=== PATIENT | male | born 1965 | race Caucasian/White ===

== ENCOUNTER 2016-10-23 09:23 | Emergency (ER) | payer MEDICAID ==
[~2016-10-23] VITALS: Ht 175.3 cm; Wt 81.7 kg
[~2016-10-23 09:23] MED LIST: ACHD5005 PO; ACYC800T PO; ALBU17AE23 IH; AMOX500C2 PO; ATEN100T88 PO; BLOOD PRESSURE PILL; CIPR500S2 PO; CLAR-19 PO; CYCL10TA45 PO; DCS100C PO; HC2.5C30 EXT; HSCO125 PO; HYDR-2890 PO; HYDR-34 PO; HYDR-3812 PO; HYDR1TAB86 PO; HYDROCODONE 5/500; HYOS0.1217 PO; HYOS0.127 SL; IBUP-1773 PO; IBUP-1780 PO; INHALER; LEVO750T6 PO; LORA10TA7 PO; MELO-195 PO; METR500T PO; NAPR-243 PO; OLOP5DRO7 OU; OMEP-10 PO; PAIN PILL; PANT40TA PO; PANT40TA2 PO; PHEN100C11 PO; PHEN100T26 PO; PHEN200T27 PO; PNT40TEC PO; PRD20T PO; RT-ALBUINH IH; RT-ALBUINH INH; SCR1T PO; SULF-222 PO; SULF1TAB38 PO; TRAM50TA2 PO; TRAZ150T42 PO; TRM50TRX; [UNRECOGNIZED DRUG - REMARK]
--- OUTSIDE RECORDS SUMMARY | 2016-10-23 09:30 | XMS REPORT | Continuity of Care Document ---
Author Author [facility] Organization [facility] Address Unknown Phone Unavailable Care Team Providers Care Electrical Tryout Person Name Role Phone Database, Not In PCP Unavailable Source Comments Some departments are not documenting in the electronic medical record. If you do not see the information that you expected, contact Release of Information in the Health Information Management department at [phone] for further assistance in locating additional records.[facility] Active Allergies and Adverse Reactions Not on File Current Medications Not on file Active Problems Not on file Social History Tobacco Use Types Packs/Day Years Used Date Never Assessed Plan of Care Health Maintenance Due Date Last Done Comments Physical (Comprehensive) 1973 Exam Pertussis Vaccine 1977 Tetanus Vaccine 1983 Influenza Vaccine 05/25/2015 Results from Last 3 Months Not on file
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
[2016-10-23] MEDS ORDERED: DICL50TA4 PO (10:48)
[2016-10-23 10:55] VITALS: BP 142/98
== END 2016-10-23 10:54 | disposition home or self-care (01) ==
LOC: EDUNIT# 09:23 → ER 09:26
DX: R51 Headache (principal); H70.12 Chronic mastoiditis, left ear; I10 Essential (primary) hypertension; J44.9 Chronic obstructive pulmonary disease, unspecified; F17.210 Nicotine dependence, cigarettes, uncomplicated; Z79.899 Other long term (current) drug therapy
CPT/HCPCS: 70450

== ENCOUNTER 2017-04-28 13:37 | Emergency (ER) | payer MEDICAID ==
[~2017-04-28] VITALS: Ht 175.3 cm; Wt 74.8 kg
[~2017-04-28 13:37] MED LIST changes: +DICL50TA4 PO
[2017-04-28] MEDS ORDERED: KETOROLAC 60 MG/2 ML VIAL IM ONE (14:00)
[2017-04-28 14:04] LABS: BILIRUBIN,URINE NEGATIVE (NEGATIVE); KETONES,URINE NEGATIVE (NEGATIVE); LEUKOCYTE ESTERASE ,URINE 1+ (NEGATIVE); NITRITE,URINE NEGATIVE (NEGATIVE); PH,URINE 6 (5-9); PROTEIN,URINE NEGATIVE (NEGATIVE); UROBILINOGEN,URINE NORMAL (NORMAL)
[2017-04-28 14:08] LABS: BASOPHILS # (AUTO) 0.1 10^3/uL (0.0-0.1); BASOPHILS % (AUTO) 1 % (0-10); EOSINOPHILS # (AUTO) 0.1 10^3/uL (0.0-0.3); EOSINOPHILS % (AUTO) 1 % (0-10); LYMPHOCYTES # (AUTO) 1.8 X 10^3 (1.0-4.0); LYMPHOCYTES % (AUTO) 29 % (12-44); MEAN CORPUSCULAR HEMOGLOBIN 32 PG (25-34); MEAN CORPUSCULAR HGB CONC 34 G/DL (32-36); MEAN CORPUSCULAR VOLUME 95 FL (80-99); MEAN PLATELET VOLUME 9.9 FL (7.4-10.4); MONOCYTES # (AUTO) 0.7 X 10^3 (0.0-1.0); MONOCYTES % (AUTO) 11 % (0-12); NEUTROPHILS # (AUTO) 3.6 X 10^3 (1.8-7.8); NEUTROPHILS % (AUTO) 58 % (42-75); PLATELET COUNT 207 10^3/uL (130-400); RED BLOOD COUNT 5.08 10^6/uL (4.35-5.85); RED CELL DISTRIBUTION WIDTH 13.5 % (10.0-14.5); WHITE BLOOD COUNT 6.2 10^3/uL (4.3-11.0)
[2017-04-28 14:20] LABS: WBC,URINE 0-2 /HPF
[2017-04-28 14:25] LABS: ALANINE AMINOTRANSFERASE 17 U/L (0-55); ALBUMIN 4.3 GM/DL (3.2-4.5); ANION GAP 10 MMOL/L (5-14); ASPARTATE AMINO TRANSFERASE 19 U/L (5-34); BILIRUBIN,TOTAL 0.6 MG/DL (0.1-1.0); BLOOD UREA NITROGEN 11 MG/DL (7-18); BUN/CREATININE RATIO 13; CALCIUM 9.6 MG/DL (8.5-10.1); CARBON DIOXIDE 27 MMOL/L (21-32); CHLORIDE 101 MMOL/L (98-107); CREATININE SERUM 0.84 MG/DL (0.60-1.30); GFR ESTIMATED > 60; GLUCOSE 108 MG/DL (70-105); POTASSIUM 4.1 MMOL/L (3.6-5.0); SODIUM 138 MMOL/L (135-145); TOTAL PROTEIN 7.1 GM/DL (6.4-8.2)
--- NOTE | 2017-04-28 14:53 | Diagnostic Imaging Report ---
PROCEDURE: CT urinary tract, rule out kidney stone. TECHNIQUE: Multiple contiguous axial images were obtained through the abdomen and pelvis without the use of intravenous contrast. INDICATION: Right-sided abdominal pain. COMPARISON: 05/22/2011. FINDINGS: Benign liver cysts are seen in the left hepatic lobe. The lung bases are clear. The gallbladder, spleen, pancreas, adrenal glands, kidneys and vascular structures are grossly normal. The course and caliber of the large and small bowel is normal. The appendix is not identified. However, there are no obvious inflammatory changes in the right lower quadrant. The distal ureters and urinary bladder are normal. The prostate is not enlarged. Osseous structures are grossly unremarkable. IMPRESSION: No acute abnormalities within the abdomen or pelvis. Specifically no renal calculi. Dictated by: Dictated on workstation # [id number]
[2017-04-28] MEDS ORDERED: DICL50TA4 PO ×2 (15:03→15:21)
[2017-04-28] MEDS ORDERED: METH-313 PO ×2 (15:03→15:21)
--- NOTE | 2017-04-28 15:04 | ED Back Pain ---
General Chief Complaint: Abdominal/GI Problems Stated Complaint: R SIDE PAIN, [facility] Nursing Triage Note: ADM TO ED C/O R FLANK PAIN FOR 1 MONTH. WAS SEEN BY [facility] TODAY AND TOLD TO COME TO ER. Nursing Sepsis Screen: No Definite Risk Source of Information: Patient, RN Notes Reviewed Exam Limitations: No Limitations History of Present Illness Time Seen by Provider: 13:42 Initial Comments Patient presents to the ED c/ c/o right flank pain x 1 month. Patient states his PCP @ [facility] sent him to the ED to be evaluated for a kidney stone. Patient unaware of any injury. No known fever. Patient not the best historian. Timing/Duration: Other (1 month) Severity: Severe Pain/Injury Location: Back (right flank) Radiation: Other (none) Method of Injury: Unknown Modifying Factors: Improves With Other (none) Associated Symptoms: denies symptoms Allergies and Home Medications Allergies Coded Allergies: tramadol (Unverified Allergy, Unknown, 02/11/14) Home Medications Albuterol Sulfate 18 Gm Hfa.aer.ad, 2 PUFF INH QID PRN for SHORTNESS OF BREATH, (Reported) Albuterol Sulfate 8.5 Gm Hfa.aer.ad, 1-2 PUFF IH Q4H PRN for WHEEZING, #1 Ref 1 Prescribed by: DUGLAS VILLASENOR on 08/31/16 0930 Diclofenac Potassium 50 Mg Tablet, 50 MG PO Q8H PRN for flank pain, #30 Ref 0 Prescribed by: MAXINE MAGANA on 04/28/17 1503 Diclofenac Potassium 50 Mg Tablet, 50 MG PO Q6H PRN for HEADACHE, #30 Ref 0 Prescribed by: MAXINE MAGANA on 04/28/17 1521 Loratadine 10 Mg Tablet, 10 MG PO DAILY, (Reported) Methocarbamol 750 Mg Tablet, 1,500 MG PO TID PRN for flank pain, #60 Ref 0 Prescribed by: MAXINE MAGANA on 04/28/17 1521 Olopatadine HCl 5 Ml Drops, 1 DROP OU BID, (Reported) Phenytoin Sodium Extended 100 Mg Capsule, 300 MG PO DAILY, #42 Prescribed by: CELIA URIOSTEGUI on 07/06/16 1334 Prednisone 20 Mg Tab, 40 MG PO DAILY, #10 Prescribed by: DUGLAS VILLASENOR on 08/31/16 0930 Constitutional: see HPI Musculoskeletal: see HPI, back pain (right flank) All Other Systems Reviewed Negative Unless Noted: Yes Past Yictfok-Tbbuzb-Xmqfag Hx Patient Social History Alcohol Use: Past History Recreational Drug Use: Yes (TOBACCO) Smoking Status: Current Everyday Smoker Type Used: Cigarettes Recent Foreign Travel: No Contact w/Someone Who Travel: No Recent Infectious Disease Expo: No Recent Hopitalizations: No Immunizations Up To Date Date of Pneumonia Vaccine: Jul 06, 2011 Date of Influenza Vaccine: Jul 06, 2016 Seasonal Allergies Seasonal Allergies: Yes Surgeries HX Surgeries: Yes (POOR HISTORIAN) Surgeries: Abdominal Respiratory Hx Respiratory Disorders: Yes Respiratory Disorders: Asthma, COPD Cardiovascular Hx Cardiac Disorders: Yes Cardiac Disorders: Hypertension Neurological Hx Neurological Disorders: No Reproductive System Hx Reproductive Disorders: No Genitourinary Hx Genitourinary Disorders: No Gastrointestinal Hx Gastrointestinal Disorders: Yes (history of H. pylori) Gastrointestinal Disorders: Hemorrhoids Musculoskeletal Hx Musculoskeletal Disorders: No Endocrine Hx Endocrine Disorders: No HEENT HX ENT Disorders: No Cancer Hx Cancer: No Psychosocial Hx Psychiatric Problems: No Integumentary HX Skin/Integumentary Disorder: No Blood Transfusions Hx Blood Disorders: No Family Medical History Significant Family History: No Pertinent Family Hx Physical Exam Vital Signs Vital Sign - Last 12Hours 04/28/17 13:38 Temp 97.0 Pulse 88 Resp 18 B/P (MAP) 117/90 Pulse Ox 98 O2 Delivery Room Air Capillary Refill : Less Than 3 Seconds General Appearance: WD/WN, Other (no acute distress noted when he thinks no one is watching him, but jumps up and grabs his right side and leans over the ED cot,, or counter in apparent acute distress.) Cardiovascular: Regular Rate, Rhythm Respiratory: No Respiratory Distress Back: Other (markedly exaggerated response to palpation or percussion over his right flank that is non reproducible.) Neurologic/Psychiatric: Alert, Oriented x3, No Motor/Sensory Deficits, Normal Mood/Affect, Other (when asked if he was allergic to anything, he replied women. ) Skin: Normal Color, Warm/Dry Progress/Results/Core Measures Results/Orders Lab Results Laboratory Tests Test 04/28/17 13:59 04/28/17 14:01 Range/Units Urine Color YELLOW Urine Clarity CLEAR Urine pH 6 5-9 Urine Specific [place] 1.010 L 1.016-1.022 Urine Protein NEGATIVE NEGATIVE Urine Glucose (UA) NEGATIVE NEGATIVE Urine Ketones NEGATIVE NEGATIVE Urine Nitrite NEGATIVE NEGATIVE Urine Bilirubin NEGATIVE NEGATIVE Urine Urobilinogen NORMAL NORMAL MG/DL Urine Leukocyte Esterase 1+ H NEGATIVE Urine RBC (Auto) NEGATIVE NEGATIVE Urine RBC NONE /HPF Urine WBC 0-2 /HPF Urine Squamous Epithelial Cells NONE /HPF Urine Crystals NONE /LPF Urine Bacteria NEGATIVE /HPF Urine Casts NONE /LPF Urine Mucus NEGATIVE /LPF Urine Culture Indicated NO White Blood Count 6.2 4.3-11.0 10^3/uL Red Blood Count 5.08 4.35-5.85 10^6/uL Hemoglobin 16.1 13.3-17.7 G/DL Hematocrit 48 40-54 % Mean Corpuscular Volume 95 80-99 FL Mean Corpuscular Hemoglobin 32 25-34 PG Mean Corpuscular Hemoglobin Concent 34 32-36 G/DL Red Cell Distribution Width 13.5 10.0-14.5 % Platelet Count 207 130-400 10^3/uL Mean Platelet Volume 9.9 7.4-10.4 FL Neutrophils (%) (Auto) 58 42-75 % Lymphocytes (%) (Auto) 29 12-44 % Monocytes (%) (Auto) 11 0-12 % Eosinophils (%) (Auto) 1 0-10 % Basophils (%) (Auto) 1 0-10 % Neutrophils # (Auto) 3.6 1.8-7.8 X 10^3 Lymphocytes # (Auto) 1.8 1.0-4.0 X 10^3 Monocytes # (Auto) 0.7 0.0-1.0 X 10^3 Eosinophils # (Auto) 0.1 0.0-0.3 10^3/uL Basophils # (Auto) 0.1 0.0-0.1 10^3/uL Sodium Level 138 135-145 MMOL/L Potassium Level 4.1 3.6-5.0 MMOL/L Chloride Level 101 98-107 MMOL/L Carbon Dioxide Level 27 21-32 MMOL/L Anion Gap 10 5-14 MMOL/L Blood Urea Nitrogen 11 7-18 MG/DL Creatinine 0.84 0.60-1.30 MG/DL Estimat Glomerular Filtration Rate > 60 BUN/Creatinine Ratio 13 Glucose Level 108 H 70-105 MG/DL Calcium Level 9.6 8.5-10.1 MG/DL Total Bilirubin 0.6 0.1-1.0 MG/DL Aspartate Amino Transf (AST/SGOT) 19 5-34 U/L Alanine Aminotransferase (ALT/SGPT) 17 0-55 U/L Alkaline Phosphatase 63 40-136 U/L Total Protein 7.1 6.4-8.2 GM/DL Albumin 4.3 3.2-4.5 GM/DL My Orders Orders - MAXINE MAGANA DO Cbc With Automated Diff (04/28/17 13:50) Comprehensive Metabolic Panel (04/28/17 13:50) Ua Culture If Indicated (04/28/17 13:50) Ketorolac Injection (Toradol Injection) (04/28/17 14:00) Ct Abd/Pelvis Wo(Kidney Stone) (04/28/17 13:51) Im/Sub-Q Injection Non-Ab Ed (04/28/17 ) Medications Given in ED Vital Signs/I&O Vital Sign - Last 12Hours 04/28/17 04/28/17 13:38 15:11 Temp 97.0 97.0 Pulse 88 88 Resp 18 18 B/P (MAP) 117/90 Pulse Ox 98 98 O2 Delivery Room Air Blood Pressure Mean: 99 Diagnostic Imaging Diagonstic Imaging: CT Plain Films/CT/US/NM/MRI: abdomen, pelvis Reviewed: Reviewed/Discussed (nothing acute per radiologist) Departure Impression Impression: Primary Impression: Right flank pain of UDE Disposition: 01 HOME, SELF-CARE Condition: Stable Departure-Patient Inst. Decision time for Depature: 15:01 Referrals: VICKI GALLAGHER MD (PCP/Family) Primary Care Physician Patient Instructions: Flank Pain (DC) Scripts Methocarbamol (Robaxin-750) 750 Mg Tablet 1500 MG PO TID Y for flank pain, #60 TAB 0 Refills Prov: MAXINE MAGANA DO 04/28/17 Diclofenac Potassium (Diclofenac Potassium) 50 Mg Tablet 50 MG PO Q6H Y for HEADACHE, #30 TAB 0 Refills Prov: MAXINE MAGANA DO 04/28/17 Diclofenac Potassium (Diclofenac Potassium) 50 Mg Tablet 50 MG PO Q8H Y for flank pain, #30 TAB 0 Refills Prov: MAXINE MAGANA DO 04/28/17 MAXINE MAGANA DO Apr 28, 2017 15:04
[2017-04-28 15:11] VITALS: BP 117/90
== END 2017-04-28 15:11 | disposition home or self-care (01) ==
LOC: EDUNIT# 13:37 → ER 13:38
DX: R10.9 Unspecified abdominal pain (principal); J44.9 Chronic obstructive pulmonary disease, unspecified; I10 Essential (primary) hypertension; F17.210 Nicotine dependence, cigarettes, uncomplicated; Z87.19 Personal history of other diseases of the digestive system; Z98.890 Other specified postprocedural states
CPT/HCPCS: 36415; 74176; 80053; 81000; 85025; 96372; 99284

== ENCOUNTER 2017-07-17 20:17 | Emergency (ER) | payer MEDICAID ==
[~2017-07-17] VITALS: Ht 175.3 cm; Wt 74.9 kg
[~2017-07-17 20:17] MED LIST changes: +METH-313 PO
--- OUTSIDE RECORDS SUMMARY | 2017-07-17 20:22 | XMS REPORT | Clinical Summary ---
Author Author [facility] Organization [facility] Address Unknown Phone Unavailable Care Team Providers Care Airline Stewardess Name Role Phone PCP Unavailable Source Comments Some departments are not documenting in the electronic medical record. If you do not see the information that you expected, contact Release of Information in the Health Information Management department at [phone] for further assistance in locating additional records.[facility] Allergies Not on File Current Medications Not on file Active Problems Not on file Social History Tobacco Use Types Packs/Day Years Used Date Never Assessed Sex Assigned at Date Recorded Not on file Last Filed Vital Signs Not on file Plan of Treatment Health Maintenance Due Date Last Done Comments PHYSICAL (COMPREHENSIVE) 1973 EXAM PERTUSSIS VACCINE 1977 TETANUS VACCINE 1983 COLORECTAL CANCER 2016 SCREENING INFLUENZA VACCINE 04/24/2017 Results Not on filefrom Last 3 Months
--- OUTSIDE RECORDS SUMMARY | 2017-07-17 20:22 | XMS REPORT ---
Author Author NILTON GOYAL Organization [facility] Address [address] [place] [address] Care Team Providers Care Classer Name Role Phone NILTON GOYAL Unavailable PROBLEMS Type Condition ICD9-CM Code [id number] Code Onset Dates Condition Status SNOMED Code Problem Unspecified arthropathy, site unspecified 716.90 Active 519227843 Problem Depression, unspecified depression type F32.9 Active 58971564 Problem Insomnia, unspecified 780.52 Active 999937750 Problem Unspecified essential hypertension 401.9 Active 85416865 Problem Asthma, unspecified, unspecified status 493.90 Active 49620669 Problem Essential hypertension I10 Active 95114668 Problem Chronic pain syndrome G89.4 Active 320457421 Problem Alcohol abuse F10.10 Active 56643135 Problem Chronic obstructive pulmonary disease, unspecified COPD type J44.9 Active 99560787 Problem Adjustment disorder with depressed mood F43.21 Active 48354193 Problem Alcohol abuse, unspecified F10.10 Active 42333701 ALLERGIES Unknown Allergies SOCIAL HISTORY No smoking Hx information available PLAN OF CARE VITAL SIGNS MEDICATIONS Unknown Medications RESULTS No Results PROCEDURES No Known procedures IMMUNIZATIONS No Known Immunizations
--- OUTSIDE RECORDS SUMMARY | 2017-07-17 20:23 | XMS REPORT ---
Author Author VICKI GALLAGHER Organization [facility] [place] Address [address] [place] [address] Care Team Providers Care Car Seat Coverer Name Role Phone VICKI GALLAGHER Unavailable PROBLEMS Type Condition ICD9-CM Code [id number] Code Onset Dates Condition Status SNOMED Code Problem Asthma, unspecified, unspecified status 493.90 Active 52144917 Problem Depression, unspecified depression type F32.9 Active 86271244 Problem Unspecified essential hypertension 401.9 Active 15324925 Problem Insomnia, unspecified 780.52 Active 675555410 Problem Unspecified arthropathy, site unspecified 716.90 Active 369428445 Problem Essential hypertension I10 Active 10296180 Problem Chronic pain syndrome G89.4 Active 298676410 Problem Alcohol abuse F10.10 Active 40750371 Problem Chronic obstructive pulmonary disease, unspecified COPD type J44.9 Active 39621960 Problem Adjustment disorder with depressed mood F43.21 Active 37510488 Problem Alcohol abuse, unspecified F10.10 Active 82240452 ALLERGIES Substance Reaction Event Type Date Status Naproxen 500 Mg Tablet Unknown Non Drug Allergy Nov, Active SOCIAL HISTORY Never Assessed PLAN OF CARE Activity Details Follow Up 3 Months with [facility] for f/u shoulder pain Reason: VITAL SIGNS Height 69.5 in 2016-11-27 Weight 167 lbs 2016-11-27 Temperature 98.2 degrees Fahrenheit 2016-11-27 Heart Rate 90 bpm 2016-11-27 Respiratory Rate 20 2016-11-27 BMI 24.31 kg/m2 2016-11-27 Blood pressure systolic 100 mmHg 2016-11-27 Blood pressure diastolic 64 mmHg 2016-11-27 MEDICATIONS Medication Instructions Dosage Frequency Start Date End Date Duration Status Ventolin HFA 90 mcg/actuation Inhalation every 4-6 hours as needed 2 puffs as needed Oct, 30 days Active Symbicort 160-4.5 MCG/ACT Inhalation Twice a day 2 puffs 12h 11 Sep, 2016 Active Hydrocodone-Acetaminophen 5-325 MG Orally every 8 hrs 1 tablet as needed 8h 10 Sep, 2016 Active Naltrexone HCl 50 MG Orally Once a day 1 tablet 24h 30 Active Divalproex Sodium 500 MG Orally Once a day 2 tablets at bedtime 24h Active Fluticasone Propionate 50 MCG/ACT Nasally Once a day 1-2 spray in each nostril 24h Active Cyclobenzaprine HCl 10 mg Orally every night before bed 1 tablet Aug, Active RESULTS No Results PROCEDURES Procedure Date Ordered Result Body Site DRAIN/INJECT, JOINT/BURSA November 27, 2016 KENALOG 10 MG/ML (PER 10 MG) November 27, 2016 IMMUNIZATIONS No Known Immunizations MEDICAL (GENERAL) HISTORY Type Description Date Medical History Hypertension Medical History Asthma Medical History Alcohol abuse Surgical History EGD Hospitalization History Alcohol abuse 07/2016
--- OUTSIDE RECORDS SUMMARY | 2017-07-17 20:23 | XMS REPORT ---
Author Author VIKRAM MUNOZ Organization [facility] Address [address] [place] [address] Care Team Providers Care Imaging Scheduler Name Role Phone ALEXANDERNISREENAN Unavailable PROBLEMS Type Condition ICD9-CM Code [id number] Code Onset Dates Condition Status SNOMED Code Problem Asthma, unspecified, unspecified status 493.90 Active 72488302 Problem Depression, unspecified depression type F32.9 Active 44878181 Problem Unspecified essential hypertension 401.9 Active 77208996 Problem Insomnia, unspecified 780.52 Active 287272697 Problem Unspecified arthropathy, site unspecified 716.90 Active 365139399 Problem Essential hypertension I10 Active 65113721 Problem Chronic pain syndrome G89.4 Active 456589851 Problem Alcohol abuse F10.10 Active 41845984 Problem Chronic obstructive pulmonary disease, unspecified COPD type J44.9 Active 27170823 Problem Adjustment disorder with depressed mood F43.21 Active 69288639 Problem Alcohol abuse, unspecified F10.10 Active 76348315 ALLERGIES No Information SOCIAL HISTORY Never Assessed PLAN OF CARE Activity Details Follow Up 1-2 Weeks Reason:F/U PT VITAL SIGNS MEDICATIONS Unknown Medications RESULTS No Results PROCEDURES Procedure Date Ordered Result Body Site THERAPEUTIC EXERCISES Nov 13, 2016 PT EVAL MOD COMPLEX 30 MIN Nov 13, 2016 IMMUNIZATIONS No Known Immunizations MEDICAL (GENERAL) HISTORY Type Description Date Medical History Hypertension Medical History Asthma Medical History Alcohol abuse Surgical History EGD Hospitalization History Alcohol abuse 07/2016
--- OUTSIDE RECORDS SUMMARY | 2017-07-17 20:23 | XMS REPORT ---
Author Author JUAN MERCHANT [employer] Address Unknown Phone Unavailable Care Team Providers Care Electrical Engineering Draftsperson Name Role Phone JUAN MERCHANT CP Unavailable Allergies No Known Allergies Problems Problem Type Condition Code Onset Dates Condition Status Problem Alcohol abuse, unspecified F10.10 Active Problem Insomnia, unspecified 780.52 Active Problem Adjustment disorder with depressed mood F43.21 Active Problem Unspecified essential hypertension 401.9 Active Assessment Adjustment disorder with depressed mood F43.21 Active Problem Unspecified arthropathy, site unspecified 716.90 Active Problem Asthma, unspecified, unspecified status 493.90 Active Medications No Known Medications Procedures Procedure Coding System Code Date Psychotherapy, patient &/family, 30 minutes, established patient CPT-4 [id number] Aug 21, 2016 Results No Known Results Summary Purpose [employer] Submission
--- OUTSIDE RECORDS SUMMARY | 2017-07-17 20:23 | XMS REPORT ---
Author Author TIM Mcgill Organization [facility] Address [address] [place] [address] Care Team Providers Care Reflexologist Name Role Phone TIM Mcgill Unavailable PROBLEMS Type Condition ICD9-CM Code [id number] Code Onset Dates Condition Status SNOMED Code Problem Unspecified arthropathy, site unspecified 716.90 Active 392830088 Problem Depression, unspecified depression type F32.9 Active 88793830 Problem Insomnia, unspecified 780.52 Active 040631631 Problem Unspecified essential hypertension 401.9 Active 40675080 Problem Asthma, unspecified, unspecified status 493.90 Active 98047249 Problem Essential hypertension I10 Active 79647825 Problem Chronic pain syndrome G89.4 Active 575494617 Problem Alcohol abuse F10.10 Active 85318394 Problem Chronic obstructive pulmonary disease, unspecified COPD type J44.9 Active 65695508 Problem Adjustment disorder with depressed mood F43.21 Active 31851531 Problem Alcohol abuse, unspecified F10.10 Active 60462552 ALLERGIES Unknown Allergies SOCIAL HISTORY No smoking Hx information available PLAN OF CARE VITAL SIGNS MEDICATIONS Unknown Medications RESULTS No Results PROCEDURES No Known procedures IMMUNIZATIONS No Known Immunizations
--- OUTSIDE RECORDS SUMMARY | 2017-07-17 20:23 | XMS REPORT ---
Author Author VICKI GALLAGHER Organization [facility] Address [address] [place] [address] Care Team Providers Care Elevator Operator Freight Name Role Phone VICKI GALLAGHER Unavailable PROBLEMS Type Condition ICD9-CM Code KIX67-OO Code Onset Dates Condition Status SNOMED Code Problem Asthma, unspecified, unspecified status 493.90 Active 62880420 Problem Depression, unspecified depression type F32.9 Active 50568700 Problem Unspecified essential hypertension 401.9 Active 47269895 Problem Insomnia, unspecified 780.52 Active 824879251 Problem Unspecified arthropathy, site unspecified 716.90 Active 046287775 Problem Essential hypertension I10 Active 45067482 Problem Chronic pain syndrome G89.4 Active 475557510 Problem Alcohol abuse F10.10 Active 84313540 Problem Chronic obstructive pulmonary disease, unspecified COPD type J44.9 Active 66409491 Problem Adjustment disorder with depressed mood F43.21 Active 35344210 Problem Alcohol abuse, unspecified F10.10 Active 94263170 ALLERGIES No Information SOCIAL HISTORY Never Assessed PLAN OF CARE VITAL SIGNS MEDICATIONS Medication Instructions Dosage Frequency Start Date End Date Duration Status Hydrocodone-Acetaminophen 5-325 MG Orally every 8 hrs 1 tablet as needed 8h 10 Sep, 2016 Active Cyclobenzaprine HCl 10 mg Orally every night before bed 1 tablet Aug, Active RESULTS No Results PROCEDURES No Known procedures IMMUNIZATIONS No Known Immunizations MEDICAL (GENERAL) HISTORY Type Description Date Medical History Hypertension Medical History Asthma Medical History Alcohol abuse Surgical History EGD Hospitalization History Alcohol abuse 07/2016
--- OUTSIDE RECORDS SUMMARY | 2017-07-17 20:24 | XMS REPORT ---
Author Author VICKI GALLAGHER Organization [facility] Address [address] [place] [address] Care Team Providers Care Toppiece Cutter Name Role Phone VICKI GALLAGHER Unavailable PROBLEMS Type Condition ICD9-CM Code RPN05-ZZ Code Onset Dates Condition Status SNOMED Code Problem Asthma, unspecified, unspecified status 493.90 Active 37009087 Problem Depression, unspecified depression type F32.9 Active 87105041 Problem Unspecified essential hypertension 401.9 Active 75702768 Problem Insomnia, unspecified 780.52 Active 477524419 Problem Unspecified arthropathy, site unspecified 716.90 Active 146990875 Problem Essential hypertension I10 Active 93659364 Problem Chronic pain syndrome G89.4 Active 994358934 Problem Alcohol abuse F10.10 Active 96470080 Problem Chronic obstructive pulmonary disease, unspecified COPD type J44.9 Active 95515939 Problem Adjustment disorder with depressed mood F43.21 Active 96296046 Problem Alcohol abuse, unspecified F10.10 Active 35014649 ALLERGIES Unknown Allergies SOCIAL HISTORY No smoking Hx information available PLAN OF CARE VITAL SIGNS MEDICATIONS Medication Instructions Dosage Frequency Start Date End Date Duration Status Ventolin HFA 90 mcg/actuation Inhalation every 4-6 hours as needed 2 puffs as needed Oct, 30 days Active RESULTS No Results PROCEDURES No Known procedures IMMUNIZATIONS No Known Immunizations
--- OUTSIDE RECORDS SUMMARY | 2017-07-17 20:24 | XMS REPORT ---
Author Author VICKI GALLAGHER Organization [employer] Address Unknown Phone Unavailable Care Team Providers Care Speech Coach Name Role Phone VICKI GALLAGHER CP Unavailable Allergies, Adverse Reactions, Alerts Substance Reaction Event Type Naproxen 500 Mg Tablet Info Not Available Non Drug Allergy Problems Problem Type Condition Code Onset Dates Condition Status Assessment Alcohol abuse F10.10 Active Problem Asthma, unspecified, unspecified status 493.90 Active Problem Unspecified essential hypertension 401.9 Active Assessment Depression, unspecified depression type F32.9 Active Assessment Chronic obstructive pulmonary disease, unspecified COPD type J44.9 Active Problem Alcohol abuse, unspecified F10.10 Active Problem Alcohol abuse F10.10 Active Problem Adjustment disorder with depressed mood F43.21 Active Problem Insomnia, unspecified 780.52 Active Problem Unspecified arthropathy, site unspecified 716.90 Active Problem Chronic obstructive pulmonary disease, unspecified COPD type J44.9 Active Problem Depression, unspecified depression type F32.9 Active Medications Medication Code System Code Instructions Start Date End Date Status Dosage Ventolin HFA [facility] [address]-56 90 mcg/actuation Nov 07, 2012 inhale 1 puff by inhalation route every 6 hours as needed PRN Naltrexone HCl [facility] [address]-33 50 MG Orally Once a day 1 tablet Divalproex Sodium [facility] [address]-93 500 MG Orally Once a day 2 tablets at bedtime Procedures Procedure Coding System Code Date Office Visit, Est Pt., Level 4 CPT-4 58677 Aug 22, 2016 Vital Signs Date/Time: Aug 22, 2016 Cardiac Monitoring Heart Rate 88 bpm Weight 167.2 lbs Height 69.5 in BMI 24.33 Index Blood Pressure Diastolic 88 mmHg Blood Pressure Systolic 124 mmHg Results No Known Results Summary Purpose [employer] Submission
--- OUTSIDE RECORDS SUMMARY | 2017-07-17 20:24 | XMS REPORT ---
Author Author VICKI GALLAGHER Organization [facility] [place] Address [address] [place] [address] Care Team Providers Care Pepper Cutter Name Role Phone VICKI GALLAGHER Unavailable PROBLEMS Type Condition ICD9-CM Code FOX91-UL Code Onset Dates Condition Status SNOMED Code Problem Unspecified arthropathy, site unspecified 716.90 Active 739349579 Problem Depression, unspecified depression type F32.9 Active 24090875 Problem Insomnia, unspecified 780.52 Active 316661707 Problem Unspecified essential hypertension 401.9 Active 00837862 Problem Asthma, unspecified, unspecified status 493.90 Active 41297284 Problem Essential hypertension I10 Active 71547128 Problem Chronic pain syndrome G89.4 Active 890717033 Problem Alcohol abuse F10.10 Active 23408107 Problem Chronic obstructive pulmonary disease, unspecified COPD type J44.9 Active 45505542 Problem Adjustment disorder with depressed mood F43.21 Active 06231270 Problem Alcohol abuse, unspecified F10.10 Active 57908970 ALLERGIES Unknown Allergies SOCIAL HISTORY No smoking Hx information available PLAN OF CARE VITAL SIGNS MEDICATIONS Medication Instructions Dosage Frequency Start Date End Date Duration Status Cyclobenzaprine HCl 10 mg Orally every night before bed 1 tablet Aug, Sep, 30 day(s) Active RESULTS No Results PROCEDURES No Known procedures IMMUNIZATIONS No Known Immunizations
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
--- OUTSIDE RECORDS SUMMARY | 2017-07-17 20:25 | XMS REPORT ---
Author Author TIM DUMONT Organization [facility] Address [address] [place] [address] Care Team Providers Care Costuming Supervisor Name Role Phone TIM DUMONT Unavailable PROBLEMS Type Condition ICD9-CM Code VEM56-VZ Code Onset Dates Condition Status SNOMED Code Problem Unspecified essential hypertension 401.9 Active 49525712 Problem Unspecified arthropathy, site unspecified 716.90 Active 388018990 Problem Asthma, unspecified, unspecified status 493.90 Active 19232124 Problem Adjustment disorder with depressed mood F43.21 Active 81689627 Problem Alcohol abuse, unspecified F10.10 Active 50280998 Problem Depression, unspecified depression type F32.9 Active 27214994 Problem Insomnia, unspecified 780.52 Active 630123104 Problem Alcohol abuse F10.10 Active 38830092 Problem Chronic obstructive pulmonary disease, unspecified COPD type J44.9 Active 14528574 ALLERGIES No Known Allergies SOCIAL HISTORY No smoking Hx information available PLAN OF CARE VITAL SIGNS MEDICATIONS No Known Medications RESULTS No Results PROCEDURES No Known procedures IMMUNIZATIONS No Known Immunizations
--- OUTSIDE RECORDS SUMMARY | 2017-07-17 20:25 | XMS REPORT ---
Author Author NILTON GOYAL Organization [facility] Address [address] [place] [address] Care Team Providers Care Edi Programmer Analyst Name Role Phone NILTON GOYAL Unavailable PROBLEMS Type Condition ICD9-CM Code OKU51-LK Code Onset Dates Condition Status SNOMED Code Problem Asthma, unspecified, unspecified status 493.90 Active 66549470 Problem Depression, unspecified depression type F32.9 Active 84451566 Problem Unspecified essential hypertension 401.9 Active 87613716 Problem Insomnia, unspecified 780.52 Active 607321809 Problem Unspecified arthropathy, site unspecified 716.90 Active 402377417 Problem Essential hypertension I10 Active 46043523 Problem Chronic pain syndrome G89.4 Active 739730522 Problem Alcohol abuse F10.10 Active 69058418 Problem Chronic obstructive pulmonary disease, unspecified COPD type J44.9 Active 05265225 Problem Adjustment disorder with depressed mood F43.21 Active 41260128 Problem Alcohol abuse, unspecified F10.10 Active 91191499 ALLERGIES Unknown Allergies SOCIAL HISTORY No smoking Hx information available PLAN OF CARE Activity Details Follow Up prn Reason: VITAL SIGNS MEDICATIONS Unknown Medications RESULTS No Results PROCEDURES Procedure Date Ordered Related Diagnosis Body Site AUDIT/DAST, 15-30 MIN Aug 21, 2016 IMMUNIZATIONS No Known Immunizations
--- OUTSIDE RECORDS SUMMARY | 2017-07-17 20:25 | XMS REPORT ---
Author Author VICKI GALLAGHER Organization [facility] Address [address] [place] [address] Care Team Providers Care Multilith Operator Name Role Phone VICKI GALLAGHER Unavailable PROBLEMS Type Condition ICD9-CM Code WEM95-OC Code Onset Dates Condition Status SNOMED Code Problem Asthma, unspecified, unspecified status 493.90 Active 25253748 Problem Depression, unspecified depression type F32.9 Active 64263578 Problem Unspecified essential hypertension 401.9 Active 83820171 Problem Insomnia, unspecified 780.52 Active 469244514 Problem Unspecified arthropathy, site unspecified 716.90 Active 388589853 Problem Essential hypertension I10 Active 89771480 Problem Chronic pain syndrome G89.4 Active 529173489 Problem Alcohol abuse F10.10 Active 20191459 Problem Chronic obstructive pulmonary disease, unspecified COPD type J44.9 Active 83745658 Problem Adjustment disorder with depressed mood F43.21 Active 33410590 Problem Alcohol abuse, unspecified F10.10 Active 66533924 ALLERGIES No Information SOCIAL HISTORY Never Assessed PLAN OF CARE VITAL SIGNS MEDICATIONS Unknown Medications RESULTS No Results PROCEDURES No Known procedures IMMUNIZATIONS No Known Immunizations MEDICAL (GENERAL) HISTORY Type Description Date Medical History Hypertension Medical History Asthma Medical History Alcohol abuse Surgical History EGD Hospitalization History Alcohol abuse 07/2016
--- OUTSIDE RECORDS SUMMARY | 2017-07-17 20:25 | XMS REPORT ---
Author Author VICKI GALLAGHER Organization [facility] [place] Address [address] [place] [address] Care Team Providers Care General Teller Name Role Phone VICKI GALLAGHER Unavailable PROBLEMS Type Condition ICD9-CM Code UAU47-WV Code Onset Dates Condition Status SNOMED Code Problem Unspecified arthropathy, site unspecified 716.90 Active 174558098 Problem Depression, unspecified depression type F32.9 Active 31772161 Problem Insomnia, unspecified 780.52 Active 139192500 Problem Unspecified essential hypertension 401.9 Active 16314075 Problem Asthma, unspecified, unspecified status 493.90 Active 32398859 Problem Essential hypertension I10 Active 66471468 Problem Chronic pain syndrome G89.4 Active 055290340 Problem Alcohol abuse F10.10 Active 18859647 Problem Chronic obstructive pulmonary disease, unspecified COPD type J44.9 Active 94878407 Problem Adjustment disorder with depressed mood F43.21 Active 09160216 Problem Alcohol abuse, unspecified F10.10 Active 61888948 ALLERGIES Unknown Allergies SOCIAL HISTORY No smoking Hx information available PLAN OF CARE VITAL SIGNS MEDICATIONS Unknown Medications RESULTS No Results PROCEDURES No Known procedures IMMUNIZATIONS No Known Immunizations
--- OUTSIDE RECORDS SUMMARY | 2017-07-17 20:25 | XMS REPORT ---
Author Author VICKI GALLAGHER Organization [facility] Address [address] [place] [address] Care Team Providers Care Cook Chef Name Role Phone VICKI GALLAGHER Unavailable PROBLEMS Type Condition ICD9-CM Code KQL09-TV Code Onset Dates Condition Status SNOMED Code Problem Asthma, unspecified, unspecified status 493.90 Active 65322809 Problem Depression, unspecified depression type F32.9 Active 31558301 Problem Unspecified essential hypertension 401.9 Active 62721728 Problem Insomnia, unspecified 780.52 Active 655140444 Problem Unspecified arthropathy, site unspecified 716.90 Active 943562877 Problem Essential hypertension I10 Active 84215889 Problem Chronic pain syndrome G89.4 Active 932679186 Problem Alcohol abuse F10.10 Active 77294554 Problem Chronic obstructive pulmonary disease, unspecified COPD type J44.9 Active 15622929 Problem Adjustment disorder with depressed mood F43.21 Active 65291573 Problem Alcohol abuse, unspecified F10.10 Active 19897314 ALLERGIES Unknown Allergies SOCIAL HISTORY No smoking Hx information available PLAN OF CARE VITAL SIGNS MEDICATIONS Medication Instructions Dosage Frequency Start Date End Date Duration Status Symbicort 160-4.5 MCG/ACT Inhalation Twice a day 2 puffs 12h 11 Sep, 2016 Active RESULTS No Results PROCEDURES No Known procedures IMMUNIZATIONS No Known Immunizations
--- OUTSIDE RECORDS SUMMARY | 2017-07-17 20:25 | XMS REPORT ---
Author Author VICKI GALLAGHER Organization [facility] Address [address] [place] [address] Care Team Providers Care Plant Pathology Teacher Name Role Phone VICKI GALLAGHER Unavailable PROBLEMS Type Condition ICD9-CM Code MYY63-RQ Code Onset Dates Condition Status SNOMED Code Problem Unspecified arthropathy, site unspecified 716.90 Active 571044023 Problem Depression, unspecified depression type F32.9 Active 06804349 Problem Insomnia, unspecified 780.52 Active 330607846 Problem Unspecified essential hypertension 401.9 Active 56254773 Problem Asthma, unspecified, unspecified status 493.90 Active 11936968 Problem Essential hypertension I10 Active 45553174 Problem Chronic pain syndrome G89.4 Active 766542319 Problem Alcohol abuse F10.10 Active 77425768 Problem Chronic obstructive pulmonary disease, unspecified COPD type J44.9 Active 67226401 Problem Adjustment disorder with depressed mood F43.21 Active 90171943 Problem Alcohol abuse, unspecified F10.10 Active 72121596 ALLERGIES Unknown Allergies SOCIAL HISTORY No smoking Hx information available PLAN OF CARE VITAL SIGNS MEDICATIONS Medication Instructions Dosage Frequency Start Date End Date Duration Status Cyclobenzaprine HCl 10 mg Orally every night before bed 1 tablet Aug, 30 day(s) Active RESULTS No Results PROCEDURES No Known procedures IMMUNIZATIONS No Known Immunizations
--- OUTSIDE RECORDS SUMMARY | 2017-07-17 20:26 | XMS REPORT ---
Author Author VICKI GALLAGHER Organization [facility] Address [address] [place] [address] Care Team Providers Care Accounting Clerk Name Role Phone VICKI GALLAGHER Unavailable PROBLEMS Type Condition ICD9-CM Code FNP22-KL Code Onset Dates Condition Status SNOMED Code Problem Unspecified essential hypertension 401.9 Active 50450797 Problem Unspecified arthropathy, site unspecified 716.90 Active 206088401 Problem Asthma, unspecified, unspecified status 493.90 Active 75808995 Assessment Strain of thoracic paraspinal muscles excluding T1 and T2 levels, initial encounter S29.012A Aug, Active 449615733 Problem Adjustment disorder with depressed mood F43.21 Active 04568072 Problem Alcohol abuse, unspecified F10.10 Active 15129107 Problem Depression, unspecified depression type F32.9 Active 43439581 Problem Insomnia, unspecified 780.52 Active 887776975 Problem Alcohol abuse F10.10 Active 07075035 Problem Chronic obstructive pulmonary disease, unspecified COPD type J44.9 Active 34387031 ALLERGIES Substance Reaction Event Type Date Status Naproxen 500 Mg Tablet Unknown Non Drug Allergy Aug, Active SOCIAL HISTORY No smoking Hx information available PLAN OF CARE VITAL SIGNS Height 69.5 in 2016-09-05 Weight 173 lbs 2016-09-05 Heart Rate 90 bpm 2016-09-05 Respiratory Rate 22 2016-09-05 BMI 25.18 kg/m2 2016-09-05 Blood pressure systolic 130 mmHg 2016-09-05 Blood pressure diastolic 80 mmHg 2016-09-05 MEDICATIONS Medication Instructions Dosage Frequency Start Date End Date Duration Status Fluticasone Propionate 50 MCG/ACT Nasally Once a day 1-2 spray in each nostril 24h Active Tramadol HCl 50 MG Orally every 8 hrs 1 tablet as needed 8h Aug, Sep, 1 month Active Naltrexone HCl 50 MG Orally Once a day 1 tablet 24h 30 Active Divalproex Sodium 500 MG Orally Once a day 2 tablets at bedtime 24h Active Ventolin HFA 90 mcg/actuation inhale 1 puff by inhalation route every 6 hours as needed PRN 14 Oct, 2012 Active RESULTS No Results PROCEDURES Procedure Date Ordered Related Diagnosis Body Site Office Visit, Est Pt., Level 4 Sep 05, 2016 IMMUNIZATIONS No Known Immunizations
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
[2017-07-17 21:33] VITALS: BP 156/125
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
== END 2017-07-17 21:34 | disposition home or self-care (01) ==
LOC: EDUNIT# 20:17 → ER 20:18
DX: S93.401A Sprain of unspecified ligament of right ankle, initial encounter (principal); J44.9 Chronic obstructive pulmonary disease, unspecified; I10 Essential (primary) hypertension; Z87.19 Personal history of other diseases of the digestive system; V18.4XXA Pedal cycle driver injured in noncollision transport accident in traffic accident, initial encounter
CPT/HCPCS: 73610; 73630; 99283

== ENCOUNTER 2017-10-04 05:38 | Outpatient (CLI) | payer MEDICAID ==
[~2017-10-04] VITALS: Ht 175.3 cm; Wt 74.9 kg
[~2017-10-04 05:38] MED LIST changes: -HYDR-3812 PO
== END 2017-10-04 10:21 ==
LOC: PREOP 05:38
PROVIDERS: ATTEND Surgery
DX: Z01.818 Encounter for other preprocedural examination (principal); R13.10 Dysphagia, unspecified

== ENCOUNTER 2017-10-05 11:24 | Day surgery (SDC) | payer MEDICAID ==
[2017-10-05] MEDS ORDERED: NS IV 500 ML 500 ML IV PRN (11:28)
[2017-10-05 11:30] VITALS: BP 154/86
[2017-10-05] MEDS ORDERED: LIDOCAINE JELLY 2% (XYLOCAINE) 5 ML TUBE MM PRN (11:30)
[2017-10-05] MEDS ORDERED: HURRICAINE EXT TUBE (BENZOCAINE) XX PRN (11:30)
--- NOTE | 2017-10-05 11:39 | Progress Note-Pre Operative ---
Pre-Operative Progress Note H&P Reviewed The H&P was reviewed, patient examined and no changes noted. Date Seen by Provider: Oct 05, 2017 Time Seen by Provider: 11:30 Date H&P Reviewed: Oct 05, 2017 Time H&P Reviewed: 11:30 Pre-Operative Diagnosis: recurrent dyspagia, GERD LESTER HOWELL MD Oct 05, 2017 11:39 am
--- NOTE | 2017-10-05 11:39 | Conscious Sedation/ASA ---
Conscious Sedation Pre-Proced Time Reviewed: 11:30 ASA Class: 2 Airway Mallampati Classification: (osage appropriate class) I. II. III, IV Lungs Heart ASA score ASA 1: a normal healthy patient ASA 2: a patient with a mild systemic disease (mid diabetes, controlled hypertension, obesity ASA 3: a patient with a severe systemic disease that limits activity (angina , COPD, prior Myocardial infarction) ASA 4: a patient with an incapacitating disease that is a constant threat to life (CHF, renal failure) ASA 5: a moribund patient not expected to survive 24 hrs. (ruptured aneurysm) ASA 6: a declared brain patient whose organs are being harvested. For emergent operations, add the letter E after the classification Grade 2 Sedation Plan: Analgesia, Amnesia, Plan communicated to team members, Discussed options with patient/fam, Discussed risks with patient/fam Note The patient is an appropriate candidate to undergo the planned procedure, sedation, and anesthesia. The patient immediately re-assessed prior to indication. LESTER HOWELL MD Oct 05, 2017 11:39 am
--- NOTE | 2017-10-05 11:42 | Discharge Inst-Surgical ---
D/C Lap Instructions-LYNDA Follow Up PRN Activity as tolerated High Fiber Diet 25g or more per day Avoid Alcohol, Caffeine, Spicy [place] and Acid foods. Drink 64 fluid oz or more of fluids per day. Symptoms to Report: Fever over 101 degree F, Nausea/Vomiting If any problems/questions: Contact your physician or go to Emergency Room LESTER HOWELL MD Oct 05, 2017 11:42 am
[2017-10-05] MEDS ORDERED: HYDROcodone/APAP 5 MG/325 MG (LORTAB) TAB PO PRN (11:45)
[2017-10-05] MEDS ORDERED: ONDANSETRON 4 MG/2 ML (SDV) Z0FRAN IV PRN (11:45)
[2017-10-05] MEDS ORDERED: morphine INJ 10 MG/ML 1ML (SYR OR VIAL) IV PRN (11:45)
[2017-10-05] MEDS ORDERED: ACETAMINOPHEN 325 MG TABLET/CAPLET (TYLENOL) PO PRN (11:45)
[2017-10-05] MEDS: fentaNYL INJECTION 100 MCG/2 ML AMP IVP PRN ×2 (11:52→11:55)
[2017-10-05] MEDS: MIDAZOLAM 2 MG/2 ML (VERSED) VIAL IVP PRN ×3 (11:54→11:58)
--- OUTSIDE RECORDS SUMMARY | 2017-10-05 11:59 | XMS REPORT ---
Author Author VICKI GALLAGHER Organization [facility] Address [address] [place] [address] Care Team Providers Care Leader Tier Name Role Phone VICKI GALLAGHER Unavailable PROBLEMS Type Condition ICD9-CM Code [id number] Code Onset Dates Condition Status SNOMED Code Problem Asthma, unspecified, unspecified status 493.90 Active 80681087 Problem Depression, unspecified depression type F32.9 Active 58103349 Problem Unspecified essential hypertension 401.9 Active 42987129 Problem Insomnia, unspecified 780.52 Active 448007875 Problem Unspecified arthropathy, site unspecified 716.90 Active 082228719 Problem Essential hypertension I10 Active 37318747 Problem Chronic pain syndrome G89.4 Active 862504520 Problem Alcohol abuse F10.10 Active 26716826 Problem Chronic obstructive pulmonary disease, unspecified COPD type J44.9 Active 21153993 Problem Adjustment disorder with depressed mood F43.21 Active 57942737 Problem Alcohol abuse, unspecified F10.10 Active 07590768 ALLERGIES No Information SOCIAL HISTORY Never Assessed PLAN OF CARE VITAL SIGNS MEDICATIONS Unknown Medications RESULTS No Results PROCEDURES No Known procedures IMMUNIZATIONS No Known Immunizations MEDICAL (GENERAL) HISTORY Type Description Date Medical History Hypertension Medical History Asthma Medical History Alcohol abuse Surgical History EGD Hospitalization History Alcohol abuse 07/2016
--- OUTSIDE RECORDS SUMMARY | 2017-10-05 11:59 | XMS REPORT | Clinical Summary ---
Author Author [facility] Organization [facility] Address Unknown Phone Unavailable Care Team Providers Care Bricklayer Name Role Phone PCP Unavailable Source Comments Some departments are not documenting in the electronic medical record. If you do not see the information that you expected, contact Release of Information in the Health Information Management department at [phone] for further assistance in locating additional records.[facility] Allergies Not on File Current Medications [...]
--- OUTSIDE RECORDS SUMMARY | 2017-10-05 12:00 | XMS REPORT ---
Author Author VICKI GALLAGHER Organization [facility] Address [address] [place] [address] Care Team Providers Care Track Fitter Name Role Phone VICKI GALLAGHER Unavailable PROBLEMS Type Condition ICD9-CM Code MOB75-AY Code Onset Dates Condition Status SNOMED Code Problem Asthma, unspecified, unspecified status 493.90 Active 40352033 Problem Depression, unspecified depression type F32.9 Active 72700674 Problem Unspecified essential hypertension 401.9 Active 51063446 Problem Insomnia, unspecified 780.52 Active 116745057 Problem Unspecified arthropathy, site unspecified 716.90 Active 196488225 Problem Essential hypertension I10 Active 34774963 Problem Chronic pain syndrome G89.4 Active 719802220 Problem Alcohol abuse F10.10 Active 99089873 Problem Chronic obstructive pulmonary disease, unspecified COPD type J44.9 Active 38408772 Problem Adjustment disorder with depressed mood F43.21 Active 24126221 Problem Alcohol abuse, unspecified F10.10 Active 94562357 ALLERGIES No Information SOCIAL HISTORY Never Assessed PLAN OF CARE VITAL SIGNS MEDICATIONS Unknown Medications RESULTS No Results PROCEDURES No Known procedures IMMUNIZATIONS No Known Immunizations MEDICAL (GENERAL) HISTORY Type Description Date Medical History Hypertension Medical History Asthma Medical History Alcohol abuse Surgical History EGD Hospitalization History Alcohol abuse 07/2016
--- OUTSIDE RECORDS SUMMARY | 2017-10-05 12:00 | XMS REPORT ---
Author Author VICKI GALLAGHER Organization [facility] Address [address] [place] [address] Care Team Providers Care Preliminary School Psychologist Name Role Phone VICKI GALLAGHER Unavailable PROBLEMS Type Condition ICD9-CM Code [id number] Code Onset Dates Condition Status SNOMED Code Problem Asthma, unspecified, unspecified status 493.90 Active 29356758 Problem Depression, unspecified depression type F32.9 Active 23723326 Problem Unspecified essential hypertension 401.9 Active 42111784 Problem Insomnia, unspecified 780.52 Active 839159198 Problem Unspecified arthropathy, site unspecified 716.90 Active 233403631 Problem Essential hypertension I10 Active 07644052 Problem Chronic pain syndrome G89.4 Active 710075793 Problem Alcohol abuse F10.10 Active 67884607 Problem Chronic obstructive pulmonary disease, unspecified COPD type J44.9 Active 82437577 Problem Adjustment disorder with depressed mood F43.21 Active 95293505 Problem Alcohol abuse, unspecified F10.10 Active 29733835 ALLERGIES Substance Reaction Event Type Date Status Naproxen 500 Mg Tablet Unknown Non Drug Allergy January, Active SOCIAL HISTORY Never Assessed PLAN OF CARE Activity Details Follow Up 2 Months with Hill f/akanksha pain and HTN Reason: VITAL SIGNS Height 69.5 in 2017-02-21 Weight 163.0 lbs 2017-02-21 Temperature 98.0 degrees Fahrenheit 2017-02-21 Heart Rate 80 bpm 2017-02-21 Respiratory Rate 20 2017-02-21 BMI 23.72 kg/m2 2017-02-21 Blood pressure systolic 128 mmHg 2017-02-21 Blood pressure diastolic 78 mmHg 2017-02-21 MEDICATIONS Medication Instructions Dosage Frequency Start Date End Date Duration Status Cyclobenzaprine HCl 10 mg Orally every night before bed 1 tablet 30 Active Ventolin HFA 108 (90 Base) mcg/act Inhalation every 4-6 hours as needed 2 puffs as needed Oct, 30 days Active Meloxicam 7.5 MG Orally Once a day 1 tablet 24h January, May, 30 day(s) Active RESULTS No Results PROCEDURES No Known procedures IMMUNIZATIONS No Known Immunizations MEDICAL (GENERAL) HISTORY Type Description Date Medical History Hypertension Medical History Asthma Medical History Alcohol abuse Surgical History EGD Hospitalization History Alcohol abuse 07/2016
--- OUTSIDE RECORDS SUMMARY | 2017-10-05 12:02 | XMS REPORT ---
Author Author VICKI GALLAGHER Organization [facility] Address [address] [place] [address] Care Team Providers Care Racing Board Marker Name Role Phone VICKI GALLAGHER Unavailable PROBLEMS Type Condition ICD9-CM Code JCI06-AW Code Onset Dates Condition Status SNOMED Code Problem Asthma, unspecified, unspecified status 493.90 Active 78220483 Problem Depression, unspecified depression type F32.9 Active 26672585 Problem Unspecified essential hypertension 401.9 Active 61995340 Problem Insomnia, unspecified 780.52 Active 493780525 Problem Unspecified arthropathy, site unspecified 716.90 Active 006184652 Problem Essential hypertension I10 Active 45775795 Problem Chronic pain syndrome G89.4 Active 010767409 Problem Alcohol abuse F10.10 Active 81404265 Problem Chronic obstructive pulmonary disease, unspecified COPD type J44.9 Active 66625308 Problem Adjustment disorder with depressed mood F43.21 Active 19499701 Problem Alcohol abuse, unspecified F10.10 Active 48928166 ALLERGIES No Information SOCIAL HISTORY Never Assessed [...]
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
[2017-10-05 12:35] VITALS: BP 131/74
[2017-10-05 13:00] VITALS: BP 127/71
[2017-10-05 13:05] VITALS: BP 127/71
--- NOTE | 2017-10-12 18:43 | OPERATIVE REPORT ---
DATE OF SERVICE: 10/05/2017 ATTENDING PRIMARY CARE PHYSICIAN: Dr. Lee. PREOPERATIVE DIAGNOSES: Dysphagia with history of Shetty esophagitis, history of H. pylori gastritis. POSTOPERATIVE DIAGNOSES: Reflux esophagitis class B, mild distal esophageal stricture, [id number]-[id number] gastritis. PROCEDURE: EGD with biopsy and balloon dilatation. SURGEON: Lester Howell MD ANESTHESIA: Conscious sedation. ESTIMATED BLOOD LOSS: Minimal. FINDINGS: Reflux esophagitis class B with a mild distal esophageal stricture, no recurrent hiatal hernia, dnywwrcu-[id number] gastritis. DISPOSITION: The patient tolerated the procedure well. INDICATIONS: The patient is a 52-year-old male with history of H. pylori gastritis as well as Shetty's esophagus. This gentleman does have a history of noncompliance and does drink alcohol and smokes. He has had multiple biopsies on previous EGDs, which were positive for H. pylori. He also has a longstanding history of reflux and Shetty esophagus and is status post laparoscopic hill gastropexy in 03/2007. He has had recurrent dysphagia. For the past 2 months, he has noticed difficulty swallowing solid foods. He does not report any nausea, no vomiting. He was placed on acid driller helper, however, has not been taking the medication. DESCRIPTION OF PROCEDURE: The patient was brought to the endoscopy suite, laid in the left lateral decubitus position. After adequate IV pain and sedating medications and conscious sedation anesthesia, the mouthpiece was applied. The endoscope was placed in the mouth, visualizing the pharynx and hypopharyngeal region. Vocal cords, epiglottis and vallecula identified and appeared to be normal. The endoscope was then gently intubated at the esophageal opening. Esophagus was insufflated. The endoscope was then advanced to the first, second and third portions of the esophagus. At the level of the GE junction, a reflux esophagitis class B was identified. There was also mild distal esophageal stricture. A biopsy was taken of the GE junction using forceps with visualization of good hemostasis. The endoscope was then advanced into the stomach and then endoscope retroflexed visualizing an intact previous antireflux procedure as well as no recurrent hiatal hernia. Moderate to severe diffuse gastritis was noted throughout the stomach. There were no formal ulcers, polyps or any neoplasms identified. A biopsy was taken of the antrum with forceps with visualization of good hemostasis. The endoscope was then advanced to the pylorus in the first and second portions of the duodenum with no ulcers and no distal obstructions. We then proceeded with balloon dilatation of the distal esophageal stricture. A CRE fixed guidewire balloon was advanced into the stomach under direct visualization and pulled back to the area of the stricture. The balloon was then insufflated to 3 atmospheres of pressure or 18 mm in diameter with minimal resistance. We then proceeded to 4.5 atmospheres of pressure or 19 mm with mild resistance. We then proceeded to 6 atmospheres of pressure or 20 mm in diameter with jvdy-ia-zvjwumgh resistance and left this in place for approximately 60 seconds. The balloon was then desufflated and removed with no visualization of any tears or bleeding. The endoscope was then slowly withdrawn taking a second look and suctioning of residual air with no additional findings. The patient tolerated the procedure well. We will recommend the necessary lifestyle and diet accommodation including alcohol and smoking cessation as well as avoidance of caffeinated beverages. He also needs to take in small more frequent meals and avoid eating at night. He also needs to avoid spicy, greasy and acidic foods. We will await the biopsy results for H. pylori and treat appropriately if found positive. We will also again recommend a PPI acid driller helper and start him back on Protonix 40 mg daily. Job ID: [id number] DocumentID: [id number] Dictated Date: 10/12/2017 13:59:12 [employer] Date: 10/12/2017 18:43:05 Dictated By: LESTER HOWELL MD
== END 2017-10-05 13:05 | disposition home or self-care (01) ==
LOC: ENDO 11:24
PROVIDERS: ATTEND Surgery
DX: K21.0 Gastro-esophageal reflux disease with esophagitis (principal); K22.2 Esophageal obstruction; K29.70 Gastritis, unspecified, without bleeding; I10 Essential (primary) hypertension; F17.210 Nicotine dependence, cigarettes, uncomplicated; Z91.19 Patient's noncompliance with other medical treatment and regimen

== ENCOUNTER 2017-10-17 00:12 | Emergency (ER) | payer MEDICAID ==
[~2017-10-17] VITALS: Ht 175.3 cm; Wt 74.9 kg
[2017-10-17] MEDS ORDERED: IPRA3AMP (00:19)
[2017-10-17] MEDS ORDERED: ALBU18HF2 (00:19)
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
[2017-10-17] MEDS ORDERED: NS IV 1000 ML 1,000 ML IV ONE (01:03)
[2017-10-17] MEDS ORDERED: fentaNYL INJECTION 100 MCG/2 ML AMP IVP STA (01:04)
[2017-10-17] MEDS ORDERED: NS 100 ML (IVPB) BAG IV ONE (01:15)
[2017-10-17] MEDS ORDERED: IOHEXOL 350 MG/ML 100 ML (OMNIPAQUE 350) VIAL IV ONE (01:15)
[2017-10-17 01:21] LABS: BASOPHILS # (AUTO) 0.1 10^3/uL (0.0-0.1); BASOPHILS % (AUTO) 1 % (0-10); EOSINOPHILS # (AUTO) 0.1 10^3/uL (0.0-0.3); EOSINOPHILS % (AUTO) 2 % (0-10); HEMATOCRIT 47 % (40-54); HEMOGLOBIN 16.7 G/DL (13.3-17.7); LYMPHOCYTES % (AUTO) 34 % (12-44); MEAN CORPUSCULAR HEMOGLOBIN 33 PG (25-34); MEAN CORPUSCULAR HGB CONC 36 G/DL (32-36); MEAN CORPUSCULAR VOLUME 92 FL (80-99); MEAN PLATELET VOLUME 10.1 FL (7.4-10.4); MONOCYTES # (AUTO) 0.7 X 10^3 (0.0-1.0); MONOCYTES % (AUTO) 12 % (0-12); NEUTROPHILS % (AUTO) 51 % (42-75); PLATELET COUNT 204 10^3/uL (130-400); RED BLOOD COUNT 5.13 10^6/uL (4.35-5.85); RED CELL DISTRIBUTION WIDTH 13.4 % (10.0-14.5); WHITE BLOOD COUNT 5.9 10^3/uL (4.3-11.0)
[2017-10-17 01:41] LABS: ALANINE AMINOTRANSFERASE 21 U/L (0-55); ALBUMIN 4.3 GM/DL (3.2-4.5); ALKALINE PHOSPHATASE 52 U/L (40-136); BILIRUBIN,TOTAL 0.4 MG/DL (0.1-1.0); BUN/CREATININE RATIO 9; CARBON DIOXIDE 23 MMOL/L (21-32); CHLORIDE 110 MMOL/L (98-107); CREATININE SERUM 0.86 MG/DL (0.60-1.30); GFR ESTIMATED > 60; GLUCOSE 98 MG/DL (70-105); LIPASE 39 U/L (8-78); POTASSIUM 4.2 MMOL/L (3.6-5.0); SODIUM 145 MMOL/L (135-145)
[2017-10-17 02:45] VITALS: BP 141/91
--- NOTE | 2017-10-17 06:33 | Diagnostic Imaging Report ---
INDICATION: Left rib injury. FINDINGS: PA chest and oblique views of the ribs show no acute or displaced rib fractures. Lungs are clear. There are no effusions or pneumothoraces. IMPRESSION: Negative left ribs. Dictated by: Dictated on workstation # [id number]
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
--- OUTSIDE RECORDS SUMMARY | 2017-10-21 04:10 | XMS REPORT | Clinical Summary ---
Author Author [facility] Organization [facility] Address Unknown Phone Unavailable Care Team Providers Care Apparel Merchandiser Name Role Phone Database, Physician Not In PCP Unavailable Source Comments Some departments are not documenting in the electronic medical record. If you do not see the information that you expected, contact Release of Information in the Health Information Management department at [phone] for further assistance in locating additional records.[facility] Allergies Not on File Current Medications Not [...]
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
== END 2017-10-17 02:42 | disposition home or self-care (01) ==
LOC: EDUNIT# 00:12 → ER 00:13
DX: S20.212A Contusion of left front wall of thorax, initial encounter (principal); G40.909 Epilepsy, unspecified, not intractable, without status epilepticus; J44.9 Chronic obstructive pulmonary disease, unspecified; I10 Essential (primary) hypertension; F17.210 Nicotine dependence, cigarettes, uncomplicated; Z87.19 Personal history of other diseases of the digestive system; Y04.8XXA Assault by other bodily force, initial encounter
CPT/HCPCS: 36415; 71101; 71260; 74177; 80053; 83690; 84484; 85025; 93005; 96361; 96374

== ENCOUNTER 2018-04-03 05:37 | Outpatient (CLI) | payer MEDICAID ==
[~2018-04-03] VITALS: Ht 175.3 cm; Wt 74.9 kg
[~2018-04-03 05:37] MED LIST changes: +ALBU18HF2; +IPRA3AMP31; +OLOP5DRO13 OU; -OLOP5DRO7 OU
== END 2018-04-03 10:22 | disposition home or self-care (01) ==
LOC: PREOP 05:37
PROVIDERS: ATTEND Surgery
DX: Z01.818 Encounter for other preprocedural examination (principal)

== ENCOUNTER 2018-04-05 10:47 | Day surgery (SDC) | payer MEDICAID ==
[~2018-04-05] VITALS: Ht 175.3 cm; Wt 74.9 kg
[2018-04-05] MEDS ORDERED: NS IV 500 ML 500 ML IV PRN (10:55)
[2018-04-05] MEDS ORDERED: NS IV 500 ML 500 ML ONE (10:57)
[2018-04-05] MEDS ORDERED: HURRICAINE EXT TUBE (BENZOCAINE) XX PRN (11:00)
[2018-04-05] MEDS ORDERED: LIDOCAINE JELLY 2% (XYLOCAINE) 5 ML TUBE MM PRN (11:00)
[2018-04-05 11:07] VITALS: BP 124/61
[2018-04-05] MEDS ORDERED: LIDOCAINE JELLY 2% (XYLOCAINE) 5 ML TUBE ONE (11:41)
[2018-04-05] MEDS ORDERED: HURRICAINE EXT TUBE (BENZOCAINE) ONE (11:42)
[2018-04-05] MEDS ORDERED: MIDAZOLAM 2 MG/2 ML (VERSED) VIAL ONE ×4 (11:42→12:42)
[2018-04-05] MEDS ORDERED: fentaNYL INJECTION 100 MCG/2 ML AMP ONE (11:42)
--- NOTE | 2018-04-05 12:16 | Progress Note-Pre Operative ---
Pre-Operative Progress Note H&P Reviewed The H&P was reviewed, patient examined and no changes noted. Date Seen by Provider: Apr 05, 2018 Time Seen by Provider: 11:30 Date H&P Reviewed: Apr 05, 2018 Time H&P Reviewed: :30 Pre-Operative Diagnosis: recurrent dysphagia and GERD LESTER HOWELL MD Apr 05, 2018 12:16 pm
--- NOTE | 2018-04-05 12:16 | Conscious Sedation/ASA ---
Conscious Sedation Pre-Proced Time Reviewed: 11:30 ASA Class: 2 Airway Mallampati Classification: (saxman appropriate class) I. II. III, IV Lungs Heart ASA score ASA 1: a normal healthy patient ASA 2: a patient with a mild systemic disease (mid diabetes, controlled hypertension, obesity ASA 3: a patient with a severe systemic disease that limits activity (angina , COPD, prior Myocardial infarction) ASA 4: a patient with an incapacitating disease that is a constant threat to life (CHF, renal failure) ASA 5: a moribund patient not expected to survive 24 hrs. (ruptured aneurysm) ASA 6: a declared brain patient whose organs are being harvested. For emergent operations, add the letter E after the classification Grade 2 Sedation Plan: Analgesia, Amnesia, Plan communicated to team members, Discussed options with patient/fam, Discussed risks with patient/fam Note The patient is an appropriate candidate to undergo the planned procedure, sedation, and anesthesia. The patient immediately re-assessed prior to indication. LESTER HOWELL MD Apr 05, 2018 12:16 pm
[2018-04-05] MEDS ORDERED: HYDROcodone/APAP 5 MG/325 MG (LORTAB) TAB PO PRN (12:30)
[2018-04-05] MEDS ORDERED: ACETAMINOPHEN 325 MG TABLET PO PRN (12:30)
[2018-04-05] MEDS ORDERED: ONDANSETRON 4 MG/2 ML (SDV) Z0FRAN IV PRN (12:30)
[2018-04-05] MEDS ORDERED: morphine INJ 10 MG/ML 1ML (SYR OR VIAL) IV PRN (12:30)
[2018-04-05] MEDS: fentaNYL INJECTION 100 MCG/2 ML AMP IVP PRN ×2 (12:32→12:39)
[2018-04-05] MEDS: MIDAZOLAM 2 MG/2 ML (VERSED) VIAL IVP PRN ×4 (12:35→12:48)
[2018-04-05 12:40] VITALS: BP 130/81
--- NOTE | 2018-04-05 14:04 | Progress Note-Post Operative ---
Post-Operative Progess Note Surgeon (s)/Rag Shredder (s) Surgeon LESTER HOWELL MD Rag Shredder: none Pre-Operative Diagnosis recurrent dysphagia and GERD Post-Operative Diagnosis recurrent distal esphageal stricture, moderate gastritis, no recurrent HH Procedure & Operative Findings Date of Procedure 04/05/18 Procedure Performed/Findings EGD with bx and dilatation. Anesthesia Type CS Estimated Blood Loss Estimated blood loss (mL): minimal Specimens/Packing Specimens Removed GE jxn, antrum LESTER HOWELL MD Apr 05, 2018 2:04 pm
[2018-04-05 14:10] VITALS: BP 137/82
[2018-04-05 14:15] VITALS: BP 137/82
--- NOTE | 2018-04-05 20:48 | OPERATIVE REPORT ---
DATE OF SERVICE: 04/05/2018 ATTENDING PRIMARY GRAPHIC TECHNICIAN: Dr. Jazzy Alejandre. PREOPERATIVE DIAGNOSIS: Recurrent symptomatic dysphagia and gastroesophageal reflux disease. POSTOPERATIVE DIAGNOSES: Reflux esophagitis class B with a mild distal esophageal stricture, intact previous antireflux procedure, moderate severity gastritis. PROCEDURE: EGD with biopsy and dilatation. SURGEON: Dr. Howell. ANESTHESIA: Conscious sedation. ESTIMATED BLOOD LOSS: Minimal. FINDINGS: Reflux esophagitis class B with a distal esophageal stricture, intact previous wrap, no recurrent hiatal hernia, moderate severity gastritis. Pylorus and duodenum appeared normal with no distal obstructions. DISPOSITION: The patient tolerated the procedure well. INDICATIONS: The patient is a 52-year-old male with a longstanding history of gastroesophageal reflux disease as well as H. pylori gastritis. He also has a longstanding history of noncompliance. He has had multiple previous EGDs which were positive for H. pylori and has had a significant reflux esophagitis requiring a laparoscopic Hill gastropexy 03/2007. Since that surgery, he has had intermittent episodes of dysphagia on multiple basis. Again, he is noncompliant and does continue to smoke approximately 2 packs a day and does drink a significant amount of alcohol as well as caffeinated beverages. Again, he comes back with recurrent dysphagia and gastroesophageal reflux disease and states that he cannot swallow any solids. No hematemesis, no coffee-ground emesis. DESCRIPTION OF PROCEDURE: The patient was brought to the endoscopy suite, laid in the left lateral decubitus position. After adequate IV pain and sedating medications and conscious sedation anesthesia, the mouthpiece was applied. The endoscope was placed in the mouth, visualizing the pharynx and hypopharyngeal region. Vocal cords, epiglottis and vallecula identified and appeared to be normal. The endoscope was then gently intubated at the esophageal opening and esophagus insufflated. The endoscope was then advanced through the first, second and third portion of the esophagus. At the level of the GE junction, a reflux esophagitis class B identified with a distal esophageal stricture primarily composed of scar tissue identified. This was biopsied with forceps with visualization of good hemostasis. The endoscope was advanced into the stomach and the endoscope retroflexed visualizing an intact previous wrap and no recurrent hiatal hernia. There was a moderate severity gastritis towards the majority of the stomach. There were no ulcerations, polyps or any neoplasms identified. A biopsy was taken of the stomach for H. pylori with visualization of good hemostasis. The endoscope was then advanced to the pylorus into the first and second portion of the duodenum, which appeared normal with no distal obstructions. The endoscope was then slowly withdrawn while taking a second look and suctioning of residual air with no additional findings. The patient tolerated the procedure well. We will recommend continued medical management with the necessary lifestyle and diet accommodation including cessation of smoking as well as alcoholic and caffeinated beverages as well as spicy, greasy and acidic foods. He needs to proceed with small more frequent meals, avoidance of eating at night as well as head elevation while lying supine. Job ID: [id number] DocumentID: [id number] Dictated Date: 04/05/2018 13:03:37 Shirt Maker Date: 04/05/2018 20:47:53 Dictated By: LESTER HOWELL MD
--- NOTE | 2018-04-09 10:52 | Physician Query-Final Dx ---
PRABHU ACOSTA 04/09/18 1051: Clinic Account Progress/Dx Physician Query: Please do an addendum to the Op rpt and include the dialation of the esophageal stricture. thank you Date of Service Apr 05, 2018 at 10:47 LESTER HOWELL MD 04/09/18 1915: Clinic Account Progress/Dx Physician Query: Please give diagnosis DIAGNOSIS: Diagnosis recurrent symptomatic GERD, hx H. pylori gastritis, hx symptomatic distal esophageal stricture. Progress Note: Procedure: EGD with bx and balloon dilatation distal esophageal stricture. CRE fixed guidewire balloon placed into stomach and pulled back to area of stricture. Balloon insufflated to 3 HARPREET pressure with mild resistance. We then proceeded to 4.5 HARPREET of pressure with mild-moderate resistance. This was left in place for 60 seconds and the resistance decreased. We then increased to 5 HARPREET of pressure with moderate resistance which was 19mm in diameter and left this in place for 60 seconds. The balloon was then desufflated and removed. no bleeding or mucosal tears identified. Endoscope was then slowly removed while suctioning residual air. Patent tolerated the procedure well. PRABHU Mustafa MD Apr 09, 2018 10:51 LESTER HOWELL MD Apr 09, 2018 19:15
== END 2018-04-05 14:15 | disposition home or self-care (01) ==
LOC: ENDO 10:47
PROVIDERS: ATTEND Surgery
DX: K21.0 Gastro-esophageal reflux disease with esophagitis (principal); K22.2 Esophageal obstruction; K29.50 Unspecified chronic gastritis without bleeding; B96.81 Helicobacter pylori [H. pylori] as the cause of diseases classified elsewhere; F17.210 Nicotine dependence, cigarettes, uncomplicated; I10 Essential (primary) hypertension

== ENCOUNTER → 2018-07-04 | Outpatient (CLI) | payer MEDICAID | END | disposition home or self-care (01) | LOC: PREOP 14:27 | PROVIDERS: ATTEND Surgery | DX: Z01.818 Encounter for other preprocedural examination (principal) ==

== ENCOUNTER 2018-07-05 07:48 | Day surgery (SDC) | payer MEDICAID ==
[~2018-07-05] VITALS: Ht 175.3 cm; Wt 74.9 kg
[2018-07-05] MEDS ORDERED: NS IV 500 ML 500 ML ONE (10:17)
[2018-07-05] MEDS ORDERED: NS IV 500 ML 500 ML IV PRN (10:22)
[2018-07-05] MEDS ORDERED: LIDOCAINE JELLY 2% 6 ML SYRINGE MM PRN (10:30)
[2018-07-05] MEDS ORDERED: MIDAZOLAM 2 MG/2 ML (VERSED) VIAL IVP ONE (10:30)
[2018-07-05] MEDS ORDERED: HURRICAINE EXT TUBE (BENZOCAINE) XX PRN (10:30)
[2018-07-05] MEDS ORDERED: fentaNYL INJECTION 100 MCG/2 ML AMP IVP ONE (10:30)
[2018-07-05] MEDS ORDERED: MIDAZOLAM 2 MG/2 ML (VERSED) VIAL ONE ×4 (10:40→11:05)
[2018-07-05] MEDS ORDERED: HURRICAINE EXT TUBE (BENZOCAINE) ONE (10:40)
[2018-07-05] MEDS ORDERED: fentaNYL INJECTION 100 MCG/2 ML AMP ONE (10:40)
[2018-07-05] MEDS ORDERED: LIDOCAINE JELLY 2% 6 ML SYRINGE ONE (10:41)
--- NOTE | 2018-07-05 10:49 | Conscious Sedation/ASA ---
Conscious Sedation Pre-Proced Time 10:45 ASA Score 3 For ASA 3 and 4: Consider anesthesia and medical clearance. Also, for patients with a history of failed moderate sedation consider anesthesia. Airway Lungs Heart ASA score ASA 1: a normal healthy patient ASA 2: a patient with a mild systemic disease (mid diabetes, controlled hypertension, obesity ASA 3: a patient with a severe systemic disease that limits activity (angina , COPD, prior Myocardial infarction) ASA 4: a patient with an incapacitating disease that is a constant threat to life (CHF, renal failure) ASA 5: a moribund patient not expected to survive 24 hrs. (ruptured aneurysm) ASA 6: a declared brain patient whose organs are being harvested. For emergent operations, add the letter E after the classification Mallampati Classification Grade 2 Sedation Plan Analgesia, Amnesia, Plan communicated to team members, Discussed options with patient/fam, Discussed risks with patient/fam The patient is an appropriate candidate to undergo the planned procedure, sedation, and anesthesia. The patient immediately re-assessed prior to indication. LESTER HOWELL MD Jul 05, 2018 10:49 am
--- NOTE | 2018-07-05 10:50 | Progress Note-Pre Operative ---
Pre-Operative Progress Note H&P Reviewed The H&P was reviewed, patient examined and no changes noted. Date Seen by Provider: Jul 05, 2018 Time Seen by Provider: 10:45 Date H&P Reviewed: Jul 05, 2018 Time H&P Reviewed: 10:45 Pre-Operative Diagnosis: recurrent dysphagia LESTER HOWELL MD Jul 05, 2018 10:50 am
[2018-07-05] MEDS ORDERED: morphine INJ 10 MG/ML 1ML (SYR OR VIAL) IV PRN (11:00)
[2018-07-05] MEDS ORDERED: HYDROcodone/APAP 5 MG/325 MG (LORTAB) TAB PO PRN (11:00)
[2018-07-05] MEDS ORDERED: ACETAMINOPHEN 325 MG TABLET PO PRN (11:00)
[2018-07-05] MEDS ORDERED: ONDANSETRON 4 MG/2 ML (SDV) Z0FRAN IV PRN (11:00)
--- NOTE | 2018-07-05 11:36 | Progress Note-Post Operative ---
Post-Operative Progess Note Surgeon (s)/Diesel Roller Operator (s) Surgeon LESTER HOWELL MD Diesel Roller Operator: none Pre-Operative Diagnosis recurrent dysphagia Post-Operative Diagnosis distal esophageal stricture, reflux esophagitis(grade 2), no recurrent HH, moderate diffuse gastritis. Procedure & Operative Findings Date of Procedure 07/05/18 Procedure Performed/Findings EGD with bx and balloon dilatation. Anesthesia Type CS Estimated Blood Loss Estimated blood loss (mL): minimal Specimens/Packing Specimens Removed GE jxn, antrum LESTER HOWELL MD Jul 05, 2018 11:35 am
--- NOTE | 2018-07-05 11:37 | Discharge Inst-Surgical ---
D/C Lap Instructions-LYNDA Follow Up PRN Activity as tolerated High Fiber Diet 25g or more per day Avoid Alcohol, Caffeine, Spicy Vaugh[place] and Acid foods. Drink 64 fluid oz or more of fluids per day. Symptoms to Report: Fever over 101 degree F, Nausea/Vomiting If any problems/questions: Contact your physician or go to Emergency Room LESTER HOWELL MD Jul 05, 2018 11:37 am
[2018-07-05 11:45] VITALS: BP 130/95
[2018-07-05 11:55] VITALS: BP 116/73
[2018-07-05 12:40] VITALS: BP 116/73
[2018-07-05 12:45] VITALS: BP 116/73
--- NOTE | 2018-07-05 15:28 | OPERATIVE REPORT ---
DATE OF SERVICE: 07/05/2018 ATTENDING PRIMARY CARE PHYSICIAN: Mookie Lee DO. PREOPERATIVE DIAGNOSES: Recurrent symptomatic dysphagia with a history of Shetty esophagus as well as Helicobacter pylori. POSTOPERATIVE DIAGNOSES: Distal esophageal stricture; reflux esophagitis, stage II; no recurrent hiatal hernia; and moderate gastritis. PROCEDURES PERFORMED: Esophagogastroduodenoscopy with biopsy and balloon dilatation. SURGEON: Lester Connell MD. ANESTHESIA: Conscious sedation. ESTIMATED BLOOD LOSS: Minimal. FINDINGS: Distal esophageal stricture secondary to combination of a previous antireflux procedure as well as risk factors including alcohol and smoking, reflux esophagitis grade II, no recurrent hiatal hernia with intact wrap, and moderate severity gastritis. Pylorus and duodenum appeared normal with no distal obstructions. DISPOSITION: The patient tolerated the procedure well. INDICATIONS: The patient is a 52-year-old male known to us. He has a history of gastroesophageal reflux disease, H. pylori gastritis as well as Shetty esophagus. He underwent a hiatal hernia repair and Hill Gastropexy in 03/2007. Since that time, he reports that his reflux symptoms had improved; however, did develop dysphagia. Since 2007, he has had several EGDs with dilatation of the lower esophageal region. He does have significant risk factors including heavy alcohol consumption, which he states he has decreased on in the past several months. He also is a heavy smoker and does smoke 2 packs of cigarettes a day. He has been placed on acid reduction medications; however, has been noncompliant with this as well. He has recurrent dysphagia. DESCRIPTION OF PROCEDURE: The patient was brought to the endoscopy suite, laid in left lateral decubitus position. After adequate IV pain and sedative medications and conscious sedation anesthesia, the mouthpiece was applied. The endoscope was then placed into the mouth visualizing the pharynx and hypopharyngeal region. Vocal cords, epiglottis and vallecula identified and appeared to be normal. The endoscope was then gently intubated at the esophageal opening and esophagus insufflated. The endoscope was then advanced to the first, second and third portions of the esophagus at the level of the GE junction, a reflux esophagitis, grade II, identified with a distal esophageal stricture, which appeared to be secondary to acid irritation as well as his previous hiatal hernia repair. A biopsy was taken of the GE junction with forceps with visualization of good hemostasis. The endoscope was then advanced into the stomach and the endoscope retroflexed visualizing an intact previous wrap and no recurrent hiatal hernia. There was a moderate severity gastritis which was diffuse throughout the stomach. There were no formal ulcerations, polyps or any neoplasms. A biopsy was taken of the stomach antrum to rule out H. pylori again. The endoscope was then advanced to the pylorus and the first and second portions of the duodenum, which appeared normal with no distal obstructions. We then proceeded with balloon dilatation of the distal esophageal stricture. The balloon was placed in the stomach and pulled back to the area of the stricture. We first proceeded to 2 atmospheres of pressure or 18 mm in circumferential diameter with minimal resistance. We then proceeded to 4 atmospheres of pressure or 19 mm in diameter with mild resistance. We then proceeded to 6 atmospheres of pressure or 20 mm in diameter with moderate resistance and the patient did show discomfort consistent with a successful dilatation. The balloon was left in place for approximately 60 seconds and then desufflated. There were no mucosal tears identified as well as no bleeding. The endoscope was then slowly withdrawn while taking a second look and suctioning of residual air with no additional findings. The patient tolerated the procedure well. We will again recommend the necessary lifestyle and the diet accommodation which is the alvarez to preventing reoccurrence, which will include cessation of alcoholic beverages as well as caffeinated beverages, spicy, greasy and acidic foods as well as cessation of smoking. We will await the biopsy results for H. pylori as well as Shetty esophagus as well. Job ID: [id number] DocumentID: [id number] Dictated Date: 07/05/2018 11:32:53 Cleaner And Trimmer Date: 07/05/2018 15:27:54 Dictated By: LESTER CONNELL MD
== END 2018-07-05 12:45 | disposition home or self-care (01) ==
LOC: ENDO 07:48
PROVIDERS: ATTEND Surgery
DX: K22.2 Esophageal obstruction (principal); K21.0 Gastro-esophageal reflux disease with esophagitis; K29.70 Gastritis, unspecified, without bleeding; I10 Essential (primary) hypertension; F17.210 Nicotine dependence, cigarettes, uncomplicated; Z79.899 Other long term (current) drug therapy
CPT/HCPCS: 88305; 88342

== ENCOUNTER 2018-10-13 08:53 | Emergency (ER) | payer MEDICAID | END 2018-10-13 09:40 | disposition home or self-care (01) | LOC: ER 08:53 ==

== ENCOUNTER 2018-11-13 10:31 | Emergency (ER) | payer MEDICAID ==
[~2018-11-13] VITALS: Ht 175.3 cm; Wt 72.6 kg
[2018-11-13 11:00] LABS: BASOPHILS % (AUTO) 1 % (0-10); EOSINOPHILS # (AUTO) 0.1 10^3/uL (0.0-0.3); EOSINOPHILS % (AUTO) 1 % (0-10); HEMATOCRIT 46 % (40-54); HEMOGLOBIN 15.3 G/DL (13.3-17.7); LYMPHOCYTES # (AUTO) 0.5 X 10^3 (1.0-4.0); LYMPHOCYTES % (AUTO) 11 % (12-44); MEAN CORPUSCULAR HEMOGLOBIN 32 PG (25-34); MEAN CORPUSCULAR HGB CONC 33 G/DL (32-36); MEAN CORPUSCULAR VOLUME 95 FL (80-99); MEAN PLATELET VOLUME 9.5 FL (7.4-10.4); MONOCYTES # (AUTO) 0.5 X 10^3 (0.0-1.0); MONOCYTES % (AUTO) 9 % (0-12); NEUTROPHILS # (AUTO) 3.9 X 10^3 (1.8-7.8); NEUTROPHILS % (AUTO) 79 % (42-75); PLATELET COUNT 183 10^3/uL (130-400); RED CELL DISTRIBUTION WIDTH 13.7 % (10.0-14.5)
[2018-11-13] MEDS ORDERED: KETOROLAC 30 MG/ML VIAL IVP ONE (11:00)
--- NOTE | 2018-11-13 11:01 | ED Cough/URI ---
General Chief Complaint: Cough/Cold/Flu Symptoms Stated Complaint: BACK PAIN;COUGH Source: patient Exam Limitations: no limitations History of Present Illness Date Seen by Provider: Nov 13, 2018 Time Seen by Provider: 10:47 Initial Comments Patient presents to ER by private conveyance with chief complaint for the past month he's had a cough cold with no fever. More recently become productive with white sputum and he is having some left chest pain worse on coughing in the back. His ribs are tender to palpation there. No falls. He does have a history of COPD and has not been having much wheezing lately. He uses nebulized albuterol. Allergies and Home Medications Allergies Coded Allergies: tramadol (Verified Allergy, Mild, "TOO SLEEPY", 04/05/18) Home Medications No Active Prescriptions or Reported Meds Patient Home Medication List Home Medication List Reviewed: Yes Review of Systems Review of Systems Constitutional: No chills, No fever, No malaise EENTM: No hearing loss, No ear pain Respiratory: cough, phlegm; No wheezing Cardiovascular: No Hx of Intervention, No palpitations Gastrointestinal: No abdominal pain, No constipation, No diarrhea, No nausea Genitourinary: No discharge, No dysuria Past Rptlqfk-Rvziss-Dlsnuf Hx Patient Social History Alcohol Use: Regular Use Number of Drinks Today: AA Alcohol Beverage of Choice: Beer, Whiskey Recreational Drug Use: Yes (TOBACCO) Smoking Status: Current Everyday Smoker Type Used: Cigarettes 2nd Hand Smoke Exposure: Yes Recent Hopitalizations: No Physical Abuse: No Sexual Abuse: No Mistreated: No Fear: No Immunizations Up To Date Date of Pneumonia Vaccine: Jul 06, 2011 Date of Influenza Vaccine: Jul 09, 2017 Seasonal Allergies Seasonal Allergies: Yes Past Medical History Surgeries: Yes (POOR HISTORIAN) Abdominal Respiratory: Yes Asthma, COPD Cardiac: No Hypertension Neurological: Yes Headaches /Migraines Reproductive Disorders: No Sexually Transmitted Disease: No HIV/AIDS: No Gastrointestinal: Yes (history of H. pylori) Hemorrhoids Musculoskeletal: No Endocrine: No Cancer: No Psychosocial: No Integumentary: No Blood Disorders: No Adverse Reaction/Blood Tranf: No (N/A) Family Medical History No Pertinent Family Hx Physical Exam Vital Signs - First Documented 11/13/18 10:42 Temp 97.5 Pulse 106 Resp 20 B/P (MAP) 145/91 (109) Pulse Ox 96 O2 Delivery Room Air Capillary Refill : Height: 5'9.00" Weight: 160lbs. 2.0oz. 72.270454lv; 24.4 BMI Method:Stated General Appearance: WD/WN, no apparent distress Eyes: Bilateral Eye Normal Inspection, Bilateral Eye PERRL, Bilateral Eye EOMI HEENT: PERRL/EOMI, normal ENT inspection, TMs normal, pharynx normal Neck: non-tender, full range of motion, normal inspection Respiratory: No chest non-tender; lungs clear, no respiratory distress, no accessory muscle use, decreased breath sounds, other (left chest wall ribs are tender to direct palpation. No evidence of rash.) Cardiovascular: normal peripheral pulses, regular rate, rhythm, no edema Gastrointestinal: normal bowel sounds, non tender, soft Extremities: normal range of motion, normal capillary refill Neurologic/Psychiatric: alert, oriented x 3 Skin: normal color, warm/dry; No rash Progress/Results/Core Measures Suspected Sepsis SIRS Temperature: Pulse: Respiratory Rate: Laboratory Tests 11/13/18 10:45: White Blood Count 5.0 Blood Pressure / Mean: Laboratory Tests 11/13/18 10:45: Creatinine 0.93, Platelet Count 183, Total Bilirubin 0.4 Results/Orders Lab Results Laboratory Tests Test 11/13/18 10:45 Range/Units White Blood Count 5.0 4.3-11.0 10^3/uL Red Blood Count 4.82 4.35-5.85 10^6/uL Hemoglobin 15.3 13.3-17.7 G/DL Hematocrit 46 40-54 % Mean Corpuscular Volume 95 80-99 FL Mean Corpuscular Hemoglobin 32 25-34 PG Mean Corpuscular Hemoglobin Concent 33 32-36 G/DL Red Cell Distribution Width 13.7 10.0-14.5 % Platelet Count 183 130-400 10^3/uL Mean Platelet Volume 9.5 7.4-10.4 FL Neutrophils (%) (Auto) 79 H 42-75 % Lymphocytes (%) (Auto) 11 L 12-44 % Monocytes (%) (Auto) 9 0-12 % Eosinophils (%) (Auto) 1 0-10 % Basophils (%) (Auto) 1 0-10 % Neutrophils # (Auto) 3.9 1.8-7.8 X 10^3 Lymphocytes # (Auto) 0.5 L 1.0-4.0 X 10^3 Monocytes # (Auto) 0.5 0.0-1.0 X 10^3 Eosinophils # (Auto) 0.1 0.0-0.3 10^3/uL Basophils # (Auto) 0.0 0.0-0.1 10^3/uL Sodium Level 135 135-145 MMOL/L Potassium Level 4.0 3.6-5.0 MMOL/L Chloride Level 104 98-107 MMOL/L Carbon Dioxide Level 23 21-32 MMOL/L Anion Gap 8 5-14 MMOL/L Blood Urea Nitrogen 14 7-18 MG/DL Creatinine 0.93 0.60-1.30 MG/DL Estimat Glomerular Filtration Rate > 60 BUN/Creatinine Ratio 15 Glucose Level 106 H 70-105 MG/DL Calcium Level 8.7 8.5-10.1 MG/DL Corrected Calcium 8.7 8.5-10.1 MG/DL Total Bilirubin 0.4 0.1-1.0 MG/DL Aspartate Amino Transf (AST/SGOT) 27 5-34 U/L Alanine Aminotransferase (ALT/SGPT) 14 0-55 U/L Alkaline Phosphatase 52 40-136 U/L C-Reactive Protein High Sensitivity 1.08 H 0.00-0.50 MG/DL Total Protein 6.3 L 6.4-8.2 GM/DL Albumin 4.0 3.2-4.5 GM/DL My Orders Orders - SIDDHARTH OLGUIN Cbc With Automated Diff (11/13/18 10:52) Hs C Reactive Protein (11/13/18 10:52) Comprehensive Metabolic Panel (11/13/18 10:52) Ketorolac Injection (Toradol Injection) (11/13/18 11:00) Saline Lock/Iv-Start (11/13/18 10:52) Chest Pa/Lat (2 View) (11/13/18 10:52) Medications Given in ED Current Medications Medications Dose Ordered Sig/Neel Route Start Time Stop Time Status Last Admin Dose Admin Ketorolac Tromethamine 30 mg ONCE ONCE IVP 11/13/18 11:00 11/13/18 11:01 DC 11/13/18 11:15 30 MG Vital Signs/I&O 11/13/18 11/13/18 10:42 10:42 Temp 97.5 Pulse 106 Resp 20 B/P (MAP) 145/91 (109) Pulse Ox 96 O2 Delivery Room Air Capillary Refill : Progress Note : Time: 11:29 Progress Note URI versus bronchitis. Most likely viral. Nothing heard on auscultation. Plan to get some labs and x-ray since going on for a month. No fevers and aseptic vital signs so influenza is not likely. We can get him a another prescription for another nebulizer machine since his is broken in the last week. At this time is not wheezy so steroids and albuterol treatment in the ER probably not indicated. Diagnostic Imaging Diagonstic Imaging: Xray Plain Films/CT/US/NM/MRI: chest Comments NAME: MAURISIO MALAVE [facility] REC#: [id number] PHYSICIAN: SIDDHARTH OLGUIN MD CC: GABBI BURK; SIDDHARTH OLGUIN Page 1 of 1 RADIOLOGY REPORT [facility]. [place], [place] CC: GABBI BURK; SIDDHARTH OLGUIN Page 1 of 1 RADIOLOGY REPORT NAME: MAURISIO MALAVE [facility] REC#: [id number] PT STATUS: REG ER : 1965 PHYSICIAN: SIDDHARTH OLGUIN MD ADMIT DATE: 11/13/18/ER Signed Date of Exam: 11/13/18 CHEST PA/LAT (2 VIEW) INDICATION: Cough COMPARISON: 10/17/2017 FINDINGS: Frontal and lateral views the chest demonstrate clear lungs bilaterally. The heart size is normal. There is no pneumothorax. Osseous structures are normal. IMPRESSION: No acute findings. Normal chest. Dictated by: Dictated on workstation # [id number] Dict: 11/13/18 1112 Trans: 11/13/18 1113 Interpreted by: GABBI BURK Electronically signed by: GABBI BURK 11/13/18 1113 Reviewed: Reviewed by Me Departure Impression Primary Impression: Bronchitis Additional Impression: COPD (chronic obstructive pulmonary disease) with acute bronchitis Disposition: 01 HOME, SELF-CARE Condition: Stable Departure-Patient Inst. Decision time for Depature: 11:50 Referrals: VICKI GALLAGHER MD (PCP/Family) Primary Care Physician Patient Instructions: Acute Bronchitis, Adult (DC) Add. Discharge Instructions: poultry feed supervisor the cough drops and use them one capsule every 6 hours as needed. Use the MDI albuterol 2 puffs every 4 hours as needed for wheezing or shortness of breath. Use a humidifier and vapor rubs to help reduce her congestion and cough. Follow-up with primary care and discuss obtaining another nebulizer machine. All discharge instructions reviewed with patient and/or family. Voiced understanding. Scripts Benzonatate (TESSALON PERLES) 100 Mg Capsule 100 MG PO Q6H PRN for COUGH for 7 Days, #30 CAP 0 Refills Prov: SIDDHARTH OLGUIN 11/13/18 Albuterol Sulfate (PROAIR HFA) 1 Puff Puff 2 PUFF IH Q4H PRN for WHEEZING for 30 Days, #1 EACH 0 Refills 1 PUFF = 90 MCG Prov: SIDDHARTH OLGUIN 11/13/18 SIDDHARTH OLGUIN Nov 13, 2018 11:01
--- NOTE | 2018-11-13 11:15 | Diagnostic Imaging Report ---
INDICATION: Cough COMPARISON: 10/17/2017 FINDINGS: Frontal and lateral views the chest demonstrate clear lungs bilaterally. The heart size is normal. There is no pneumothorax. Osseous structures are normal. IMPRESSION: No acute findings. Normal chest. Dictated by: Dictated on workstation # [id number]
[2018-11-13 11:20] LABS: ALANINE AMINOTRANSFERASE 14 U/L (0-55); ALKALINE PHOSPHATASE 52 U/L (40-136); BILIRUBIN,TOTAL 0.4 MG/DL (0.1-1.0); BUN/CREATININE RATIO 15; CALCIUM 8.7 MG/DL (8.5-10.1); CARBON DIOXIDE 23 MMOL/L (21-32); CHLORIDE 104 MMOL/L (98-107); CREATININE SERUM 0.93 MG/DL (0.60-1.30); GFR ESTIMATED > 60; GLUCOSE 106 MG/DL (70-105); SODIUM 135 MMOL/L (135-145); TOTAL PROTEIN 6.3 GM/DL (6.4-8.2)
[2018-11-13] MEDS ORDERED: RT-ALBUINH IH (11:52)
[2018-11-13] MEDS ORDERED: BENZ100C18 PO (11:52)
[2018-11-13 12:02] VITALS: BP 142/87
== END 2018-11-13 12:02 | disposition home or self-care (01) ==
LOC: EDUNIT# 10:31 → ER 10:32
DX: J44.0 Chronic obstructive pulmonary disease with (acute) lower respiratory infection (principal); J20.9 Acute bronchitis, unspecified; I10 Essential (primary) hypertension; G43.909 Migraine, unspecified, not intractable, without status migrainosus; F17.210 Nicotine dependence, cigarettes, uncomplicated; Z88.6 Allergy status to analgesic agent; Z87.19 Personal history of other diseases of the digestive system
CPT/HCPCS: 36415; 71046; 80053; 85025; 86141

== ENCOUNTER 2018-12-01 21:01 | Emergency (ER) | payer MEDICAID ==
[~2018-12-01 21:01] MED LIST changes: +BENZ100C18 PO
[2018-12-01] MEDS ORDERED: ASPIRIN 81 MG CHEW (CHILDREN'S ASA) PO ONE (21:15)
--- NOTE | 2018-12-01 21:30 | NUR ---
PT REFUSED ALL TASKS AND PROCEDURES THE PROVIDER ORDERED AND DECIDED HE WOULD RATHER LEAVE AGAINST MEDICAL ADVICE INSTEAD OF BEING MONITORED AND EVALUATED FOR HIS CHEST PAIN.
== END 2018-12-01 21:24 | disposition left against medical advice (07) ==
LOC: EDUNIT# 21:01 → ER 21:02
DX: R07.9 Chest pain, unspecified (principal)

== ENCOUNTER 2019-09-10 10:08 | Day surgery (SDC) | payer MEDICAID ==
[2019-09-10] VITALS (13 sets, daily range): BP systolic 107–156; BP diastolic 66–82
[~2019-09-10] VITALS: Ht 175.3 cm; Wt 67.0 kg
[2019-09-10] MEDS ORDERED: NS IV 500 ML 500 ML ONE (10:12)
[2019-09-10] MEDS ORDERED: NS IV 500 ML 500 ML IV PRN (10:18)
[2019-09-10] MEDS ORDERED: fentaNYL INJECTION 100 MCG/2 ML AMP IVP ONE (10:30)
[2019-09-10] MEDS ORDERED: LIDOCAINE JELLY 2% 6 ML SYRINGE ONE (11:50)
[2019-09-10] MEDS ORDERED: fentaNYL INJECTION 100 MCG/2 ML AMP ONE (11:51)
[2019-09-10] MEDS ORDERED: MIDAZOLAM 5 MG/5 ML (VERSED) VIAL ONE ×2 (11:51)
[2019-09-10] MEDS ORDERED: HURRICAINE EXT TUBE (BENZOCAINE) ONE (11:51)
[2019-09-10] MEDS: MIDAZOLAM 5 MG/5 ML (VERSED) VIAL IV PRN ×4 (12:16→12:26)
--- NOTE | 2019-09-10 13:00 | Conscious Sedation/ASA ---
Conscious Sedation Pre-Proced Time 12:00 ASA Score 2 For ASA 3 and 4: Consider anesthesia and medical clearance. Also, for patients with a history of failed moderate sedation consider anesthesia. Airway Lungs Heart ASA score ASA 1: a normal healthy patient ASA 2: a patient with a mild systemic disease (mid diabetes, controlled hypertension, obesity ASA 3: a patient with a severe systemic disease that limits activity (angina, COPD, prior Myocardial infarction) ASA 4: a patient with an incapacitating disease that is a constant threat to life (CHF, renal failure) ASA 5: a moribund patient not expected to survive 24 hrs. (ruptured aneurysm) ASA 6: a declared brain- patient whose organs are being harvested. For emergent operations, add the letter E after the classification Mallampati Classification Grade 2 Sedation Plan Analgesia, Amnesia, Plan communicated to team members, Discussed options with patient/fam, Discussed risks with patient/fam The patient is an appropriate candidate to undergo the planned procedure, sedation, and anesthesia. The patient immediately re-assessed prior to indication. LESTER HOWELL MD Sep 10, 2019 13:00
--- NOTE | 2019-09-10 13:01 | Progress Note-Pre Operative ---
Pre-Operative Progress Note H&P Reviewed The H&P was reviewed, patient examined and no changes noted. Date Seen by Provider: Sep 10, 2019 Time Seen by Provider: 12:00 Date H&P Reviewed: Sep 10, 2019 Time H&P Reviewed: 12:00 Pre-Operative Diagnosis: dysphagia, GERD LESTER HOWELL MD Sep 10, 2019 13:01
--- NOTE | 2019-09-10 13:02 | Progress Note-Post Operative ---
Post-Operative Progess Note Surgeon (s)/Planning Manager (s) Surgeon LESTER HOWELL MD Planning Manager: none Pre-Operative Diagnosis dysphagia, GERD Post-Operative Diagnosis reflux esophagitis(stage 2), distal esophageal stricture, moderate gastritis. Procedure & Operative Findings Date of Procedure 09/10/19 Procedure Performed/Findings EGD with bx and balloon dilatation. Anesthesia Type cs Estimated Blood Loss Estimated blood loss (mL): minimal Specimens/Packing Specimens Removed ge jxn, antrum LESTER HOWELL MD Sep 10, 2019 13:02
[2019-09-10] MEDS ORDERED: PANT40TA2 PO (13:06)
--- NOTE | 2019-09-10 13:07 | Discharge Inst-Surgical ---
D/C Lap Instructions-KIDO New, Converted, or Re-Newed RX: RX on Chart Follow Up PRN Activity as tolerated High Fiber Diet 25g or more per day Avoid Alcohol, Caffeine, Spicy [place]y and Acid foods. Drink 64 fluid oz or more of fluids per day. Symptoms to Report: Fever over 101 degree F, Nausea/Vomiting If any problems/questions: Contact your physician or go to Emergency Room LESTER HOWELL MD Sep 10, 2019 13:07
[2019-09-10] MEDS ORDERED: ACETAMINOPHEN 325 MG TABLET PO PRN (13:15)
[2019-09-10] MEDS ORDERED: HURRICAINE EXT TUBE (BENZOCAINE) XX ONE (13:15)
[2019-09-10] MEDS ORDERED: morphine INJ 10 MG/ML 1ML (SYR OR VIAL) IVP PRN ×2 (13:15)
[2019-09-10] MEDS ORDERED: LIDOCAINE JELLY 2% 6 ML SYRINGE TOP ONE (13:15)
[2019-09-10] MEDS ORDERED: HYDROcodone/APAP 5 MG/325 MG (LORTAB) TAB PO PRN (13:15)
[2019-09-10] MEDS ORDERED: ONDANSETRON 4 MG/2 ML (SDV) Z0FRAN IVP PRN (13:15)
--- NOTE | 2019-09-11 00:47 | OPERATIVE REPORT ---
DATE OF SERVICE: 09/10/2019 ATTENDING PRIMARY REFRIGERATION BRAZER/SOLDERER: [facility]. PREOPERATIVE DIAGNOSES: Recurrent dysphagia and gastroesophageal reflux disease. POSTOPERATIVE DIAGNOSES: Reflux esophagitis stage II, distal esophageal stricture, no recurrent hiatal hernia. Moderate gastritis. PROCEDURE PERFORMED: EGD with biopsy and balloon dilatation. SURGEON: Lester Howell MD ANESTHESIA: Conscious sedation. ESTIMATED BLOOD LOSS: Minimal. FINDINGS: Reflux esophagitis stage II, distal esophageal stricture, no recurrent hiatal hernia. Moderate gastritis. DISPOSITION: The patient tolerated the procedure well. INDICATIONS: The patient is a 53-year-old male known to us. He has had a longstanding history of gastroesophageal reflux disease as well as history of H. pylori gastritis and Shetty's esophagus. He is status post laparoscopic Hill gastropexy. This gentleman has had recurrent episodes of reflux as well as development of dysphagia; however, this is most likely secondary to noncompliance. He is a heavy smoker and does smoke 2 packs a day and does drink at least 1 pint of hard alcohol daily. He has been placed on acid reducing medications in the past; however, he has also been noncompliant with this. He has a known history of distal esophageal stricture, most likely secondary from the noncompliance as well as a previous surgery. He is again experiencing dysphagia and having difficulty swallowing foods and sometimes liquids and he has lost some weight. DESCRIPTION OF PROCEDURE: The patient was brought to the endoscopy suite, laid in the left lateral decubitus position with head elevated. After adequate IV pain and sedative medications and conscious anesthesia, the mouthpiece was applied. The endoscope was placed in the mouth, visualizing the pharynx and hypopharyngeal region. Vocal cords, epiglottis and vallecula identified and appeared to be normal. The endoscope was then advanced into the esophageal opening and esophagus insufflated. The endoscope was then advanced to the first, second and third portions of the esophagus at the level of the GE junction, reflux esophagitis stage II identified. There were no ulcers identified in this region; however, a distal esophageal stricture was once again identified. A biopsy was taken of the GE junction with forceps with visualization of good hemostasis. The endoscope was then advanced into the stomach and endoscope retroflexed, visualizing an intact previous wrap. There was no recurrent hiatal hernia. He did have diffuse moderate gastritis throughout the stomach. No formal ulcerations, polyps, or any neoplasms. A biopsy was taken of the antrum to rule out H. pylori with visualization of good hemostasis. The endoscope was then advanced to the pylorus and the first and second portion of the duodenum, which appeared normal and no distal obstructions. The endoscope was then slowly withdrawn while taking a second look and suctioning of residual air with no additional findings. The patient tolerated the procedure well. We will again recommend the necessary lifestyle and diet accommodation including cessation of smoking and alcohol as well as caffeinated beverages, spicy, greasy and acidic foods as well as taking in small and more frequent meals and avoidance of eating at night and avoiding spicy, greasy and acidic foods. We will again once proceed with trying a PPI acid contract consultant to decrease his acid production; however, we are not sure if he will be compliant with his medication. We will attempt a trial of Protonix 40 mg daily. Job ID: [id number] DocumentID: [id number] Dictated Date: 09/10/2019 14:01:35 Oil Dispatcher Date: 09/11/2019 00:21:33 Dictated By: LESTER HOWELL MD
--- NOTE | 2019-09-11 09:00 | HISTORY AND PHYSICAL ---
DATE OF SERVICE: DATE OF SERVICE: 09/10/2019 ATTENDING PRIMARY CARE PHYSICIAN: Dr. Jazzy Alejandre. HISTORY OF PRESENT ILLNESS: The patient is a 53-year-old male known to us. He has a longstanding history of gastroesophageal reflux disease, H. pylori gastritis as well as Shetty's esophagus. He underwent a hiatal hernia repair as well as a Hill gastropexy 03/2007_. Since that time, he has had significant reflux and dysphagia and has had several EGDs and dilatations. He does have significant risk factors and is noncompliant and does continue with heavy alcohol consumption including 1 pint of a liquor daily as well as 2 packs of cigarettes daily. He has been placed on PPI acid reducers many times; however, he has been noncompliant. His last dilatation procedure was done on 07/05/2018. He presents again with recurrent dysphagia with difficulty swallowing of mostly solids; however, at times liquids as well. He has also lost weight. PAST MEDICAL HISTORY: Gastroesophageal reflux disease, H. pylori gastritis, history of Shetty's esophagus, hypertension. PAST SURGICAL HISTORY: Hill gastropexy in 2006, diagnostic laparoscopy and evacuation of hematoma in 2006, multiple EGDs with biopsies and dilatation, history of orchiectomy. Bilateral carpal tunnel and ulnar nerve release 05/2019. ALLERGIES: No known drug allergies. MEDICATIONS: None. SOCIAL HISTORY: Positive smoke 60 pack years, positive for alcohol 1 pint of whiskey daily. FAMILY HISTORY: Noncontributory. VITAL SIGNS: Blood pressure 110/78, current weight 5 feet 8 inches at 157.9 pounds. REVIEW OF SYSTEMS: A well-nourished male currently in no acute distress. He is not experiencing any shortness of breath or difficulty breathing. No chest pain, palpitations, diaphoresis. Intermittent episodes of epigastric pressure sensation as well as regurgitation and dysphagia. He does not report any diarrhea. No constipation, no red blood per rectum, no dark tarry stools. No fever, chills. No recent inadvertent weight loss. All other review of systems are negative. PHYSICAL EXAMINATION: CHEST: Scattered rales and rhonchi bilaterally. HEART: Regular, no murmurs. EXTREMITIES: No lower extremity edema, negative Homans sign. HEENT: No scleral icterus. NECK: No cervical lymphadenopathy. ABDOMEN: Soft, nondistended. There is mild discomfort in the epigastric region upon deep palpation. SKIN: Warm, dry. ASSESSMENT AND PLAN: A 53-year-old male with significant history of reflux esophagitis, distal esophageal stricture, history of Shetty's esophagus and H. pylori gastritis and recurrent dysphagia. He is again symptomatic and we will proceed with EGD biopsy as well as balloon dilatation. Job ID: [id number] DocumentID: [id number] Dictated Date: 09/09/2019 15:03:15 Farmworker Rice Date: 09/09/2019 15:23:59 Dictated By: LESTER HOWELL MD
== END 2019-09-10 13:30 | disposition home or self-care (01) ==
LOC: ENDO 10:08
PROVIDERS: ATTEND Surgery
DX: K22.2 Esophageal obstruction (principal); K29.50 Unspecified chronic gastritis without bleeding; K21.0 Gastro-esophageal reflux disease with esophagitis; B96.81 Helicobacter pylori [H. pylori] as the cause of diseases classified elsewhere; I10 Essential (primary) hypertension; F17.210 Nicotine dependence, cigarettes, uncomplicated; Z90.79 Acquired absence of other genital organ(s)
CPT/HCPCS: 88305

== ENCOUNTER 2019-10-03 19:47 | Emergency (ER) | payer MEDICAID ==
[~2019-10-03] VITALS: Ht 173 cm; Wt 70.0 kg
[2019-10-03 20:06] LABS: BILIRUBIN,URINE NEGATIVE (NEGATIVE); CLARITY,URINE CLEAR; COLOR,URINE YELLOW; GLUCOSE, URINE (UA) NEGATIVE (NEGATIVE); KETONES,URINE NEGATIVE (NEGATIVE); LEUKOCYTE ESTERASE ,URINE NEGATIVE (NEGATIVE); NITRITE,URINE NEGATIVE (NEGATIVE); PROTEIN,URINE NEGATIVE (NEGATIVE)
--- NOTE | 2019-10-03 20:11 | ED Psychosocial ---
General Chief Complaint: Substance Abuse Stated Complaint: SUICIDE THOUGHTS Source: patient (PT HAS SIGNIFICANT SPEECH IMPEDIMENT, SPEECH PATTERN DIFFICULT TO UNDERSTAND) History of Present Illness Date Seen by Provider: Oct 03, 2019 Time Seen by Provider: 19:55 Initial Comments PT WAS DROPPED OFF BY [place] [employer]--FOR "ALLEGED SUICIDAL IDEATI ONS". IS UNCLEAR HOW POLICE BECAME INVOLVED--PT CLAIMS THAT HE LIVES ALONE, NO ONE WAS WITH HIM AT HIS HOUSE, THAT HE DID NOT CALL POLICE OR ANYONE AND HAS NO IDEA WHO CALLED THE POLICE--STATES "THEY JUST SHOWED UP" AT HIS HOUSE AND BROUGHT HIM HERE "BECAUSE IT'S TOO COLD TO WALK". PT STATES THAT THE OFFICER "JUST GAVE HIM A RIDE HERE" AND THAT HE IS NOT SUICIDAL, "JUST WANT TO GO BACK TO REHAB" PT STATES HE WAS AT [facility] FOR 9 DAYS, AND JUST GOT OUT 09/29/19 FOR ALCOHOL ABUSE, BUT STARTED DRINKING SOON HE GOT HOME. RN LATER CONTACTED THE DIRECTOR SALES [employer], WHO REPORTS THAT PT JUST GOT OUT YESTERDAY--THAT THE PT LEFT [place], AND HAD STATED TO THE OFFICER THAT "IF HE DIDN'T GET BACK INTO REHAB HE WOULD KILL HIMSELF" . IS STILL UNCLEAR HOW THE POLICE BECAME INVOLVED. PT HAS EXTENSIVE HISTORY OF ALCOHOL ABUSE--STATES THAT HE DRINKS WHISKEY EVERY DAY "UNTIL HE THROWS UP OR PASSES OUT". STATES HE "DIDN'T DRINK THAT MUCH" TODAY--"ONLY A PINT AND A HALF OF "K.D."" PT ALSO HAS HISTORY OF DRUG ABUSE, INCLUDING THC AND RX/BARBITURATE ABUSE--DENIES ANY USE "FOR YEARS" PT HAS NOT ATTEMPTED TO CONTACT HIS PCP, DR. GALLAGHER, AT [facility], EVEN THOUGH THEY HAVE A SUBSTANCE ABUSE TREATMENT PROGRAM THERE. PCP: [facility], DR. GALLAGHER Allergies and Home Medications Allergies Coded Allergies: tramadol (Verified Allergy, Mild, "TOO SLEEPY", 04/05/18) Home Medications Albuterol Sulfate 1 Puff Puff, 2 PUFF IH Q4H PRN for WHEEZING 1 PUFF = 90 MCG Prescribed by: SIDDHARTH OLGUIN on 11/13/18 1152 Benzonatate 100 Mg Capsule, 100 MG PO Q6H PRN for COUGH Prescribed by: SIDDHARTH OLGUIN on 11/13/18 1152 Pantoprazole Sodium 40 Mg Tablet., 40 MG PO DAILY Prescribed by: LESTER HOWELL on 09/10/19 1306 Patient Home Medication List Home Medication List Reviewed: Yes Review of Systems Constitutional: no symptoms reported Respiratory: no symptoms reported Cardiovascular: no symptoms reported Gastrointestinal: no symptoms reported Genitourinary: no symptoms reported Musculoskeletal: no symptoms reported Skin: no symptoms reported Psychiatric/Neurological: See HPI; Denies Anxiety, Denies Depressed, Denies Emotional Problems Past Moqrgds-Qjahhp-Jjkrgg Hx Past Med/Social Hx: Reviewed and Corrections made Patient Social History Alcohol Use: Regular Use (DAILY, HEAVY USE) Number of Drinks Today: GG Alcohol Beverage of Choice: Whiskey Recreational Drug Use: Yes (RX DRUGS/BARBITURATES, THC) Drug of Choice: RX DRUGS/BARBITURATES, THC Smoking Status: Current Everyday Smoker (> 2 PPD) Type Used: Cigarettes (> 2 PPD) 2nd Hand Smoke Exposure: Yes Recent Foreign Travel: No Contact w/Someone Who Travel: No Recent Hopitalizations: No Immunizations Up To Date Date of Pneumonia Vaccine: Jul 06, 2011 Date of Influenza Vaccine: Jul 09, 2017 Seasonal Allergies Seasonal Allergies: Yes Past Medical History Surgeries: Yes (EGD'S / ESOPHAGEAL DILATIONS) Abdominal Respiratory: Yes Asthma, COPD Cardiac: Yes Hypertension Neurological: Yes Headaches /Migraines Reproductive Disorders: No Sexually Transmitted Disease: No HIV/AIDS: No Genitourinary: No Gastrointestinal: Yes (ESOPHAGEAL STRICTURES/DILATIONS; H. PYLORI) Gastroesophageal Reflux, Shetty's Esophagus, Hemorrhoids Musculoskeletal: No Endocrine: No HEENT: Yes (POOR DENTITION) Cancer: No Psychosocial: Yes (ALCOHOLISM, RX DRUG ABUSE; SUICIDAL IDEATIONS) Anxiety, Depression Integumentary: No Blood Disorders: No Adverse Reaction/Blood Tranf: No (N/A) Family Medical History No Pertinent Family Hx Physical Exam Vital Signs - First Documented 10/03/19 19:59 Temp 36.8 Pulse 108 Resp 18 B/P (MAP) 142/96 (111) Pulse Ox 97 Capillary Refill : Height, Weight, BMI Height: 5'9.00" Weight: 160lbs. 2.0oz. [id number]; 21.80 BMI Method:Estimated General Appearance: other (SLEEPING SOUNDLY, EASILY AWAKENS. + ODOR OF ETOH AND CIGARETTES. UNKEMPT. HAS SIGNFICANT SPEECH IMPEDIMENT AND IS DIFFICULT TO UNDERSTAND. GAIT STREADY AND DOES NOT APPEAR TO BE INTOXICATED) HEENT: PERRL/EOMI, other (EDENTULOUS) Neck: normal inspection Respiratory: normal breath sounds, no respiratory distress, no accessory muscle use Cardiovascular: regular rate, rhythm Gastrointestinal: non tender, soft Extremities: normal inspection, normal capillary refill Neurologic/Psychiatric: head holder II-XII nml as tested, no motor/sensory deficits, alert, normal mood/affect, oriented x 3 Appearance/Memory: no memory impairment, disheveled Behavior/Eye Contact: cooperative, good eye contact Thoughts/Hallucinations: normal thought pattern, no apparent hallucination Skin: normal color, warm/dry, tattoos/piercings (EXTENSIVE TATTOOS), other (APPEARS TO HAVE EXTENSIVE, CHRONIC APPEARING DERMATITIS TO HANDS AND FEET. ) Progress/Results/Core Measures Results/Orders Lab Results Laboratory Tests Test 10/03/19 20:00 10/03/19 20:20 Range/Units Urine Color YELLOW Urine Clarity CLEAR Urine pH 6.0 5-9 Urine Specific [place] <=1.005 1.016-1.022 Urine Protein NEGATIVE NEGATIVE Urine Glucose (UA) NEGATIVE NEGATIVE Urine Ketones NEGATIVE NEGATIVE Urine Nitrite NEGATIVE NEGATIVE Urine Bilirubin NEGATIVE NEGATIVE Urine Urobilinogen 0.2 < = 1.0 MG/DL Urine Leukocyte Esterase NEGATIVE NEGATIVE Urine RBC (Auto) NEGATIVE NEGATIVE Urine RBC NONE /HPF Urine WBC RARE /HPF Urine Crystals PRESENT H /LPF Urine Amorphous Sediment FEW TYRESE URATES H /LPF Urine Bacteria NEGATIVE /HPF Urine Casts NONE /LPF Urine Mucus NEGATIVE /LPF Urine Culture Indicated NO Urine Opiates Screen NEGATIVE NEGATIVE Urine Oxycodone Screen NEGATIVE NEGATIVE Urine Methadone Screen NEGATIVE NEGATIVE Urine Propoxyphene Screen NEGATIVE NEGATIVE Urine Barbiturates Screen NEGATIVE NEGATIVE Ur Tricyclic Antidepressants Screen NEGATIVE NEGATIVE Urine Phencyclidine Screen NEGATIVE NEGATIVE Urine Amphetamines Screen NEGATIVE NEGATIVE Urine Methamphetamines Screen NEGATIVE NEGATIVE Urine Benzodiazepines Screen NEGATIVE NEGATIVE Urine Cocaine Screen NEGATIVE NEGATIVE Urine Cannabinoids Screen NEGATIVE NEGATIVE White Blood Count 8.8 4.3-11.0 10^3/uL Red Blood Count 4.87 4.35-5.85 10^6/uL Hemoglobin 15.6 13.3-17.7 G/DL Hematocrit 47 40-54 % Mean Corpuscular Volume 96 80-99 FL Mean Corpuscular Hemoglobin 32 25-34 PG Mean Corpuscular Hemoglobin Concent 33 32-36 G/DL Red Cell Distribution Width 13.3 10.0-14.5 % Platelet Count 220 130-400 10^3/uL Mean Platelet Volume 9.7 7.4-10.4 FL Neutrophils (%) (Auto) 58 42-75 % Lymphocytes (%) (Auto) 30 12-44 % Monocytes (%) (Auto) 8 0-12 % Eosinophils (%) (Auto) 3 0-10 % Basophils (%) (Auto) 1 0-10 % Neutrophils # (Auto) 5.1 1.8-7.8 X 10^3 Lymphocytes # (Auto) 2.7 1.0-4.0 X 10^3 Monocytes # (Auto) 0.7 0.0-1.0 X 10^3 Eosinophils # (Auto) 0.3 0.0-0.3 10^3/uL Basophils # (Auto) 0.1 0.0-0.1 10^3/uL Sodium Level 142 135-145 MMOL/L Potassium Level 4.2 3.6-5.0 MMOL/L Chloride Level 107 98-107 MMOL/L Carbon Dioxide Level 21 21-32 MMOL/L Anion Gap 14 5-14 MMOL/L Blood Urea Nitrogen 16 7-18 MG/DL Creatinine 1.08 0.60-1.30 MG/DL Estimat Glomerular Filtration Rate > 60 BUN/Creatinine Ratio 15 Glucose Level 94 70-105 MG/DL Calcium Level 9.4 8.5-10.1 MG/DL Corrected Calcium 9.2 8.5-10.1 MG/DL Total Bilirubin 0.2 0.1-1.0 MG/DL Aspartate Amino Transf (AST/SGOT) 17 5-34 U/L Alanine Aminotransferase (ALT/SGPT) 15 0-55 U/L Alkaline Phosphatase 51 40-136 U/L Total Protein 6.9 6.4-8.2 GM/DL Albumin 4.3 3.2-4.5 GM/DL TSH [place] Testing 1.87 0.35-4.94 UIU/ML Salicylates Level < 5.0 L 5.0-20.0 MG/DL Acetaminophen Level < 10 L 10-30 UG/ML Serum Alcohol 196 H <10 MG/DL My Orders Orders - ORALIA KHAN DO Urinalysis (10/03/19 19:55) Thyroid Analyzer (10/03/19 19:55) Drug Screen Stat (Urine) (10/03/19 19:55) Cbc With Automated Diff (10/03/19 19:55) Comprehensive Metabolic Panel (10/03/19 19:55) Alcohol (10/03/19 19:55) Acetaminophen (10/03/19 19:55) Salicylate (10/03/19 19:55) Ekg Tracing (10/03/19 19:55) Vital Signs/I&O 10/03/19 10/03/19 19:59 21:44 Temp 36.8 36.8 Pulse 108 108 Resp 18 18 B/P (MAP) 142/96 (111) 142/96 (111) Pulse Ox 97 97 Progress Progress Note : Progress Note PT HAS REPEATEDLY DENIED THAT HE IS SUICIDAL, THROUGHOUT THE ENTIRE ER STAY. ONLY STATES SEVERAL TIMES THAT HE JUST WANTS TO GO BACK TO REHAB AT [facility]. PT WAS ADVISED THAT HE CANNOT GO THERE--OR ANYWHERE ELSE-- IF HE IS INTOXICATED, AND THAT THEY WILL NOT DO AN INTAKE ON A SUNDAY NIGHT. PT REPORTS THAT HE IS AWARE OF THIS PT SLEPT/RESTED QUIETLY FOR ENTIRE ER STAY PT VOICED NO COMPLAINTS, AND REMAINED VERY COOPERATIVE THROUGHOUT ER STAY PT IS AGREEABLE AND WILLING TO GO HOME ( PT STATES THAT HE DOES HAVE A HOUSE OF HIS OWN ). HE UNDERSTANDS THAT HE CANNOT GET INTO [facility] TONIGHT. HE ADAMANTLY DENIES BEING SUICIDAL AT ANY TIME DURING ER STAY. GAIT IS STEADY AND PT DOES NOT APPEAR INTOXICATED PT STATES THAT THE POLICE WILL TAKE HIM HOME. ADVISED THAT THEY ARE NOT A [employer]AX[employer] SERVICE. HE STATES "I AIN'T WALKIN'--IT'S TOO COLD"-OFFERED TO CALL [employer] FOR PT BUT ADVISED THAT HE WOULD BE RESPONSIBLE FOR PAYMENT. HE STATES HE "AIN'T DOIN' THAT". HE DOES BECOME SOMEWHAT HOSTILE, AT DISMISSAL STATING REPEATEDLY "HOW ARE YOU GOING TO GET ME HOME??" OFFERED TO CALL A FRIEND, FAMILY OR NEIGHBOR FOR PT, HE STATES THERE IS NO ONE TO CALL. RN HAS CALLED POLICE, AND THEY WILL NOT TAKE PT HOME. Initial ECG Impression Date: Oct 03, 2019 Initial ECG Impression Time: 20:07 Initial ECG Rate: 93 Initial ECG Rhythm: Normal Sinus Initial ECG Impression: Nonspecific Changes (INFERIOR Q WAVES) Departure Impression Primary Impression: Alcohol abuse Disposition: 01 HOME, SELF-CARE Condition: Stable Departure-Patient Inst. Referrals: VICKI GALLAGHER MD (PCP/Family) Primary Care Physician Patient Instructions: ALCOHOL AND SUBSTANCE ABUSE, Alcohol Abuse and Alcoholism (DC) Add. Discharge Instructions: NO DRINKING!!! FOLLOW UP WITH [facility] SUBSTANCE ABUSE TREATMENT OR WITH [facility] SOON POSSIBLE All discharge instructions reviewed with patient and/or family. Voiced understanding. ORALIA KHAN DO Oct 03, 2019 20:10
[2019-10-03 20:23] LABS: BACTERIA,URINE NEGATIVE /HPF; WBC,URINE RARE /HPF
[2019-10-03 20:24] LABS: AMORPHOUS SEDIMENT,UR FEW AMOR URATES /LPF
[2019-10-03 20:28] LABS: BASOPHILS # (AUTO) 0.1 10^3/uL (0.0-0.1); BASOPHILS % (AUTO) 1 % (0-10); EOSINOPHILS # (AUTO) 0.3 10^3/uL (0.0-0.3); EOSINOPHILS % (AUTO) 3 % (0-10); HEMATOCRIT 47 % (40-54); HEMOGLOBIN 15.6 G/DL (13.3-17.7); LYMPHOCYTES # (AUTO) 2.7 X 10^3 (1.0-4.0); LYMPHOCYTES % (AUTO) 30 % (12-44); MEAN CORPUSCULAR HEMOGLOBIN 32 PG (25-34); MEAN CORPUSCULAR HGB CONC 33 G/DL (32-36); MEAN CORPUSCULAR VOLUME 96 FL (80-99); MEAN PLATELET VOLUME 9.7 FL (7.4-10.4); MONOCYTES # (AUTO) 0.7 X 10^3 (0.0-1.0); MONOCYTES % (AUTO) 8 % (0-12); NEUTROPHILS # (AUTO) 5.1 X 10^3 (1.8-7.8); NEUTROPHILS % (AUTO) 58 % (42-75); PLATELET COUNT 220 10^3/uL (130-400); RED CELL DISTRIBUTION WIDTH 13.3 % (10.0-14.5); WHITE BLOOD COUNT 8.8 10^3/uL (4.3-11.0)
[2019-10-03 20:35] LABS: AMPHETAMINE SCREEN, URINE NEGATIVE (NEGATIVE); BARBITURATE SCREEN URINE NEGATIVE (NEGATIVE); BENZODIAZEPINES SCREEN URINE NEGATIVE (NEGATIVE); CANNABINOID SCREEN, URINE NEGATIVE (NEGATIVE); COCAINE SCREEN URINE NEGATIVE (NEGATIVE); METHADONE STAT NEGATIVE (NEGATIVE); METHAMPHETAMINE SCREEN URINE S NEGATIVE (NEGATIVE); OPIATE SCREEN URINE NEGATIVE (NEGATIVE); OXYCODONE STAT NEGATIVE (NEGATIVE); PROPOXYPHENE STAT NEGATIVE (NEGATIVE); TRICYCLIC ANTIDEPRESSANTS SCRE NEGATIVE (NEGATIVE)
[2019-10-03 20:53] LABS: ALANINE AMINOTRANSFERASE 15 U/L (0-55); ALBUMIN 4.3 GM/DL (3.2-4.5); ALKALINE PHOSPHATASE 51 U/L (40-136); BILIRUBIN,TOTAL 0.2 MG/DL (0.1-1.0); BUN/CREATININE RATIO 15; CALCIUM 9.4 MG/DL (8.5-10.1); CARBON DIOXIDE 21 MMOL/L (21-32); CHLORIDE 107 MMOL/L (98-107); CREATININE SERUM 1.08 MG/DL (0.60-1.30); GFR ESTIMATED > 60; GLUCOSE 94 MG/DL (70-105); POTASSIUM 4.2 MMOL/L (3.6-5.0); SALICYLATE < 5.0 MG/DL (5.0-20.0); SODIUM 142 MMOL/L (135-145); TOTAL PROTEIN 6.9 GM/DL (6.4-8.2)
[2019-10-03 21:04] LABS: ACETAMINOPHEN < 10 UG/ML (10-30)
[2019-10-03 21:13] LABS: TSH (THYROID ANALYZER) 1.87 UIU/ML (0.35-4.94)
[2019-10-03 21:44] VITALS: BP 142/96
== END 2019-10-03 21:41 | disposition home or self-care (01) ==
LOC: EDUNIT# 19:47 → ER 19:49
DX: F10.10 Alcohol abuse, uncomplicated (principal); J44.9 Chronic obstructive pulmonary disease, unspecified; I10 Essential (primary) hypertension; G43.909 Migraine, unspecified, not intractable, without status migrainosus; K21.9 Gastro-esophageal reflux disease without esophagitis; F41.9 Anxiety disorder, unspecified; F32.9 Major depressive disorder, single episode, unspecified; F17.210 Nicotine dependence, cigarettes, uncomplicated; Z88.5 Allergy status to narcotic agent; Y90.6 Blood alcohol level of 120-199 mg/100 ml
CPT/HCPCS: 36415; 80053; 80306; 80320; 80329; 81000; 84443; 85025; 93005

== ENCOUNTER 2019-11-24 09:19 | Emergency (ER) | payer MEDICAID ==
[~2019-11-24] VITALS: Ht 175.2 cm; Wt 74.8 kg
[2019-11-24 09:52] LABS: BILIRUBIN,URINE NEGATIVE (NEGATIVE); CLARITY,URINE CLEAR; COLOR,URINE YELLOW; GLUCOSE, URINE (UA) NEGATIVE (NEGATIVE); KETONES,URINE NEGATIVE (NEGATIVE); LEUKOCYTE ESTERASE ,URINE NEGATIVE (NEGATIVE); NITRITE,URINE NEGATIVE (NEGATIVE); PROTEIN,URINE NEGATIVE (NEGATIVE)
[2019-11-24 10:00] LABS: BACTERIA,URINE NEGATIVE /HPF; SQUAMOUS EPITHELIAL CELL,UR RARE /HPF
[2019-11-24 11:11] LABS: BASOPHILS % (AUTO) 1 % (0-10); EOSINOPHILS # (AUTO) 0.1 10^3/uL (0.0-0.3); EOSINOPHILS % (AUTO) 1 % (0-10); HEMATOCRIT 47 % (40-54); HEMOGLOBIN 15.6 G/DL (13.3-17.7); LYMPHOCYTES # (AUTO) 1.7 X 10^3 (1.0-4.0); LYMPHOCYTES % (AUTO) 28 % (12-44); MEAN CORPUSCULAR HEMOGLOBIN 32 PG (25-34); MEAN CORPUSCULAR HGB CONC 34 G/DL (32-36); MEAN CORPUSCULAR VOLUME 96 FL (80-99); MEAN PLATELET VOLUME 9.6 FL (7.4-10.4); MONOCYTES # (AUTO) 0.5 X 10^3 (0.0-1.0); MONOCYTES % (AUTO) 8 % (0-12); NEUTROPHILS % (AUTO) 62 % (42-75); PLATELET COUNT 228 10^3/uL (130-400); RED CELL DISTRIBUTION WIDTH 13.7 % (10.0-14.5); WHITE BLOOD COUNT 6.3 10^3/uL (4.3-11.0)
[2019-11-24 11:36] LABS: ALANINE AMINOTRANSFERASE 14 U/L (0-55); ALBUMIN 4.2 GM/DL (3.2-4.5); ALKALINE PHOSPHATASE 54 U/L (40-136); BILIRUBIN,TOTAL 0.5 MG/DL (0.1-1.0); BUN/CREATININE RATIO 10; CALCIUM 8.9 MG/DL (8.5-10.1); CARBON DIOXIDE 25 MMOL/L (21-32); CHLORIDE 105 MMOL/L (98-107); CREATININE SERUM 0.84 MG/DL (0.60-1.30); GFR ESTIMATED > 60; GLUCOSE 92 MG/DL (70-105); LIPASE 19 U/L (8-78); POTASSIUM 4.2 MMOL/L (3.6-5.0); SODIUM 138 MMOL/L (135-145); TOTAL PROTEIN 6.7 GM/DL (6.4-8.2)
[2019-11-24] MEDS ORDERED: NS 100 ML (IVPB) BAG IV ONE (12:00)
[2019-11-24] MEDS ORDERED: HOLD METFORMIN - RECEIVED CONTRAST 20 ML VIAL IV SCH (12:00)
[2019-11-24] MEDS ORDERED: IOHEXOL 350 MG/ML 100 ML (OMNIPAQUE 350) VIAL IV ONE (12:00)
--- NOTE | 2019-11-24 12:50 | Diagnostic Imaging Report ---
EXAMINATION: CT Abdomen and Pelvis with intravenous contrast. TECHNIQUE: Multiple contiguous axial images were obtained through the abdomen and pelvis after the uneventful administration of intravenous contrast. All CT scans use one or more of the following dose optimizing techniques: automated exposure control, MA and/or KvP adjustment based on a patient size and exam type, or iterative reconstruction. HISTORY: Left lower quadrant pain COMPARISON: 07/17/2018 FINDINGS: Limited views of the lower thorax are unremarkable. Simple cyst is seen in segment two of the liver. No suspicious liver lesions. There is no biliary ductal dilation. Gallbladder is normal. Pancreas is normal. Spleen is normal. There is a stable 2.4 cm left adrenal nodule. The kidneys are normal. There is no hydronephrosis. Urinary bladder is normal. Visualized bowel is normal in caliber without obstruction or inflammation. No free fluid or air. No abdominal or pelvic lymphadenopathy. Aorta is normal in caliber without aneurysm. There are no suspicious osseus lesions. IMPRESSION: 1. No acute abnormality in the abdomen or pelvis. Dictated by: Dictated on workstation # [id number]
[2019-11-24] MEDS ORDERED: KETOROLAC 30 MG/ML VIAL IVP ONE (13:00)
--- NOTE | 2019-11-24 13:06 | NUR ---
Pt becoming agitated and wanting to leave at this time. Pt encouraged to stay for ultrasound.
--- NOTE | 2019-11-24 14:29 | Diagnostic Imaging Report ---
PROCEDURE: US Scrotum. TECHNIQUE: Multiple real-time grayscale images were obtained over the scrotum in various projections bilaterally. INDICATION: Left testicular pain Right testicle surgically absent. Left testicle measures 4.5 x 1.9 x 2.6 cm. There is no mass seen in the left testicle. There is normal blood flow. There is a 5 mm calcification in the tail of the epididymis. Abdomen demonstrates appears mildly enlarged but not naris and hyperemic. There is no hydrocele or varicocele. IMPRESSION: Prominent epididymis on the left with some internal calcification that could be from old epididymitis. Dictated by: Dictated on workstation # [id number]
[2019-11-24] MEDS ORDERED: LEVO500T2 PO (14:41)
--- NOTE | 2019-11-24 14:42 | ED Abdominal Pain ---
General Chief Complaint: Male Reproductive Stated Complaint: SWOLLEN TESTICLES Nursing Triage Note: pt amb to rm 5 with complaint of left testicle pain that radiates into stomach. states urination increases pain Sepsis Screen: No Definite Risk Source of Information: Patient Exam Limitations: No Limitations History of Present Illness Date Seen by Provider: Nov 24, 2019 Time Seen by Provider: 09:30 Initial Comments This 54-year-old gentleman presents to the emergency room with pain in the left inguinal region and left testicle. 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 He is a challenging historian and appears to have some intellectual disabilities. He does not read. He has been seen by Dr. Singh in the past and his primary care providers Dr. Gallagher. Symptoms have been present for 2 weeks. He denies any changes to his urine. He does describe some penile pain with urination. He is afebrile and vital signs are within normal limits. He reports his pain is constant. He has a friend present with him who helps care for him. He denies sexual activity. Allergies and Home Medications Allergies Coded Allergies: tramadol (Verified Allergy, Mild, "TOO SLEEPY", 04/05/18) Home Medications Albuterol Sulfate 1 Puff Puff, 2 PUFF IH Q4H PRN for WHEEZING 1 PUFF = 90 MCG Prescribed by: SIDDHARTH OLGUIN on 11/13/18 1152 Benzonatate 100 Mg Capsule, 100 MG PO Q6H PRN for COUGH Prescribed by: SIDDHARTH OLGUIN on 11/13/18 1152 Levofloxacin 500 Mg Tablet, 500 MG PO DAILY Prescribed by: HONG NELSON on 11/24/19 1441 Pantoprazole Sodium 40 Mg Tablet.dr, 40 MG PO DAILY Prescribed by: LESTER HOWELL on 09/10/19 1306 Patient Home Medication List Home Medication List Reviewed: Yes Review of Systems Review of Systems Constitutional: no symptoms reported EENTM: No Symptoms Reported Respiratory: No Symptoms Reported Cardiovascular: No Symptoms Reported Gastrointestinal: See HPI Genitourinary: See HPI Musculoskeletal: no symptoms reported Skin: no symptoms reported Psychiatric/Neurological: See HPI Endocrine: No Symptoms Reported Hematologic/Lymphatic: No Symptoms Reported Past Dkylryl-Zrmgqq-Klloxv Hx Past Med/Social Hx: Reviewed Nursing Past Med/Soc Hx Patient Social History Alcohol Use: Occasionally Uses Number of Drinks Today: GG Alcohol Beverage of Choice: Whiskey Recreational Drug Use: Yes (TOBACCO) Drug of Choice: RX DRUGS/BARBITURATES, THC Smoking Status: Current Everyday Smoker Type Used: Cigarettes 2nd Hand Smoke Exposure: Yes Recent Foreign Travel: No Contact w/Someone Who Travel: No Recent Infectious Disease Expo: No Recent Hopitalizations: No Immunizations Up To Date Tetanus Booster (TDap): Unknown PED Vaccines UTD: Yes Date of Pneumonia Vaccine: Jul 06, 2011 Date of Influenza Vaccine: Jul 09, 2017 Seasonal Allergies Seasonal Allergies: Yes Past Medical History Surgeries: Yes (EGD'S / ESOPHAGEAL DILATIONS) Abdominal Respiratory: Yes Asthma, COPD Cardiac: Yes Hypertension Neurological: Yes Headaches /Migraines Reproductive Disorders: No Sexually Transmitted Disease: No HIV/AIDS: No Genitourinary: No Gastrointestinal: Yes (ESOPHAGEAL STRICTURES/DILATIONS; H. PYLORI) Gastroesophageal Reflux, Shetty's Esophagus, Hemorrhoids Musculoskeletal: No Endocrine: No HEENT: Yes (POOR DENTITION) Cancer: No Psychosocial: Yes (ALCOHOLISM, RX DRUG ABUSE; SUICIDAL IDEATIONS, does not read) Anxiety, Depression Integumentary: No Blood Disorders: No Adverse Reaction/Blood Tranf: No (N/A) Family Medical History No Pertinent Family Hx Physical Exam Vital Signs Vital Signs - First Documented 11/24/19 09:25 Temp 36.6 Pulse 72 Resp 20 B/P (MAP) 133/83 (100) Pulse Ox 99 O2 Delivery Room Air Capillary Refill : Less Than 3 Seconds Height/Weight/BMI Height: 5'9.00" Weight: 160lbs. 2.0oz. [id number]; 24.00 BMI Method:Estimated General Appearance: WD/WN, no apparent distress HEENT: PERRL/EOMI, normal ENT inspection Neck: normal inspection Respiratory: lungs clear, normal breath sounds, no respiratory distress, no accessory muscle use Cardiovascular: regular rate, rhythm, no edema, no murmur Gastrointestinal: normal bowel sounds, soft, tenderness (tenderness just superior to the left inguinal region and extending down into the inguinal area and left scrotum/testicle. Pain/tenderness is most intense and focused just superior to the left inguinal) Extremities: normal inspection, no pedal edema Male: no hernia, inguinal tenderness, testicular tenderness, other (right t esticle is surgically absent. There is no evidence of inguinal hernia on exam. There is mild tenderness to the testicle without swelling, heat, or erythema. Testicular position is normal.) Neurologic/Psychiatric: interior design project manager II-XII nml as tested, no motor/sensory deficits, alert, normal mood/affect, oriented x 3 Skin: normal color, warm/dry Progress/Results/Core Measures Results/Orders Lab Results Laboratory Tests Test 11/24/19 09:40 11/24/19 11:00 Range/Units Urine Color YELLOW Urine Clarity CLEAR Urine pH 6.0 5-9 Urine Specific [place] <=1.005 1.016-1.022 Urine Protein NEGATIVE NEGATIVE Urine Glucose (UA) NEGATIVE NEGATIVE Urine Ketones NEGATIVE NEGATIVE Urine Nitrite NEGATIVE NEGATIVE Urine Bilirubin NEGATIVE NEGATIVE Urine Urobilinogen 0.2 < = 1.0 MG/DL Urine Leukocyte Esterase NEGATIVE NEGATIVE Urine RBC (Auto) NEGATIVE NEGATIVE Urine RBC NONE /HPF Urine WBC NONE /HPF Urine Squamous Epithelial Cells RARE /HPF Urine Crystals NONE /LPF Urine Bacteria NEGATIVE /HPF Urine Casts NONE /LPF Urine Mucus NEGATIVE /LPF Urine Culture Indicated NO White Blood Count 6.3 4.3-11.0 10^3/uL Red Blood Count 4.88 4.35-5.85 10^6/uL Hemoglobin 15.6 13.3-17.7 G/DL Hematocrit 47 40-54 % Mean Corpuscular Volume 96 80-99 FL Mean Corpuscular Hemoglobin 32 25-34 PG Mean Corpuscular Hemoglobin Concent 34 32-36 G/DL Red Cell Distribution Width 13.7 10.0-14.5 % Platelet Count 228 130-400 10^3/uL Mean Platelet Volume 9.6 7.4-10.4 FL Neutrophils (%) (Auto) 62 42-75 % Lymphocytes (%) (Auto) 28 12-44 % Monocytes (%) (Auto) 8 0-12 % Eosinophils (%) (Auto) 1 0-10 % Basophils (%) (Auto) 1 0-10 % Neutrophils # (Auto) 4.0 1.8-7.8 X 10^3 Lymphocytes # (Auto) 1.7 1.0-4.0 X 10^3 Monocytes # (Auto) 0.5 0.0-1.0 X 10^3 Eosinophils # (Auto) 0.1 0.0-0.3 10^3/uL Basophils # (Auto) 0.0 0.0-0.1 10^3/uL Sodium Level 138 135-145 MMOL/L Potassium Level 4.2 3.6-5.0 MMOL/L Chloride Level 105 98-107 MMOL/L Carbon Dioxide Level 25 21-32 MMOL/L Anion Gap 8 5-14 MMOL/L Blood Urea Nitrogen 8 7-18 MG/DL Creatinine 0.84 0.60-1.30 MG/DL Estimat Glomerular Filtration Rate > 60 BUN/Creatinine Ratio 10 Glucose Level 92 70-105 MG/DL Calcium Level 8.9 8.5-10.1 MG/DL Corrected Calcium 8.7 8.5-10.1 MG/DL Total Bilirubin 0.5 0.1-1.0 MG/DL Aspartate Amino Transf (AST/SGOT) 21 5-34 U/L Alanine Aminotransferase (ALT/SGPT) 14 0-55 U/L Alkaline Phosphatase 54 40-136 U/L C-Reactive Protein High Sensitivity 0.08 0.00-0.50 MG/DL Total Protein 6.7 6.4-8.2 GM/DL Albumin 4.2 3.2-4.5 GM/DL Lipase 19 8-78 U/L My Orders Orders - HONG DAVALOS MD Ua Culture If Indicated (11/24/19 09:29) Ed Iv/Invasive Line Start (11/24/19 10:33) Cbc With Automated Diff (11/24/19 10:33) Comprehensive Metabolic Panel (11/24/19 10:33) Hs C Reactive Protein (11/24/19 10:33) Lipase (11/24/19 10:33) Ct Abdomen/Pelvis W (11/24/19 11:49) Iohexol Injection (Omnipaque 350 Mg/Ml 1 (11/24/19 12:00) Received Contrast (Hold Metformin- Contr (11/24/19 12:00) Ns (Ivpb) (Sodium Chloride 0.9% Ivpb Bag (11/24/19 12:00) Ketorolac Injection (Toradol Injection) (11/24/19 13:00) Us Scrotum (Testicle) [id number] (11/24/19 12:57) Ceftriaxone For Iv Use (Rocephin For I (11/24/19 14:45) Medications Given in ED Vital Signs/I&O 11/24/19 11/24/19 09:25 15:05 Temp 36.6 36.4 Pulse 72 75 Resp 20 18 B/P (MAP) 133/83 (100) 119/77 (100) Pulse Ox 99 98 O2 Delivery Room Air Room Air Blood Pressure Mean: 100 Progress Progress Note : Progress Note Initial workup with blood and urinalysis was unremarkable. Patient is a difficult historian and could have multiple pathologies. CT scan was obtained to rule out ureteral stone, diverticulitis, hernia, etc. this was unremarkable. I discussed the exam and CT findings with the radiologist. He recommended follow-up with ultrasound to rule out any ischemic changes to the testicle or other occult pathology. Ultrasound was performed including the scrotum and the inguinal canal. It was unremarkable except for possible epididymitis. Patient was treated with Toradol which was very helpful. Epididymitis was the working diagnosis. Patient was treated with Rocephin and prescribed antibiotics. Departure Impression Primary Impression: Left lower quadrant pain Additional Impression: Epididymitis Disposition: 01 HOME, SELF-CARE Condition: Improved Departure-Patient Inst. Decision time for Depature: 14:39 Referrals: VICKI GALLAGHER MD (PCP/Family) Primary Care Physician Patient Instructions: Epididymitis (DC), Acute Abdomen (Belly Pain) Add. Discharge Instructions: Complete the antibiotics as prescribed. Follow-up with your primary care provider within the next week. For pain take ibuprofen 600 mg every 6 hours and/or Tylenol (acetaminophen) up to 1000 mg every 6 hours. Return to care if you have worsening symptoms despite these treatments. All discharge instructions reviewed with patient and/or family. Voiced understanding. Scripts Levofloxacin (Levaquin) 500 Mg Tablet 500 MG PO DAILY, #10 TAB Prov: HONG DAVALOS MD 11/24/19 Copy Copies To 1: VICKI GALLAGHER MD Copies To 2: LETICIA SINGH MD, JOSHUA T MD Nov 24, 2019 14:42
[2019-11-24] MEDS ORDERED: cefTRIAXone FOR IV USE 1,000 MG in WATER (STERILE) FOR INJECTION 10 ML IV ONE (14:45)
[2019-11-24 15:05] VITALS: BP 119/77
== END 2019-11-24 15:07 | disposition home or self-care (01) ==
LOC: EDUNIT# 09:19 → ER 09:20
DX: N45.1 Epididymitis (principal); J44.9 Chronic obstructive pulmonary disease, unspecified; K21.9 Gastro-esophageal reflux disease without esophagitis; F17.210 Nicotine dependence, cigarettes, uncomplicated; Z88.5 Allergy status to narcotic agent
CPT/HCPCS: 36415; 74177; 76870; 80053; 81000; 83690; 85025; 86141

== ENCOUNTER 2020-01-04 09:57 | Emergency (ER) | payer MEDICAID ==
[~2020-01-04] VITALS: Ht 175.2 cm; Wt 73.0 kg
[~2020-01-04 09:57] MED LIST changes: +LEVO500T2 PO
[2020-01-04 10:19] LABS: BILIRUBIN,URINE NEGATIVE (NEGATIVE); CLARITY,URINE CLEAR; COLOR,URINE YELLOW; GLUCOSE, URINE (UA) NEGATIVE (NEGATIVE); KETONES,URINE NEGATIVE (NEGATIVE); LEUKOCYTE ESTERASE ,URINE NEGATIVE (NEGATIVE); NITRITE,URINE NEGATIVE (NEGATIVE); PROTEIN,URINE NEGATIVE (NEGATIVE)
[2020-01-04 10:29] LABS: BACTERIA,URINE NEGATIVE /HPF
[2020-01-04] MEDS ORDERED: KETOROLAC 30 MG/ML VIAL IVP ONE (10:30)
--- NOTE | 2020-01-04 10:31 | ED GU-Male ---
General Chief Complaint: Back Problems Stated Complaint: GENITAL AND BACK PAIN Nursing Triage Note: LEFT FLANK PAIN WRAPS AROUND TO LEFT TESTICLE, DENIES HAVING TAKEN ANYTHING FOR PAIN WHEN ASKED. VERBALIZES STARTED YESTERDAY, HAS A HISTORY OF PROBLEMS. Source: patient Exam Limitations: no limitations History of Present Illness Date Seen by Provider: Jan 04, 2020 Time Seen by Provider: 10:15 Initial Comments Patient presents to ER by private conveyance with chief complaint he is having some left testicular pain starting in his left back. He says this same pain he had when he was seen here earlier last month. At that time he had a CT to rule out kidney stones, labs and ultrasound of this testicle showing some mild epididymitis. He says he took the antibiotics but the pain continued and never went away. 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 He denies fever or chills. He denies dysuria or dyspareunia. He denies discharge or hematuria. He is known to Dr. Gallagher and has followed with Dr. Bautista in the past. Allergies and Home Medications Allergies Coded Allergies: tramadol (Verified Allergy, Mild, "TOO SLEEPY", 04/05/18) Home Medications Albuterol Sulfate 1 Puff Puff, 2 PUFF IH Q4H PRN for WHEEZING 1 PUFF = 90 MCG Prescribed by: SIDDHARTH OLGUIN on 11/13/18 1152 Benzonatate 100 Mg Capsule, 100 MG PO Q6H PRN for COUGH Prescribed by: SIDDHARTH OLGUIN on 11/13/18 1152 Levofloxacin 500 Mg Tablet, 500 MG PO DAILY Prescribed by: HONG NELSON on 11/24/19 1441 Pantoprazole Sodium 40 Mg Tablet.dr, 40 MG PO DAILY Prescribed by: LESTER HOWELL on 09/10/19 1306 Patient Home Medication List Home Medication List Reviewed: Yes Review of Systems Review of Systems Constitutional: No chills, No diaphoresis EENTM: No ear discharge, No ear pain Respiratory: No cough, No phlegm, No short of breath Cardiovascular: No chest pain, No edema Gastrointestinal: No abdominal pain, No nausea, No vomiting Genitourinary: see HPI; denies discharge, denies dysuria; flank pain, pain (left testicle) Musculoskeletal: No back pain, No joint pain Skin: No pruritus, No rash Psychiatric/Neurological: Denies Headache, Denies Numbness All Other Systemes Reviewed Negative Unless Noted: Yes Past Yxrmonx-Wzqeaj-Utdkdk Hx Patient Social History Alcohol Use: Regular Use Number of Drinks Today: GG Alcohol Beverage of Choice: Whiskey Recreational Drug Use: No Drug of Choice: RX DRUGS/BARBITURATES, THC Type Used: Cigarettes 2nd Hand Smoke Exposure: Yes Recent Foreign Travel: No Contact w/Someone Who Travel: No Recent Infectious Disease Expo: No Recent Hopitalizations: No Physical Abuse: No Sexual Abuse: No Mistreated: No Fear: No Immunizations Up To Date Tetanus Booster (TDap): Unknown PED Vaccines UTD: Yes Date of Pneumonia Vaccine: Jul 06, 2011 Date of Influenza Vaccine: Jul 09, 2017 Seasonal Allergies Seasonal Allergies: Yes Past Medical History Surgeries: Yes (EGD'S / ESOPHAGEAL DILATIONS) Abdominal Respiratory: Yes Asthma, COPD Cardiac: Yes Hypertension Neurological: Yes Headaches /Migraines Reproductive Disorders: No Sexually Transmitted Disease: No HIV/AIDS: No Genitourinary: No Gastrointestinal: Yes (ESOPHAGEAL STRICTURES/DILATIONS; H. PYLORI) Gastroesophageal Reflux, Shetty's Esophagus, Hemorrhoids Musculoskeletal: No Endocrine: No HEENT: Yes (POOR DENTITION) Cancer: No Psychosocial: Yes (ALCOHOLISM, RX DRUG ABUSE; SUICIDAL IDEATIONS, does not read) Anxiety, Depression Integumentary: No Blood Disorders: No Adverse Reaction/Blood Tranf: No (N/A) Family Medical History No Pertinent Family Hx Physical Exam Vital Signs Vital Signs - First Documented 01/04/20 10:00 Temp 36.5 Pulse 63 Resp 20 B/P (MAP) 146/88 (107) Pulse Ox 99 Capillary Refill : Less Than 3 Seconds Height, Weight, BMI Height: 5'9.00" Weight: 160lbs. 2.0oz. 72.099059fu; 23.00 BMI Method:Estimated General Appearance: WD/WN, mild distress HEENT: PERRL/EOMI, pharynx normal Neck: full range of motion, normal inspection Cardiovascular: normal peripheral pulses, regular rate, rhythm Respiratory: no respiratory distress, no accessory muscle use Gastrointestinal: normal bowel sounds, non tender Extremities: normal range of motion, non-tender, normal capillary refill Neurologic/Psychiatric: alert, oriented x 3 Skin: normal color, warm/dry Procedures/Interventions Progress Made a mixture of 1/2 cc of 2% lidocaine with epinephrine, 1-1/2 cc of 0.5% bupivacaine and 1 cc or 40 mg of Depo-Medrol and using a 1-1/2 inch 25-gauge needle we clean the site with alcohol thoroughly using the Z track method we injected in the area of the L5-S1 facet joint. Risks, benefits and alternatives were explained and the patient consented to the procedure. He had minimal bleeding. A Band-Aid was placed afterwards. Progress/Results/Core Measures Suspected Sepsis Recent Fever Within 48 Hours: No Infection Criteria Present: None New/Unexplained Altered Menta: No Sepsis Screen: No Definite Risk SIRS Temperature: Pulse: 63 Respiratory Rate: 20 Laboratory Tests 01/04/20 10:30: White Blood Count 6.0 Blood Pressure 146 /88 Mean: 107 Laboratory Tests 01/04/20 10:30: Creatinine 0.85, Platelet Count 236, Total Bilirubin 0.4 Results/Orders Lab Results Laboratory Tests Test 01/04/20 10:02 01/04/20 10:30 Range/Units Urine Color YELLOW Urine Clarity CLEAR Urine pH 7.0 5-9 Urine Specific Douglas <=1.005 1.016-1.022 Urine Protein NEGATIVE NEGATIVE Urine Glucose (UA) NEGATIVE NEGATIVE Urine Ketones NEGATIVE NEGATIVE Urine Nitrite NEGATIVE NEGATIVE Urine Bilirubin NEGATIVE NEGATIVE Urine Urobilinogen 0.2 < = 1.0 MG/DL Urine Leukocyte Esterase NEGATIVE NEGATIVE Urine RBC (Auto) NEGATIVE NEGATIVE Urine RBC NONE /HPF Urine WBC NONE /HPF Urine Crystals NONE /LPF Urine Bacteria NEGATIVE /HPF Urine Casts NONE /LPF Urine Mucus NEGATIVE /LPF Urine Culture Indicated NO White Blood Count 6.0 4.3-11.0 10^3/uL Red Blood Count 4.96 4.35-5.85 10^6/uL Hemoglobin 16.0 13.3-17.7 G/DL Hematocrit 47 40-54 % Mean Corpuscular Volume 95 80-99 FL Mean Corpuscular Hemoglobin 32 25-34 PG Mean Corpuscular Hemoglobin Concent 34 32-36 G/DL Red Cell Distribution Width 13.6 10.0-14.5 % Platelet Count 236 130-400 10^3/uL Mean Platelet Volume 9.5 7.4-10.4 FL Neutrophils (%) (Auto) 58 42-75 % Lymphocytes (%) (Auto) 31 12-44 % Monocytes (%) (Auto) 9 0-12 % Eosinophils (%) (Auto) 1 0-10 % Basophils (%) (Auto) 1 0-10 % Neutrophils # (Auto) 3.5 1.8-7.8 X 10^3 Lymphocytes # (Auto) 1.9 1.0-4.0 X 10^3 Monocytes # (Auto) 0.5 0.0-1.0 X 10^3 Eosinophils # (Auto) 0.1 0.0-0.3 10^3/uL Basophils # (Auto) 0.1 0.0-0.1 10^3/uL Sodium Level 140 135-145 MMOL/L Potassium Level 4.5 3.6-5.0 MMOL/L Chloride Level 104 98-107 MMOL/L Carbon Dioxide Level 26 21-32 MMOL/L Anion Gap 10 5-14 MMOL/L Blood Urea Nitrogen 8 7-18 MG/DL Creatinine 0.85 0.60-1.30 MG/DL Estimat Glomerular Filtration Rate > 60 BUN/Creatinine Ratio 9 Glucose Level 94 70-105 MG/DL Calcium Level 9.2 8.5-10.1 MG/DL Corrected Calcium 8.8 8.5-10.1 MG/DL Total Bilirubin 0.4 0.1-1.0 MG/DL Aspartate Amino Transf (AST/SGOT) 21 5-34 U/L Alanine Aminotransferase (ALT/SGPT) 17 0-55 U/L Alkaline Phosphatase 60 40-136 U/L C-Reactive Protein High Sensitivity 0.09 0.00-0.50 MG/DL Total Protein 7.2 6.4-8.2 GM/DL Albumin 4.5 3.2-4.5 GM/DL My Orders Orders - SIDDHARTH OLGUIN Ua Culture If Indicated (01/04/20 10:03) Cbc With Automated Diff (01/04/20 10:24) Comprehensive Metabolic Panel (01/04/20 10:24) Hs C Reactive Protein (01/04/20 10:24) Ed Iv/Invasive Line Start (01/04/20 10:24) Ketorolac Injection (Toradol Injection) (01/04/20 10:30) Azithromycin Tablet (Zithromax Tablet) (01/04/20 10:45) Ceftriaxone For Iv Use (Rocephin For I (01/04/20 10:45) Neis Dani Dna Urine Test (01/04/20 10:55) Chlamydia Trachomatis Urine (01/04/20 10:55) Methylprednisolone Acetate Inj (Depo-Med (01/04/20 11:00) Bupivacaine 0.5% Injection (Sensorcaine (01/04/20 11:00) Methylprednisolone Acetate Inj (Depo-Med (01/04/20 10:51) Bupivacaine 0.5% Injection (Sensorcaine (01/04/20 10:51) Medications Given in ED Current Medications Medications Dose Ordered Sig/Neel Route Start Time Stop Time Status Last Admin Dose Admin Azithromycin 1,000 mg ONCE ONCE PO 01/04/20 10:45 01/04/20 10:46 DC 01/04/20 10:42 1,000 MG Bupivacaine HCl 30 ml ONCE ONCE INJ 01/04/20 11:00 01/04/20 11:01 DC 01/04/20 11:01 30 ML Ceftriaxone Sodium 1000 mg/ Sterile Water 10 ml @ 200 mls/hr ONCE ONCE IV 01/04/20 10:45 01/04/20 10:47 DC 01/04/20 10:42 200 MLS/HR Ketorolac Tromethamine 30 mg ONCE ONCE IVP 01/04/20 10:30 01/04/20 10:31 DC 01/04/20 10:35 30 MG Methylprednisolone Acetate 40 mg ONCE ONCE IM 01/04/20 11:00 01/04/20 11:01 DC 01/04/20 11:00 40 MG Vital Signs/I&O 01/04/20 10:00 Temp 36.5 Pulse 63 Resp 20 B/P (MAP) 146/88 (107) Pulse Ox 99 Capillary Refill : Less Than 3 Seconds Blood Pressure Mean: 107 Progress Note #1: Time: 10:30 Progress Note Plan to check some labs to include a CRP. Suspect he may still have epididymitis. We'll get a GC and chlamydia and give him a gram of Rocephin as well as azithromycin. Plan to set him up for outpatient follow-up with primary care and since ultrasound is not available today we can get this set up for tomorrow outpatient. It's unlikely testicular torsion would be going on for over a month. If he had poor blood flow it would've been seen on the prior ultrasound. Progress Note #2: Time: 11:04 Progress Note The patient appears to be having pain mostly centered around his left lower lumbar spine with radiation into the groin. We'll cover him with azithromycin and Rocephin for potential GC chlamydia however he says is not sexually active. Labs and urine are unremarkable. This pain seems worse on movement or direct palpation over the L5-S1 facet joint and I suspect that this is probably sciatica and lumbago. Plan to give him point tenderness injection of the mixture of bupivacaine, lidocaine and Depo-Medrol. We'll have him follow-up with primary care by calling for an appointment tomorrow. Departure Impression Primary Impression: Lumbago with sciatica, left side Qualified Codes: M54.42 - Lumbago with sciatica, left side Disposition: HOME, SELF-CARE Condition: Stable Departure-Patient Inst. Decision time for Depature: 11:06 Referrals: VICKI GALLAGHER MD (PCP/Family) Primary Care Physician Patient Instructions: Sciatica Exercises, Low Back Pain (DC) Add. Discharge Instructions: Please refer to the handout for some exercises you can try to loosen up your back pain. Please call Dr. Gallagher's office tomorrow morning and request an appointment to follow-up in the next 1-2 weeks. Expect about 6-8 hours of numbness from the shot. There are some steroids and a shot that should help bring down the inflammation and pain over the next 5-7 days. Start taking the naproxen 550 mg 1 tablet twice a day for the next 2 weeks. If you start to get chest pain or acid reflux/indigestion then stop taking the naproxen and see your doctor. Tylenol 1000 mg every 8 hours as needed for pain. Topical creams such as icy hot or Biofreeze. Use a heating pad applied over your back. You may also take long soaks in a warm bathtub. All discharge instructions reviewed with patient and/or family. Voiced understanding. Scripts Naproxen Sodium (Naproxen Sodium) 550 Mg Tablet 550 MG PO BID for 14 Days, #28 TAB 0 Refills Prov: SIDDHARTH OLGUIN 01/04/20 Work/School Note: Work Release Form Date Seen in the Emergency Department: Jan 04, 2020 Return to Work: Jan 06, 2020 Restrictions: Need Release from Doctor Other Restrictions Listed Below: No lifting more than 20 pounds until 01/18/20. SIDDHARTH OLGUIN J Jan 04, 2020 10:31
[2020-01-04 10:42] LABS: BASOPHILS # (AUTO) 0.1 10^3/uL (0.0-0.1); BASOPHILS % (AUTO) 1 % (0-10); EOSINOPHILS # (AUTO) 0.1 10^3/uL (0.0-0.3); EOSINOPHILS % (AUTO) 1 % (0-10); HEMATOCRIT 47 % (40-54); LYMPHOCYTES # (AUTO) 1.9 X 10^3 (1.0-4.0); LYMPHOCYTES % (AUTO) 31 % (12-44); MEAN CORPUSCULAR HEMOGLOBIN 32 PG (25-34); MEAN CORPUSCULAR HGB CONC 34 G/DL (32-36); MEAN CORPUSCULAR VOLUME 95 FL (80-99); MEAN PLATELET VOLUME 9.5 FL (7.4-10.4); MONOCYTES # (AUTO) 0.5 X 10^3 (0.0-1.0); MONOCYTES % (AUTO) 9 % (0-12); NEUTROPHILS # (AUTO) 3.5 X 10^3 (1.8-7.8); NEUTROPHILS % (AUTO) 58 % (42-75); PLATELET COUNT 236 10^3/uL (130-400); RED CELL DISTRIBUTION WIDTH 13.6 % (10.0-14.5)
[2020-01-04] MEDS ORDERED: cefTRIAXone FOR IV USE 1,000 MG in WATER (STERILE) FOR INJECTION 10 ML IV ONE (10:45)
[2020-01-04] MEDS ORDERED: AZITHROMYCIN 250 MG TAB (ZITHROMAX) PO ONE (10:45)
[2020-01-04 10:48] LABS: ALBUMIN 4.5 GM/DL (3.2-4.5)
[2020-01-04 10:49] LABS: CHLORIDE 104 MMOL/L (98-107); POTASSIUM 4.5 MMOL/L (3.6-5.0); SODIUM 140 MMOL/L (135-145)
[2020-01-04 10:50] LABS: CALCIUM 9.2 MG/DL (8.5-10.1)
[2020-01-04 10:51] LABS: GLUCOSE 94 MG/DL (70-105); TOTAL PROTEIN 7.2 GM/DL (6.4-8.2)
[2020-01-04] MEDS ORDERED: BUPIVACAINE 0.5% 30 ML (SENSORCAINE) VIAL ONE (10:51)
[2020-01-04] MEDS ORDERED: methylPREDNISolone 40 MG/ML (DEPO MEDROL) VIAL ONE (10:51)
[2020-01-04 10:52] LABS: CARBON DIOXIDE 26 MMOL/L (21-32)
[2020-01-04 10:53] LABS: BILIRUBIN,TOTAL 0.4 MG/DL (0.1-1.0)
[2020-01-04 10:54] LABS: ALKALINE PHOSPHATASE 60 U/L (40-136)
[2020-01-04 10:55] LABS: CREATININE SERUM 0.85 MG/DL (0.60-1.30); GFR ESTIMATED > 60
[2020-01-04 10:56] LABS: BUN/CREATININE RATIO 9
[2020-01-04 10:58] LABS: ALANINE AMINOTRANSFERASE 17 U/L (0-55)
[2020-01-04] MEDS ORDERED: BUPIVACAINE 0.5% 30 ML (SENSORCAINE) VIAL INJ ONE (11:00)
[2020-01-04] MEDS ORDERED: methylPREDNISolone 40 MG/ML (DEPO MEDROL) VIAL IM ONE (11:00)
[2020-01-04] MEDS ORDERED: NAPR-1067 PO (11:09)
[2020-01-04 11:23] VITALS: BP 139/92
[2020-01-04] MEDS ORDERED: RX-NAPROXEN (NAPROSYN) 250 MG TAB PPK#4 PO STA (11:23)
== END 2020-01-04 11:24 | disposition home or self-care (01) ==
LOC: EDUNIT# 09:57 → ER 09:58
DX: M54.42 Lumbago with sciatica, left side (principal); J44.9 Chronic obstructive pulmonary disease, unspecified; K21.9 Gastro-esophageal reflux disease without esophagitis; Z88.5 Allergy status to narcotic agent; Z77.22 Contact with and (suspected) exposure to environmental tobacco smoke (acute) (chronic)
CPT/HCPCS: 36415; 80053; 81000; 85025; 86141; 87491; 87591

== ENCOUNTER 2020-04-06 21:40 | Emergency (ER) | payer MEDICAID ==
[~2020-04-06] VITALS: Ht 175 cm; Wt 74.0 kg
[~2020-04-06 21:40] MED LIST changes: +NAPR-1067 PO
[2020-04-06 21:43] VITALS: BP 131/80
[2020-04-06] MEDS ORDERED: LACTATED RINGERS 1,000 ML IV STA (21:50)
[2020-04-06 21:57] LABS: BASOPHILS # (AUTO) 0.1 10^3/uL (0.0-0.1); BASOPHILS % (AUTO) 1 % (0-10); EOSINOPHILS # (AUTO) 0.3 10^3/uL (0.0-0.3); EOSINOPHILS % (AUTO) 4 % (0-10); HEMATOCRIT 48 % (40-54); LYMPHOCYTES # (AUTO) 2.8 X 10^3 (1.0-4.0); LYMPHOCYTES % (AUTO) 38 % (12-44); MEAN CORPUSCULAR HEMOGLOBIN 32 PG (25-34); MEAN CORPUSCULAR HGB CONC 34 G/DL (32-36); MEAN CORPUSCULAR VOLUME 96 FL (80-99); MEAN PLATELET VOLUME 9.3 FL (7.4-10.4); MONOCYTES # (AUTO) 0.6 X 10^3 (0.0-1.0); MONOCYTES % (AUTO) 8 % (0-12); NEUTROPHILS # (AUTO) 3.5 X 10^3 (1.8-7.8); NEUTROPHILS % (AUTO) 49 % (42-75); PLATELET COUNT 244 10^3/uL (130-400); RED CELL DISTRIBUTION WIDTH 13.5 % (10.0-14.5); WHITE BLOOD COUNT 7.2 10^3/uL (4.3-11.0)
--- NOTE | 2020-04-06 21:58 | ED General ---
General Chief Complaint: Chest Pain Stated Complaint: CHEST PAIN Source of Information: EMS, Old Records (ALL PMH IS FROM OLD RECORDS) Exam Limitations: Intoxication, Other (PT IS DEAF AND DID NOT WEAR HIS HEARING AIDS. ALSO HAS A SPEECH IMPEDIMENT. PT IS ALSO INTOXICATED. ) History of Present Illness Date Seen by Provider: Apr 06, 2020 Time Seen by Provider: 21:40 Initial Comments PT ARRIVES VIA EMS, BUT WALKS IN TO ER ON HIS OWN WITHOUT DIFFICULTY FROM THE AMBULANCE EMS REPORT THAT HE WOULD NOT GIVE MUCH INFORMATION TO THEM, BUT WAS TALKING TO THEM AND REPEATEDLY TRYING TO GET OFF THE EMS COT, AND TRYING TO GET OUT THE BACK OF THE AMBULANCE, HITTING HIMSELF IN THE HEAD, ETC. EMS REPORT THAT PT CALLED 911, AND POLICE WERE ON THE SCENE BEFORE EMS, AND REPORTED THAT PT WAS 'PASSED OUT" ON HIS SWING/CHAIR OUTSIDE THE RESIDENCE. PT WAS AWAKE AND ALERT WHEN EMS ARRIVED AT THE SCENE PT IS DEAF AND DOES NOT HAVE HEARING AIDS IN PLACE. PT WITH A MULTITUDE OF VISITS HERE PT HAS LONGSTANDING HISTORY OF ALCOHOLISM AND DRUG ABUSE HAS ADMITTED TO DRINKING LARGE AMOUNTS OF "KD" WHISKEY EVERY DAY "UNTIL I PASS OUT" HX OF THC AND RX DRUGS/BARBITURATE ABUSE PT HAD REPORTED TO EMS THAT HE HAS HAD A HEADACHE FOR 4 DAYS, AND CHEST PAIN X 2 DAYS WITH LIFTING SOMETHING EMS REPORT THAT PT HAS ETOH ON BOARD PT LIVES ALONE PCP: [facility], DR. GALLAGHER Allergies and Home Medications Allergies Coded Allergies: tramadol (Verified Allergy, Mild, "TOO SLEEPY", 04/05/18) Home Medications Albuterol Sulfate 1 Puff Puff, 2 PUFF IH Q4H PRN for WHEEZING 1 PUFF = 90 MCG Prescribed by: SIDDHARTH OLGUIN on 11/13/18 1152 Benzonatate 100 Mg Capsule, 100 MG PO Q6H PRN for COUGH Prescribed by: SIDDHARTH OLGUIN on 11/13/18 1152 Levofloxacin 500 Mg Tablet, 500 MG PO DAILY Prescribed by: HONG NELSON on 11/24/19 1441 Naproxen Sodium 550 Mg Tablet, 550 MG PO BID Prescribed by: SIDDHARTH OLGUIN on 01/04/20 1109 Pantoprazole Sodium 40 Mg Tablet.dr 40 MG PO DAILY Prescribed by: LESTER HOWELL on 09/10/19 1306 Patient Home Medication List Home Medication List Reviewed: Yes Review of Systems Review of Systems Constitutional: other (UNABLE TO OBTAIN ANY RELEVANT INFORMATION FROM PT--NOT WANTING TO TALK OR ANSWER QUESTIONS) Past Jdvwlqm-Qedxjh-Fcltwr Hx Past Med/Social Hx: Reviewed and Corrections made Patient Social History Alcohol Use: Regular Use (HEAVY, DAILY USE) Alcohol Beverage of Choice: Whiskey Recreational Drug Use: Yes (THC, RX DRUGS/BARBITURATES) Drug of Choice: RX DRUGS/BARBITURATES, THC Smoking Status: Current Everyday Smoker (> 2 PPD) Type Used: Cigarettes 2nd Hand Smoke Exposure: Yes Recent Hopitalizations: No Immunizations Up To Date Tetanus Booster (TDap): Unknown PED Vaccines UTD: Yes Date of Pneumonia Vaccine: Jul 06, 2011 Date of Influenza Vaccine: Jul 09, 2017 Seasonal Allergies Seasonal Allergies: Yes Past Medical History Surgeries: Yes (EGD'S / ESOPHAGEAL DILATIONS) Abdominal Respiratory: Yes Asthma, COPD Cardiac: Yes Hypertension Neurological: Yes Headaches /Migraines Reproductive Disorders: No Sexually Transmitted Disease: No HIV/AIDS: No Genitourinary: No Gastrointestinal: Yes (ESOPHAGEAL STRICTURES/DILATIONS; H. PYLORI) Gastroesophageal Reflux, Shetty's Esophagus, Hemorrhoids Musculoskeletal: No Endocrine: No HEENT: Yes (POOR DENTITION) Hearing Impairment: Bilateral Hearing Aide Cancer: No Psychosocial: Yes (ALCOHOLISM, RX DRUG ABUSE; SUICIDAL IDEATIONS, does not read) Anxiety, Suicide Attempts, Depression Integumentary: No Blood Disorders: No Adverse Reaction/Blood Tranf: No (N/A) Family Medical History No Pertinent Family Hx Physical Exam Vital Signs Vital Signs - First Documented 04/06/20 21:43 Temp 37.1 Pulse 110 Resp 24 B/P (MAP) 131/80 (97) Pulse Ox 96 O2 Delivery Room Air Capillary Refill : Height, Weight, BMI Height: 5'9.00" Weight: 160lbs. 2.0oz. 72.630072ls; 23.00 BMI Method:Estimated General Appearance: No Apparent Distress, WD/WN, Other (REEKS OF CIGARTEES AND ALCOHOL, PT WITH SIGNFICANT SPEECH IMPEDIMENT AND HEARING DEFICIT. SOMEWHAT AGITATED--THRASHING ALL OVER, CONSTANT MOVEMENTS, ETC. ON ARRIVAL THEN QUICKLY GOES TO SLEEP, VERY SOUNDLY. DIRTY, VERY UNKEMPT. ) HEENT: PERRL/EOMI, Other (EDENTULOUS) Neck: Normal Inspection Respiratory: Chest Non Tender, Normal Breath Sounds, No Accessory Muscle Use, No Respiratory Distress Cardiovascular: Regular Rate, Rhythm, No Edema, No Murmur Gastrointestinal: Non Tender, Soft Extremity: Normal Capillary Refill, No Pedal Edema Neurologic/Psychiatric: Alert, No Motor/Sensory Deficits (GROSSLY INTACT), Other (BEHAVIOR ABOVE. ) Skin: Normal Color, Warm/Dry, Tattoos/Piercings (EXTENSIVE TATTOOS, APPEARS TO HAVE CHRONIC DERMATITIS OF HANDS AND FEET) Progress/Results/Core Measures Suspected Sepsis SIRS Temperature: Pulse: Respiratory Rate: Laboratory Tests 04/06/20 21:51: White Blood Count 7.2 Blood Pressure / Mean: Laboratory Tests 04/06/20 21:51: Creatinine 1.01, INR Comment 0.9, Platelet Count 244, Total Bilirubin 0.2 Results/Orders Lab Results My Orders Medications Given in ED Vital Signs/I&O Capillary Refill : Progress Note : Progress Note PT SLEPT VERY SOUNDLY FOR REMAINDER OF ER STAY--DIFFICULT TO AWAKE AT TIMES 2308--ON RETURN FROM CT, PT PROMPTLY PUT ON HIS SHOES AND WALKED OUT OF ER WITHOUT ANY DIFFICULTY WHATSOEVER. STATES HE IS GOING HOME. HAS NO COMPLAINTS AND HAD NO COMPLAINTS FOR ENTIRE ER STAY LEFT AMA ECG Initial ECG Impression Date: Apr 06, 2020 Initial ECG Impression Time: 21:45 Initial ECG Rate: 104 Initial ECG Rhythm: S.Tach Diagnostic Imaging Comments CT HEAD--NO ACUTE PROCESS, PER [facility] VIA FAX AT [address]104 CT ANGIOGRAM CHEST / ABDOMEN AND PELVIS--NO P.E. NORMAL CTA OF CHEST. NO AORTIC DISSECTION OR ANEURYSM. NO ACUTE PROCESS, MARGINAL INCREASE IN SIZE OF HEPATIC LESION-LIKELY BENIGN HEPATIC CYST--PER [facility] VIA FAX AT 2355 CXR--NO ACUTE PROCESS, PENDING RADIOLOGIST REVIEW Reviewed: Reviewed by Me Departure Impression Primary Impression: Left against medical advice Disposition: 07 AGAINST MEDICAL ADVICE Condition: Against Medical Advice Departure-Patient Inst. Referrals: VICKI GALLAGHER MD (PCP/Family) Primary Care Physician ORALIA KHAN DO Apr 06, 2020 21:58
[2020-04-06] MEDS ORDERED: PANTOPRAZOLE 40 MG (PROTONIX) VIAL IV ONE (22:00)
[2020-04-06] MEDS ORDERED: ONDANSETRON 4 MG/2 ML (SDV) Z0FRAN IVP ONE (22:00)
[2020-04-06 22:08] LABS: ALBUMIN 4.3 GM/DL (3.2-4.5); CHLORIDE 109 MMOL/L (98-107); INR 0.9 (0.8-1.4); POTASSIUM 4.4 MMOL/L (3.6-5.0); PROTHROMBIN TIME PATIENT 12.1 SEC (12.2-14.7); SODIUM 142 MMOL/L (135-145)
[2020-04-06 22:09] LABS: BILIRUBIN,URINE NEGATIVE (NEGATIVE); CLARITY,URINE CLEAR; COLOR,URINE YELLOW; GLUCOSE, URINE (UA) NEGATIVE (NEGATIVE); KETONES,URINE NEGATIVE (NEGATIVE); LEUKOCYTE ESTERASE ,URINE NEGATIVE (NEGATIVE); NITRITE,URINE NEGATIVE (NEGATIVE); PH,URINE 5.5 (5-9); PROTEIN,URINE NEGATIVE (NEGATIVE)
[2020-04-06 22:09] LABS: AMYLASE 78 U/L (25-125)
[2020-04-06 22:10] LABS: GLUCOSE 105 MG/DL (70-105)
[2020-04-06 22:11] LABS: CARBON DIOXIDE 21 MMOL/L (21-32); TOTAL PROTEIN 6.9 GM/DL (6.4-8.2)
[2020-04-06 22:12] LABS: BILIRUBIN,TOTAL 0.2 MG/DL (0.1-1.0)
[2020-04-06 22:14] LABS: ALKALINE PHOSPHATASE 61 U/L (40-136); CREATININE SERUM 1.01 MG/DL (0.60-1.30); GFR ESTIMATED > 60
[2020-04-06 22:15] LABS: BUN/CREATININE RATIO 10
[2020-04-06 22:16] LABS: BACTERIA,URINE NEGATIVE /HPF; SQUAMOUS EPITHELIAL CELL,UR RARE /HPF
[2020-04-06 22:17] LABS: ALANINE AMINOTRANSFERASE 13 U/L (0-55); MAGNESIUM 2.5 MG/DL (1.6-2.4)
[2020-04-06 22:18] LABS: CREATINE KINASE 122 U/L (30-200); LIPASE 52 U/L (8-78)
[2020-04-06 22:23] LABS: AMPHETAMINE SCREEN, URINE NEGATIVE (NEGATIVE); BARBITURATE SCREEN URINE NEGATIVE (NEGATIVE); BENZODIAZEPINES SCREEN URINE NEGATIVE (NEGATIVE); CANNABINOID SCREEN, URINE NEGATIVE (NEGATIVE); COCAINE SCREEN URINE NEGATIVE (NEGATIVE); METHADONE STAT NEGATIVE (NEGATIVE); METHAMPHETAMINE SCREEN URINE S NEGATIVE (NEGATIVE); OPIATE SCREEN URINE NEGATIVE (NEGATIVE); OXYCODONE STAT NEGATIVE (NEGATIVE); PROPOXYPHENE STAT NEGATIVE (NEGATIVE); TRICYCLIC ANTIDEPRESSANTS SCRE NEGATIVE (NEGATIVE)
[2020-04-06 22:25] LABS: CREATINE KINASE MB 0.9 NG/ML (<6.6)
--- NOTE | 2020-04-07 06:11 | Diagnostic Imaging Report ---
PROCEDURE: CT head without contrast. TECHNIQUE: Multiple contiguous axial images were obtained through the brain without the use of intravenous contrast. Auto Exposure Controls were utilized during the CT exam to meet ALARA standards for radiation dose reduction. INDICATION: Headache x2 days. FINDINGS: The ventricles and cortical gyral pattern appear normal. No intracranial hemorrhage or mass effect. No extra-axial fluid collection. Basal cisterns are clear. Pituitary is not enlarged. Mastoid air cells are clear. Mild sclerosis along the tip of the left mastoid noted. No calvarial lesions. IMPRESSION: Sclerosis tip of the mastoid which may be congenital or secondary to old chronic inflammatory changes. No acute findings demonstrated. These findings are concordant with the preliminary report. Dictated by: Dictated on workstation # [id number]
--- NOTE | 2020-04-07 06:13 | Diagnostic Imaging Report ---
PROCEDURE: CT angiography of the chest with contrast and CT abdomen and pelvis with contrast. TECHNIQUE: Multiple contiguous axial images were obtained through the chest, abdomen and pelvis after administration of intravenous contrast. 3D MIP reconstructed CT angiography acquisitions of the aorta were then performed. Auto Exposure Controls were utilized during the CT exam to meet ALARA standards for radiation dose reduction. INDICATION: Chest pain x2 days. FINDINGS: Good opacification of the aorta and pulmonary arteries. No evidence of aortic aneurysm or dissection. Pulmonary arteries are well opacified. There are no filling defects to indicate pulmonary emboli. No infiltrates or masses are demonstrated. The lungs are well-aerated and clear. No mediastinal or hilar adenopathy of pathologic size. No pleural effusions or pericardial effusion. No blastic or lytic bony changes. IMPRESSION: No findings to suggest PE. No acute abnormalities. Negative CTA of the chest. This is concordant with the preliminary report. Dictated by: Dictated on workstation # [id number]
== END 2020-04-06 23:07 | disposition left against medical advice (07) ==
LOC: EDUNIT# 21:40 → ER 21:41
DX: R07.9 Chest pain, unspecified (principal); H91.90 Unspecified hearing loss, unspecified ear; R47.9 Unspecified speech disturbances; K21.9 Gastro-esophageal reflux disease without esophagitis; J44.9 Chronic obstructive pulmonary disease, unspecified; G43.909 Migraine, unspecified, not intractable, without status migrainosus; Z88.5 Allergy status to narcotic agent; Z77.22 Contact with and (suspected) exposure to environmental tobacco smoke (acute) (chronic)
CPT/HCPCS: 70450; 71275; 74174; 80053; 80306; 81000; 82150; 82550; 82553; 83690; 83735; 83874; 83880; 84484; 85025; 85610; 85730; 93005; 93041; 99284; G0480; 36415; 80320

== ENCOUNTER → 2020-06-25 | Outpatient (CLI) | payer MEDICAID ==
--- NOTE | 2020-06-25 16:26 | Diagnostic Imaging Report ---
PROCEDURE: MRI lumbar spine without contrast. TECHNIQUE: Multiplanar, multisequence MRI of the lumbar spine was performed without contrast. INDICATION: Low back pain with left hip radiculopathy. COMPARISON: None. FINDINGS: 5 lumbar type vertebral bodies are visualized with the last well-formed disc space designated L5-S1. No acute fracture or dislocation is seen in the lumbar spine. Vertebral body heights are well maintained. Endplate degenerative changes are present at the L5-S1 level. There is grade 1 retrolisthesis of L5 on S1. The conus terminates at the L1 level. No masses are seen associated with the conus or nerve roots of the cauda equina. No epidural collections are identified. Multilevel degenerative changes are seen in the lumbar spine with disc bulges, facet hypertrophy, and buckling of the ligamentum flavum. T12-L1: No significant spinal canal or foraminal stenosis. L1-L2: No significant spinal canal or foraminal stenosis. L2-L3: Broad-based disc bulge, facet hypertrophy, and buckling of ligamentum flavum results in mild spinal canal narrowing and moderate left and no right foraminal narrowing. L3-L4: Broad-based disc bulge, facet hypertrophy, and buckling of ligamentum flavum results in hlnq-hy-opuirmzd spinal canal narrowing and pqevzuxa-sk-trxqgb bilateral foraminal stenosis. L4-L5: Broad-based disc bulge, facet hypertrophy, and buckling of the ligamentum flavum results in moderate spinal canal stenosis and kkjercnl-gv-ywbigk bilateral foraminal stenosis. L5-S1: Broad-based disc bulge, facet hypertrophy, and buckling of the ligamentum flavum results in moderate spinal canal stenosis and severe bilateral foraminal stenosis. Paravertebral soft tissues are unremarkable. IMPRESSION: 1. No acute fracture or dislocation in the lumbar spine. 2. Multilevel degenerative changes in the lumbar spine, greatest at L4-L5 and L5-S1. Dictated by: Dictated on workstation # [place] [id number]
== END ==
LOC: RAD 15:30
PROVIDERS: ATTEND Nurse Practitioner
DX: M47.27 Other spondylosis with radiculopathy, lumbosacral region (principal)
CPT/HCPCS: 72148

== ENCOUNTER 2020-07-13 20:22 | Emergency (ER) | payer MEDICAID ==
[~2020-07-13] VITALS: Ht 175 cm; Wt 77.0 kg
[2020-07-13 20:25] VITALS: BP 135/96
[2020-07-13] MEDS ORDERED: KETOROLAC 60 MG/2 ML VIAL IM ONE (20:30)
[2020-07-13] MEDS ORDERED: ORPHENADRINE 60 MG/2 ML (NORFLEX) AMP (ED ONLY) IM ONE (20:30)
--- NOTE | 2020-07-13 20:32 | ED Back Pain ---
General Chief Complaint: Back Problems Stated Complaint: BACK PAIN Nursing Triage Note: TO ED ROOM 6 [facility] WITH C/O BACK PAIN. STATES FELL DOWN ON FLOOR. HX OF CHRONIC BACK PAIN. Nursing Sepsis Screen: No Definite Risk Source of Information: Patient Exam Limitations: No Limitations History of Present Illness Date Seen by Provider: Jul 13, 2020 Time Seen by Provider: 20:30 Initial Comments To ER by EMS from home with reports of exacerbation of his chronic left low back pain with a burning sensation that goes down the left leg. He occasionally has this but it seems to have recurred and gotten worse after he fell. Location: Lumbar Spine, Paraspinous Muscles Timing/Duration: 1-2 Days Severity: Moderate Method of Injury: Unknown Associated Symptoms: denies symptoms Allergies and Home Medications Allergies Coded Allergies: tramadol (Verified Allergy, Mild, "TOO SLEEPY", 04/05/18) Home Medications Albuterol Sulfate 1 Puff Puff, 2 PUFF IH Q4H PRN for WHEEZING 1 PUFF = 90 MCG Prescribed by: SIDDHARTH OLGUIN on 11/13/18 1152 Benzonatate 100 Mg Capsule, 100 MG PO Q6H PRN for COUGH Prescribed by: SIDDHARTH OLGUIN on 11/13/18 1152 Levofloxacin 500 Mg Tablet, 500 MG PO DAILY Prescribed by: HONG NELSON on 11/24/19 1441 Naproxen Sodium 550 Mg Tablet, 550 MG PO BID Prescribed by: SIDDHARTH OLGUIN on 01/04/20 1109 Pantoprazole Sodium 40 Mg Tablet.dr, 40 MG PO DAILY Prescribed by: LESTER HOWELL on 09/10/19 1306 Patient Home Medication List Home Medication List Reviewed: Yes Review of Systems Constitutional: see HPI EENTM: see HPI Respiratory: no symptoms reported Cardiovascular: no symptoms reported Genitourinary: no symptoms reported Musculoskeletal: no symptoms reported Skin: no symptoms reported Psychiatric/Neurological: No Symptoms Reported (she is probably patient with your patient's) Past Vwbpomq-Ikhgqq-Cgidza Hx Patient Social History Alcohol Beverage of Choice: Whiskey Drug of Choice: RX DRUGS/BARBITURATES, THC Type Used: Cigarettes 2nd Hand Smoke Exposure: Yes Recent Foreign Travel: No Contact w/Someone Who Travel: No Recent Infectious Disease Expo: No Recent Hopitalizations: No Immunizations Up To Date Tetanus Booster (TDap): Unknown PED Vaccines UTD: Yes Date of Pneumonia Vaccine: Jul 06, 2011 Date of Influenza Vaccine: Jul 09, 2017 Seasonal Allergies Seasonal Allergies: Yes Past Medical History Surgeries: Yes (EGD'S / ESOPHAGEAL DILATIONS) Abdominal Respiratory: Yes Asthma, COPD Cardiac: Yes Hypertension Neurological: Yes Headaches /Migraines Reproductive Disorders: No Sexually Transmitted Disease: No HIV/AIDS: No Genitourinary: No Gastrointestinal: Yes (ESOPHAGEAL STRICTURES/DILATIONS; H. PYLORI) Gastroesophageal Reflux, Shetty's Esophagus, Hemorrhoids Musculoskeletal: No Endocrine: No HEENT: Yes (POOR DENTITION) Hearing Impairment: Bilateral Hearing Aide Cancer: No Psychosocial: Yes (ALCOHOLISM, RX DRUG ABUSE; SUICIDAL IDEATIONS, does not read) Anxiety, Suicide Attempts, Depression Integumentary: No Blood Disorders: No Adverse Reaction/Blood Tranf: No (N/A) Family Medical History No Pertinent Family Hx Physical Exam Vital Signs Vital Signs - First Documented 07/13/20 20:25 Temp 36.0 Pulse 99 Resp 20 B/P (MAP) 135/96 (109) O2 Delivery Room Air Capillary Refill : Less Than 3 Seconds Height, Weight, BMI Height: 5'9.00" Weight: 160lbs. 2.0oz. [id number]; 25.00 BMI Method:Estimated General Appearance: No Apparent Distress, WD/WN, Other (writhing, very talkative. ) Neck: Full Range of Motion, Normal Inspection Cardiovascular: Regular Rate, Rhythm, Normal Peripheral Pulses Respiratory: No Accessory Muscle Use, No Respiratory Distress Gastrointestinal: Non Tender, Soft Extremity: Normal Capillary Refill, Normal Inspection Neurologic/Psychiatric: Alert, Oriented x3 Skin: Normal Color, Warm/Dry Progress/Results/Core Measures Results/Orders My Orders Orders - MIRELA MACEDO APRN Ct Lumbar Spine Wo (07/13/20 20:29) Ketorolac Injection (Toradol Injection) (07/13/20 20:30) Orphenadrine Inj (Ed Only) (Norflex Inje (07/13/20 20:30) Vital Signs/I&O 07/13/20 20:25 Temp 36.0 Pulse 99 Resp 20 B/P (MAP) 135/96 (109) O2 Delivery Room Air Blood Pressure Mean: 109 Diagnostic Imaging Diagonstic Imaging: Xray Comments NAME: MAURISIO MALAVE REC#: [id number] PT STATUS: REG ER : 1965 PHYSICIAN: MIRELA MACEDO APRN ADMIT DATE: 07/13/20/ER Draft Date of Exam:07/13/20 CT LUMBAR SPINE WO PROCEDURE: CT lumbar spine without contrast. TECHNIQUE: Multiple contiguous axial images were obtained through the lumbar spine without the use of intravenous contrast. Sagittal and coronal reformations were then performed. Auto Exposure Controls were utilized during the CT exam to meet ALARA standards for radiation dose reduction. INDICATION: Low back injury from a fall FINDINGS: The vertebral body height and alignment appear normal. There is spondylosis deformans with osteophytes forming anteriorly at multiple levels. There is vacuum disc phenomena at L5-S1 with disc space narrowing. Posterior elements are intact. IMPRESSION: Degenerative disc changes. Spondylosis deformans. No acute abnormality is seen. Dictated on workstation # [id number] Dict: 07/13/202042 Trans: 07/13/202045 [id number] Interpreted by: DUGLAS PRIEST MD Electronically signed by: Departure Impression Primary Impression: Exacerbation of chronic back pain Disposition: HOME, SELF-CARE Condition: Stable Departure-Patient Inst. Decision time for Depature: 20:52 Referrals: VICKI GALLAGHER MD (PCP/Family) Primary Care Physician Patient Instructions: Back Precautions Add. Discharge Instructions: 1. Return to ER for any concerns 2. Medication as directed. Follow-up with your doctor next week. All discharge instructions reviewed with patient and/or family. Voiced understanding. Scripts Methocarbamol (Robaxin-750) 750 Mg Tablet 750 MG PO Q4H PRN for PAIN-MILD (1-4), #30 TAB Prov: MIRELA MACEDO APRN 07/13/20 Prednisone (Prednisone) 20 Mg Tab 40 MG PO DAILY, #6 TAB 0 Refills Prov: MIRELA MACEDO APRN 07/13/20 MIRELA MACEDO APRN Jul 13, 2020 20:31
--- NOTE | 2020-07-13 20:46 | Diagnostic Imaging Report ---
PROCEDURE: CT lumbar spine without contrast. TECHNIQUE: Multiple contiguous axial images were obtained through the lumbar spine without the use of intravenous contrast. Sagittal and coronal reformations were then performed. Auto Exposure Controls were utilized during the CT exam to meet ALARA standards for radiation dose reduction. INDICATION: Low back injury from a fall FINDINGS: The vertebral body height and alignment appear normal. There is spondylosis deformans with osteophytes forming anteriorly at multiple levels. There is vacuum disc phenomena at L5-S1 with disc space narrowing. Posterior elements are intact. IMPRESSION: Degenerative disc changes. Spondylosis deformans. No acute abnormality is seen. Dictated by: Dictated on workstation # [id number]
[2020-07-13] MEDS ORDERED: METH-313 PO (20:53)
[2020-07-13] MEDS ORDERED: PRD20T PO (20:53)
== END 2020-07-13 20:59 | disposition home or self-care (01) ==
LOC: EDUNIT# 20:22 → ER 20:24
DX: G89.29 Other chronic pain (principal); M54.5 Low back pain; K21.9 Gastro-esophageal reflux disease without esophagitis; J44.9 Chronic obstructive pulmonary disease, unspecified; Z77.22 Contact with and (suspected) exposure to environmental tobacco smoke (acute) (chronic); Z88.5 Allergy status to narcotic agent
CPT/HCPCS: 72131

== ENCOUNTER 2020-08-11 13:02 | Emergency (ER) | payer MEDICAID ==
[~2020-08-11] VITALS: Ht 175 cm; Wt 81.6 kg
[2020-08-11] MEDS ORDERED: LACTATED RINGERS 1,000 ML IV ONE (13:06)
[2020-08-11] MEDS ORDERED: NS IV 1000 ML 1,000 ML IV SCH (13:06)
[2020-08-11] MEDS ORDERED: MECLIZINE 25 MG (ANTIVERT) TAB PO ONE (13:15)
[2020-08-11 13:21] LABS: BASOPHILS % (AUTO) 0 % (0-10); EOSINOPHILS # (AUTO) 0.1 10^3/uL (0.0-0.3); EOSINOPHILS % (AUTO) 1 % (0-10); HEMATOCRIT 45 % (40-54); HEMOGLOBIN 14.7 g/dL (13.3-17.7); LYMPHOCYTES # (AUTO) 2.5 10^3/uL (1.0-4.0); LYMPHOCYTES % (AUTO) 30 % (12-44); MEAN CORPUSCULAR HEMOGLOBIN 32 pg (25-34); MEAN CORPUSCULAR HGB CONC 33 g/dL (32-36); MEAN CORPUSCULAR VOLUME 95 fL (80-99); MEAN PLATELET VOLUME 10.1 fL (9.0-12.2); MONOCYTES # (AUTO) 0.6 10^3/uL (0.0-1.0); MONOCYTES % (AUTO) 8 % (0-12); NEUTROPHILS % (AUTO) 61 % (42-75); PLATELET COUNT 260 10^3/uL (130-400); WHITE BLOOD COUNT 8.2 10^3/uL (4.3-11.0)
[2020-08-11 13:29] LABS: ALBUMIN 3.9 GM/DL (3.2-4.5)
[2020-08-11 13:30] LABS: CHLORIDE 103 MMOL/L (98-107); POTASSIUM 4.3 MMOL/L (3.6-5.0); SODIUM 138 MMOL/L (135-145)
[2020-08-11] MEDS ORDERED: ASPIRIN 81 MG CHEW (CHILDREN'S ASA) PO ONE (13:30)
[2020-08-11 13:31] LABS: CALCIUM 8.4 MG/DL (8.5-10.1)
[2020-08-11 13:32] LABS: GLUCOSE 105 MG/DL (70-105); TOTAL PROTEIN 6.5 GM/DL (6.4-8.2)
[2020-08-11 13:33] LABS: CARBON DIOXIDE 25 MMOL/L (21-32)
[2020-08-11 13:34] LABS: BILIRUBIN,TOTAL 0.3 MG/DL (0.1-1.0)
[2020-08-11 13:35] LABS: ALKALINE PHOSPHATASE 59 U/L (40-136)
--- NOTE | 2020-08-11 13:35 | Diagnostic Imaging Report ---
Indication: Chest pain, dizziness and Covid positive AP view of the chest is obtained with comparison made to study of 11/13/2018. FINDINGS: Heart size and pulmonary vascularity are within normal limits, and the lungs are clear, bilaterally. IMPRESSION: Unremarkable chest. Dictated by: Dictated on workstation # [id number]
[2020-08-11 13:36] LABS: CREATININE SERUM 1.33 MG/DL (0.60-1.30); GFR ESTIMATED 56
[2020-08-11 13:37] LABS: BUN/CREATININE RATIO 12
[2020-08-11 13:39] LABS: ALANINE AMINOTRANSFERASE 12 U/L (0-55)
[2020-08-11 13:44] LABS: ERYTHROCYTE SEDIMENTATION RATE 4 MM/HR (0-30)
--- NOTE | 2020-08-11 13:53 | ED Respiratory ---
General Chief Complaint: General Problems/Pain Stated Complaint: COVID+,CP,DIZZINESS Nursing Triage Note: PT ARRIVES TO THE ER BY [facility] WITH C/O DIZZINESS FROM COVID 19. HE TESTED POSITIVE OF TODAY FROM [facility]. PT ALSO STATES HE HAS L SIDE CHEST PAIN FOR 2 WEEKS BUT IT DOES NOT RADIATE History of Present Illness Date Seen by Provider: Aug 11, 2020 Time Seen by Provider: 13:08 Initial Comments 54-year-old male presents by EMS for dizziness, left-sided chest pain that been present for 2 weeks, dizziness, and COVID. Patient reports he has no appetite because he can't taste. He's had limited fluid intake and no solid food intake today. He was tested at [facility] and found to be positive for COVID, he was notified yesterday. He denies any nausea, vomiting, or diarrhea. Chronic tobacco use and cough, he reports white phlegm. Timing/Duration: yesterday, getting worse Severity: mild Prior Episodes/Possible Cause: no prior episodes Modifying Factors: Improves With Lying Down, Improves With Rest Associated Symptoms: chest pain/soreness, cough, dizziness; No fever/chills; headache; No lightheadedness; muscle aches; No nasal congestion, No nasal drainage; shortness of breath; No sinus infection, No sore throat, No wheezing Allergies and Home Medications Allergies Coded Allergies: tramadol (Verified Allergy, Mild, "TOO SLEEPY", 04/05/18) Home Medications Albuterol Sulfate 1 Puff Puff, 2 PUFF IH Q4H PRN for WHEEZING 1 PUFF = 90 MCG Prescribed by: SIDDHARTH OLGUIN on 11/13/18 1152 Benzonatate 100 Mg Capsule, 100 MG PO Q6H PRN for COUGH Prescribed by: SIDDHARTH OLGUIN on 11/13/18 1152 Levofloxacin 500 Mg Tablet, 500 MG PO DAILY Prescribed by: HONG NELSON on 11/24/19 1441 Methocarbamol 750 Mg Tablet, 750 MG PO Q4H PRN for PAIN-MILD (1-4) Prescribed by: MIRELA MACEDO on 07/13/202052 Naproxen Sodium 550 Mg Tablet, 550 MG PO BID Prescribed by: SIDDHARTH OLGUIN on 01/04/20 1109 Pantoprazole Sodium 40 Mg Tablet.dr, 40 MG PO DAILY Prescribed by: LESTER HOWELL on 09/10/19 1306 Prednisone 20 Mg Tab, 40 MG PO DAILY Prescribed by: MIRELA MACEDO on 07/13/202052 Patient Home Medication List Home Medication List Reviewed: Yes Review of Systems Review of Systems Constitutional: No chills, No diaphoresis; dizziness; No fever; malaise, weakness EENTM: see HPI, no symptoms reported Respiratory: see HPI, cough, dyspnea on exertion, phlegm (White) Cardiovascular: no symptoms reported, see HPI, chest pain Gastrointestinal: no symptoms reported, see HPI Genitourinary: no symptoms reported, see HPI Musculoskeletal: see HPI, muscle pain (generalized) All Other Systems Reviewed Negative Unless Noted: Yes Past Dgzfpyb-Ajtgft-Jiktyt Hx Past Med/Social Hx: Reviewed Nursing Past Med/Soc Hx Patient Social History Alcohol Use: Regular Use Number of Drinks Today: GG Alcohol Beverage of Choice: Whiskey Recreational Drug Use: No (TOBACCO) Drug of Choice: RX DRUGS/BARBITURATES, THC Type Used: Cigarettes (2 packs a day) 2nd Hand Smoke Exposure: Yes Recent Foreign Travel: No Contact w/Someone Who Travel: No Recent Infectious Disease Expo: Yes Recent Hopitalizations: No Immunizations Up To Date Tetanus Booster (TDap): Unknown PED Vaccines UTD: Yes Date of Pneumonia Vaccine: Jul 06, 2011 Date of Influenza Vaccine: Jul 03, 2020 Seasonal Allergies Seasonal Allergies: Yes Past Medical History Surgeries: Yes (EGD'S / ESOPHAGEAL DILATIONS) Abdominal Respiratory: Yes Asthma, COPD Cardiac: Yes Hypertension Neurological: Yes Headaches /Migraines Reproductive Disorders: No Sexually Transmitted Disease: No HIV/AIDS: No Genitourinary: No Gastrointestinal: Yes (ESOPHAGEAL STRICTURES/DILATIONS; H. PYLORI) Gastroesophageal Reflux, Shetty's Esophagus, Hemorrhoids Musculoskeletal: No Endocrine: No HEENT: Yes (POOR DENTITION) Hearing Impairment: Bilateral Hearing Aide Cancer: No Psychosocial: Yes (ALCOHOLISM, RX DRUG ABUSE; SUICIDAL IDEATIONS, does not read) Anxiety, Suicide Attempts, Depression Integumentary: No Blood Disorders: No Adverse Reaction/Blood Tranf: No (N/A) Family Medical History No Pertinent Family Hx Physical Exam Vital Signs - First Documented 08/11/20 13:08 Temp 36.4 Pulse 107 Resp 20 B/P (MAP) 132/87 (102) Pulse Ox 97 O2 Delivery Room Air Capillary Refill : Greater Than 3 Seconds Height: 5'9.00" Weight: 160lbs. 2.0oz. 72.212632ct; 26.00 BMI Method:Estimated General Appearance: WD/WN, no apparent distress Eyes: Bilateral Eye Normal Inspection, Bilateral Eye PERRL, Bilateral Eye EOMI HEENT: PERRL/EOMI, normal ENT inspection, TMs normal, pharynx normal Neck: non-tender, full range of motion, supple, normal inspection Respiratory: chest non-tender, lungs clear, normal breath sounds, no respiratory distress, no accessory muscle use Cardiovascular: normal peripheral pulses, regular rate, rhythm, no edema, no murmur Gastrointestinal: normal bowel sounds, non tender, soft Extremities: normal range of motion, non-tender, normal inspection, normal capillary refill Neurologic/Psychiatric: no motor/sensory deficits, alert, normal mood/affect, oriented x 3 Skin: normal color, warm/dry Progress/Results/Core Measures Suspected Sepsis Recent Fever Within 48 Hours: No Infection Criteria Present: None New/Unexplained Altered Menta: No Sepsis Screen: No Definite Risk SIRS Temperature: Pulse: 107 Respiratory Rate: 20 Laboratory Tests 08/11/20 13:12: White Blood Count 8.2 Blood Pressure 132 /87 Mean: 102 Laboratory Tests 08/11/20 13:12: Creatinine 1.33H, INR Comment 0.9, Platelet Count 260, Total Bilirubin 0.3 Results/Orders Lab Results Laboratory Tests Test 08/11/20 13:12 Range/Units White Blood Count 8.2 4.3-11.0 10^3/uL Red Blood Count 4.67 4.30-5.52 10^6/uL Hemoglobin 14.7 13.3-17.7 g/dL Hematocrit 45 40-54 % Mean Corpuscular Volume 95 80-99 fL Mean Corpuscular Hemoglobin 32 25-34 pg Mean Corpuscular Hemoglobin Concent 33 32-36 g/dL Red Cell Distribution Width 12.6 10.0-14.5 % Platelet Count 260 130-400 10^3/uL Mean Platelet Volume 10.1 9.0-12.2 fL Immature Granulocyte % (Auto) 0 % Neutrophils (%) (Auto) 61 42-75 % Lymphocytes (%) (Auto) 30 12-44 % Monocytes (%) (Auto) 8 0-12 % Eosinophils (%) (Auto) 1 0-10 % Basophils (%) (Auto) 0 0-10 % Neutrophils # (Auto) 5.0 1.8-7.8 10^3/uL Lymphocytes # (Auto) 2.5 1.0-4.0 10^3/uL Monocytes # (Auto) 0.6 0.0-1.0 10^3/uL Eosinophils # (Auto) 0.1 0.0-0.3 10^3/uL Basophils # (Auto) 0.0 0.0-0.1 10^3/uL Immature Granulocyte # (Auto) 0.0 0.0-0.1 10^3/uL Erythrocyte Sedimentation Rate 4 0-30 MM/HR Prothrombin Time 12.9 12.2-14.7 SEC INR Comment 0.9 0.8-1.4 Activated Partial Thromboplast Time 31 24-35 SEC D-Dimer 0.30 0.00-0.49 UG/ML Sodium Level 138 135-145 MMOL/L Potassium Level 4.3 3.6-5.0 MMOL/L Chloride Level 103 98-107 MMOL/L Carbon Dioxide Level 25 21-32 MMOL/L Anion Gap 10 5-14 MMOL/L Blood Urea Nitrogen 16 7-18 MG/DL Creatinine 1.33 H 0.60-1.30 MG/DL Estimat Glomerular Filtration Rate 56 BUN/Creatinine Ratio 12 Glucose Level 105 70-105 MG/DL Calcium Level 8.4 L 8.5-10.1 MG/DL Corrected Calcium 8.5 8.5-10.1 MG/DL Total Bilirubin 0.3 0.1-1.0 MG/DL Aspartate Amino Transf (AST/SGOT) 17 5-34 U/L Alanine Aminotransferase (ALT/SGPT) 12 0-55 U/L Alkaline Phosphatase 59 40-136 U/L Lactate Dehydrogenase 221 H 125-220 U/L Troponin I < 0.028 <0.028 NG/ML C-Reactive Protein High Sensitivity 0.13 0.00-0.50 MG/DL Total Protein 6.5 6.4-8.2 GM/DL Albumin 3.9 3.2-4.5 GM/DL Procalcitonin 0.01 <0.10 NG/ML Micro Results Microbiology 08/11/20 Influenza Types A,B Antigen (ANIRUDH) - Final, Complete My Orders Orders - PARTH AMADO Ed Iv/Invasive Line Start (08/11/20 13:06) Ns Iv 1000 Ml (Sodium Chloride 0.9%) (08/11/20 13:06) Cbc With Automated Diff (08/11/20 13:06) Comprehensive Metabolic Panel (08/11/20 13:06) Fibrin Degradation Products (08/11/20 13:06) Procalcitonin (Pct) (08/11/20 13:06) Hs C Reactive Protein (08/11/20 13:06) Erythrocyte Sedimentation Rate (08/11/20 13:06) LDH (08/11/20 13:06) Ekg Tracing (08/11/20 13:06) Influenza A And B Antigens (08/11/20 13:06) Chest 1 View, Ap/Pa Only (08/11/20 13:06) Covid-19 External Lab Results (08/11/20 13:06) Isolation Central Supply Req (08/11/20 13:06) Meclizine Tablet (Antivert Tablet) (08/11/20 13:15) Lactated Ringers (Lr 1000 Ml Iv Solution (08/11/20 13:06) Aspirin Chewable Tablet (Baby Aspirin Ch (08/11/20 13:30) Troponin I (08/11/20 13:12) Protime With Inr (08/11/20 13:33) Partial Thromboplastin Time (08/11/20 13:33) Medications Given in ED Current Medications Medications Dose Ordered Sig/Neel Route Start Time Stop Time Status Last Admin Dose Admin Aspirin 324 mg ONCE ONCE PO 08/11/20 13:30 08/11/20 13:31 DC 08/11/20 13:28 324 MG Lactated Ringer's 1,000 ml @ ud STK-MED ONCE IV 08/11/20 13:06 08/11/20 13:08 DC 08/11/20 13:18 1,000 MLS/HR Meclizine HCl 25 mg ONCE ONCE PO 08/11/20 13:15 08/11/20 13:16 DC 08/11/20 13:18 25 MG Vital Signs/I&O 08/11/20 08/11/20 13:08 14:30 Temp 36.4 36.4 Pulse 107 86 Resp 20 18 B/P (MAP) 132/87 (102) 120/82 (102) Pulse Ox 97 97 O2 Delivery Room Air Capillary Refill : Greater Than 3 Seconds Blood Pressure Mean: 102 Progress Note : Time: 13:08 Progress Note Patient seen and evaluated, will give normal saline 1 L per IV, meclizine 25 mg for dizziness, will get chest x-ray, labs, and EKG. Aspirin 324 mg orally. SaO2 97-99% on room air, no SOA or resp distress. 1345 pulse 80-90. Patient denies any change in his symptoms. Taking ice chips. Chest x-ray and EKG show no acute abnormalities. 1405 labs all essentially normal, patient reports improvement in symptoms. Discharge instructions and return precautions reviewed with the patient. ECG Initial ECG Impression Date: Aug 11, 2020 Initial ECG Impression Time: 13:22 Initial ECG Rate: 82 Initial ECG Rhythm: Normal Sinus Initial ECG Intervals: Normal Initial ECG Intervals MO 152, QRSD 101, QT 377, QTC 441. [place] P 75, QRS -68, T 66. Diagnostic Imaging Diagonstic Imaging: CT Plain Films/CT/US/NM/MRI: chest Comments NAME: MAURISIO MALAVE [facility] REC#: [id number] PT STATUS: REG ER : 1965 PHYSICIAN: PARTH AMADO ADMIT DATE: 08/11/20/ER Signed Date of Exam:08/11/20 CHEST 1 VIEW, AP/PA ONLY Indication: Chest pain, dizziness and Covid positive AP view of the chest is obtained with comparison made to study of 11/13/2018. FINDINGS: Heart size and pulmonary vascularity are within normal limits, and the lungs are clear, bilaterally. IMPRESSION: Unremarkable chest. Dictated by: Dictated on workstation # [id number] Dict: 08/11/20 1323 Trans: 08/11/20 1334 [id number] Interpreted by: FABIOLA TOBIAS MD Electronically signed by: FABIOLA TOBIAS MD 08/11/20 1334 Departure Impression Primary Impression: COVID-19 Additional Impressions: Tobacco abuse Dehydration Disposition: 01 HOME, SELF-CARE Condition: Stable Departure-Patient Inst. Decision time for Depature: 14:05 Referrals: VICKI GALLAGHER MD (PCP/Family) Primary Care Physician Patient Instructions: Coronavirus Disease 2019 (COVID-19) (DC) Add. Discharge Instructions: Increase water intake, 16 ounces every 2 hours while awake. You may use meclizine hmhj-maw-uqkmuhp 25 mg every 6-8 hours for dizziness. Alternate between Tylenol 650 mg and ibuprofen 600 mg every 4 hours for pain or fever. Limit the amount of cigarettes your smoking. Stay at home and isolation as directed by the [facility]. Call [facility] if your symptoms are not improving or worsen. Take short walks 5-10 min, deep breaths and cough every 2 hours while awake. Sleep and nap on your stomach. Return to the emergency dept for new, urgent health care problems. All discharge instructions reviewed with patient and/or family. Voiced understanding. Copy Copies To 1: VICKI GALLAGHER MD, AMY ARNP Aug 11, 2020 13:52
[2020-08-11 13:55] LABS: INR 0.9 (0.8-1.4); PROTHROMBIN TIME PATIENT 12.9 SEC (12.2-14.7)
[2020-08-11 14:30] VITALS: BP 120/82
== END 2020-08-11 14:24 | disposition home or self-care (01) ==
LOC: EDUNIT# 13:02 → ER 13:03
DX: U07.1 COVID-19 (principal); F19.10 Other psychoactive substance abuse, uncomplicated; E86.0 Dehydration; J44.9 Chronic obstructive pulmonary disease, unspecified; K21.9 Gastro-esophageal reflux disease without esophagitis; F17.210 Nicotine dependence, cigarettes, uncomplicated; Z88.5 Allergy status to narcotic agent; Z79.52 Long term (current) use of systemic steroids
CPT/HCPCS: 36415; 71045; 80053; 83615; 84145; 84484; 85025; 85379; 85610; 85652; 85730; 86141; 87804; 93005

== ENCOUNTER 2020-10-27 09:39 | Emergency (ER) | payer MEDICAID ==
[~2020-10-27] VITALS: Ht 175.2 cm; Wt 72.7 kg
--- NOTE | 2020-10-27 09:58 | NUR ---
PATIENT INFORMED THAT DR WITH CRITICAL PATIENT AND WOULD BE WITH HIM BEA.
--- NOTE | 2020-10-27 10:30 | ED General ---
General Chief Complaint: General Problems/Pain Stated Complaint: NOT FEELING WELL Nursing Triage Note: TO ED PER [facility] WITH C/O OF GENERALIZED FEELING HOT. CON'T TO HAVE CHRONIC ABD PAIN.WAS POSITIVE FOR COVID 3 MONTHS AGO. Nursing Sepsis Screen: No Definite Risk Source of Information: Patient Exam Limitations: No Limitations History of Present Illness Date Seen by Provider: Oct 27, 2020 Time Seen by Provider: 10:15 Initial Comments Gerardo is a 55-year-old male who presents to the emergency department today with a chief complaint of abdominal pain. Patient states that he has had this pain off and on for about a year. He states it is worse today. He denies any problems with bowels, he states he is not having any black or bloody stools but has had a little bit of diarrhea. No fevers or chills. States the pain is "a 10" and worse today than it has been. Patient states that he saw his primary care physician yesterday, Dr. Gallagher but was not given any medication for the pain. Patient states that over the course of the last week anytime he eats he vomits. Denies any problems with urination. Has not tried to take any medications for the pain at home such as Tylenol or ibuprofen. Had Covid pneumonia and influenza approximately 3 months ago. All other review of systems reviewed and negative except as stated. Timing/Duration: 1 Week Severity: Moderate Associated Systoms: Loss of Appetite, Nausea/Vomiting Allergies and Home Medications Allergies Coded Allergies: tramadol (Verified Allergy, Mild, "TOO SLEEPY", 04/05/18) Home Medications Albuterol Sulfate 1 Puff Puff, 2 PUFF IH Q4H PRN for WHEEZING 1 PUFF = 90 MCG Prescribed by: SIDDHARTH OLGUIN on 11/13/18 1152 Benzonatate 100 Mg Capsule, 100 MG PO Q6H PRN for COUGH Prescribed by: SIDDHARTH OLGUIN on 11/13/18 1152 Levofloxacin 500 Mg Tablet, 500 MG PO DAILY Prescribed by: HONG NELSON on 11/24/19 1441 Methocarbamol 750 Mg Tablet, 750 MG PO Q4H PRN for PAIN-MILD (1-4) Prescribed by: MIRELA MACEDO on 07/13/202052 Naproxen Sodium 550 Mg Tablet, 550 MG PO BID Prescribed by: SIDDHARTH OLGUIN on 01/04/20 1109 Pantoprazole Sodium 40 Mg Tablet.dr, 40 MG PO DAILY Prescribed by: LESTER HOWELL on 09/10/19 1306 Prednisone 20 Mg Tab, 40 MG PO DAILY Prescribed by: MIRELA MACEDO on 07/13/202052 Patient Home Medication List Home Medication List Reviewed: Yes Review of Systems Review of Systems Constitutional: see HPI EENTM: no symptoms reported Respiratory: no symptoms reported Cardiovascular: no symptoms reported Gastrointestinal: abdominal pain (Left flank ), vomiting (After eating) Genitourinary: no symptoms reported Musculoskeletal: no symptoms reported Skin: no symptoms reported Psychiatric/Neurological: No Symptoms Reported All Other Systems Reviewed Negative Unless Noted: Yes Past Uaofhvu-Ncdfjf-Pdeeof Hx Patient Social History Alcohol Use: Occasionally Uses Number of Drinks Today: GG Alcohol Beverage of Choice: Whiskey Drug of Choice: RX DRUGS/BARBITURATES, THC Smoking Status: Former Smoker Type Used: Cigarettes 2nd Hand Smoke Exposure: Yes Recent Infectious Disease Expo: No Recent Hopitalizations: No Immunizations Up To Date Tetanus Booster (TDap): Unknown PED Vaccines UTD: Yes Date of Pneumonia Vaccine: Jul 06, 2011 Date of Influenza Vaccine: Jul 03, 2020 Seasonal Allergies Seasonal Allergies: Yes Past Medical History Surgeries: Yes (EGD'S / ESOPHAGEAL DILATIONS) Abdominal Respiratory: Yes Asthma, COPD Cardiac: Yes Hypertension Neurological: Yes Headaches /Migraines Reproductive Disorders: No Sexually Transmitted Disease: No HIV/AIDS: No Genitourinary: No Gastrointestinal: Yes (ESOPHAGEAL STRICTURES/DILATIONS; H. PYLORI) Gastroesophageal Reflux, Shetty's Esophagus, Hemorrhoids Musculoskeletal: No Endocrine: No HEENT: Yes (POOR DENTITION) Hearing Impairment: Bilateral Hearing Aide Cancer: No Psychosocial: Yes (ALCOHOLISM, RX DRUG ABUSE; SUICIDAL IDEATIONS, does not read) Anxiety, Suicide Attempts, Depression Integumentary: No Blood Disorders: No Adverse Reaction/Blood Tranf: No (N/A) Family Medical History No Pertinent Family Hx Physical Exam Vital Signs Vital Signs - First Documented 10/27/20 09:51 Temp 36.5 Pulse 87 Resp 18 B/P (MAP) 120/88 (99) Pulse Ox 100 Capillary Refill : Less Than 3 Seconds Height, Weight, BMI Height: 5'9.00" Weight: 160lbs. 2.0oz. [id number]; 23.00 BMI Method:Estimated General Appearance: No Apparent Distress, WD/WN Eyes: Bilateral Eye Normal Inspection, Bilateral Eye PERRL, Bilateral Eye EOMI HEENT: Normal ENT Inspection, Other (edentulous) Neck: Normal Inspection Respiratory: Lungs Clear, Normal Breath Sounds Cardiovascular: Regular Rate, Rhythm Gastrointestinal: Normal Bowel Sounds, Guarding (voluntary), Tenderness (diffuse abdominal wall tenderness to both deep and light palpation of the skin) Back: Normal Inspection, CVA Tenderness (R) Extremity: Normal Inspection, Normal Range of Motion, Non Tender, No Calf Tenderness Neurologic/Psychiatric: Alert, Oriented x3, No Motor/Sensory Deficits, Normal Mood/Affect, Other (anxious, tearful) Skin: Normal Color, Warm/Dry Progress/Results/Core Measures Suspected Sepsis Recent Fever Within 48 Hours: No Infection Criteria Present: None New/Unexplained Altered Menta: No Sepsis Screen: No Definite Risk SIRS Temperature: Pulse: 87 Respiratory Rate: 18 Laboratory Tests 10/27/20 10:45: White Blood Count 4.3 Blood Pressure 120 /88 Mean: 99 Laboratory Tests 10/27/20 10:45: Creatinine 0.89, Platelet Count 248 Results/Orders Lab Results Laboratory Tests Test 10/27/20 10:45 Range/Units White Blood Count 4.3 4.3-11.0 10^3/uL Red Blood Count 5.16 4.30-5.52 10^6/uL Hemoglobin 16.8 13.3-17.7 g/dL Hematocrit 51 40-54 % Mean Corpuscular Volume 98 80-99 fL Mean Corpuscular Hemoglobin 33 25-34 pg Mean Corpuscular Hemoglobin Concent 33 32-36 g/dL Red Cell Distribution Width 13.8 10.0-14.5 % Platelet Count 248 130-400 10^3/uL Mean Platelet Volume 9.5 9.0-12.2 fL Immature Granulocyte % (Auto) 0 % Neutrophils (%) (Auto) 41 L 42-75 % Lymphocytes (%) (Auto) 44 12-44 % Monocytes (%) (Auto) 10 0-12 % Eosinophils (%) (Auto) 4 0-10 % Basophils (%) (Auto) 1 0-10 % Neutrophils # (Auto) 1.8 1.8-7.8 10^3/uL Lymphocytes # (Auto) 1.9 1.0-4.0 10^3/uL Monocytes # (Auto) 0.4 0.0-1.0 10^3/uL Eosinophils # (Auto) 0.2 0.0-0.3 10^3/uL Basophils # (Auto) 0.1 0.0-0.1 10^3/uL Immature Granulocyte # (Auto) 0.0 0.0-0.1 10^3/uL Sodium Level 143 135-145 MMOL/L Potassium Level 5.2 H 3.6-5.0 MMOL/L Chloride Level 106 98-107 MMOL/L Carbon Dioxide Level 29 21-32 MMOL/L Anion Gap 8 5-14 MMOL/L Blood Urea Nitrogen 8 7-18 MG/DL Creatinine 0.89 0.60-1.30 MG/DL Estimat Glomerular Filtration Rate > 60 BUN/Creatinine Ratio 9 Glucose Level 90 70-105 MG/DL Calcium Level 9.2 8.5-10.1 MG/DL My Orders Orders - VIRGINIE BARAJAS MD Cbc With Automated Diff (10/27/20 10:31) Basic Metabolic Panel (10/27/20 10:31) Ketorolac Injection (Toradol Injection) (10/27/20 11:30) Medications Given in ED Current Medications Medications Dose Ordered Sig/Neel Route Start Time Stop Time Status Last Admin Dose Admin Ketorolac Tromethamine 30 mg ONCE ONCE IM 10/27/20 11:30 10/27/20 11:31 DC 10/27/20 11:45 30 MG Vital Signs/I&O 10/27/20 09:51 Temp 36.5 Pulse 87 Resp 18 B/P (MAP) 120/88 (99) Pulse Ox 100 Capillary Refill : Less Than 3 Seconds Blood Pressure Mean: 99 Progress Note : Time: 11:42 Progress Note 55-year-old male presents to the emergency department today with a chief com plaint of lower abdominal pain on the left. Evaluation today includes a physical exam, CBC, BM 7. Patient has exquisite tenderness to simple light palpation of even the skin of the abdomen. He seems quite anxious. He does have a history of some mild mental impairment, longstanding. Patient's vital signs are stable. His exam is soft, he is distractible on exam in the abdomen i s not tender. Patient points to his left flank when he stands up to ambulate. He has no trouble with ambulation. Normal bowel sounds. Afebrile. Patient states that this pain has been going on for a year. He states it is just gotten worse today. Clinically he looks well. He is resting comfortably on his left side when I enter the room. Again he is distractible on exam. I find no clinical or objective findings to warrant further testing from the emergency department. No need for imaging at this time. Patient is treated in the emergency department with 30 mg of Toradol IM. Will assess after this medication to see if he is achieved relief of his discomfort. 1205 Reassessed patient, he is sleeping soundly. Easily arousable. States that his pain is controlled. Advised the patient to take some ibuprofen or Tylenol at home for his pain. He verbalizes understanding. He is comfortable with the plan of care. All questions are sought and answered and he is stable for discharge. Departure Impression Primary Impression: Chronic abdominal pain Disposition: HOME, SELF-CARE Condition: Stable Departure-Patient Inst. Decision time for Depature: 12:08 Referrals: VICKI GALLAGHER MD (PCP/Family) Primary Care Physician Patient Instructions: CHRONIC PAIN Add. Discharge Instructions: Continue your routine prescribed medications at home as prescribed by Dr. Gallagher. Take [id number] Tylenol and/or ibuprofen as needed for your pain. If you develop fever, worsening pain, any other emergent concerning symptoms please return to the emergency department for reevaluation. Please follow-up with your primary care doctor early next week. VIRGINIE BARAJAS MD Oct 27, 2020 10:30
[2020-10-27 10:56] LABS: BASOPHILS # (AUTO) 0.1 10^3/uL (0.0-0.1); BASOPHILS % (AUTO) 1 % (0-10); EOSINOPHILS # (AUTO) 0.2 10^3/uL (0.0-0.3); EOSINOPHILS % (AUTO) 4 % (0-10); HEMATOCRIT 51 % (40-54); HEMOGLOBIN 16.8 g/dL (13.3-17.7); LYMPHOCYTES # (AUTO) 1.9 10^3/uL (1.0-4.0); LYMPHOCYTES % (AUTO) 44 % (12-44); MEAN CORPUSCULAR HEMOGLOBIN 33 pg (25-34); MEAN CORPUSCULAR HGB CONC 33 g/dL (32-36); MEAN CORPUSCULAR VOLUME 98 fL (80-99); MEAN PLATELET VOLUME 9.5 fL (9.0-12.2); MONOCYTES # (AUTO) 0.4 10^3/uL (0.0-1.0); MONOCYTES % (AUTO) 10 % (0-12); NEUTROPHILS # (AUTO) 1.8 10^3/uL (1.8-7.8); NEUTROPHILS % (AUTO) 41 % (42-75); PLATELET COUNT 248 10^3/uL (130-400); WHITE BLOOD COUNT 4.3 10^3/uL (4.3-11.0)
[2020-10-27 11:06] LABS: CHLORIDE 106 MMOL/L (98-107); POTASSIUM 5.2 MMOL/L (3.6-5.0); SODIUM 143 MMOL/L (135-145)
[2020-10-27 11:07] LABS: CALCIUM 9.2 MG/DL (8.5-10.1); GLUCOSE 90 MG/DL (70-105)
[2020-10-27 11:09] LABS: CARBON DIOXIDE 29 MMOL/L (21-32)
[2020-10-27 11:11] LABS: CREATININE SERUM 0.89 MG/DL (0.60-1.30); GFR ESTIMATED > 60
[2020-10-27 11:12] LABS: BUN/CREATININE RATIO 9
[2020-10-27] MEDS ORDERED: KETOROLAC 30 MG/ML VIAL IM ONE (11:30)
[2020-10-27 12:15] VITALS: BP 141/92
== END 2020-10-27 12:18 | disposition home or self-care (01) ==
LOC: EDUNIT# 09:39 → ER 09:42
DX: G89.29 Other chronic pain (principal); R10.84 Generalized abdominal pain; R19.7 Diarrhea, unspecified; R11.10 Vomiting, unspecified; I10 Essential (primary) hypertension; J44.9 Chronic obstructive pulmonary disease, unspecified; Z86.16 Personal history of COVID-19; Z91.5 Personal history of self-harm; Z88.5 Allergy status to narcotic agent; Z77.22 Contact with and (suspected) exposure to environmental tobacco smoke (acute) (chronic); Z79.82 Long term (current) use of aspirin
CPT/HCPCS: 36415; 80048; 85025

== ENCOUNTER 2020-11-23 11:08 | Outpatient (RCR) | payer MEDICAID ==
[~2020-11-23] VITALS: Ht 175.3 cm; Wt 72.7 kg
== END 2020-11-23 13:26 | disposition home or self-care (01) ==
LOC: PREOP 11:08
PROVIDERS: ATTEND Surgery
DX: Z01.818 Encounter for other preprocedural examination (principal)

== ENCOUNTER 2020-11-26 09:34 | Day surgery (SDC) | payer MEDICAID ==
[~2020-11-26] VITALS: Ht 175.3 cm; Wt 72.7 kg
[2020-11-26] MEDS ORDERED: LACTATED RINGERS 1,000 ML IV ONE (10:16)
[2020-11-26] MEDS ORDERED: LACTATED RINGERS 1,000 ML IV STA (10:35)
[2020-11-26] MEDS ORDERED: LIDOCAINE JELLY 2% 6 ML SYRINGE MM PRN (10:45)
[2020-11-26] MEDS ORDERED: HURRICAINE EXT TUBE (BENZOCAINE) XX PRN (10:45)
--- NOTE | 2020-11-26 11:20 | Progress Note-Pre Operative ---
Pre-Operative Progress Note H&P Reviewed The H&P was reviewed, patient examined and no changes noted. Date Seen by Provider: Nov 26, 2020 Time Seen by Provider: 11:00 Date H&P Reviewed: Nov 26, 2020 Time H&P Reviewed: 11:00 Pre-Operative Diagnosis: recurrent dysphagia, GERD, PUD LESTER HOWELL MD Nov 26, 2020 11:20
--- NOTE | 2020-11-26 11:21 | Discharge Inst-Surgical ---
D/C Lap Instructions-LYNDA Follow Up Appt in 2 weeks Activity as tolerated High Fiber Diet 25g or more per day Avoid Alcohol, Caffeine, Spicy [place] and Acid foods. Drink 64 fluid oz or more of fluids per day. Symptoms to Report: Fever over 101 degree F, Nausea/Vomiting If any problems/questions: Contact your physician or go to Emergency Room LESTER HOWELL MD Nov 26, 2020 11:21
[2020-11-26] MEDS ORDERED: MIDAZOLAM 2 MG/2 ML (VERSED) VIAL ONE (11:28)
[2020-11-26] MEDS ORDERED: proPOfol 200 MG/20 ML (DIPRIVAN) VIAL IV ONE ×2 (11:28→11:37)
[2020-11-26] MEDS ORDERED: LIDOCAINE 1% INJ 20 ML 20 ML VIAL ONE (11:29)
[2020-11-26] MEDS ORDERED: ACETAMINOPHEN 325 MG TABLET PO PRN (11:30)
[2020-11-26] MEDS ORDERED: ONDANSETRON 4 MG/2 ML (SDV) Z0FRAN IVP PRN (11:30)
[2020-11-26] MEDS ORDERED: LIDOCAINE JELLY 2% 6 ML SYRINGE ONE (11:30)
[2020-11-26] MEDS ORDERED: morphine INJ 10 MG/ML 1ML (SYR OR VIAL) IVP PRN ×2 (11:30)
[2020-11-26] MEDS ORDERED: HYDROcodone/APAP 5 MG/325 MG (LORTAB) TAB PO PRN (11:30)
[2020-11-26 11:42] VITALS: BP 129/79
[2020-11-26 11:55] VITALS: BP 127/69
[2020-11-26 12:00] VITALS: BP 119/67
[2020-11-26 12:05] VITALS: BP 118/68
[2020-11-26 12:10] VITALS: BP 118/68
--- NOTE | 2020-11-26 12:10 | Progress Note-Post Operative ---
Post-Operative Progess Note Surgeon (s)/Regrinder (s) Surgeon LESTER HOWELL MD Regrinder: none Pre-Operative Diagnosis recurrent dysphagia, GERD, PUD, sx lt eyelid lesion Post-Operative Diagnosis reflux esophagitis(stage 2) with mild distal eosphageal stricture, small recurrent HH(1.5cm), moderate-severe gastritis. Procedure & Operative Findings Date of Procedure 11/26/20 Procedure Performed/Findings EGD with bx and balloon dilatation. excision skin lesion left eyelid(2mm). Anesthesia Type mac with local Estimated Blood Loss Estimated blood loss (mL): minimal Specimens/Packing Specimens Removed ge jxn, antrum, left eyelid lesion LESTER HOWELL MD Nov 26, 2020 12:09
[2020-11-26 12:36] VITALS: BP 120/68
--- NOTE | 2020-11-26 16:17 | OPERATIVE REPORT ---
DATE OF SERVICE: 11/26/2020 ATTENDING PRIMARY CARE PHYSICIAN: Dr. Jazzy Alejandre. PREOPERATIVE DIAGNOSES: History of H. pylori, Shetty's esophagus and recurrent dysphagia as well as peptic ulcer disease. POSTOPERATIVE DIAGNOSES: Reflux esophagitis stage II, mild distal esophageal stricture, small recurrent hiatal hernia, moderate to severe gastritis. No distal obstructions. Left eyelid skin lesion 2 mm in size. PROCEDURE: EGD with biopsy and balloon dilatation. Excision of left eyelid skin lesion 2 mm in size. SURGEON: Lester Howell MD ANESTHESIA: Monitored anesthesia care with local. ESTIMATED BLOOD LOSS: Minimal. FINDINGS: Reflux esophagitis stage II, mild distal esophageal stricture, small recurrent hiatal hernia, moderate to severe gastritis. No distal obstructions. Left eyelid skin lesion 2 mm in size. DISPOSITION: The patient tolerated the procedure well. INDICATIONS: The patient is a 55-year-old male known to us. He has a longstanding history of gastroesophageal reflux disease, severe peptic ulcer disease as well as H. pylori and Shetty's esophagus. He is extremely noncompliant and does drink alcohol and smoke. He has also been prescribed and instructed to take PPI acid reducers; however, he has been intermittent at best. His last upper endoscopy was 08/2019, found to have a mild distal esophageal stricture and underwent a balloon dilatation. He has had worsening dysphagia as well as nausea and vomiting. He also had a skin lesion, which has developed in the left eyelid, which has grown slightly larger in size and become symptomatic. This is a raised, hyperkeratotic lesion 2 mm in size. DESCRIPTION OF PROCEDURE: The patient was brought to the endoscopy suite, laid in left lateral decubitus position with head elevated. After adequate IV pain and sedative medications and monitored anesthesia care, the face was prepped and draped in standard surgical fashion. A 1% lidocaine was then used to anesthetize the overlying skin to the lesion and the lesion was then fully excised using a 15 blade. The skin edges were then reapproximated using interrupted 3-0 nylon sutures. The mouthpiece was then applied and the endoscope was placed in the mouth, visualizing the pharynx and hypopharyngeal region. Vocal cords, epiglottis and vallecula identified and appeared to be normal. Endoscope was then gently intubated at esophageal opening and esophagus insufflated. The endoscope was then advanced through the first, second and third portion of esophagus at the level of GE junction, a reflux esophagitis stage II identified with a mild distal esophageal stricture. A biopsy was taken with forceps with visualization of good hemostasis. The endoscope was then advanced in the stomach and endoscope retroflexed, visualizing a small recurrent hiatal hernia approximately 1.5 cm in size. There was a moderate to severe gastritis, which was diffuse. No formal ulcerations, polyps, or any neoplasms. A biopsy was taken of the antrum with forceps with visualization of good hemostasis. The endoscope was then advanced to the pylorus and the first and second portion of the duodenum, which appeared normal with no ulcerations or distal obstructions. We then proceeded with balloon dilatation of the distal esophageal stricture and balloon was placed in the stomach and pulled back to the area of the stricture. We first proceeded to 2, 4, then 6 atmospheres of pressure with moderate resistance and left this in place for 60 seconds. The balloon was then desufflated and removed with visualization of good hemostasis as well as no mucosal tears. The endoscope was then slowly withdrawn while taking a second look and suctioning of residual air with no additional findings. The patient tolerated the procedure well. We will recommend again the necessary lifestyle and diet accommodation including cessation of alcohol as well as smoking as well as small and more frequent meals, avoidance of eating at night as well as head elevation while lying supine. He also needs to be compliant with his Protonix 40 mg daily. Job ID: [id number] DocumentID: [id number] Dictated Date: 11/26/2020 12:00:49 Creative Recruiter Date: 11/26/2020 16:16:49 Dictated By: LESTER HOWELL MD
--- NOTE | 2020-12-06 12:25 | Anesthesia-General Post-Op ---
MAC Significant Intra-Op Events Notes addendum 3 at 1230 Patient Condition Mental Status/LOC: Same as Preop Cardiovascular: Satisfactory Nausea/Vomiting: Absent Respiratory: Satisfactory Pain: Controlled Complications: Absent Post Op Complications Complications None Follow Up Care/Instructions Patient Instructions None needed. Anesthesiology Discharge Order Discharge Order Patient is doing well, no complaints, stable vital signs, no apparent adverse anesthesia problems. No complications reported per nursing. UYEN BAUTISTA CRNA Dec 06, 2020 12:25
== END 2020-11-26 12:40 | disposition home or self-care (01) ==
LOC: ENDO 09:34
PROVIDERS: ATTEND Surgery
DX: K29.50 Unspecified chronic gastritis without bleeding (principal); K21.00 Gastro-esophageal reflux disease with esophagitis, without bleeding; B96.81 Helicobacter pylori [H. pylori] as the cause of diseases classified elsewhere; K44.9 Diaphragmatic hernia without obstruction or gangrene; K22.2 Esophageal obstruction; L82.1 Other seborrheic keratosis; I10 Essential (primary) hypertension; J44.9 Chronic obstructive pulmonary disease, unspecified; F41.9 Anxiety disorder, unspecified; F32.9 Major depressive disorder, single episode, unspecified; K27.9 Peptic ulcer, site unspecified, unspecified as acute or chronic, without hemorrhage or perforation; F17.210 Nicotine dependence, cigarettes, uncomplicated; Z79.51 Long term (current) use of inhaled steroids; Z79.899 Other long term (current) drug therapy; Z88.5 Allergy status to narcotic agent; Z87.19 Personal history of other diseases of the digestive system

== ENCOUNTER → 2021-08-24 | Outpatient (CLI) | payer MEDICAID ==
[~2021-08-24] MED LIST changes: +ACYC-112 PO; -ACYC800T PO; +CATHETER FLUSH 10 ML SYR IV PRN; +HOLD METFORMIN - RECEIVED CONTRAST 20 ML VIAL IV SCH; +IOHEXOL 350 MG/ML 100 ML (OMNIPAQUE 350) VIAL IV ONE; +NS 100 ML (IVPB) BAG IV ONE
--- NOTE | 2021-08-24 14:49 | Diagnostic Imaging Report ---
PROCEDURE: CT angiography of the chest with contrast. TECHNIQUE: Multiple contiguous axial images were obtained through the chest after uneventful bolus administration of intravenous contrast. 3D reconstructed CTA MIP acquisitions were also performed. Auto Exposure Controls were utilized during the CT exam to meet ALARA standards for radiation dose reduction. INDICATION: Hemoptysis. FINDINGS: There is good opacification of the pulmonary arteries without intraluminal filling defect. The thoracic aorta is of normal caliber. The lungs are clear. There is no significant pleural or pericardial fluid. No pathologically enlarged adenopathy is identified. Similar to the study of 10/17/2017, there is an approximately 3 cm low-density nodule in the left adrenal gland which likely represents an adenoma. There is also a simple type cyst in the dome of the left hepatic lobe. IMPRESSION: No CTA evidence of pulmonary embolism or other acute abnormality in the thorax. Dictated by: Dictated on workstation # [id number]
== END ==
LOC: RAD 14:45
PROVIDERS: ATTEND Nurse Practitioner Family
DX: R04.2 Hemoptysis (principal)
CPT/HCPCS: 71275

== ENCOUNTER 2021-10-12 05:28 | Outpatient (RCR) | payer MEDICAID ==
[~2021-10-12] VITALS: Ht 175 cm; Wt 73.0 kg
[~2021-10-12 05:28] MED LIST changes: -CATHETER FLUSH 10 ML SYR IV PRN; -HOLD METFORMIN - RECEIVED CONTRAST 20 ML VIAL IV SCH; -IOHEXOL 350 MG/ML 100 ML (OMNIPAQUE 350) VIAL IV ONE; -NS 100 ML (IVPB) BAG IV ONE
== END 2021-10-12 11:03 | disposition home or self-care (01) ==
LOC: PREOP 05:28
PROVIDERS: ATTEND Surgery
DX: Z01.812 Encounter for preprocedural laboratory examination (principal); R13.10 Dysphagia, unspecified; Z20.822 Contact with and (suspected) exposure to COVID-19
CPT/HCPCS: 87635

== ENCOUNTER 2021-10-14 10:14 | Day surgery (SDC) | payer MEDICAID ==
[~2021-10-14] VITALS: Ht 175.3 cm; Wt 73.7 kg
[2021-10-14] MEDS ORDERED: LACTATED RINGERS 1,000 ML IV STA (10:20)
[2021-10-14] MEDS ORDERED: LACTATED RINGERS 1,000 ML IV ONE (10:22)
[2021-10-14 10:30] VITALS: BP 132/82
[2021-10-14] MEDS ORDERED: LIDOCAINE JELLY 2% 6 ML SYRINGE MM PRN (10:30)
--- NOTE | 2021-10-14 10:57 | Progress Note-Pre Operative ---
Pre-Operative Progress Note H&P Reviewed The H&P was reviewed, patient examined and no changes noted. Date Seen by Provider: Oct 14, 2021 Time Seen by Provider: 10:45 Date H&P Reviewed: Oct 14, 2021 Time H&P Reviewed: 10:45 Pre-Operative Diagnosis: dysphagia LESTER HOWELL MD Oct 14, 2021 10:57
--- NOTE | 2021-10-14 10:58 | Discharge Inst-Surgical ---
D/C Lap Instructions-LYNDA Follow Up Activity as tolerated High Fiber Diet 25g or more per day Avoid Alcohol, Caffeine, Spicy [place] and Acid foods. Drink 64 fluid oz or more of fluids per day. Symptoms to Report: Fever over 101 degree F, Nausea/Vomiting If any problems/questions: Contact your physician or go to Emergency Room LESTER HOWELL MD Oct 14, 2021 10:58
[2021-10-14] MEDS ORDERED: ONDANSETRON 4 MG (ZOFRAN) ORAL DISSOLVE TAB PO PRN (11:00)
[2021-10-14] MEDS ORDERED: ONDANSETRON 4 MG/2 ML (SDV) Z0FRAN IVP PRN (11:00)
[2021-10-14] MEDS ORDERED: MIDAZOLAM 2 MG/2 ML (VERSED) VIAL ONE (11:01)
[2021-10-14] MEDS ORDERED: proPOfol 200 MG/20 ML (DIPRIVAN) VIAL IV ONE ×2 (11:01→11:02)
[2021-10-14] MEDS ORDERED: KETAMINE 50 MG/5 ML SYRINGE ONE (11:12)
[2021-10-14 11:30] VITALS: BP 109/74
[2021-10-14 11:35] VITALS: BP 115/77
[2021-10-14 11:55] VITALS: BP 111/85
[2021-10-14 12:10] VITALS: BP 111/85
--- NOTE | 2021-10-14 14:02 | Anesthesia-General Post-Op ---
MAC Patient Condition Mental Status/LOC: Same as Preop Cardiovascular: Satisfactory Nausea/Vomiting: Absent Respiratory: Satisfactory Pain: Controlled Complications: Absent Post Op Complications Complications None Follow Up Care/Instructions Patient Instructions None needed. Anesthesiology Discharge Order Discharge Order Patient was doing well after the procedure, no complaints, stable vital signs, no apparent adverse anesthesia problems. YISEL FOLEY DO Oct 14, 2021 14:02
--- NOTE | 2021-10-14 15:01 | OPERATIVE REPORT ---
DATE OF SERVICE: 10/14/2021 ATTENDING PRIMARY CARE PHYSICIAN: Dr. Jazzy Alejandre. PREOPERATIVE DIAGNOSES: Dysphagia, gastroesophageal reflux disease, history of Helicobacter pylori. POSTOPERATIVE DIAGNOSES: Reflux esophagitis stage II with mild distal esophageal stricture, small recurrent hiatal hernia 2 cm in size, moderate severity gastritis. No distal obstructions. PROCEDURE: EGD with biopsy and balloon dilatation. SURGEON: Lester Howell MD. ANESTHESIA: Monitored anesthesia care. ESTIMATED BLOOD LOSS: Minimal. FINDINGS: Reflux esophagitis stage II with mild distal esophageal stricture, small recurrent hiatal hernia 2 cm in size, moderate severity gastritis. No distal obstructions. DISPOSITION: The patient tolerated the procedure well. INDICATIONS: The patient is a 56-year-old male known to us. He has a longstanding history of gastroesophageal reflux disease as well as peptic ulcer disease and history of H. pylori as well as Shetty's esophagus. He is status post laparoscopic [place] gastropexy and has had recurrent issues with dysphagia; however, is severely noncompliant. He is a heavy smoker and does smoke 2 packs a day for many years and also does drink three pints of whiskey daily. We have talked in-depth about his lifestyle and medical noncompliance; however, continues to proceed with a maladaptive behavior. He has had recurrent dysphagia with both solids and liquids. He also has had biopsy-proven H. pylori; however, never underwent a complete treatment for eradication of Helicobacter pylori. DESCRIPTION OF PROCEDURE: The patient was brought to the endoscopy suite, laid in the left lateral decubitus position. After adequate IV pain and sedative medications and monitored anesthesia care, the mouthpiece was applied. The endoscope was placed in the mouth, visualizing the pharynx and hypopharyngeal region. Vocal cords, epiglottis and vallecula identified and appeared to be normal. The endoscope was then gently intubated into the esophageal opening and esophagus insufflated. The endoscope was then advanced to the first, second and third portion of esophagus at the level of the GE junction, reflux esophagitis Ross grade II to III identified as well as a mild distal esophageal stricture. A biopsy was taken with forceps with visualization of good hemostasis. The endoscope was then advanced into the stomach and endoscope retroflexed, visualizing small recurrent hiatal hernia approximately 2 cm in size. There was a moderate severity gastritis. No formal ulcerations, polyps, or any neoplasms. A biopsy was taken of the antrum again for H. pylori. Good hemostasis was observed. The endoscope was then advanced to the pylorus and first and second portion of the duodenum, which appeared normal with no distal obstructions. The balloon was then placed in the stomach and pulled back to the area of stricture. We then proceeded in a gradual stepwise fashion from 2, 4, then 6 atmospheres of pressure or 20 mm in luminal diameter with moderate resistance and left this in place for 120 seconds. The balloon was then desufflated and removed with visualization of good hemostasis as well as no mucosal tears. The endoscope was then slowly withdrawn while taking a second look and suctioning of residual air with no additional findings. The patient tolerated the procedure well. Again, it was reiterated to the patient that his lifestyle is the root cause of his recurrent symptoms and he will always have recurrent symptoms or even worsening symptoms and prognosis if he continues on this trend of medical noncompliance and lifestyle. We will have him continue with Protonix 40 mg daily for now as well. Job ID: [id number] DocumentID: [id number] Dictated Date: 10/14/2021 11:32:32 Resource Director Date: 10/14/2021 15:01:08 Dictated By: LESTER HOWELL MD MTDD
== END 2021-10-14 12:10 | disposition home or self-care (01) ==
LOC: ENDO 10:14
PROVIDERS: ATTEND Surgery
DX: K21.00 Gastro-esophageal reflux disease with esophagitis, without bleeding (principal); K29.50 Unspecified chronic gastritis without bleeding; K22.2 Esophageal obstruction; A04.8 Other specified bacterial intestinal infections; K44.9 Diaphragmatic hernia without obstruction or gangrene; I10 Essential (primary) hypertension; J45.909 Unspecified asthma, uncomplicated; F17.210 Nicotine dependence, cigarettes, uncomplicated; Z91.19 Patient's noncompliance with other medical treatment and regimen
CPT/HCPCS: 88305

== ENCOUNTER 2022-01-27 14:58 | Emergency (ER) | payer MEDICAID, MEDICARE ==
[~2022-01-27] VITALS: Ht 175 cm; Wt 68.0 kg
[~2022-01-27 14:58] MED LIST changes: -OLOP5DRO13 OU; +OLOP5DRO26 OU
--- NOTE | 2022-01-27 15:46 | ED Psychosocial ---
General Chief Complaint: Substance Abuse Stated Complaint: DETOX - ALCOHOL Nursing Triage Note: PT TO ED 8 PER AMBULATION W/ REQUEST FOR ETOH DETOX. PT REPORTS HE "DRINKS TOO MUCH" BUT WILL NOT ELABORATE TO THIS RN. PT SMELLS OF ETOH AT THIS TIME ET DOES ADMIT TO THIS RN THAT HE "DRANK TOO MUCH TODAY". NO OTHER C/O VOICED Source: patient Exam Limitations: no limitations (MIRELA MACEDO APRN) History of Present Illness Date Seen by Provider: January 27, 2022 Time Seen by Provider: 15:44 Initial Comments To ER by [facility] with c/o needing in hospital detox in preparation for going back to [facility] on sunday. HE was at [facility] for ETOH detox but left yesterday after 48 hours due to anxiety. [facility] would like him admitted and could tentatively take him back on Sunday. Timing/Duration: constant Severity: moderate Associated Symptoms: impaired concentration (MIRELA AMCEDO APRN) Allergies and Home Medications Allergies Coded Allergies: tramadol (Verified Allergy, Mild, "TOO SLEEPY", 04/05/18) Patient Home Medication List Home Medication List Reviewed: Yes (MIRELA MACEDO APRN) Albuterol Sulfate (Proair Hfa) 1 Puff Puff, 2 PUFF IH Q4H PRN for WHEEZING Prescribed by: SIDDHARTH OLGUIN on 11/13/18 1152 Pantoprazole Sodium (Protonix) 40 Mg Tablet.dr, 40 MG PO DAILY Prescribed by: LESTER HOWELL on 09/10/19 1306 Review of Systems Constitutional: see HPI EENTM: see HPI Respiratory: no symptoms reported Cardiovascular: no symptoms reported Genitourinary: no symptoms reported Musculoskeletal: no symptoms reported Skin: no symptoms reported Psychiatric/Neurological: No Symptoms Reported (MIRELA MACEDO APRN) Past Hiyjtxm-Yitdls-Bowxtj Hx Immunizations Up To Date Tetanus Booster (TDap): Unknown PED Vaccines UTD: Yes First/Initial COVID19 Vaccinat: NO (MIRELA MACEDO APRN) Seasonal Allergies Seasonal Allergies: Yes (MIRELA MAECDO APRN) Past Medical History Surgeries: Yes (EGD'S / ESOPHAGEAL DILATIONS) Abdominal Respiratory: Yes Asthma, COPD Cardiac: Yes Hypertension Neurological: Yes Headaches /Migraines Reproductive Disorders: No Sexually Transmitted Disease: No HIV/AIDS: No Genitourinary: No Gastrointestinal: Yes (ESOPHAGEAL STRICTURES/DILATIONS; H. PYLORI) Gastroesophageal Reflux, Shetty's Esophagus, Hemorrhoids Musculoskeletal: No Endocrine: No HEENT: Yes (NO DENTITION) Hearing Impairment: Bilateral Hearing Aide Cancer: No Psychosocial: Yes (ALCOHOLISM, RX DRUG ABUSE; SUICIDAL IDEATIONS, does not read) Anxiety, Suicide Attempts, Depression Integumentary: No Blood Disorders: No Adverse Reaction/Blood Tranf: No (N/A) (MIRELA MACEDO APRN) Family Medical History No Pertinent Family Hx (MIRELA MACEDO APRN) Physical Exam Vital Signs - First Documented 01/27/22 15:12 Temp 36.3 Pulse 90 Resp 20 B/P (MAP) 123/81 (95) Pulse Ox 97 O2 Delivery Room Air (ERIN,ORALIA K DO) Capillary Refill : Less Than 3 Seconds (MIRELA MACEDO APRN) Height, Weight, BMI Height: 5'9.00" Weight: 160lbs. 2.0oz. [id number]; 22.00 BMI Method:Estimated General Appearance: WD/WN, no apparent distress, other (disheveled but pleasant) HEENT: PERRL/EOMI, normal ENT inspection Respiratory: no respiratory distress, no accessory muscle use Cardiovascular: regular rate, rhythm, no murmur Gastrointestinal: normal bowel sounds, non tender, soft Neurologic/Psychiatric: alert, normal mood/affect, oriented x 3 Appearance/Memory: appropriate appearance, appropriate insight, neat Behavior/Eye Contact: cooperative, good eye contact Thoughts/Hallucinations: normal thought pattern, no apparent hallucination Skin: normal color, warm/dry (MIRELA MACEDO APRN) Progress/Results/Core Measures Results/Orders Lab Results Laboratory Tests Test 01/27/22 15:43 Range/Units White Blood Count 6.7 4.3-11.0 10^3/uL Red Blood Count 4.89 4.30-5.52 10^6/uL Hemoglobin 15.9 13.3-17.7 g/dL Hematocrit 49 40-54 % Mean Corpuscular Volume 100 H 80-99 fL Mean Corpuscular Hemoglobin 33 25-34 pg Mean Corpuscular Hemoglobin Concent 33 32-36 g/dL Red Cell Distribution Width 13.2 10.0-14.5 % Platelet Count 243 130-400 10^3/uL Mean Platelet Volume 9.7 9.0-12.2 fL Immature Granulocyte % (Auto) 0 % Neutrophils (%) (Auto) 52 42-75 % Lymphocytes (%) (Auto) 34 12-44 % Monocytes (%) (Auto) 10 0-12 % Eosinophils (%) (Auto) 3 0-10 % Basophils (%) (Auto) 1 0-10 % Neutrophils # (Auto) 3.5 1.8-7.8 10^3/uL Lymphocytes # (Auto) 2.3 1.0-4.0 10^3/uL Monocytes # (Auto) 0.7 0.0-1.0 10^3/uL Eosinophils # (Auto) 0.2 0.0-0.3 10^3/uL Basophils # (Auto) 0.1 0.0-0.1 10^3/uL Immature Granulocyte # (Auto) 0.0 0.0-0.1 10^3/uL Percent Immature Platelet Fraction 4.4 0.0-7.6 % Prothrombin Time 11.4 L 12.2-14.7 SEC INR Comment 0.8 0.8-1.4 Sodium Level 142 135-145 MMOL/L Potassium Level 4.4 3.6-5.0 MMOL/L Chloride Level 103 98-107 MMOL/L Carbon Dioxide Level 26 21-32 MMOL/L Anion Gap 13 5-14 MMOL/L Blood Urea Nitrogen 10 7-18 MG/DL Creatinine 0.75 0.60-1.30 MG/DL Estimat Glomerular Filtration Rate 107 BUN/Creatinine Ratio 13 Glucose Level 87 70-105 MG/DL Calcium Level 9.3 8.5-10.1 MG/DL Corrected Calcium 9.1 8.5-10.1 MG/DL Total Bilirubin 0.3 0.1-1.0 MG/DL Aspartate Amino Transf (AST/SGOT) 44 H 5-34 U/L Alanine Aminotransferase (ALT/SGPT) 43 0-55 U/L Alkaline Phosphatase 60 40-136 U/L Total Protein 7.3 6.4-8.2 GM/DL Albumin 4.3 3.2-4.5 GM/DL Serum Alcohol 188 H <10 MG/DL (ORALIA KHAN DO) Blood Pressure Mean: 95 Departure Communication (Admissions) 1654-Discussed with Dr Steele substation operator automatic for [facility] hospitalist services. No clear indication for admission. Will dc to home with outpatient librium taper which I have handwritten (MIRELA MACEDO APRN) Impression Primary Impression: Alcohol abuse Disposition: 01 HOME, SELF-CARE Condition: Stable Departure-Patient Inst. Decision time for Depature: 16:51 (MIRELA MACEDO APRN) Referrals: VICKI GALLAGHER MD (PCP/Family) Primary Care Physician Patient Instructions: ALCOHOL AND SUBSTANCE ABUSE, Alcohol Use Disorder ED Add. Discharge Instructions: 1. use the librium medication at home as a taper to prevent seizures or severe withdrawal symptoms. All discharge instructions reviewed with patient and/or family. Voiced understanding. ATTENDING PHYSICIAN NOTE: I WAS PHYSICALLY PRESENT ER PHYSICIAN, BUT I WAS NOT INVOLVED IN ANY DECISION MAKING OR ANY CARE OF THIS PATIENT. (ORALIA KHAN DO) MIRELA MACEDO APRN January 27, 2022 15:46 ORALIA KHAN DO January 28, 2022 06:13
[2022-01-27 16:03] LABS: BASOPHILS # (AUTO) 0.1 10^3/uL (0.0-0.1); BASOPHILS % (AUTO) 1 % (0-10); MEAN CORPUSCULAR VOLUME 100 fL (80-99)
[2022-01-27 16:05] LABS: EOSINOPHILS # (AUTO) 0.2 10^3/uL (0.0-0.3); EOSINOPHILS % (AUTO) 3 % (0-10); HEMATOCRIT 49 % (40-54); HEMOGLOBIN 15.9 g/dL (13.3-17.7); LYMPHOCYTES # (AUTO) 2.3 10^3/uL (1.0-4.0); LYMPHOCYTES % (AUTO) 34 % (12-44); MEAN CORPUSCULAR HEMOGLOBIN 33 pg (25-34); MEAN CORPUSCULAR HGB CONC 33 g/dL (32-36); MEAN PLATELET VOLUME 9.7 fL (9.0-12.2); MONOCYTES # (AUTO) 0.7 10^3/uL (0.0-1.0); MONOCYTES % (AUTO) 10 % (0-12); NEUTROPHILS # (AUTO) 3.5 10^3/uL (1.8-7.8); NEUTROPHILS % (AUTO) 52 % (42-75); PLATELET COUNT 243 10^3/uL (130-400); WHITE BLOOD COUNT 6.7 10^3/uL (4.3-11.0)
[2022-01-27 16:24] LABS: ALBUMIN 4.3 GM/DL (3.2-4.5); POTASSIUM 4.4 MMOL/L (3.6-5.0)
[2022-01-27 16:25] LABS: INR 0.8 (0.8-1.4); PROTHROMBIN TIME PATIENT 11.4 SEC (12.2-14.7)
[2022-01-27 16:26] LABS: CALCIUM 9.3 MG/DL (8.5-10.1)
[2022-01-27 16:27] LABS: TOTAL PROTEIN 7.3 GM/DL (6.4-8.2)
[2022-01-27 16:28] LABS: BILIRUBIN,TOTAL 0.3 MG/DL (0.1-1.0)
[2022-01-27 16:30] LABS: CREATININE SERUM 0.75 MG/DL (0.60-1.30)
[2022-01-27 17:28] VITALS: BP 123/81
== END 2022-01-27 17:31 | disposition home or self-care (01) ==
LOC: EDUNIT# 14:58 → ER 14:59
DX: F10.10 Alcohol abuse, uncomplicated (principal); Y90.6 Blood alcohol level of 120-199 mg/100 ml
CPT/HCPCS: 80053; 85025; 85610; 99283; G0480; 36415; 80320

== ENCOUNTER 2022-02-04 11:31 | Emergency (ER) | payer MEDICARE, MEDICAID ==
[~2022-02-04] VITALS: Ht 175.3 cm; Wt 63.5 kg
[2022-02-04 11:40] VITALS: BP 112/74
[2022-02-04] MEDS ORDERED: THIAMINE 100 MG (VITAMIN B-1) TAB PO ONE (11:45)
[2022-02-04] MEDS ORDERED: NS IV 1000 ML 1,000 ML IV SCH (11:45)
--- NOTE | 2022-02-04 11:49 | ED General ---
General Chief Complaint: Detox Stated Complaint: SELF HARM Source of Information: Patient Exam Limitations: No Limitations History of Present Illness Date Seen by Provider: February 04, 2022 Time Seen by Provider: 11:48 Initial Comments Patient is a 56-year-old male with history of alcohol abuse who presents ED by EMS for alcohol detox and for self-harm. He states he has had self-harm in the past. No current suicidal homicidal thoughts. Patient is requesting alcohol detox. Patient states he drinks daily contacted [place]. He cannot recall how much she drinks. Patient appears intoxicated. Reports intermittent tremoring. Denies of any nausea vomiting diarrhea. Some generalized abdominal discomfort. Denies headache, dizziness, visual changes. Patient slurring his words. Difficulty obtaining history from patient. Denies fever, chest pain, shortness of breath, cough, headache, recent falls, drug use Allergies and Home Medications Allergies Coded Allergies: tramadol (Verified Allergy, Mild, "TOO SLEEPY", 04/05/18) Patient Home Medication List Home Medication List Reviewed: Yes Albuterol Sulfate (Proair Hfa) 1 Puff Puff, 2 PUFF IH Q4H PRN for WHEEZING Prescribed by: SIDDHARTH OLGUIN on 11/13/18 1152 Pantoprazole Sodium (Protonix) 40 Mg Tablet.dr, 40 MG PO DAILY Prescribed by: LESTER HOWELL on 09/10/19 1306 Review of Systems Review of Systems Constitutional: No chills, No diaphoresis, No malaise EENTM: No hearing loss, No blurred vision, No double vision, No dental problems, No mouth pain, No mouth swelling Respiratory: No cough, No dyspnea on exertion, No orthopnea, No phlegm, No short of breath Cardiovascular: No chest pain Gastrointestinal: No abdominal pain, No diarrhea; nausea; No vomiting Genitourinary: No decreased output, No discharge Skin: No change in color, No change in hair/nails All Other Systems Reviewed Negative Unless Noted: Yes Past Eertixn-Acnbqu-Znxtap Hx Patient Social History Tobacco Use?: Yes Tobacco type used: Cigarettes Smoking Status: Current Everyday Smoker Use of E-Cig and/or Vaping dev: No Substance use?: No Alcohol Use?: Yes Alcohol type: Hard Liquor Alcohol Frequency: Daily Pt feels they are or have been: No Immunizations Up To Date Tetanus Booster (TDap): Unknown PED Vaccines UTD: Yes First/Initial COVID19 Vaccinat: NO Second COVID19 Vaccination Thor: NO Third COVID19 Vaccination Date: NO Seasonal Allergies Seasonal Allergies: Yes Past Medical History Surgeries: Yes (EGD'S / ESOPHAGEAL DILATIONS) Abdominal Respiratory: Yes Asthma, COPD Cardiac: Yes Hypertension Neurological: Yes Headaches /Migraines Reproductive Disorders: No Sexually Transmitted Disease: No HIV/AIDS: No Genitourinary: No Gastrointestinal: Yes (ESOPHAGEAL STRICTURES/DILATIONS; H. PYLORI) Gastroesophageal Reflux, Shetty's Esophagus, Hemorrhoids Musculoskeletal: No Endocrine: No HEENT: Yes (NO DENTITION) Hearing Impairment: Bilateral Hearing Aide Cancer: No Psychosocial: Yes (ALCOHOLISM, RX DRUG ABUSE; SUICIDAL IDEATIONS, does not read) Anxiety, Suicide Attempts, Depression Integumentary: No Blood Disorders: No Adverse Reaction/Blood Tranf: No (N/A) Family Medical History No Pertinent Family Hx Physical Exam Vital Signs Vital Signs - First Documented 02/04/22 11:40 Temp 36.3 Pulse 84 Resp 16 B/P (MAP) 112/74 (87) Pulse Ox 98 O2 Delivery Room Air Capillary Refill : Height, Weight, BMI Height: 5'9.00" Weight: 160lbs. 2.0oz. 72.992371tu; 22.00 BMI Method:Estimated General Appearance: WD/WN, Other (Intoxicated) Eyes: Bilateral Eye Normal Inspection, Bilateral Eye PERRL, Bilateral Eye EOMI HEENT: PERRL/EOMI, TMs Normal, Normal ENT Inspection, Pharynx Normal Neck: Full Range of Motion, Normal Inspection, Non Tender, Supple Respiratory: Chest Non Tender, Lungs Clear, Normal Breath Sounds, No Accessory Muscle Use, No Respiratory Distress Cardiovascular: Regular Rate, Rhythm, No Edema, No Gallop, No JVD Gastrointestinal: Normal Bowel Sounds, No Organomegaly, No Pulsatile Mass, Non Tender Neurologic/Psychiatric: Disoriented Skin: Normal Color, Warm/Dry Progress/Results/Core Measures Suspected Sepsis SIRS Temperature: Pulse: Respiratory Rate: Laboratory Tests 02/04/22 11:45: White Blood Count 5.2 Blood Pressure / Mean: Laboratory Tests 02/04/22 11:45: Creatinine 0.78, Platelet Count 256, Total Bilirubin 0.4 Results/Orders Lab Results Laboratory Tests Test 02/04/22 11:45 02/04/22 13:06 02/04/22 13:28 Range/Units White Blood Count 5.2 4.3-11.0 10^3/uL Red Blood Count 4.36 4.30-5.52 10^6/uL Hemoglobin 14.3 13.3-17.7 g/dL Hematocrit 43 40-54 % Mean Corpuscular Volume 98 80-99 fL Mean Corpuscular Hemoglobin 33 25-34 pg Mean Corpuscular Hemoglobin Concent 34 32-36 g/dL Red Cell Distribution Width 13.0 10.0-14.5 % Platelet Count 256 130-400 10^3/uL Mean Platelet Volume 9.3 9.0-12.2 fL Immature Granulocyte % (Auto) 0 % Neutrophils (%) (Auto) 40 L 42-75 % Lymphocytes (%) (Auto) 45 H 12-44 % Monocytes (%) (Auto) 11 0-12 % Eosinophils (%) (Auto) 4 0-10 % Basophils (%) (Auto) 1 0-10 % Neutrophils # (Auto) 2.1 1.8-7.8 10^3/uL Lymphocytes # (Auto) 2.3 1.0-4.0 10^3/uL Monocytes # (Auto) 0.6 0.0-1.0 10^3/uL Eosinophils # (Auto) 0.2 0.0-0.3 10^3/uL Basophils # (Auto) 0.1 0.0-0.1 10^3/uL Immature Granulocyte # (Auto) 0.0 0.0-0.1 10^3/uL Sodium Level 142 135-145 MMOL/L Potassium Level 3.8 3.6-5.0 MMOL/L Chloride Level 109 H 98-107 MMOL/L Carbon Dioxide Level 22 21-32 MMOL/L Anion Gap 11 5-14 MMOL/L Blood Urea Nitrogen 9 7-18 MG/DL Creatinine 0.78 0.60-1.30 MG/DL Estimat Glomerular Filtration Rate 105 BUN/Creatinine Ratio 12 Glucose Level 101 70-105 MG/DL Calcium Level 8.7 8.5-10.1 MG/DL Corrected Calcium 8.8 8.5-10.1 MG/DL Magnesium Level 2.0 1.6-2.4 MG/DL Total Bilirubin 0.4 0.1-1.0 MG/DL Aspartate Amino Transf (AST/SGOT) 21 5-34 U/L Alanine Aminotransferase (ALT/SGPT) 23 0-55 U/L Alkaline Phosphatase 59 40-136 U/L Total Protein 6.5 6.4-8.2 GM/DL Albumin 3.9 3.2-4.5 GM/DL Salicylates Level < 5.0 L 5.0-20.0 MG/DL Acetaminophen Level < 10 L 10-30 UG/ML Serum Alcohol 255 H <10 MG/DL Urine Color YELLOW Urine Clarity CLEAR Urine pH 5.5 5-9 Urine Specific [place] 1.010 L 1.016-1.022 Urine Protein NEGATIVE NEGATIVE Urine Glucose (UA) NEGATIVE NEGATIVE Urine Ketones NEGATIVE NEGATIVE Urine Nitrite NEGATIVE NEGATIVE Urine Bilirubin NEGATIVE NEGATIVE Urine Urobilinogen 0.2 < = 1.0 MG/DL Urine Leukocyte Esterase NEGATIVE NEGATIVE Urine RBC (Auto) NEGATIVE NEGATIVE Urine RBC NONE /HPF Urine WBC NONE /HPF Urine Crystals NONE /LPF Urine Bacteria NEGATIVE /HPF Urine Casts NONE /LPF Urine Mucus NEGATIVE /LPF Urine Culture Indicated NO Urine Opiates Screen NEGATIVE NEGATIVE Urine Oxycodone Screen NEGATIVE NEGATIVE Urine Methadone Screen NEGATIVE NEGATIVE Urine Propoxyphene Screen NEGATIVE NEGATIVE Urine Barbiturates Screen NEGATIVE NEGATIVE Ur Tricyclic Antidepressants Screen NEGATIVE NEGATIVE Urine Phencyclidine Screen NEGATIVE NEGATIVE Urine Amphetamines Screen NEGATIVE NEGATIVE Urine Methamphetamines Screen NEGATIVE NEGATIVE Urine Benzodiazepines Screen NEGATIVE NEGATIVE Urine Cocaine Screen NEGATIVE NEGATIVE Urine Cannabinoids Screen NEGATIVE NEGATIVE Influenza Type A (RT-PCR) Not Detected Not Detecte Influenza Type B (RT-PCR) Not Detected Not Detecte SARS-CoV-2 RNA (RT-PCR) Not Detected Not Detecte My Orders Orders - ABDULLAHI PEREZ Ua Culture If Indicated (02/04/22 11:45) Cbc With Automated Diff (02/04/22 11:45) Comprehensive Metabolic Panel (02/04/22 11:45) Alcohol (02/04/22 11:45) Drug Screen Stat (Urine) (02/04/22 11:45) Acetaminophen (02/04/22 11:45) Salicylate (02/04/22 11:45) Ekg Tracing (02/04/22 11:45) Ed Iv/Invasive Line Start (02/04/22 11:45) Monitor-Rhythm Ecg Trace Only (02/04/22 11:45) Ed Iv/Invasive Line Start (02/04/22 11:45) Ns Iv 1000 Ml (Sodium Chloride 0.9%) (02/04/22 11:45) Thiamine Tablet (Vitamin B-1 Tablet) (02/04/22 11:45) Magnesium (02/04/22 11:46) Covid 19 Inhouse Test (02/04/22 12:46) Influenza A And B By Pcr (02/04/22 12:46) Vital Signs/I&O 02/04/22 11:40 Temp 36.3 Pulse 84 Resp 16 B/P (MAP) 112/74 (87) Pulse Ox 98 O2 Delivery Room Air Capillary Refill : Departure Communication (PCP) Patient alcohol level 255. Reports history of suicidal thoughts. Patient appears intoxicated on arrival. Patient is requesting detox and further evaluation of his current thoughts. Recommend evaluation by [facility]. Patient was given a liter of fluid and oral thiamine. Lab work was otherwise unremarkable. Patient is medically cleared. History of withdrawal. He states he has a history of seizure but denies take any medication. Difficulty obtaining history secondary to his alcohol state. During the interview patient became upset with behavioral health and walked out AMA. PD was contacted. Impression Primary Impression: ETOH abuse Disposition: AGAINST MEDICAL ADVICE Condition: Stable Departure-Patient Inst. Referrals: VICKI GALLAGHER MD (PCP/Family) Primary Care Physician ABDULLAHI PEREZ February 04, 2022 11:49
[2022-02-04 11:52] LABS: BASOPHILS # (AUTO) 0.1 10^3/uL (0.0-0.1); BASOPHILS % (AUTO) 1 % (0-10); EOSINOPHILS # (AUTO) 0.2 10^3/uL (0.0-0.3); EOSINOPHILS % (AUTO) 4 % (0-10); HEMATOCRIT 43 % (40-54); HEMOGLOBIN 14.3 g/dL (13.3-17.7); LYMPHOCYTES # (AUTO) 2.3 10^3/uL (1.0-4.0); LYMPHOCYTES % (AUTO) 45 % (12-44); MEAN CORPUSCULAR HEMOGLOBIN 33 pg (25-34); MEAN CORPUSCULAR HGB CONC 34 g/dL (32-36); MEAN CORPUSCULAR VOLUME 98 fL (80-99); MEAN PLATELET VOLUME 9.3 fL (9.0-12.2); MONOCYTES # (AUTO) 0.6 10^3/uL (0.0-1.0); MONOCYTES % (AUTO) 11 % (0-12); NEUTROPHILS # (AUTO) 2.1 10^3/uL (1.8-7.8); NEUTROPHILS % (AUTO) 40 % (42-75); PLATELET COUNT 256 10^3/uL (130-400); WHITE BLOOD COUNT 5.2 10^3/uL (4.3-11.0)
[2022-02-04 12:03] LABS: ALBUMIN 3.9 GM/DL (3.2-4.5); CHLORIDE 109 MMOL/L (98-107); POTASSIUM 3.8 MMOL/L (3.6-5.0); SODIUM 142 MMOL/L (135-145)
[2022-02-04 12:05] LABS: CALCIUM 8.7 MG/DL (8.5-10.1)
[2022-02-04 12:06] LABS: GLUCOSE 101 MG/DL (70-105); TOTAL PROTEIN 6.5 GM/DL (6.4-8.2)
[2022-02-04 12:07] LABS: BILIRUBIN,TOTAL 0.4 MG/DL (0.1-1.0); CARBON DIOXIDE 22 MMOL/L (21-32)
[2022-02-04 12:09] LABS: ALKALINE PHOSPHATASE 59 U/L (40-136); CREATININE SERUM 0.78 MG/DL (0.60-1.30); GFR ESTIMATED 105
[2022-02-04 12:11] LABS: BUN/CREATININE RATIO 12
[2022-02-04 12:12] LABS: SALICYLATE < 5.0 MG/DL (5.0-20.0)
[2022-02-04 12:13] LABS: ALANINE AMINOTRANSFERASE 23 U/L (0-55)
[2022-02-04 12:15] LABS: ACETAMINOPHEN < 10 UG/ML (10-30)
[2022-02-04 13:19] LABS: BACTERIA,URINE NEGATIVE /HPF; BILIRUBIN,URINE NEGATIVE (NEGATIVE); CLARITY,URINE CLEAR; COLOR,URINE YELLOW; GLUCOSE, URINE (UA) NEGATIVE (NEGATIVE); KETONES,URINE NEGATIVE (NEGATIVE); LEUKOCYTE ESTERASE ,URINE NEGATIVE (NEGATIVE); NITRITE,URINE NEGATIVE (NEGATIVE); PH,URINE 5.5 (5-9); PROTEIN,URINE NEGATIVE (NEGATIVE)
[2022-02-04 13:24] LABS: AMPHETAMINE SCREEN, URINE NEGATIVE (NEGATIVE); BARBITURATE SCREEN URINE NEGATIVE (NEGATIVE); BENZODIAZEPINES SCREEN URINE NEGATIVE (NEGATIVE); CANNABINOID SCREEN, URINE NEGATIVE (NEGATIVE); COCAINE SCREEN URINE NEGATIVE (NEGATIVE); METHADONE STAT NEGATIVE (NEGATIVE); OPIATE SCREEN URINE NEGATIVE (NEGATIVE); OXYCODONE STAT NEGATIVE (NEGATIVE); PROPOXYPHENE STAT NEGATIVE (NEGATIVE); TRICYCLIC ANTIDEPRESSANTS SCRE NEGATIVE (NEGATIVE)
== END 2022-02-04 14:15 | disposition left against medical advice (07) ==
LOC: EDUNIT# 11:31 → ER 11:32
DX: F10.239 Alcohol dependence with withdrawal, unspecified (principal); F17.210 Nicotine dependence, cigarettes, uncomplicated; Z91.51 Personal history of suicidal behavior; Y90.8 Blood alcohol level of 240 mg/100 ml or more
CPT/HCPCS: 80053; 80306; 81000; 83735; 85025; 87636; 93041; 99284; G0480 ×3; 36415; 80320; 80329; 93005

== ENCOUNTER 2022-02-06 11:50 | Inpatient (IN) | payer MEDICAID, MEDICARE ==
[~2022-02-06] VITALS: Ht 176 cm; Wt 75.1 kg
[2022-02-06] MEDS ORDERED: ANTACID SUSP 30 ML UDC (MYLANTA) PO PRN (12:15)
[2022-02-06] MEDS ORDERED: D5 1/2 NS 1000 ML IV SOLUTION 1,000 ML IV PRN (12:15)
[2022-02-06] MEDS ORDERED: MILK OF MAGNESIA 400 MG/5 ML 30 ML UDC PO PRN (12:15)
[2022-02-06] MEDS ORDERED: MELATONIN 3 MG TABLET PO PRN (12:15)
[2022-02-06] MEDS ORDERED: PATIENT MAY USE OWN MEDS, ALL PO SCH (12:15)
[2022-02-06] MEDS ORDERED: diphenhydrAMINE 50 MG/ML INJ (BENADRYL) IVP PRN (12:15)
[2022-02-06] MEDS ORDERED: ONDANSETRON 4 MG (ZOFRAN) ORAL DISSOLVE TAB PO PRN (12:15)
[2022-02-06] MEDS ORDERED: polyethylene glycoL POWDER 17 GM (MIRALAX) PACK PO PRN (12:15)
[2022-02-06] MEDS ORDERED: morphine INJ 4 MG/ML 1 ML (VIAL/SYRINGE) IV PRN (12:15)
[2022-02-06] MEDS ORDERED: diphenhydrAMINE 25 MG TAB (BENADRYL) PO PRN (12:15)
[2022-02-06] MEDS ORDERED: ONDANSETRON 4 MG/2 ML (SDV) Z0FRAN IV PRN (12:15)
[2022-02-06] MEDS ORDERED: 1/2 NS IV SOLUTION 1,000 ML IV PRN (12:15)
[2022-02-06] MEDS ORDERED: BISACODYL 10 MG SUPP (DULCOLAX) PR PRN (12:15)
[2022-02-06] MEDS ORDERED: CALCIUM CARBONATE 500 MG (TUMS) TAB.CHEW PO PRN (12:15)
[2022-02-06] MEDS ORDERED: LACTULOSE SYRUP 10GM/15ML (ENULOSE) 30ML UDC PO PRN (12:15)
[2022-02-06] MEDS: LORazepam INJ 2 MG/ML (ATIVAN) VIAL IV PRN (14:01)
[2022-02-06] MEDS: ENOXAPARIN 40 MG/0.4 ML (LOVENOX) SYR SC SCH (14:04)
[2022-02-06] MEDS ORDERED: RT-ALBUTEROL/IPRATROPIUM 3 ML (DUONEB) VIAL INH PRN (15:30)
[2022-02-06 15:32] LABS: ALBUMIN 3.9 GM/DL (3.2-4.5)
[2022-02-06 15:33] LABS: POTASSIUM 3.6 MMOL/L (3.6-5.0)
[2022-02-06 15:34] VITALS: BP 133/101
[2022-02-06 15:34] LABS: CALCIUM 8.7 MG/DL (8.5-10.1)
[2022-02-06 15:35] LABS: BASOPHILS # (AUTO) 0.1 10^3/uL (0.0-0.1); BASOPHILS % (AUTO) 1 % (0-10); EOSINOPHILS # (AUTO) 0.1 10^3/uL (0.0-0.3); EOSINOPHILS % (AUTO) 2 % (0-10); HEMATOCRIT 42 % (40-54); HEMOGLOBIN 14.2 g/dL (13.3-17.7); LYMPHOCYTES # (AUTO) 1.7 10^3/uL (1.0-4.0); LYMPHOCYTES % (AUTO) 29 % (12-44); MEAN CORPUSCULAR HEMOGLOBIN 33 pg (25-34); MEAN CORPUSCULAR HGB CONC 34 g/dL (32-36); MEAN CORPUSCULAR VOLUME 96 fL (80-99); MEAN PLATELET VOLUME 9.5 fL (9.0-12.2); MONOCYTES # (AUTO) 0.3 10^3/uL (0.0-1.0); MONOCYTES % (AUTO) 5 % (0-12); NEUTROPHILS # (AUTO) 3.8 10^3/uL (1.8-7.8); NEUTROPHILS % (AUTO) 63 % (42-75); PLATELET COUNT 258 10^3/uL (130-400); TOTAL PROTEIN 6.3 GM/DL (6.4-8.2); WHITE BLOOD COUNT 6.1 10^3/uL (4.3-11.0)
[2022-02-06] MEDS: LORazepam INJ 2 MG/ML (ATIVAN) VIAL IM/IV PRN ×2 (15:36→20:13)
[2022-02-06 15:37] LABS: BILIRUBIN,TOTAL 0.4 MG/DL (0.1-1.0); INR 0.9 (0.8-1.4); PROTHROMBIN TIME PATIENT 12.9 SEC (12.2-14.7)
[2022-02-06 15:39] LABS: CREATININE SERUM 0.77 MG/DL (0.60-1.30)
[2022-02-06 16:00] VITALS: BP 115/75
[2022-02-06] MEDS: RT-ALBUTEROL/IPRATROPIUM 3 ML (DUONEB) VIAL INH SCH ×2 (18:31→21:34)
[2022-02-06 19:09] VITALS: BP 125/70
[2022-02-06 20:11] VITALS: BP 131/61
[2022-02-06] MEDS: MAGNESIUM OXIDE (MAG-OX)400 MG TAB PO SCH (20:44)
[2022-02-06] MEDS: SENNOSIDES 8.6 MG (SENOKOT) TAB PO SCH (20:44)
[2022-02-06] MEDS: DOCUSATE SODIUM 100 MG (COLACE) CAP PO SCH (20:44)
--- NOTE | 2022-02-06 20:56 | History & Physical-Hospitalist ---
History of Present Illness HPI/Chief Complaint CC: Alcohol detox HPI: This is a pt who was a direct admit from [facility]. Pt has a past medical history of alcoholism. Rehab bed was obtained, but he needed alcohol in the hospital for 3 days prior to admission. He will be placed on protocol. Source: patient Exam Limitations: no limitations Date Seen 02/06/22 Time Seen by a Provider: 18:15 Attending Physician Fidelina Steele DO PCP Jazzy Alejandre MD Referring Physician Date of Admission February 06, 2022 at 12:58 Home Medications & Allergies Home Medications Reviewed patient Home Medication Reconciliation performed by pharmacy medication reconciliations truck technician and/or nursing. Patients Allergies have been reviewed. Allergies Allergies Coded Allergies tramadol (Verified Allergy, Mild, "TOO SLEEPY", 04/05/18) Past Etqoklx-Vsksag-Ufjfzm Hx Patient Social History Marrital Status: single Employed/Student: unemployed Tobacco Use?: Yes Tobacco type used: Cigarettes Smoking Status: Current Everyday Smoker Use of E-Cig and/or Vaping dev: No Substance use?: No Alcohol Use?: Yes Alcohol type: Hard Liquor Alcohol Frequency: Daily Pt feels they are or have been: No Immunizations Up To Date Date of Influenza Vaccine: Jul 03, 2020 First/Initial COVID19 Vaccinat: NO Second COVID19 Vaccination Thor: NO Tetanus Booster (TDap): Unknown PED Vaccines UTD: Yes Date of Pneumonia Vaccine: Jul 06, 2011 Seasonal Allergies Seasonal Allergies: Yes Current Status Advance Directives: No Communicates: Verbally Primary Language: Mauritian Is interpretation needed?: No Implanted or Applied Medical D: None Past Medical History Surgeries: Abdominal Asthma, COPD Hypertension Headaches /Migraines Sexually Transmitted Disease: No HIV/AIDS: No Gastroesophageal Reflux, Shetty's Esophagus, Hemorrhoids Hearing Impairment: Bilateral Hearing Aide Anxiety, Suicide Attempts, Depression Blood Disorders: No Adverse Reaction/Blood Tranf: No (N/A) Family Medical History No Pertinent Family Hx Review of Systems Constitutional: see HPI, malaise, weakness Physical Exam Physical Exam Vital Signs Vital Signs - First Documented 02/06/22 02/06/22 02/06/22 02/06/22 14:46 15:09 15:34 16:00 Temp 35.8 Pulse 83 Resp 18 B/P (MAP) 115/75 (88) Pulse Ox 95 O2 Delivery Room Air Capillary Refill : Height, Weight, BMI Height: 5'9.00" Weight: 160lbs. 2.0oz. 72.492929by; 20.49 BMI Method:Estimated General Appearance: No Apparent Distress, Anxious, Chronically ill, Thin Respiratory: Lungs Clear, Normal Breath Sounds Cardiovascular: Regular Rate, Rhythm Neurologic/Psychiatric: Alert, Oriented x3 Results Results/Procedures Labs Laboratory Tests 02/06/22 15:10 02/07/22 04:53 Patient resulted labs reviewed. Assessment/Plan Admission Diagnosis Assessment: Alcohol detox Severe alcoholism Alcohol withdrawal seizures Smoker COPD Plan: Alcohol withdrawal protocol Supportive care Admission Status: Inpatient Order (span 2 midnights) Reason for Inpatient Admission: Alcohol detox with withdrawal seizures Diagnosis/Problems Diagnosis/Problems (1) ETOH abuse Status: Acute FIDELINA STEELE DO February 06, 2022 20:56
[2022-02-07] VITALS (7 sets, daily range): BP systolic 119–156; BP diastolic 66–82
[2022-02-07] MEDS: RT-ALBUTEROL/IPRATROPIUM 3 ML (DUONEB) VIAL INH SCH ×6 (02:31→21:54)
[2022-02-07] MEDS: LORazepam INJ 2 MG/ML (ATIVAN) VIAL IM/IV PRN ×5 (02:44→17:43)
[2022-02-07 05:45] LABS: BASOPHILS # (AUTO) 0.1 10^3/uL (0.0-0.1); BASOPHILS % (AUTO) 1 % (0-10); EOSINOPHILS # (AUTO) 0.2 10^3/uL (0.0-0.3); EOSINOPHILS % (AUTO) 3 % (0-10); HEMATOCRIT 42 % (40-54); HEMOGLOBIN 14.1 g/dL (13.3-17.7); LYMPHOCYTES # (AUTO) 1.8 10^3/uL (1.0-4.0); LYMPHOCYTES % (AUTO) 31 % (12-44); MEAN CORPUSCULAR HEMOGLOBIN 33 pg (25-34); MEAN CORPUSCULAR HGB CONC 34 g/dL (32-36); MEAN CORPUSCULAR VOLUME 98 fL (80-99); MEAN PLATELET VOLUME 9.9 fL (9.0-12.2); MONOCYTES # (AUTO) 0.4 10^3/uL (0.0-1.0); MONOCYTES % (AUTO) 7 % (0-12); NEUTROPHILS # (AUTO) 3.4 10^3/uL (1.8-7.8); NEUTROPHILS % (AUTO) 58 % (42-75); PLATELET COUNT 243 10^3/uL (130-400); WHITE BLOOD COUNT 5.9 10^3/uL (4.3-11.0)
--- NOTE | 2022-02-07 05:54 | Progress Note - Hospitalist ---
Subjective HPI/CC On Admission Date Seen by Provider: February 07, 2022 Time Seen by Provider: 09:00 CC: Alcohol detox HPI: This is a pt who was a direct admit from [facility]. Pt has a past medical history of alcoholism. Rehab bed was obtained, but he needed alcohol in the hospital for 3 days prior to admission. He will be placed on protocol. Subjective/Events-last exam Pt is doing a lot better No more seizures Needs his chewing tobacco He gets very anxious at times Bed will be available once he completes detox Review of Systems General: Fatigue, Malaise Objective Exam Vital Signs Vital Signs Date Time Temp Pulse Resp B/P (MAP) Pulse Ox O2 Delivery O2 Flow Rate FiO2 02/08/22 04:00 36.8 77 20 137/80 (99) 98 Room Air Capillary Refill : General Appearance: No Apparent Distress, WD/WN, Anxious, Chronically ill Respiratory: Lungs Clear, Normal Breath Sounds Cardiovascular: Regular Rate, Rhythm Neurologic/Psychiatric: Alert, Oriented x3 Results/Procedures Lab Laboratory Tests 02/08/22 05:25 Patient resulted labs reviewed. Assessment/Plan Assessment and Plan Assess & Plan/Chief Complaint Assessment: Alcohol detox Severe alcoholism Alcohol withdrawal seizures Smoker COPD Plan: Alcohol withdrawal protocol Supportive care 02/07/2022: Started phenobarbital Monitor alcohol withdrawal seizures Diagnosis/Problems Diagnosis/Problems (1) ETOH abuse Status: Acute EUGENIO KWAN DO February 07, 2022 05:54
[2022-02-07 06:07] LABS: ALBUMIN 3.6 GM/DL (3.2-4.5); BILIRUBIN,TOTAL 0.7 MG/DL (0.1-1.0); CALCIUM 8.5 MG/DL (8.5-10.1); CREATININE SERUM 0.85 MG/DL (0.60-1.30); POTASSIUM 4.1 MMOL/L (3.6-5.0); TOTAL PROTEIN 5.9 GM/DL (6.4-8.2)
[2022-02-07] MEDS: MULTIVIT W/MINERALS TAB (THERAGRAN M) PO SCH (06:27)
[2022-02-07] MEDS: THIAMINE 100 MG (VITAMIN B-1) TAB PO SCH (06:27)
[2022-02-07] MEDS: MAGNESIUM OXIDE (MAG-OX)400 MG TAB PO SCH ×2 (08:11→21:18)
[2022-02-07] MEDS: SENNOSIDES 8.6 MG (SENOKOT) TAB PO SCH ×2 (08:11→19:55)
[2022-02-07] MEDS: DOCUSATE SODIUM 100 MG (COLACE) CAP PO SCH ×2 (08:11→19:55)
[2022-02-07] MEDS: FOLIC ACID 1 MG TAB PO SCH (08:12)
[2022-02-07] MEDS: THIAMINE INJECTION 100 MG, FOLIC ACID INJECTION 1 MG, MAGNESIUM SULFATE 2 GM, VITAMIN M... IV SCH ×5 (09:21)
[2022-02-07] MEDS: LORazepam 1 MG (ATIVAN) TAB PO PRN ×2 (09:51→17:24)
[2022-02-07] MEDS: ENOXAPARIN 40 MG/0.4 ML (LOVENOX) SYR SC SCH (13:54)
[2022-02-07] MEDS: PHENobarbital 16.2 MG (1/4 GRAIN) TABLET PO SCH ×2 (17:24→19:54)
[2022-02-08 00:30] VITALS: BP 120/75
[2022-02-08] MEDS: LORazepam INJ 2 MG/ML (ATIVAN) VIAL IM/IV PRN ×2 (01:32→04:31)
[2022-02-08] MEDS: RT-ALBUTEROL/IPRATROPIUM 3 ML (DUONEB) VIAL INH SCH ×7 (03:23→21:12)
[2022-02-08 04:00] VITALS: BP 137/80
[2022-02-08 05:39] LABS: HEMATOCRIT 41 % (40-54); HEMOGLOBIN 13.8 g/dL (13.3-17.7); MEAN CORPUSCULAR HEMOGLOBIN 33 pg (25-34); MEAN CORPUSCULAR HGB CONC 33 g/dL (32-36); MEAN CORPUSCULAR VOLUME 98 fL (80-99); MEAN PLATELET VOLUME 9.5 fL (9.0-12.2); PLATELET COUNT 220 10^3/uL (130-400); WHITE BLOOD COUNT 6.3 10^3/uL (4.3-11.0)
[2022-02-08 05:40] LABS: BASOPHILS # (AUTO) 0.1 10^3/uL (0.0-0.1); BASOPHILS % (AUTO) 1 % (0-10); EOSINOPHILS # (AUTO) 0.2 10^3/uL (0.0-0.3); EOSINOPHILS % (AUTO) 3 % (0-10); LYMPHOCYTES # (AUTO) 1.3 X 10^3 (1.0-4.0); LYMPHOCYTES % (AUTO) 21 % (12-44); MONOCYTES # (AUTO) 0.5 X 10^3 (0.0-1.0); MONOCYTES % (AUTO) 8 % (0-12); NEUTROPHILS # (AUTO) 4.3 X 10^3 (1.8-7.8); NEUTROPHILS % (AUTO) 68 % (42-75)
[2022-02-08 06:01] LABS: TOTAL PROTEIN 5.9 GM/DL (6.4-8.2)
[2022-02-08 06:03] LABS: BILIRUBIN,TOTAL 0.7 MG/DL (0.1-1.0)
[2022-02-08] MEDS: LORazepam INJ 2 MG/ML (ATIVAN) VIAL IV PRN ×2 (06:04→07:13)
[2022-02-08] MEDS: MULTIVIT W/MINERALS TAB (THERAGRAN M) PO SCH (06:04)
[2022-02-08] MEDS: THIAMINE 100 MG (VITAMIN B-1) TAB PO SCH (06:04)
[2022-02-08 06:05] LABS: CREATININE SERUM 0.69 MG/DL (0.60-1.30)
[2022-02-08 06:13] LABS: ALBUMIN 3.7 GM/DL (3.2-4.5); CALCIUM 8.8 MG/DL (8.5-10.1)
--- NOTE | 2022-02-08 06:33 | Progress Note - Hospitalist ---
Subjective HPI/CC On Admission Date Seen by Provider: February 08, 2022 Time Seen by Provider: 10:30 CC: Alcohol detox HPI: This is a pt who was a direct admit from [facility]. Pt has a past medical history of alcoholism. Rehab bed was obtained, but he needed alcohol in the hospital for 3 days prior to admission. He will be placed on protocol. Subjective/Events-last exam Pt is doing okay Had some seizures last night Started on Phenobarbital so will increase the dose No pain is reported Review of Systems General: Fatigue, Malaise Neurological: Weakness Objective Exam Vital Signs Vital Signs Date Time Temp Pulse Resp B/P (MAP) Pulse Ox O2 Delivery O2 Flow Rate FiO2 02/09/22 04:51 36.4 74 18 140/93 (109) 100 Room Air Capillary Refill : General Appearance: No Apparent Distress, WD/WN, Chronically ill Respiratory: Lungs Clear, Normal Breath Sounds Cardiovascular: Regular Rate, Rhythm Neurologic/Psychiatric: Alert, Oriented x3 Results/Procedures Lab Laboratory Tests 02/09/22 05:17 Patient resulted labs reviewed. Assessment/Plan Assessment and Plan Assess & Plan/Chief Complaint Assessment: Alcohol detox Severe alcoholism Alcohol withdrawal seizures Smoker COPD Plan: Alcohol withdrawal protocol Supportive care 02/07/2022: Started phenobarbital Monitor alcohol withdrawal seizures 02/08/2022: Increase phenobarbital Supportive care Diagnosis/Problems Diagnosis/Problems (1) ETOH abuse Status: Acute EUGENIO KWAN DO February 08, 2022 06:33
[2022-02-08] MEDS: ACETAMINOPHEN 325 MG TABLET PO PRN (07:03)
[2022-02-08 07:43] VITALS: BP 141/82
[2022-02-08] MEDS: DOCUSATE SODIUM 100 MG (COLACE) CAP PO SCH ×3 (08:55→21:12)
[2022-02-08] MEDS: THIAMINE INJECTION 100 MG, FOLIC ACID INJECTION 1 MG, MAGNESIUM SULFATE 2 GM, VITAMIN M... IV SCH ×5 (08:55)
[2022-02-08] MEDS: MAGNESIUM OXIDE (MAG-OX)400 MG TAB PO SCH ×2 (08:56→20:53)
[2022-02-08] MEDS: FOLIC ACID 1 MG TAB PO SCH (08:56)
[2022-02-08] MEDS: PHENobarbital 16.2 MG (1/4 GRAIN) TABLET PO SCH (08:56)
[2022-02-08] MEDS: SENNOSIDES 8.6 MG (SENOKOT) TAB PO SCH ×3 (08:56→21:12)
[2022-02-08] MEDS: LORazepam 1 MG (ATIVAN) TAB PO PRN ×3 (09:55→14:26)
[2022-02-08 11:43] VITALS: BP 122/77
[2022-02-08] MEDS: ENOXAPARIN 40 MG/0.4 ML (LOVENOX) SYR SC SCH (12:25)
[2022-02-08] MEDS: PHENobarbital 64.8 MG (1 GRAIN) TAb PO SCH ×2 (14:27→21:23)
[2022-02-08 15:11] VITALS: BP 107/58
[2022-02-08] MEDS ORDERED: CETI10TA17 PO (16:08)
[2022-02-08] MEDS ORDERED: ESOM40CA52 PO (16:08)
[2022-02-08] MEDS ORDERED: SUCR1ORA15 PO (16:08)
[2022-02-08 20:13] VITALS: BP 133/80
[2022-02-09] VITALS (13 sets, daily range): BP systolic 120–152; BP diastolic 70–93
[2022-02-09] MEDS: RT-ALBUTEROL/IPRATROPIUM 3 ML (DUONEB) VIAL INH SCH ×2 (02:55→06:48)
[2022-02-09 05:30] LABS: BASOPHILS # (AUTO) 0.1 10^3/uL (0.0-0.1); BASOPHILS % (AUTO) 1 % (0-10); EOSINOPHILS # (AUTO) 0.2 10^3/uL (0.0-0.3); EOSINOPHILS % (AUTO) 4 % (0-10); HEMATOCRIT 42 % (40-54); HEMOGLOBIN 13.7 g/dL (13.3-17.7); LYMPHOCYTES # (AUTO) 1.5 10^3/uL (1.0-4.0); LYMPHOCYTES % (AUTO) 31 % (12-44); MEAN CORPUSCULAR HEMOGLOBIN 32 pg (25-34); MEAN CORPUSCULAR HGB CONC 33 g/dL (32-36); MEAN CORPUSCULAR VOLUME 99 fL (80-99); MEAN PLATELET VOLUME 9.8 fL (9.0-12.2); MONOCYTES # (AUTO) 0.5 10^3/uL (0.0-1.0); MONOCYTES % (AUTO) 10 % (0-12); NEUTROPHILS # (AUTO) 2.5 10^3/uL (1.8-7.8); NEUTROPHILS % (AUTO) 53 % (42-75); PLATELET COUNT 217 10^3/uL (130-400); WHITE BLOOD COUNT 4.7 10^3/uL (4.3-11.0)
[2022-02-09] MEDS: LORazepam INJ 2 MG/ML (ATIVAN) VIAL IM/IV PRN (06:09)
[2022-02-09 06:11] LABS: ALBUMIN 3.6 GM/DL (3.2-4.5)
[2022-02-09 06:12] LABS: POTASSIUM 4.7 MMOL/L (3.6-5.0)
[2022-02-09 06:13] LABS: CALCIUM 9.2 MG/DL (8.5-10.1)
[2022-02-09 06:14] LABS: TOTAL PROTEIN 5.9 GM/DL (6.4-8.2)
[2022-02-09 06:16] LABS: BILIRUBIN,TOTAL 0.5 MG/DL (0.1-1.0)
[2022-02-09 06:17] LABS: CREATININE SERUM 0.74 MG/DL (0.60-1.30)
[2022-02-09] MEDS: PHENobarbital 64.8 MG (1 GRAIN) TAb PO SCH ×3 (06:37→21:00)
[2022-02-09] MEDS: MULTIVIT W/MINERALS TAB (THERAGRAN M) PO SCH (06:37)
[2022-02-09] MEDS: THIAMINE 100 MG (VITAMIN B-1) TAB PO SCH (06:37)
[2022-02-09] MEDS: FOLIC ACID 1 MG TAB PO SCH (08:40)
[2022-02-09] MEDS: MAGNESIUM OXIDE (MAG-OX)400 MG TAB PO SCH (08:40)
[2022-02-09] MEDS: THIAMINE INJECTION 100 MG, FOLIC ACID INJECTION 1 MG, MAGNESIUM SULFATE 2 GM, VITAMIN M... IV SCH ×5 (08:41)
[2022-02-09] MEDS: DOCUSATE SODIUM 100 MG (COLACE) CAP PO SCH ×2 (08:42→21:00)
[2022-02-09] MEDS: SENNOSIDES 8.6 MG (SENOKOT) TAB PO SCH ×2 (08:42→21:00)
[2022-02-09] MEDS ORDERED: MULT-1137 PO (10:19)
[2022-02-09] MEDS ORDERED: PHEN64.8 PO (10:19)
--- NOTE | 2022-02-09 10:22 | Discharge Summary ---
Discharge Summary Hospital Course Problems/Dx: (1) ETOH abuse Status: Acute Hospital Course Date of Admission: February 06, 2022 at 12:58 Admission Diagnosis : Family Physician/Provider: Jazzy Alejandre MD Date of Discharge: 02/09/22 Discharge Diagnosis: [ ] Hospital Course: [ ] Labs and Pending Lab Test: Laboratory Tests 02/08/22 11:11: Glucometer 114H 02/08/22 16:35: Glucometer 169H 02/09/22 00:26: Glucometer 131H 02/09/22 05:12: Glucometer 109 02/09/22 05:17: White Blood Count 4.7, Red Blood Count 4.23L, Hemoglobin 13.7, Hematocrit 42, Mean Corpuscular Volume 99, Mean Corpuscular Hemoglobin 32, Mean Corpuscular Hemoglobin Concent 33, Red Cell Distribution Width 13.2, Platelet Count 217, Mean Platelet Volume 9.8, Immature Granulocyte % (Auto) 0, Neutrophils (%) (Auto) 53, Lymphocytes (%) (Auto) 31, Monocytes (%) (Auto) 10, Eosinophils (%) (Auto) 4, Basophils (%) (Auto) 1, Neutrophils # (Auto) 2.5, Lymphocytes # (Auto) 1.5, Monocytes # (Auto) 0.5, Eosinophils # (Auto) 0.2, Basophils # (Auto) 0.1, Immature Granulocyte # (Auto) 0.0, Sodium Level 136, Potassium Level 4.7, Chloride Level 104, Carbon Dioxide Level 21, Anion Gap 11, Blood Urea Nitrogen 9, Creatinine 0.74, Estimat Glomerular Filtration Rate 107, BUN/Creatinine Ratio 12, Glucose Level 98, Calcium Level 9.2, Corrected Calcium 9.5, Total Bilirubin 0.5, Aspartate Amino Transf (AST/SGOT) 18, Alanine Aminotransferase (ALT/SGPT) 14, Alkaline Phosphatase 60, Total Protein 5.9L, Albumin 3.6 Home Meds Active Tab-A-Jenelle Multivit with Iron (Multivitamin/Iron/Folic Acid) 18 Mg Iron-400 Mcg Tablet 1 Ea PO DAILY@0700 Phenobarbital 64.8 Mg Tablet 64.8 Mg PO Q8HR Reported Esomeprazole Magnesium 40 Mg Capsule.dr 40 Mg PO DAILY Sucralfate 1 Gram/10 Ml Oral.susp 10 Ml PO ACHS Cetirizine HCl 10 Mg Tablet 10 Mg PO DAILY Discharge Physical Examination Vital Signs Vital Signs Date Time Temp Pulse Resp B/P (MAP) Pulse Ox O2 Delivery O2 Flow Rate FiO2 02/09/22 09:54 36.9 72 100 02/09/22 09:00 Room Air 02/09/22 07:05 18 148/86 (106) Allergies: Coded Allergies: tramadol (Verified Allergy, Mild, "TOO SLEEPY", 04/05/18) Discharge Summary Date of Admission February 06, 2022 at 12:58 Date of Discharge Discharge Date: February 09, 2022 Admission Diagnosis Assessment: Alcohol detox Severe alcoholism Alcohol withdrawal seizures Smoker COPD Plan: Alcohol withdrawal protocol Supportive care Discharge Diagnosis Assessment: Alcohol detox Severe alcoholism Alcohol withdrawal seizures Smoker COPD Plan: Alcohol withdrawal protocol Supportive care 02/07/2022: Started phenobarbital Monitor alcohol withdrawal seizures 02/08/2022: Increase phenobarbital Supportive care (1) ETOH abuse Status: Acute EUGENIO KWAN DO February 09, 2022 10:22
[2022-02-09] MEDS ORDERED: LORA-404 PO (11:02)
--- NOTE | 2022-02-09 11:04 | Discharge Summary ---
Discharge Summary Hospital Course Problems/Dx: (1) ETOH abuse Status: Acute Hospital Course Date of Admission: February 06, 2022 at 12:58 Admission Diagnosis : Family Physician/Provider: Jazzy Alejandre MD Date of Discharge: 02/09/22 Discharge Diagnosis: [ ] Hospital Course: [ ] Labs and Pending Lab Test: Laboratory Tests 02/08/22 11:11: Glucometer 114H 02/08/22 16:35: Glucometer 169H 02/09/22 00:26: Glucometer 131H 02/09/22 05:12: Glucometer 109 02/09/22 05:17: White Blood Count 4.7, Red Blood Count 4.23L, Hemoglobin 13.7, Hematocrit 42, Mean Corpuscular Volume 99, Mean Corpuscular Hemoglobin 32, Mean Corpuscular Hemoglobin Concent 33, Red Cell Distribution Width 13.2, Platelet Count 217, Mean Platelet Volume 9.8, Immature Granulocyte % (Auto) 0, Neutrophils (%) (Auto) 53, Lymphocytes (%) (Auto) 31, Monocytes (%) (Auto) 10, Eosinophils (%) (Auto) 4, Basophils (%) (Auto) 1, Neutrophils # (Auto) 2.5, Lymphocytes # (Auto) 1.5, Monocytes # (Auto) 0.5, Eosinophils # (Auto) 0.2, Basophils # (Auto) 0.1, Immature Granulocyte # (Auto) 0.0, Sodium Level 136, Potassium Level 4.7, Chloride Level 104, Carbon Dioxide Level 21, Anion Gap 11, Blood Urea Nitrogen 9, Creatinine 0.74, Estimat Glomerular Filtration Rate 107, BUN/Creatinine Ratio 12, Glucose Level 98, Calcium Level 9.2, Corrected Calcium 9.5, Total Bilirubin 0.5, Aspartate Amino Transf (AST/SGOT) 18, Alanine Aminotransferase (ALT/SGPT) 14, Alkaline Phosphatase 60, Total Protein 5.9L, Albumin 3.6 02/09/22 11:01: Glucometer 99 Home Meds Active Ativan (Lorazepam) 0.5 Mg Tablet 0.5 Mg PO TID PRN Tab-A-Jenelle Multivit with Iron (Multivitamin/Iron/Folic Acid) 18 Mg Iron-400 Mcg Tablet 1 Ea PO DAILY@0700 Phenobarbital 64.8 Mg Tablet 64.8 Mg PO Q8HR Reported Esomeprazole Magnesium 40 Mg Capsule.dr 40 Mg PO DAILY Sucralfate 1 Gram/10 Ml Oral.susp 10 Ml PO ACHS Cetirizine HCl 10 Mg Tablet 10 Mg PO DAILY Discharge Physical Examination Vital Signs Vital Signs Date Time Temp Pulse Resp B/P (MAP) Pulse Ox O2 Delivery O2 Flow Rate FiO2 02/09/22 09:54 36.9 72 100 02/09/22 09:00 Room Air 02/09/22 07:05 18 148/86 (106) Allergies: Coded Allergies: tramadol (Verified Allergy, Mild, "TOO SLEEPY", 04/05/18) Discharge Summary Date of Admission February 06, 2022 at 12:58 Date of Discharge Discharge Date: February 09, 2022 Admission Diagnosis Assessment: Alcohol detox Severe alcoholism Alcohol withdrawal seizures Smoker COPD Plan: Alcohol withdrawal protocol Supportive care Discharge Diagnosis Assessment: Alcohol detox Severe alcoholism Alcohol withdrawal seizures Smoker COPD Plan: Alcohol withdrawal protocol Supportive care 02/07/2022: Started phenobarbital Monitor alcohol withdrawal seizures 02/08/2022: Increase phenobarbital Supportive care (1) ETOH abuse Status: Acute EUGENIO KWAN DO February 09, 2022 11:04
--- NOTE | 2022-02-09 12:57 | Progress Note - Hospitalist ---
Subjective HPI/CC On Admission Date Seen by Provider: February 09, 2022 Time Seen by Provider: 10:00 CC: Alcohol detox HPI: This is a pt who was a direct admit from [facility]. Pt has a past medical history of alcoholism. Rehab bed was obtained, but he needed alcohol in the hospital for 3 days prior to admission. He will be placed on protocol. Subjective/Events-last exam Pt is doing fairly well Pt did have a seizure at about 6 o'clock this morning so that will preclude him from going to [facility] Phenobarbital maintained and I will do scheduled Ativan Review of Systems General: Fatigue, Malaise Objective Exam Vital Signs Vital Signs Date Time Temp Pulse Resp B/P (MAP) Pulse Ox O2 Delivery O2 Flow Rate FiO2 02/10/22 03:57 36.0 86 18 147/92 (110) 98 Room Air Capillary Refill : General Appearance: No Apparent Distress, WD/WN Respiratory: Lungs Clear Cardiovascular: Regular Rate, Rhythm Results/Procedures Lab Laboratory Tests 02/10/22 05:21 Patient resulted labs reviewed. Assessment/Plan Assessment and Plan Assess & Plan/Chief Complaint Assessment: Alcohol detox Severe alcoholism Alcohol withdrawal seizures Smoker COPD Plan: Alcohol withdrawal protocol Supportive care 02/07/2022: Started phenobarbital Monitor alcohol withdrawal seizures 02/08/2022: Increase phenobarbital Supportive care 02/09/2022: Ativan scheduled Maintain phenobarbital Diagnosis/Problems Diagnosis/Problems (1) ETOH abuse Status: Acute EUGENIO KWAN DO February 09, 2022 12:57
[2022-02-09] MEDS ORDERED: LORazepam 0.5 MG (ATIVAN) TABLET PO SCH (13:00)
[2022-02-09] MEDS: ENOXAPARIN 40 MG/0.4 ML (LOVENOX) SYR SC SCH (13:16)
[2022-02-09] MEDS: ACETAMINOPHEN 325 MG TABLET PO PRN (13:49)
--- NOTE | 2022-02-09 14:47 | Diagnostic Imaging Report ---
PROCEDURE: CT head without contrast. TECHNIQUE: Multiple contiguous axial images were obtained through the brain without the use of intravenous contrast. Auto Exposure Controls were utilized during the CT exam to meet ALARA standards for radiation dose reduction. INDICATION: Detox. Unwitnessed seizure. COMPARISON: CT head without contrast 04/06/2020. FINDINGS: Mild to moderate generalized parenchymal volume loss. No CT evidence of an acute territorial infarction. No intracranial hemorrhage, mass effect, hydrocephalus or extra-axial fluid collections. Scant fluid and osteitis in the left mastoid is similar to the prior exam. The paranasal sinuses are clear. No acute osseous findings. IMPRESSION: No acute intracranial CT findings. Dictated by: Dictated on workstation # [id number]
[2022-02-09] MEDS: LORazepam 0.5 MG (ATIVAN) TABLET PO SCH ×2 (17:44→21:00)
[2022-02-10 00:08] VITALS: BP 145/87
[2022-02-10] MEDS ORDERED: LORazepam 0.5 MG (ATIVAN) TABLET PO SCH (02:00)
[2022-02-10 03:57] VITALS: BP 147/92
[2022-02-10 05:41] LABS: BASOPHILS # (AUTO) 0.1 10^3/uL (0.0-0.1); BASOPHILS % (AUTO) 1 % (0-10); EOSINOPHILS # (AUTO) 0.3 10^3/uL (0.0-0.3); EOSINOPHILS % (AUTO) 4 % (0-10); HEMATOCRIT 49 % (40-54); HEMOGLOBIN 16.2 g/dL (13.3-17.7); LYMPHOCYTES % (AUTO) 34 % (12-44); MEAN CORPUSCULAR HEMOGLOBIN 33 pg (25-34); MEAN CORPUSCULAR HGB CONC 33 g/dL (32-36); MEAN CORPUSCULAR VOLUME 99 fL (80-99); MONOCYTES # (AUTO) 0.6 10^3/uL (0.0-1.0); MONOCYTES % (AUTO) 10 % (0-12); NEUTROPHILS % (AUTO) 50 % (42-75); PLATELET COUNT 244 10^3/uL (130-400)
[2022-02-10] MEDS: PHENobarbital 64.8 MG (1 GRAIN) TAb PO SCH (05:49)
[2022-02-10] MEDS: MULTIVIT W/MINERALS TAB (THERAGRAN M) PO SCH (05:49)
[2022-02-10 05:50] LABS: ALBUMIN 4.3 GM/DL (3.2-4.5); POTASSIUM 4.9 MMOL/L (3.6-5.0)
[2022-02-10 05:51] LABS: CALCIUM 9.9 MG/DL (8.5-10.1)
[2022-02-10 05:52] LABS: TOTAL PROTEIN 7.4 GM/DL (6.4-8.2)
[2022-02-10 05:54] LABS: BILIRUBIN,TOTAL 0.4 MG/DL (0.1-1.0)
[2022-02-10 05:56] LABS: CREATININE SERUM 0.88 MG/DL (0.60-1.30)
--- NOTE | 2022-02-10 05:56 | Progress Note - Hospitalist ---
Subjective HPI/CC On Admission Date Seen by Provider: February 10, 2022 Time Seen by Provider: 10:30 CC: Alcohol detox HPI: This is a pt who was a direct admit from [facility]. Pt has a past medical history of alcoholism. Rehab bed was obtained, but he needed alcohol in the hospital for 3 days prior to admission. He will be placed on protocol. Objective Exam Vital Signs Vital Signs Date Time Temp Pulse Resp B/P (MAP) Pulse Ox O2 Delivery O2 Flow Rate FiO2 02/10/22 08:00 Room Air 02/10/22 07:17 36.0 93 20 115/79 (91) 98 Capillary Refill : Results/Procedures Lab Laboratory Tests 02/10/22 05:21 Patient resulted labs reviewed. Assessment/Plan Assessment and Plan Assess & Plan/Chief Complaint Assessment: Alcohol detox Severe alcoholism Alcohol withdrawal seizures Smoker COPD Plan: Alcohol withdrawal protocol Supportive care 02/07/2022: Started phenobarbital Monitor alcohol withdrawal seizures 02/08/2022: Increase phenobarbital Supportive care 02/09/2022: Ativan scheduled Maintain phenobarbital Diagnosis/Problems Diagnosis/Problems (1) ETOH abuse Status: Acute EUGENIO KWAN DO February 10, 2022 05:56
[2022-02-10 07:17] VITALS: BP 115/79
[2022-02-10] MEDS: SENNOSIDES 8.6 MG (SENOKOT) TAB PO SCH (09:32)
[2022-02-10] MEDS: DOCUSATE SODIUM 100 MG (COLACE) CAP PO SCH (09:32)
--- NOTE | 2022-02-10 09:35 | Discharge Summary ---
Discharge Summary Hospital Course Was the Problem List Reviewed?: Yes Problems/Dx: (1) ETOH abuse Status: Acute Hospital Course Date of Admission: February 06, 2022 at 12:58 Admission Diagnosis : Family Physician/Provider: Jazzy Alejandre MD Date of Discharge: 02/10/22 Discharge Diagnosis: etoh withdrawal, seizures Hospital Course: Pt had an uneventful hospital course after he was admitted for detox protocol. He did have alcohol withdrawal seizures. He does have a history of them. He was started on Phenobarbital and Alprazolam scheduled. He had no further seizures. [facility] accepted him for admission. Labs and Pending Lab Test: Laboratory Tests 02/09/22 11:01: Glucometer 99 02/09/22 14:46: Glucometer 114H 02/09/22 17:01: Glucometer 98 02/09/22 23:14: Glucometer 124H 02/10/22 05:19: Glucometer 98 02/10/22 05:21: White Blood Count 6.0, Red Blood Count 4.93, Hemoglobin 16.2, Hematocrit 49, Mean Corpuscular Volume 99, Mean Corpuscular Hemoglobin 33, Mean Corpuscular Hemoglobin Concent 33, Red Cell Distribution Width 13.1, Platelet Count 244, Mean Platelet Volume 10.0, Immature Granulocyte % (Auto) 0, Neutrophils (%) (Auto) 50, Lymphocytes (%) (Auto) 34, Monocytes (%) (Auto) 10, Eosinophils (%) (Auto) 4, Basophils (%) (Auto) 1, Neutrophils # (Auto) 3.0, Lymphocytes # (Auto) 2.0, Monocytes # (Auto) 0.6, Eosinophils # (Auto) 0.3, Basophils # (Auto) 0.1, Immature Granulocyte # (Auto) 0.0, Sodium Level 136, Potassium Level 4.9, Chloride Level 101, Carbon Dioxide Level 22, Anion Gap 13, Blood Urea Nitrogen 13, Creatinine 0.88, Estimat Glomerular Filtration Rate 102, BUN/Creatinine Ratio 15, Glucose Level 90, Calcium Level 9.9, Corrected Calcium 9.7, Total Bilirubin 0.4, Aspartate Amino Transf (AST/SGOT) 30, Alanine Aminotransferase (ALT/SGPT) 25, Alkaline Phosphatase 66, Total Protein 7.4, Albumin 4.3 Home Meds Active Ativan (Lorazepam) 0.5 Mg Tablet 0.5 Mg PO TID PRN Tab-A-Jenelle Multivit with Iron (Multivitamin/Iron/Folic Acid) 18 Mg Iron-400 Mcg Tablet 1 Ea PO DAILY@0700 Phenobarbital 64.8 Mg Tablet 64.8 Mg PO Q8HR Reported Esomeprazole Magnesium 40 Mg Capsule.dr 40 Mg PO DAILY Sucralfate 1 Gram/10 Ml Oral.susp 10 Ml PO ACHS Cetirizine HCl 10 Mg Tablet 10 Mg PO DAILY Assessment/Pt Instructions [facility]C Discharge Planning: <30 minutes discharge planning Discharge Instructions Discharge Diet: No Restrictions Activity as Tolerated: Yes Discharge Physical Examination Vital Signs Vital Signs Date Time Temp Pulse Resp B/P (MAP) Pulse Ox O2 Delivery O2 Flow Rate FiO2 02/10/22 08:00 Room Air 02/10/22 07:17 36.0 93 20 115/79 (91) 98 General Appearance: No Apparent Distress, WD/WN Allergies: Coded Allergies: tramadol (Verified Allergy, Mild, "TOO SLEEPY", 04/05/18) Discharge Summary Date of Admission February 06, 2022 at 12:58 Date of Discharge Discharge Date: February 09, 2022 Admission Diagnosis Assessment: Alcohol detox Severe alcoholism Alcohol withdrawal seizures Smoker COPD Plan: Alcohol withdrawal protocol Supportive care Discharge Diagnosis Assessment: Alcohol detox Severe alcoholism Alcohol withdrawal seizures Smoker COPD Plan: Alcohol withdrawal protocol Supportive care 02/07/2022: Started phenobarbital Monitor alcohol withdrawal seizures 02/08/2022: Increase phenobarbital Supportive care 02/09/2022: Ativan scheduled Maintain phenobarbital (1) ETOH abuse Status: Acute EUGENIO KWAN DO February 10, 2022 09:35
[2022-02-10] MEDS: LORazepam 0.5 MG (ATIVAN) TABLET PO SCH (09:39)
[2022-02-10] MEDS: FOLIC ACID 1 MG TAB PO SCH (09:39)
== END 2022-02-10 10:06 | disposition home or self-care (01) | DRG 897 ==
LOC: 4TH 12:58
PROVIDERS: ADMIT Internal Medicine; ATTEND Internal Medicine
DX: F10.239 Alcohol dependence with withdrawal, unspecified (principal); F10.229 Alcohol dependence with intoxication, unspecified; Y90.6 Blood alcohol level of 120-199 mg/100 ml; F17.210 Nicotine dependence, cigarettes, uncomplicated; J44.9 Chronic obstructive pulmonary disease, unspecified; G43.909 Migraine, unspecified, not intractable, without status migrainosus; I10 Essential (primary) hypertension; K21.9 Gastro-esophageal reflux disease without esophagitis; F41.9 Anxiety disorder, unspecified; F32.A Depression, unspecified; R56.9 Unspecified convulsions
CPT/HCPCS: 36415; 70450; 80053; 80320; 82947; 85025; 85610; 85730; 94640; 94760

== ENCOUNTER 2022-02-28 17:54 | Emergency (ER) | payer MEDICAID ==
[~2022-02-28] VITALS: Ht 160 cm; Wt 72.0 kg
[~2022-02-28 17:54] MED LIST changes: +CETI10TA17 PO; +ESOM40CA52 PO; +LORA-404 PO; +MULT-1137 PO; +PHEN64.8 PO; +SUCR1ORA15 PO
--- NOTE | 2022-02-28 18:11 | ED Psychosocial ---
General Chief Complaint: Substance Abuse Stated Complaint: PSYCH Nursing Triage Note: ARRIVED VIA EMS FROM HOME. STATES HE WANTS INTO REHAB DUE TO HIS DRINKING. HAS HAD 4.5 PINTS OF KD TODAY. COMPLAINS OF ABD/CHEST PAIN X2 DAYS. Source: patient, EMS Exam Limitations: intoxication History of Present Illness Date Seen by Provider: Feb 28, 2022 Time Seen by Provider: 18:00 Initial Comments Patient is a 56-year-old male who presents to the emergency department today with a chief complaint of desiring detox/rehab. Has been a drinker since his teenage years. Has had 1/2 pints of liquor today. States that he has had some upper abdominal lower chest pain for the last couple of days. Positive productive cough. Very difficult to get HPI and review of systems from the patient secondary to his degree of intoxication. He states that he follows at [facility] and [facility]. He is not short of breath. No bloody stools. He denies suicidal ideation, homicidal ideation. He states he occasionally hears the voice of his brother. He states that he has had a seizure with alcohol withdrawal in the past. Denies visual hallucinations. He is quite tearful with HPI Rest of ROS limited secondary to intoxication as stated. Severity: severe Allergies and Home Medications Allergies Coded Allergies: tramadol (Verified Allergy, Mild, "TOO SLEEPY", 04/05/18) Patient Home Medication List Home Medication List Reviewed: Yes Cetirizine HCl (Cetirizine HCl) 10 Mg Tablet, 10 MG PO DAILY, (Reported) Entered as Reported by: CARLA KNIGHT on 02/08/22 1608 Esomeprazole Magnesium (Esomeprazole Magnesium) 40 Mg Capsule.dr, 40 MG PO DAILY, (Reported) Entered as Reported by: CARLA KNIGHT on 02/08/22 1608 Lorazepam (Ativan) 0.5 Mg Tablet, 0.5 MG PO TID PRN for ANXIETY Prescribed by: EUGENIO KWAN on 02/09/22 1103 Multivitamin/Iron/Folic Acid (Tab-A-Jenelle Multivit with Iron) 18 Mg Iron-400 Mcg Tablet, 1 EA PO DAILY@0700 Prescribed by: EUGENIO KWNA on 02/09/22 1019 Phenobarbital (Phenobarbital) 64.8 Mg Tablet, 64.8 MG PO Q8HR Prescribed by: EUGENIO KWAN on 02/09/22 1020 Sucralfate (Sucralfate) 1 Gram/10 Ml Oral.susp, 10 ML PO ACHS, (Reported) Entered as Reported by: CARLA KNIGHT on 02/08/22 1608 Review of Systems Constitutional: see HPI Respiratory: cough Cardiovascular: chest pain Gastrointestinal: abdominal pain Genitourinary: no symptoms reported Psychiatric/Neurological: Anxiety, Depressed, Emotional Problems All Other Systems Reviewed Negative Unless Noted: Yes Past Dxwhvqp-Hwumsy-Ymoptw Hx Patient Social History Smoking Status: Current Everyday Smoker Substance use?: No Alcohol Use?: No Immunizations Up To Date Tetanus Booster (TDap): Unknown PED Vaccines UTD: Yes First/Initial COVID19 Vaccinat: NO Second COVID19 Vaccination Thor: UNKNOWN DATE Third COVID19 Vaccination Date: NO COVID19 Vaccine Delinquent Tax Collection Assistant: UNKNOWN Seasonal Allergies Seasonal Allergies: Yes Past Medical History Surgeries: Yes (EGD'S / ESOPHAGEAL DILATIONS) Abdominal Respiratory: Yes Asthma, COPD Cardiac: Yes Hypertension Neurological: Yes Headaches /Migraines Reproductive Disorders: No Sexually Transmitted Disease: No HIV/AIDS: No Genitourinary: No Gastrointestinal: Yes (ESOPHAGEAL STRICTURES/DILATIONS; H. PYLORI) Gastroesophageal Reflux, Shetty's Esophagus, Hemorrhoids Musculoskeletal: No Endocrine: No HEENT: Yes (NO DENTITION) Hearing Impairment: Bilateral Hearing Aide Cancer: No Psychosocial: Yes (ALCOHOLISM, RX DRUG ABUSE; SUICIDAL IDEATIONS, does not read) Anxiety, Suicide Attempts, Depression Integumentary: No Blood Disorders: No Adverse Reaction/Blood Tranf: No (N/A) Family Medical History No Pertinent Family Hx Physical Exam Vital Signs - First Documented 02/28/22 17:54 Temp 36.3 Pulse 91 Resp 16 B/P (MAP) 115/72 (86) Pulse Ox 97 O2 Delivery Room Air Capillary Refill : Less Than 3 Seconds Height, Weight, BMI Height: 5'9.00" Weight: 160lbs. 2.0oz. 72.679671oo; 28.00 BMI Method:Estimated General Appearance: thin, other (Emotionally labile) HEENT: PERRL/EOMI, other (Dry oral mucosa) Neck: full range of motion, normal inspection Respiratory: lungs clear, normal breath sounds, no respiratory distress, no accessory muscle use Cardiovascular: regular rate, rhythm Gastrointestinal: soft, tenderness Extremities: normal range of motion, non-tender, normal inspection, no pedal edema, normal capillary refill Neurologic/Psychiatric: alert Appearance/Memory: disheveled Behavior/Eye Contact: cooperative, good eye contact, other (Slurred speech secondary to his intoxication as well as the fact that he is edentulous) Skin: normal color, warm/dry, tattoos/piercings Progress/Results/Core Measures Results/Orders Lab Results Laboratory Tests Test 02/28/22 18:18 02/28/22 18:22 02/28/22 20:15 Range/Units White Blood Count 6.1 4.3-11.0 10^3/uL Red Blood Count 4.30 4.30-5.52 10^6/uL Hemoglobin 14.1 13.3-17.7 g/dL Hematocrit 42 40-54 % Mean Corpuscular Volume 97 80-99 fL Mean Corpuscular Hemoglobin 33 25-34 pg Mean Corpuscular Hemoglobin Concent 34 32-36 g/dL Red Cell Distribution Width 13.4 10.0-14.5 % Platelet Count 168 130-400 10^3/uL Mean Platelet Volume 9.9 9.0-12.2 fL Immature Granulocyte % (Auto) 0 % Neutrophils (%) (Auto) 44 42-75 % Lymphocytes (%) (Auto) 42 12-44 % Monocytes (%) (Auto) 9 0-12 % Eosinophils (%) (Auto) 4 0-10 % Basophils (%) (Auto) 1 0-10 % Neutrophils # (Auto) 2.7 1.8-7.8 10^3/uL Lymphocytes # (Auto) 2.6 1.0-4.0 10^3/uL Monocytes # (Auto) 0.6 0.0-1.0 10^3/uL Eosinophils # (Auto) 0.2 0.0-0.3 10^3/uL Basophils # (Auto) 0.1 0.0-0.1 10^3/uL Immature Granulocyte # (Auto) 0.0 0.0-0.1 10^3/uL Sodium Level 142 135-145 MMOL/L Potassium Level 3.9 3.6-5.0 MMOL/L Chloride Level 106 98-107 MMOL/L Carbon Dioxide Level 24 21-32 MMOL/L Anion Gap 12 5-14 MMOL/L Blood Urea Nitrogen 11 7-18 MG/DL Creatinine 0.80 0.60-1.30 MG/DL Estimat Glomerular Filtration Rate 105 BUN/Creatinine Ratio 14 Glucose Level 88 70-105 MG/DL Calcium Level 8.6 8.5-10.1 MG/DL Corrected Calcium 8.5 8.5-10.1 MG/DL Total Bilirubin 0.4 0.1-1.0 MG/DL Aspartate Amino Transf (AST/SGOT) 86 H 5-34 U/L Alanine Aminotransferase (ALT/SGPT) 71 H 0-55 U/L Alkaline Phosphatase 63 40-136 U/L Total Protein 6.6 6.4-8.2 GM/DL Albumin 4.1 3.2-4.5 GM/DL Salicylates Level < 5.0 L 5.0-20.0 MG/DL Acetaminophen Level < 10 L 10-30 UG/ML Serum Alcohol 267 H <10 MG/DL Influenza Type A (RT-PCR) Not Detected Not Detecte Influenza Type B (RT-PCR) Not Detected Not Detecte SARS-CoV-2 RNA (RT-PCR) Detected H Not Detecte Urine Color YELLOW Urine Clarity CLEAR Urine pH 6.0 5-9 Urine Specific [place] >=1.030 1.016-1.022 Urine Protein TRACE H NEGATIVE Urine Glucose (UA) NEGATIVE NEGATIVE Urine Ketones NEGATIVE NEGATIVE Urine Nitrite NEGATIVE NEGATIVE Urine Bilirubin 1+ H NEGATIVE Urine Urobilinogen 0.2 < = 1.0 MG/DL Urine Leukocyte Esterase NEGATIVE NEGATIVE Urine RBC (Auto) NEGATIVE NEGATIVE Urine RBC RARE /HPF Urine WBC 0-2 /HPF Urine Squamous Epithelial Cells NONE /HPF Urine Renal Epithelial Cells NONE /HPF Urine Crystals NONE /LPF Urine Bacteria NEGATIVE /HPF Urine Casts NONE /LPF Urine Mucus MODERATE H /LPF Urine Culture Indicated NO Urine Opiates Screen NEGATIVE NEGATIVE Urine Oxycodone Screen NEGATIVE NEGATIVE Urine Methadone Screen NEGATIVE NEGATIVE Urine Propoxyphene Screen NEGATIVE NEGATIVE Urine Barbiturates Screen POSITIVE H NEGATIVE Ur Tricyclic Antidepressants Screen NEGATIVE NEGATIVE Urine Phencyclidine Screen NEGATIVE NEGATIVE Urine Amphetamines Screen NEGATIVE NEGATIVE Urine Methamphetamines Screen NEGATIVE NEGATIVE Urine Benzodiazepines Screen NEGATIVE NEGATIVE Urine Cocaine Screen NEGATIVE NEGATIVE Urine Cannabinoids Screen NEGATIVE NEGATIVE My Orders Orders - VIRGINIE BARAJAS MD Ua Culture If Indicated (02/28/22 18:12) Cbc With Automated Diff (02/28/22 18:12) Comprehensive Metabolic Panel (02/28/22 18:12) Alcohol (02/28/22 18:12) Drug Screen Stat (Urine) (02/28/22 18:12) Acetaminophen (02/28/22 18:12) Salicylate (02/28/22 18:12) Ekg Tracing (02/28/22 18:12) Ed Iv/Invasive Line Start (02/28/22 18:12) Monitor-Rhythm Ecg Trace Only (02/28/22 18:12) Bh Status Checks/Observation Q15M (02/28/22 18:12) Ed Iv/Invasive Line Start (02/28/22 18:12) Ns Iv 1000 Ml (Sodium Chloride 0.9%) (02/28/22 18:15) Ondansetron Injection (Zofran Injectio (02/28/22 18:15) Chest 1 View, Ap/Pa Only (02/28/22 18:12) Covid 19 Inhouse Test (02/28/22 18:12) Influenza A And B By Pcr (02/28/22 18:12) Isolation Central Supply Req (02/28/22 18:12) Thiamine Tablet (Vitamin B-1 Tablet) (02/28/22 18:15) Folic Acid Tablet (Folic Acid Tablet) (02/28/22 18:15) Medications Given in ED Current Medications Medications Dose Ordered Sig/Neel Route Start Time Stop Time Status Last Admin Dose Admin Folic Acid 1 mg ONCE ONCE PO 02/28/22 18:15 02/28/22 18:16 DC 02/28/22 18:57 1 MG Ondansetron HCl 4 mg ONCE ONCE IVP 02/28/22 18:15 02/28/22 18:16 DC 02/28/22 18:59 4 MG Thiamine HCl 100 mg ONCE ONCE PO 02/28/22 18:15 02/28/22 18:16 DC 02/28/22 19:05 100 MG Vital Signs/I&O 02/28/22 17:54 Temp 36.3 Pulse 91 Resp 16 B/P (MAP) 115/72 (86) Pulse Ox 97 O2 Delivery Room Air Blood Pressure Mean: 86 Progress Progress Note #1: Time: 17:20 Progress Note Patient is COVID positive - his CXR is clear and SAO2 is normal. VS normal as well. He would not be a candidate for inpatient detox - he has had seizures in the past with withdrawal - and less than 1 month ago he was admitted 4 d (per review of the record) for detox and seizure management and then sent to [facility]. The admission was from 02/06 - 02/09. There is no utility in keeping him in the ED for placement as no inpatient units will take him and he does not meet criteria for inpatient management of his Covid. Once he has had the opportunity to sober up a bit with IVF and time, I will talk to him about the best course of management which will likely be, to go home and try and manage as an outpatient and re-present to the ER for clearance and [facility]. Progress Note #2: Time: 20:49 Progress Note rechecked, sleeping soundly. easily rousable. ADvised him we would not be able to keep him in the hospital for placement at [place] with the covid. he will have to have a negative test. He is understandably upset at this. Will give him some zofran for home. He is not having any chest pain or abdominal pain. He is clinically much more sober. Will give him the number for [facility]. Also advised him to follow up in a week with [facility]. NO clinical or objective findings to warrant further eval/admission. Patient did admit when he was admitted to [place] earlier last month her "walked out". Could not give an explanation. Initial ECG Impression Date: Feb 28, 2022 Initial ECG Impression Time: 18:02 Initial ECG Rate: 84 Initial ECG Rhythm: Normal Sinus Initial ECG Intervals DC interval 142 QRS 114 QTc 414 Comment No ectopy noted, no ST segment elevation or depression Diagnostic Imaging Diagonstic Imaging: Xray Plain Films/CT/US/NM/MRI: chest Comments [facility]. [place], [place] NAME: ANANDAMAURISIO Dickinson [facility] REC#: [id number] PT STATUS: REG ER : 1965 PHYSICIAN: VIRGINIE BARAJAS MD ADMIT DATE: 02/28/22/ER Signed Date of Exam:02/28/22 CHEST 1 VIEW, AP/PA ONLY Indication: Chest pain and abdominal pain. Time of Exam: 7:05 PM Correlation is made with prior chest 08/11/2020. Findings: The heart size is normal. The pulmonary vascularity is unremarkable. The lungs are clear. No infiltrate, effusion or pneumothorax is detected. Impression: No acute cardiopulmonary process is detected. Dictated by: Dictated on workstation # [id number] Dict: 02/28/221906 Trans: 02/28/221913 [facility] [id number] Interpreted by: VINCE LOPEZ MD Electronically signed by: VINCE LOPEZ MD 02/28/221913 Departure Impression Primary Impression: Alcohol intoxication Qualified Codes: F10.920 - Alcohol use, unspecified with intoxication, uncomplicated Additional Impression: COVID-19 Disposition: 01 HOME, SELF-CARE Condition: Stable Departure-Patient Inst. Decision time for Depature: 20:51 Referrals: VICKI GALLAGHER MD (PCP/Family) Primary Care Physician Patient Instructions: ALCOHOL AND SUBSTANCE ABUSE, COVID-19 ED Add. Discharge Instructions: Drink lots of fluids to stay hydrated. Zofran - 4mg every 8 hours as needed for nausea. You will need a negative Covid Swab to go to [facility]. You should follow up with [facility] so that you can try and get back into [place]. Wear a Mask when out at all times for the next 5 days. Return to the Emergency Department for any new, concerning or emergent complaints. [facility] ?[address] [place] [address] Copy Copies To 1: VICKI GALLAGHER MD, KATHRYN M MD Feb 28, 2022 18:11
[2022-02-28] MEDS ORDERED: FOLIC ACID 1 MG TAB PO ONE (18:15)
[2022-02-28] MEDS ORDERED: ONDANSETRON 4 MG/2 ML (SDV) Z0FRAN IVP ONE (18:15)
[2022-02-28] MEDS ORDERED: THIAMINE 100 MG (VITAMIN B-1) TAB PO ONE (18:15)
[2022-02-28 18:23] LABS: BASOPHILS # (AUTO) 0.1 10^3/uL (0.0-0.1); BASOPHILS % (AUTO) 1 % (0-10); EOSINOPHILS # (AUTO) 0.2 10^3/uL (0.0-0.3); EOSINOPHILS % (AUTO) 4 % (0-10); HEMATOCRIT 42 % (40-54); HEMOGLOBIN 14.1 g/dL (13.3-17.7); LYMPHOCYTES # (AUTO) 2.6 10^3/uL (1.0-4.0); LYMPHOCYTES % (AUTO) 42 % (12-44); MEAN CORPUSCULAR HEMOGLOBIN 33 pg (25-34); MEAN CORPUSCULAR HGB CONC 34 g/dL (32-36); MEAN CORPUSCULAR VOLUME 97 fL (80-99); MEAN PLATELET VOLUME 9.9 fL (9.0-12.2); MONOCYTES # (AUTO) 0.6 10^3/uL (0.0-1.0); MONOCYTES % (AUTO) 9 % (0-12); NEUTROPHILS # (AUTO) 2.7 10^3/uL (1.8-7.8); NEUTROPHILS % (AUTO) 44 % (42-75); PLATELET COUNT 168 10^3/uL (130-400); WHITE BLOOD COUNT 6.1 10^3/uL (4.3-11.0)
[2022-02-28 18:44] LABS: ALANINE AMINOTRANSFERASE 71 U/L (0-55); ALBUMIN 4.1 GM/DL (3.2-4.5); ALKALINE PHOSPHATASE 63 U/L (40-136); BILIRUBIN,TOTAL 0.4 MG/DL (0.1-1.0); BUN/CREATININE RATIO 14; CALCIUM 8.6 MG/DL (8.5-10.1); CARBON DIOXIDE 24 MMOL/L (21-32); CHLORIDE 106 MMOL/L (98-107); GFR ESTIMATED 105; GLUCOSE 88 MG/DL (70-105); POTASSIUM 3.9 MMOL/L (3.6-5.0); SALICYLATE < 5.0 MG/DL (5.0-20.0); SODIUM 142 MMOL/L (135-145); TOTAL PROTEIN 6.6 GM/DL (6.4-8.2)
[2022-02-28 18:52] LABS: ACETAMINOPHEN < 10 UG/ML (10-30)
[2022-02-28] MEDS: NS IV 1000 ML 1,000 ML IV SCH ×2 (19:05→20:11)
--- NOTE | 2022-02-28 19:09 | Diagnostic Imaging Report ---
Indication: Chest pain and abdominal pain. Time of Exam: 7:05 PM Correlation is made with prior chest 08/11/2020. Findings: The heart size is normal. The pulmonary vascularity is unremarkable. The lungs are clear. No infiltrate, effusion or pneumothorax is detected. Impression: No acute cardiopulmonary process is detected. Dictated by: Dictated on workstation # [id number]
[2022-02-28 20:27] LABS: BILIRUBIN,URINE 1+ (NEGATIVE); CLARITY,URINE CLEAR; COLOR,URINE YELLOW; GLUCOSE, URINE (UA) NEGATIVE (NEGATIVE); KETONES,URINE NEGATIVE (NEGATIVE); LEUKOCYTE ESTERASE ,URINE NEGATIVE (NEGATIVE); NITRITE,URINE NEGATIVE (NEGATIVE); PROTEIN,URINE TRACE (NEGATIVE)
[2022-02-28 20:36] LABS: BACTERIA,URINE NEGATIVE /HPF; RBC,URINE RARE /HPF; WBC,URINE 0-2 /HPF
[2022-02-28 20:41] LABS: AMPHETAMINE SCREEN, URINE NEGATIVE (NEGATIVE); BARBITURATE SCREEN URINE POSITIVE (NEGATIVE); BENZODIAZEPINES SCREEN URINE NEGATIVE (NEGATIVE); CANNABINOID SCREEN, URINE NEGATIVE (NEGATIVE); COCAINE SCREEN URINE NEGATIVE (NEGATIVE); METHADONE STAT NEGATIVE (NEGATIVE); OPIATE SCREEN URINE NEGATIVE (NEGATIVE); OXYCODONE STAT NEGATIVE (NEGATIVE); PROPOXYPHENE STAT NEGATIVE (NEGATIVE); TRICYCLIC ANTIDEPRESSANTS SCRE NEGATIVE (NEGATIVE)
[2022-02-28] MEDS ORDERED: RX-ONDANSETRON 4 MG ODT (ZOFRAN) PPK #4 PO STA (20:55)
[2022-02-28 21:06] VITALS: BP 112/70
== END 2022-02-28 21:10 | disposition home or self-care (01) ==
LOC: EDUNIT# 17:54 → ER 17:56
DX: U07.1 COVID-19 (principal); F10.229 Alcohol dependence with intoxication, unspecified; F17.200 Nicotine dependence, unspecified, uncomplicated; Y90.8 Blood alcohol level of 240 mg/100 ml or more
CPT/HCPCS: 71045; 80053; 80306; 81000; 85025; 87636; 93005; 93041; 99284; G0480 ×3; 36415; 80320; 80329

== ENCOUNTER 2022-03-16 05:35 | Outpatient (CLI) | payer MEDICAID ==
[~2022-03-16] VITALS: Ht 170 cm; Wt 75.1 kg
== END 2022-03-16 08:23 | disposition home or self-care (01) ==
LOC: PREOP 05:35
PROVIDERS: ATTEND Surgery
DX: Z01.818 Encounter for other preprocedural examination (principal)

== ENCOUNTER 2022-03-17 09:31 | Day surgery (SDC) | payer MEDICAID ==
--- NOTE | 2022-03-16 08:07 | HISTORY AND PHYSICAL ---
DATE OF SERVICE: ATTENDING PRIMARY CARE PHYSICIAN: Dr. Jazzy Alejandre, [facility]. PROCEDURE DATE: 03/17/2022. HISTORY OF PRESENT ILLNESS: The patient is a 56-year-old male, who is known to us. He has a longstanding history of gastroesophageal reflux disease as well as peptic ulcer disease and does have a history of H. pylori as well as Shetty's esophagus. He is status post laparoscopic Hill gastropexy and has had recurrent issues with dysphagia; however, he is severely noncompliant. He is a heavy smoker and does smoke two packs a day and has for many years and does drink several pints of whiskey daily. It has been discussed with the patient multiple times in depth about his lifestyle and medical noncompliance. However, he continues to proceed with maladaptive behavior. On 10/14/2021, he underwent an EGD with biopsy and balloon dilatation. Findings were reflux esophagitis stage II with mild distal esophageal stricture, small recurrent hiatal hernia that was 2 cm in size, and moderate severity gastritis. Biopsies were positive for H. pylori, but negative for Shetty's esophagus and he was treated with medical management. On today's visit, he does continue to report epigastric pain that is burning as well as sharp in nature. He does report that he even has difficulty swallowing and does feel like food does get stuck in his esophagus. He does continue to smoke two packs of cigarettes daily as well as drink several pints of whiskey daily. He is currently on Protonix as well as Carafate without any relief. PAST MEDICAL HISTORY: Gastroesophageal reflux disease, H. pylori gastritis, Shetty's esophagus, hypertension, and alcoholism. PAST SURGICAL HISTORY: Laparoscopic Hill gastropexy in 2006, diagnostic laparoscopy and evacuation of hematoma in 2006, multiple EGDs with biopsies and balloon dilatations, history of orchiectomy, bilateral carpal tunnel and ulnar nerve release 05/2019. ALLERGIES: No known drug allergies. MEDICATIONS: Protonix 40 mg daily, Carafate 1 gram q.i.d. p.r.n., and albuterol sulfate HFA. SOCIAL HISTORY: Positive for tobacco smoke for 60 plus pack years, daily for alcohol for several pints daily. FAMILY HISTORY: Noncontributory. REVIEW OF SYSTEMS: Well-nourished male in no acute distress. He is not experiencing any shortness of breath or difficulty breathing. No chest pain, palpitations or diaphoresis. No nausea or vomiting. He does report epigastric burning pain. No diarrhea or constipation. No red blood per rectum. No dark tarry stools. No fever or chills. No recent inadvertent weight loss. All other review of systems negative. PHYSICAL EXAMINATION: VITAL SIGNS: Stable. Current weight is 160 pounds at 5 feet 9 inches. CHEST: Scattered rales and rhonchi bilaterally. HEART: Regular, no murmurs. EXTREMITIES: No lower extremity edema. Negative Homans sign. HEENT: No scleral icterus. NECK: No cervical lymphadenopathy. ABDOMEN: Soft and nondistended. There is some discomfort with deep palpation in the epigastric region. No palpable masses. No organomegaly. SKIN: Warm, dry and pink. NEUROLOGIC: Awake, alert and oriented x3. ASSESSMENT AND PLAN: A 56-year-old male with a history of gastroesophageal reflux disease, peptic ulcer disease, H. pylori gastritis, and Shetty's esophagus, who also smokes two packs per day as well as drink several pints of whiskey daily. He is currently on PPI therapy as well as a Carafate four times a day; however, continues to have symptoms. This has also progressed to dysphagia. It has been discussed with him several times by his lifestyle choices and the need for tobacco cessation as well as getting help for alcohol addiction. At this time, due to his dysphagia, we will proceed with scheduling him for an EGD with biopsies as appropriate as well as possible balloon dilatation. Job ID: [id number] DocumentID: [id number] Dictated Date: 03/15/2022 13:56:33 Wood Carver Hand Date: 03/15/2022 16:13:54 Dictated By: NITLON ANDREWS APRN
[~2022-03-17] VITALS: Ht 170 cm; Wt 75.1 kg
[2022-03-17] MEDS ORDERED: LACTATED RINGERS 1,000 ML IV ONE (10:03)
[2022-03-17 10:15] VITALS: BP 127/86
[2022-03-17] MEDS ORDERED: LACTATED RINGERS 1,000 ML IV STA (11:01)
[2022-03-17] MEDS ORDERED: LIDOCAINE JELLY 2% 6 ML SYRINGE MM PRN (11:15)
[2022-03-17] MEDS ORDERED: HURRICAINE EXT TUBE (BENZOCAINE) XX PRN (11:15)
--- NOTE | 2022-03-17 11:25 | Progress Note-Pre Operative ---
Pre-Operative Progress Note H&P Reviewed The H&P was reviewed, patient examined and no changes noted. Date Seen by Provider: Mar 17, 2022 Time Seen by Provider: 11:00 Date H&P Reviewed: Mar 17, 2022 Time H&P Reviewed: 11:00 Pre-Operative Diagnosis: dysphagia/GERD LESTER HOWELL MD Mar 17, 2022 11:25
--- NOTE | 2022-03-17 11:26 | Discharge Inst-Surgical ---
D/C Lap Instructions-LYNDA Follow Up Activity as tolerated High Fiber Diet 25g or more per day Avoid Alcohol, Caffeine, Spicy [place] and Acid foods. Drink 64 fluid oz or more of fluids per day. Symptoms to Report: Fever over 101 degree F, Nausea/Vomiting If any problems/questions: Contact your physician or go to Emergency Room LESTER HOWELL MD Mar 17, 2022 11:26
[2022-03-17] MEDS ORDERED: ONDANSETRON 4 MG (ZOFRAN) ORAL DISSOLVE TAB PO PRN (11:30)
[2022-03-17] MEDS ORDERED: ONDANSETRON 4 MG/2 ML (SDV) Z0FRAN IVP PRN (11:30)
[2022-03-17] MEDS ORDERED: MIDAZOLAM 2 MG/2 ML (VERSED) VIAL ONE (12:23)
[2022-03-17] MEDS ORDERED: PROPOFOL INJECTION 50 ML IV ONE (12:23)
--- NOTE | 2022-03-17 12:58 | Anesthesia-General Post-Op ---
MAC Patient Condition Mental Status/LOC: Same as Preop Cardiovascular: Satisfactory Nausea/Vomiting: Absent Respiratory: Satisfactory Pain: Controlled Complications: Absent Post Op Complications Complications None Follow Up Care/Instructions Patient Instructions None needed. Anesthesiology Discharge Order Discharge Order Patient is doing well, no complaints, stable vital signs, no apparent adverse anesthesia problems. No complications reported per nursing. SUSIE EARLY CRNA Mar 17, 2022 12:58
[2022-03-17 13:00] VITALS: BP 94/60
[2022-03-17 13:05] VITALS: BP 107/75
--- NOTE | 2022-03-17 13:10 | Progress Note-Post Operative ---
Post-Operative Progess Note Surgeon (s)/Director Biology (s) Surgeon LESTER HOWELL MD Director Biology: none Pre-Operative Diagnosis dysphagia/GERD Post-Operative Diagnosis reflux esophagitis(grade C) with dist esoph stricture, intact wrap, severe gastritis with small pyloric ulcer. Procedure & Operative Findings Date of Procedure 03/17/22 Procedure Performed/Findings EGD with bx and balloon dilatation. Anesthesia Type mac Estimated Blood Loss Estimated blood loss (mL): minimal Specimens/Packing Specimens Removed ge jxn, antrum LESTER HOWELL MD Mar 17, 2022 13:10
[2022-03-17 13:25] VITALS: BP 120/86
[2022-03-17 13:30] VITALS: BP 120/86
--- NOTE | 2022-03-17 21:28 | OPERATIVE REPORT ---
DATE OF SERVICE: 03/17/2022 ATTENDING ACCESS MANAGER: Dr. Jazzy Alejandre. PREOPERATIVE DIAGNOSES: Recurrent dysphagia, gastroesophageal reflux disease and peptic ulcer disease. POSTOPERATIVE DIAGNOSES: Reflux esophagitis, [place] grade C with a distal esophageal stricture, intact previous hiatal hernia repair and Hill gastropexy, severe gastritis, small pyloric ulcer. PROCEDURE: EGD with biopsy and balloon dilatation. SURGEON: Lester Howell MD. ANESTHESIA: Monitored anesthesia care. ESTIMATED BLOOD LOSS: Minimal. FINDINGS: Reflux esophagitis, [place] grade C with a distal esophageal stricture, intact previous hiatal hernia repair and Hill gastropexy, severe gastritis, small pyloric ulcer. DISPOSITION: The patient tolerated the procedure well. INDICATIONS: The patient is a 56-year-old male well known to us. He has a longstanding history of gastroesophageal reflux disease as well as peptic ulcer disease and has had a history of H. pylori and Shetty's esophagus. He is status post laparoscopic Hill gastropexy and has had recurrent issues with dysphagia; however, is severely noncompliant. He is a heavy smoker and does smoke 2 packs a day and does drink copious amounts of alcohol on a daily basis as well as caffeinated beverages. We have spoken with him multiple times about dietary and lifestyle modifications and medical compliance; however, he continues to proceed with maladaptive behavior. His last EGD and dilatation was on 10/14/2021. DESCRIPTION OF PROCEDURE: The patient was brought to the endoscopy suite, laid in the left lateral decubitus position. After adequate IV pain and sedative medications and monitored anesthesia care, the mouthpiece was applied. The endoscope was placed in the mouth, visualizing the pharynx and hypopharyngeal region. Vocal cords, epiglottis and vallecula identified and appeared to be normal. Endoscope was then gently intubated into the esophageal opening and esophagus insufflated. The endoscope was then advanced to the first, second and third portion of esophagus at the level of GE junction, a reflux esophagitis, [place] grade C identified with a distal esophageal stricture. A biopsy was taken with forceps with visualization of good hemostasis. The endoscope was then advanced into the stomach and endoscope retroflexed, visualizing intact previous hiatal hernia repair as well as a Hill gastropexy. There was a severe gastritis throughout the stomach as well as the pylorus. There was also a very small pyloric ulcer with an overlying fibrin clot. A biopsy was taken of this region with forceps with visualization of good hemostasis. The endoscope was then advanced to the pylorus and first and second portion of the duodenum, which appeared normal. Next, the balloon was then placed in the stomach and pulled back to the area of the stricture. We then proceeded in a graded stepwise fashion from 2, 4, then 6 atmospheres of pressure or 20 mm in luminal diameter with moderate resistance and left this in place for 60 seconds. The balloon was then desufflated and removed with visualization of good hemostasis as well as no mucosal tears. The endoscope was then removed while taking a second look and sectioning of residual air. The patient tolerated the procedure well. Again, we will reiterate the necessary lifestyle and dietary accommodation including cessation of smoking, alcohol, caffeinated beverages as well as smaller more frequent meals, avoidance of eating at night as well as head elevation while lying supine. He also needs to take in small and more frequent meals, avoid eating at night and head elevation while lying supine. He will likely have recurrent dysphagia and once this occurs, he is instructed to call the office. Job ID: [id number] DocumentID: [id number] Dictated Date: 03/17/2022 13:02:55 Band Saw Runner Date: 03/17/2022 21:28:04 Dictated By: LESTER HOWELL MD MTDD
[2022-03-18] MEDS ORDERED: SUCR1ORA15 PO (20:02)
== END 2022-03-17 13:32 | disposition home or self-care (01) ==
LOC: ENDO 09:31
PROVIDERS: ATTEND Surgery
DX: K29.50 Unspecified chronic gastritis without bleeding (principal); B96.81 Helicobacter pylori [H. pylori] as the cause of diseases classified elsewhere; K21.00 Gastro-esophageal reflux disease with esophagitis, without bleeding; K22.2 Esophageal obstruction; K25.9 Gastric ulcer, unspecified as acute or chronic, without hemorrhage or perforation; K22.70 Barrett's esophagus without dysplasia
CPT/HCPCS: 88305

== ENCOUNTER 2022-03-18 19:30 | Emergency (ER) | payer MEDICARE, MEDICAID ==
[~2022-03-18] VITALS: Ht 175.2 cm; Wt 68.4 kg
[2022-03-18 19:30] VITALS: BP 114/67
[2022-03-18] MEDS ORDERED: ANTACID SUSP 30 ML UDC (MYLANTA) PO ONE (20:00)
[2022-03-18] MEDS ORDERED: LIDOCAINE 2% VISCOUS 15 ML UDC PO ONE (20:00)
[2022-03-18] MEDS ORDERED: SUCR1ORA15 PO (20:02)
--- NOTE | 2022-03-18 20:03 | ED GI ---
General Chief Complaint: Abdominal/GI Problems Stated Complaint: ABD PAIN Source of Information: Patient Exam Limitations: No Limitations History of Present Illness Date Seen by Provider: Mar 18, 2022 Time Seen by Provider: 19:58 Initial Comments This is a 56-year-old male that presents to the emergency room for chronic abdominal pain. He states this has been ongoing for several years and he recently had an EGD. He states that his home medications were not helping. He states there is nothing new or different with his pain and that he cannot quit smoking and drinking. He denies any vomiting, diarrhea, hematemesis, fever or other symptoms. Severity/Quality: Mild Location: Epigastric Radiation: No Radiation Allergies and Home Medications Allergies Coded Allergies: tramadol (Verified Allergy, Mild, "TOO SLEEPY", 04/05/18) Patient Home Medication List Home Medication List Reviewed: Yes Cetirizine HCl (Cetirizine HCl) 10 Mg Tablet, 10 MG PO DAILY, (Reported) Entered as Reported by: CARLA KNIGHT on 02/08/22 1608 Esomeprazole Magnesium (Esomeprazole Magnesium) 40 Mg Capsule.dr, 40 MG PO DAILY, (Reported) Entered as Reported by: CARLA KNIGHT on 02/08/22 1608 Lorazepam (Ativan) 0.5 Mg Tablet, 0.5 MG PO TID PRN for ANXIETY Prescribed by: EUGENIO KWAN on 02/09/22 1103 Multivitamin/Iron/Folic Acid (Tab-A-Jenelle Multivit with Iron) 18 Mg Iron-400 Mcg Tablet, 1 EA PO DAILY@0700 Prescribed by: EUGENIO KWAN on 02/09/22 1019 Phenobarbital (Phenobarbital) 64.8 Mg Tablet, 64.8 MG PO Q8HR Prescribed by: EUGENIO KWAN on 02/09/22 1020 Sucralfate (Sucralfate) 1 Gram/10 Ml Oral.susp, 10 ML PO ACHS, (Reported) Entered as Reported by: CARLA KNIGHT on 02/08/22 1608 Review of Systems Review of Systems Constitutional: no symptoms reported EENTM: No Symptoms Reported Respiratory: No Symptoms Reported Cardiovascular: No Symptoms Reported Gastrointestinal: Abdominal Pain Genitourinary: No Symptoms Reported Musculoskeletal: no symptoms reported Skin: no symptoms reported Psychiatric/Neurological: No Symptoms Reported Endocrine: No Symptoms Reported Past Vsxfjfm-Gwkkwi-Vnxnyf Hx Patient Social History Tobacco Use?: Yes Smoking Status: Current Everyday Smoker Alcohol Use?: Yes Alcohol Frequency: Daily Immunizations Up To Date Tetanus Booster (TDap): Unknown PED Vaccines UTD: Yes First/Initial COVID19 Vaccinat: UNKNOWN DATE Second COVID19 Vaccination Thor: UNKNOWN DATE Third COVID19 Vaccination Date: UNKNOWN DATE Seasonal Allergies Seasonal Allergies: Yes Past Medical History Surgeries: Yes (EGD'S / ESOPHAGEAL DILATIONS) Abdominal Respiratory: Yes Asthma, COPD Cardiac: Yes Hypertension Neurological: Yes Headaches /Migraines Reproductive Disorders: No Sexually Transmitted Disease: No HIV/AIDS: No Genitourinary: No Gastrointestinal: Yes (ESOPHAGEAL STRICTURES/DILATIONS; H. PYLORI) Gastroesophageal Reflux, Shetty's Esophagus, Hemorrhoids Musculoskeletal: No Endocrine: No HEENT: Yes (NO DENTITION) Hearing Impairment: Bilateral Hearing Aide Cancer: No Psychosocial: Yes (ALCOHOLISM, RX DRUG ABUSE; SUICIDAL IDEATIONS, does not read) Anxiety, Suicide Attempts, Depression Integumentary: No Blood Disorders: No Adverse Reaction/Blood Tranf: No (N/A) Family Medical History No Pertinent Family Hx Physical Exam Vital Signs Capillary Refill : Height/Weight/BMI Height: 5'9.00" Weight: 160lbs. 2.0oz. [id number]; 25.98 BMI Method:Estimated General Appearance: WD/WN, no apparent distress HEENT: PERRL/EOMI, TMs normal, pharynx normal Neck: non-tender, full range of motion Respiratory: chest non-tender, lungs clear Gastrointestinal: normal bowel sounds, soft, tenderness (mild epigastric ttp ) Extremities: normal range of motion, non-tender Back: normal inspection Neurologic/Psychiatric: commodity buyer II-XII nml as tested, oriented x 3 Skin: normal color, warm/dry Progress/Results/Core Measures Results/Orders My Orders Orders - PHYLLIS WATKINS Lidocaine 2% Viscous 15 Ml (Xylocaine Vi (03/18/22 20:00) Mylanta Po (03/18/22 20:00) Departure Communication (PCP) Patient is afebrile, nontoxic and in no acute distress. His abdomen is mildly tender but there is no peritoneal findings. This appears to be his chronic abdominal pain. Patient will be discharged home at this time and I will send in a prescription for Carafate. Impression Primary Impression: Abdominal pain Disposition: HOME, SELF-CARE Condition: Stable Departure-Patient Inst. Decision time for Depature: 20:00 Referrals: [facility] (PCP/Family) Primary Care Physician Patient Instructions: Stomach Ache and Stomach Upset Add. Discharge Instructions: Follow-up with your primary care doctor as we discussed. Return to the emergency room with any severe changes or worsening of symptoms. All discharge instructions reviewed with patient and/or family. Voiced understanding. Scripts Sucralfate (Sucralfate) 1 Gram/10 Ml Oral.susp 10 ML PO ACHS for 10 Days, #500 ML Prov: PHYLLIS WATKINS 03/18/22 PHYLLIS WATKINS Mar 18, 2022 20:03
== END 2022-03-18 20:09 | disposition home or self-care (01) ==
LOC: EDUNIT# 19:30 → ER 19:31
DX: R10.13 Epigastric pain (principal); G89.29 Other chronic pain; F17.200 Nicotine dependence, unspecified, uncomplicated; Z87.19 Personal history of other diseases of the digestive system
CPT/HCPCS: 99283

== ENCOUNTER 2022-03-27 22:19 | Emergency (ER) | payer MEDICARE, MEDICAID ==
--- NOTE | 2022-03-27 22:27 | ED General ---
General Stated Complaint: INTOXICATION Source of Information: Patient, EMS, Old Records Exam Limitations: Intoxication History of Present Illness Date Seen by Provider: Mar 27, 2022 Time Seen by Provider: 22:19 Initial Comments PT ARRIVES VIA EMS FROM HOME PT WALKS INTO ER ON HIS OWN FROM THE AMBULANCE PT CALLED EMS BECAUSE HE IS DRUNK STATES "I'M ALL STRESSED OUT AND MY BLOOD PRESSURE'S UP"--DID NOT CHECK HIS BLOOD PRESSURE BP 122/71 FOR EMS, ALL VITALS ARE STABLE/ESSENTIALLY NANCY STATES HE HAS BEEN EVICTED FROM HIS RESIDENCE, AND STATES HE HAS TO BE OUT BY TOMORROW PT HAS NO PHYSICAL COMPLAINTS PT IS NOT SUICIDAL OR HOMICIDAL PT WITH LONGSTANDING ALCOHOL ABUSE, WITH MULTIPLE VISITS FOR ALCOHOL RELATED COMPLAINTS/ISSUES PT STATES HE HAS HAD "2 PINTS" OF "KD" TONIGHT PCP: JEANETTE Allergies and Home Medications Allergies Coded Allergies: tramadol (Verified Allergy, Mild, "TOO SLEEPY", 04/05/18) Patient Home Medication List Home Medication List Reviewed: Yes Cetirizine HCl (Cetirizine HCl) 10 Mg Tablet, 10 MG PO DAILY, (Reported) Entered as Reported by: CARLA KNIGHT on 02/08/22 1608 Esomeprazole Magnesium (Esomeprazole Magnesium) 40 Mg Capsule.dr, 40 MG PO DAILY, (Reported) Entered as Reported by: CARLA KNIGHT on 02/08/22 1608 Lorazepam (Ativan) 0.5 Mg Tablet, 0.5 MG PO TID PRN for ANXIETY Prescribed by: EUGENIO KWAN on 02/09/22 1103 Multivitamin/Iron/Folic Acid (Tab-A-Jenelle Multivit with Iron) 18 Mg Iron-400 Mcg Tablet, 1 EA PO DAILY@0700 Prescribed by: EUGENIO KWAN on 02/09/22 1019 Phenobarbital (Phenobarbital) 64.8 Mg Tablet, 64.8 MG PO Q8HR Prescribed by: EUGENIO KWAN on 02/09/22 1020 Sucralfate (Sucralfate) 1 Gram/10 Ml Oral.susp, 10 ML PO ACHS Prescribed by: Ronni Mayer on 03/18/222001 Review of Systems Review of Systems Constitutional: no symptoms reported Respiratory: no symptoms reported Cardiovascular: no symptoms reported Gastrointestinal: no symptoms reported Genitourinary: no symptoms reported Musculoskeletal: no symptoms reported Skin: no symptoms reported Psychiatric/Neurological: See HPI Hematologic/Lymphatic: No Symptoms Reported Immunological/Allergic: no symptoms reported Past Pdbzgzb-Teztbw-Axtczk Hx Patient Social History Tobacco Use?: Yes Substance use?: Yes Alcohol Use?: Yes Alcohol type: Hard Liquor Alcohol Frequency: Daily Immunizations Up To Date Tetanus Booster (TDap): Unknown PED Vaccines UTD: Yes First/Initial COVID19 Vaccinat: UNKNOWN DATE Second COVID19 Vaccination Thor: UNKNOWN DATE Third COVID19 Vaccination Date: UNKNOWN DATE Seasonal Allergies Seasonal Allergies: Yes Past Medical History Surgeries: Yes (EGD'S / ESOPHAGEAL DILATIONS) Abdominal Respiratory: Yes Asthma, COPD Cardiac: Yes Hypertension Neurological: Yes Headaches /Migraines Reproductive Disorders: No Sexually Transmitted Disease: No HIV/AIDS: No Genitourinary: No Gastrointestinal: Yes (ESOPHAGEAL STRICTURES/DILATIONS; H. PYLORI) Gastroesophageal Reflux, Shetty's Esophagus, Hemorrhoids Musculoskeletal: No Endocrine: No HEENT: Yes (NO DENTITION) Hearing Impairment: Bilateral Hearing Aide Cancer: No Psychosocial: Yes (ALCOHOLISM, RX DRUG ABUSE; SUICIDAL IDEATIONS, does not read) Anxiety, Suicide Attempts, Depression Integumentary: No Blood Disorders: No Adverse Reaction/Blood Tranf: No (N/A) Family Medical History No Pertinent Family Hx Physical Exam Vital Signs Capillary Refill : Height, Weight, BMI Height: 5'9.00" Weight: 160lbs. 2.0oz. 72.596076jb; 22.00 BMI Method:Estimated General Appearance: No Apparent Distress, WD/WN, Other (REEKS OF ALCOHOL AND CIGARETTES. PT HAS SPEECH IMPEDIMENT --NORMAL FOR PT. ( PT IS HARD OF HEARING) ; PT IS ABLE TO WALK ON HIS OWN. ) HEENT: Other (EDENTULOUS) Respiratory: Normal Breath Sounds Cardiovascular: Regular Rate, Rhythm Gastrointestinal: Non Tender, Soft Neurologic/Psychiatric: Alert, Oriented x3, No Motor/Sensory Deficits, oracle adf developer II- XII Norm as Tested Skin: Normal Color, Warm/Dry, Tattoos/Piercings (EXTENSIVE TATTOOS. ) Progress/Results/Core Measures Suspected Sepsis SIRS Temperature: Pulse: Respiratory Rate: Blood Pressure / Mean: Results/Orders Vital Signs/I&O Capillary Refill : Progress Note : Progress Note PT HAS NO COMPLAINTS, AND IS AT NORMAL BASELINE WITH LONGSTANDING ALCOHOL ABUSE. PT IS ABLE TO TALK ( NORMAL BASELINE SPEECH IMPEDIMENT) AND WALK ON HIS OWN. Departure Impression Primary Impression: Chronic alcohol abuse Disposition: 01 HOME, SELF-CARE Condition: Stable Departure-Patient Inst. Decision time for Depature: 22:27 Referrals: [facility] (PCP/Family) Primary Care Physician Patient Instructions: Alcohol Use Disorder (DC) Add. Discharge Instructions: NO ALCOHOL FOLLOW UP WITH [facility] FOR FURTHER CARE ORALIA KHAN DO Mar 27, 2022 22:27
[2022-03-27 22:39] VITALS: BP 134/60
== END 2022-03-27 22:39 | disposition home or self-care (01) ==
LOC: EDUNIT# 22:19 → ER 22:22
DX: F10.229 Alcohol dependence with intoxication, unspecified (principal); F17.200 Nicotine dependence, unspecified, uncomplicated; Z28.310 Unvaccinated for COVID-19
CPT/HCPCS: 99283

== ENCOUNTER 2022-05-04 17:50 | Emergency (ER) | payer MEDICAID, MEDICARE | END 2022-05-04 18:55 | disposition left against medical advice (07) | LOC: EDUNIT# 17:50 → ER 17:51 | DX: I10 Essential (primary) hypertension (principal) ==

== ENCOUNTER 2022-06-28 08:34 | Day surgery (SDC) | payer MEDICAID ==
[~2022-06-28] VITALS: Ht 175.3 cm; Wt 72.6 kg
--- NOTE | 2022-06-28 08:11 | HISTORY AND PHYSICAL ---
DATE OF SERVICE: PROCEDURE DATE: 06/28/2022. ATTENDING PRIMARY CARE PHYSICIAN: Dr. Jazzy Alejandre at [facility]. HISTORY OF PRESENT ILLNESS: The patient is a 56-year-old male, who is known to us. He has a longstanding history of gastroesophageal reflux disease as well as peptic ulcer disease and has a history of H. pylori as well as Shetty's esophagus. He is status post laparoscopic Hill gastropexy and has had recurrent issues with dysphagia; however, severely noncompliant. He is a heavy smoker and smokes 2 packs a day and has for many years as well as drink several pints of whiskey daily. It has been discussed with the patient multiple times about his lifestyle and medical noncompliance; however, he continues to proceed with maladaptive behavior. On 03/17/2022, he underwent an EGD with biopsy and balloon dilatation. At that time, he was found to have reflux esophagitis grade C with a distal esophageal stricture, intact previous hiatal hernia repair and Hill gastropexy, severe gastritis with a small pyloric ulcer. Biopsies were positive for H. pylori, negative for Shetty's esophagus. On today's visit, he continues to report epigastric burning pain as well as sharp epigastric pain. He reports that he is having difficulty swallowing and feels like food does get stuck in his esophagus. Again, he does continue to smoke 2 packs of cigarettes daily as well as drinking several times a whiskey daily. He is on Protonix as well as Carafate without any relief. PAST MEDICAL HISTORY: Gastroesophageal reflux disease, H. pylori gastritis, Shetty's esophagus, hypertension, alcoholism. PAST SURGICAL HISTORY: Laparoscopic Hill gastropexy 2006, diagnostic laparoscopy and evacuation of hematoma in 2006, multiple EGDs with biopsies and balloon dilatations, history of orchiectomy, bilateral carpal tunnel and ulnar nerve release on 05/2019. ALLERGIES: No known drug allergies. MEDICATIONS: Protonix 40 mg daily, Carafate 1 gram q.i.d. p.r.n., albuterol sulfate HFA. SOCIAL HISTORY: Positive for tobacco smoke for 60+ pack years daily, for alcohol several pints of whiskey daily. FAMILY HISTORY: Noncontributory. REVIEW OF SYSTEMS: Well-nourished male in no acute distress. He is not experiencing any shortness of breath or difficulty breathing. No chest pain, palpitations or diaphoresis. No nausea or vomiting. He does report episodes of epigastric burning pain. No diarrhea or constipation. No red blood per rectum. No dark tarry stools. No fever or chills. No recent inadvertent weight loss. All other review of systems negative. PHYSICAL EXAMINATION: VITAL SIGNS: Stable. Current weight is 160 pounds at 5 feet 9 inches. CHEST: Scattered rales and rhonchi bilaterally. HEART: Regular, no murmurs. EXTREMITIES: No lower extremity edema. Negative Homans sign. HEENT: No scleral icterus. NECK: No cervical lymphadenopathy. ABDOMEN: Soft and nondistended. There is some discomfort with deep palpation in the epigastric region. No palpable masses. No organomegaly. SKIN: Warm, dry and pink. NEUROLOGIC: He is awake, alert and oriented x3. ASSESSMENT AND PLAN: A 56-year-old male with a history of gastroesophageal reflux disease, peptic ulcer disease, H. pylori gastritis and Shetty's esophagus, who also smokes 2 packs per day as well as drinks several pints of whiskey daily. He is currently on PPI therapy as well as Carafate 4 times a day; however, continues to have symptoms. This has also progressed to dysphagia. It has been discussed with him several times in the past about his lifestyle choices and the need for tobacco cessation as well as cessation of alcohol. At this time, due to his dysphagia, we will proceed with scheduling him for an EGD with biopsies as appropriate possible balloon dilatation. Job ID: [id number] DocumentID: [id number] Dictated Date: 06/20/2022 09:15:02 Grave Cleaner Date: 06/20/2022 09:51:06 Dictated By: NILTON ANDREWS APRN
[2022-06-28] MEDS ORDERED: LACTATED RINGERS 1,000 ML IV STA (08:41)
[2022-06-28] MEDS ORDERED: LACTATED RINGERS 1,000 ML IV ONE (08:42)
[2022-06-28] MEDS ORDERED: LIDOCAINE JELLY 2% 6 ML SYRINGE MM PRN (08:45)
[2022-06-28] MEDS ORDERED: HURRICAINE EXT TUBE (BENZOCAINE) XX PRN (08:45)
[2022-06-28 08:50] VITALS: BP 127/88
[2022-06-28] MEDS ORDERED: MIDAZOLAM 2 MG/2 ML (VERSED) VIAL ONE (09:45)
[2022-06-28] MEDS ORDERED: PROPOFOL INJECTION 50 ML IV ONE ×2 (09:45→10:04)
--- NOTE | 2022-06-28 09:54 | Progress Note-Pre Operative ---
Pre-Operative Progress Note Date of Available H&P: Jun 28, 2022 Date H&P Reviewed: Jun 28, 2022 Time H&P Reviewed: 09:30 History & Physical: No changes noted Pre-Operative Diagnosis: dysphagia, GERD LESTER HOWELL MD Jun 28, 2022 09:54
--- NOTE | 2022-06-28 09:55 | Discharge Inst-Surgical ---
D/C Lap Instructions-LYNDA Follow Up Activity as tolerated High Fiber Diet 25g or more per day Avoid Alcohol, Caffeine, Spicy [place] and Acid foods. Drink 64 fluid oz or more of fluids per day. Symptoms to Report: Fever over 101 degree F, Nausea/Vomiting If any problems/questions: Contact your physician or go to Emergency Room LESTER HOWELL MD Jun 28, 2022 09:55
[2022-06-28] MEDS ORDERED: ONDANSETRON 4 MG/2 ML (SDV) Z0FRAN IVP PRN (10:00)
[2022-06-28] MEDS ORDERED: ONDANSETRON 4 MG (ZOFRAN) ORAL DISSOLVE TAB PO PRN (10:00)
[2022-06-28 10:15] VITALS: BP 95/56
[2022-06-28 10:20] VITALS: BP 87/57
[2022-06-28 10:25] VITALS: BP 95/55
[2022-06-28 10:44] VITALS: BP 95/55
--- NOTE | 2022-06-28 11:06 | Progress Note-Post Operative ---
Post-Operative Progess Note Surgeon (s)/Crushing Mill Operator (s) Surgeon LESTER HOWELL MD Crushing Mill Operator: none Pre-Operative Diagnosis dysphagia, GERD Post-Operative Diagnosis reflux esophagitis(grade C), mild distal esophageal stricture, small recurrent HH(2cm), mod-severe gastritis. Procedure & Operative Findings Date of Procedure 06/28/22 Procedure Performed/Findings EGD with bx and balloon dilatation. Anesthesia Type mac Estimated Blood Loss Estimated blood loss (mL): minimal Specimens/Packing Specimens Removed ge jxn, antrum LESTER HOWELL MD Jun 28, 2022 11:06
--- NOTE | 2022-06-28 12:43 | Anesthesia-General Post-Op ---
MAC Patient Condition Mental Status/LOC: Same as Preop Cardiovascular: Satisfactory Nausea/Vomiting: Absent Respiratory: Satisfactory Pain: Controlled Complications: Absent Post Op Complications Complications None Follow Up Care/Instructions Patient Instructions None needed. Anesthesiology Discharge Order Discharge Order Patient is doing well, no complaints, stable vital signs, no apparent adverse anesthesia problems. No complications reported per nursing. NICO BARNARD CRNA Jun 28, 2022 12:43
--- NOTE | 2022-06-28 20:47 | OPERATIVE REPORT ---
DATE OF SERVICE: 06/28/2022 ATTENDING PRIMARY CARE PHYSICIAN: Dr. Jazzy Alejandre. PREOPERATIVE DIAGNOSES: Recurrent dysphagia, gastroesophageal reflux disease, history of Shetty's esophagus and H. pylori. POSTOPERATIVE DIAGNOSES: Reflux esophagitis, Kenton grade C with a mild distal esophageal stricture, small recurrent hiatal hernia approximately 2 cm in size, moderate to severe gastritis. PROCEDURE: EGD with biopsy and balloon dilatation. SURGEON: Lester Howell MD. ANESTHESIA: Monitored anesthesia care. ESTIMATED BLOOD LOSS: Minimal. FINDINGS: Reflux esophagitis, Kenton grade C with a mild distal esophageal stricture, small recurrent hiatal hernia approximately 2 cm in size, moderate to severe gastritis. DISPOSITION: The patient tolerated the procedure well. INDICATIONS: The patient is a 56-year-old male known to us. He has a longstanding history of gastroesophageal reflux disease and peptic ulcer disease as well as history of H. pylori and Shetty's esophagus. He is status post laparoscopic Hill gastropexy and has had recurrent issues with dysphagia; however, also severely noncompliant. He is a heavy smoker and smokes 2 packs a day and does drink at least 2 pints of whiskey daily. He has had multiple interventions and conversations that his lifestyle and medical noncompliance is the cause of his issues; however, he always reverts back to this maladaptive behavior. His last EGD and balloon dilatation was on 03/17/2022. He states again that he has had recurrent issues with dysphagia and reflux. DESCRIPTION OF PROCEDURE: The patient was brought to the endoscopy suite, laid in left lateral decubitus position. After adequate IV pain and sedative medications and monitored anesthesia care, the mouthpiece was applied. The endoscope was then placed in the mouth, visualizing the pharynx and hypopharyngeal region. Vocal cords, epiglottis and vallecula identified and appeared to be normal. The endoscope was then gently intubated at the esophageal opening and esophagus insufflated. The endoscope was then advanced through the first, second and third portion of esophagus at the level of the GE junction, a reflux esophagitis Kenton grade C identified as well as a mild distal esophageal stricture. A biopsy was taken with forceps with visualization of good hemostasis. The endoscope was then advanced into the stomach and endoscope retroflexed, visualizing a small recurrent hiatal hernia approximately 2 cm in size. There was a moderate to severe gastritis, which was throughout the stomach. No formal ulcerations and a biopsy was taken of the antrum to rule out H. pylori with visualization of good hemostasis. The endoscope was then advanced to the pylorus and the first and second portion of the duodenum, which appeared normal with no distal obstructions. The balloon was then placed in the stomach and pulled back to the area of the stricture and then we proceeded with dilatation in a graded stepwise fashion from 2, 4, then eventually 6 atmospheres of pressure or 20 mm in luminal diameter with moderate resistance and left this in place for 60 seconds. The balloon was then desufflated and removed with visualization of good hemostasis as well as no mucosal tears. The endoscope was then slowly withdrawn while taking a second look and suctioning of residual air with no additional findings. The patient tolerated the procedure well. We will again recommend the necessary lifestyle and dietary accommodation including smoking and alcohol cessation as well as small and more frequent meals, avoiding of eating at night as well as head elevation while lying supine. He also needs to continue with his current regimen of Nexium and Carafate; however, we are unsure of how compliant he is with these medications. Job ID: [id number] DocumentID: [id number] Dictated Date: 06/28/2022 10:20:05 Valve Mechanic Date: 06/28/2022 20:46:42 Dictated By: LESTER HOWELL MD
== END 2022-06-28 11:00 | disposition home or self-care (01) ==
LOC: ENDO 08:34
PROVIDERS: ATTEND Surgery
DX: K29.50 Unspecified chronic gastritis without bleeding (principal); B96.81 Helicobacter pylori [H. pylori] as the cause of diseases classified elsewhere; K21.00 Gastro-esophageal reflux disease with esophagitis, without bleeding; K22.2 Esophageal obstruction; K44.9 Diaphragmatic hernia without obstruction or gangrene; F17.210 Nicotine dependence, cigarettes, uncomplicated; Z87.11 Personal history of peptic ulcer disease

== ENCOUNTER 2022-09-06 13:45 | Outpatient (CLI) | payer MEDICAID ==
[~2022-09-06] VITALS: Ht 175.3 cm; Wt 75.8 kg
[~2022-09-06 13:45] MED LIST changes: +ALBU8.5H6 IH
== END 2022-09-06 14:09 ==
LOC: PREOP 13:45
PROVIDERS: ATTEND Surgery
DX: Z01.818 Encounter for other preprocedural examination (principal); Z80.0 Family history of malignant neoplasm of digestive organs

== ENCOUNTER 2022-09-13 09:01 | Day surgery (SDC) | payer MEDICAID ==
[~2022-09-13] VITALS: Ht 175 cm; Wt 75.8 kg
[2022-09-13] MEDS ORDERED: LACTATED RINGERS 1,000 ML IV STA (09:12)
[2022-09-13] MEDS ORDERED: LIDOCAINE JELLY 2% 6 ML SYRINGE MM PRN (09:15)
[2022-09-13] MEDS ORDERED: HURRICAINE EXT TUBE (BENZOCAINE) XX PRN (09:15)
[2022-09-13 09:38] VITALS: BP 150/100
[2022-09-13] MEDS ORDERED: PROPOFOL INJECTION 50 ML IV ONE ×2 (12:12→12:38)
--- NOTE | 2022-09-13 12:29 | Progress Note-Pre Operative ---
Pre-Operative Progress Note Date of Available H&P: Sep 13, 2022 Date H&P Reviewed: Sep 13, 2022 Time H&P Reviewed: 11:00 History & Physical: No changes noted Pre-Operative Diagnosis: GERD, dysphagia, screening colo LESTER HOWELL MD Sep 13, 2022 12:29
[2022-09-13] MEDS ORDERED: ONDANSETRON 4 MG (ZOFRAN) ORAL DISSOLVE TAB PO PRN (12:30)
[2022-09-13] MEDS ORDERED: ONDANSETRON 4 MG/2 ML (SDV) Z0FRAN IVP PRN (12:30)
--- NOTE | 2022-09-13 12:30 | Discharge Inst-Surgical ---
D/C Lap Instructions-LYNDA Follow Up Activity as tolerated High Fiber Diet 25g or more per day Avoid Alcohol, Caffeine, Spicy [place] and Acid foods. Drink 64 fluid oz or more of fluids per day. Symptoms to Report: Fever over 101 degree F, Nausea/Vomiting If any problems/questions: Contact your physician or go to Emergency Room LESTER HOWELL MD Sep 13, 2022 12:30
[2022-09-13 13:05] VITALS: BP 93/65
[2022-09-13 13:10] VITALS: BP 92/65
--- NOTE | 2022-09-13 13:11 | Progress Note-Post Operative ---
Post-Operative Progess Note Surgeon (s)/Nuclear Operations Specialist (s) Surgeon LESTER HOWELL MD Nuclear Operations Specialist: none Pre-Operative Diagnosis GERD, dysphagia, screening colo Post-Operative Diagnosis reflux esophagitis(grade B), mild distal esoph stricture, moderate gastritis. mild chronic stage 2 ext and int hemorrhoids. small rectal polyp. Procedure & Operative Findings Date of Procedure 09/13/22 Procedure Performed/Findings EGD with bx and balloon dilatation. colonoscopy with snare polypectomy. Anesthesia Type mac Estimated Blood Loss Estimated blood loss (mL): minimal Specimens/Packing Specimens Removed ge jxn, antrum, rectal polyp LESTER HOWELL MD Sep 13, 2022 13:11
[2022-09-13 13:15] VITALS: BP 122/75
[2022-09-13 13:32] VITALS: BP 137/78
--- NOTE | 2022-09-13 14:31 | Anesthesia-General Post-Op ---
MAC Patient Condition Mental Status/LOC: Same as Preop Cardiovascular: Satisfactory Nausea/Vomiting: Absent Respiratory: Satisfactory Pain: Controlled Complications: Absent Post Op Complications Complications None Follow Up Care/Instructions Patient Instructions None needed. Anesthesiology Discharge Order Discharge Order Patient is doing well, no complaints, stable vital signs, no apparent adverse anesthesia problems. No complications reported per nursing. EUGENIO FELIX CRNA Sep 13, 2022 14:31
--- NOTE | 2022-09-13 23:58 | OPERATIVE REPORT ---
DATE OF SERVICE: 09/13/2022 ATTENDING PRIMARY CARE PHYSICIAN: Jazzy Alejandre MD PREOPERATIVE DIAGNOSES: History of gastroesophageal reflux disease, distal esophageal stricture and dysphagia, screening colonoscopy. POSTOPERATIVE DIAGNOSES: Reflux esophagitis [place] grade B with a mild distal esophageal stricture, intact previous antireflux procedure, moderate gastritis. No distal obstructions, chronic stage II, external and internal hemorrhoids. Small polyp of the rectum approximately 3 mm in size. PROCEDURE: EGD with biopsy and balloon dilatation, colonoscopy with snare polypectomy. SURGEON: Lester Connell MD ANESTHESIA: Monitored anesthesia care. ESTIMATED BLOOD LOSS: Minimal. FINDINGS: Reflux esophagitis [place] grade B with a mild distal esophageal stricture, intact previous antireflux procedure, moderate gastritis. No distal obstructions, chronic stage II, external and internal hemorrhoids. Small polyp of the rectum approximately 3 mm in size. DISPOSITION: The patient tolerated the procedure well. INDICATIONS FOR PROCEDURE: The patient is a 56-year-old male known to us. He has a longstanding history of gastroesophageal reflux disease, peptic ulcer disease, history of H. pylori and Shetty's esophagus. He is status post a hiatal hernia repair as well as a Hill gastropexy and has had recurrent issues with dysphagia; however, he is severely noncompliant and does have many risk factors including smoking 2 packs a day as well as drinking alcohol on a daily basis. He again has issues with reflux and dysphagia. He is also in need of a screening colonoscopy. He has not had a colonoscopy at this point in his life. He does have a family history of colon cancer with his father having disease. He does not report any red blood per rectum, nor any dark tarry stools. DESCRIPTION OF PROCEDURE: The patient was brought to the endoscopy suite and laid in the left lateral decubitus position. After adequate IV pain and sedative medications and monitored anesthesia care, the mouthpiece was applied. The endoscope was placed through the mouth, visualizing the pharynx and hypopharyngeal region. Vocal cords, epiglottis and vallecula identified and appeared to be normal. The endoscope was then gently intubated through the esophageal opening esophagus insufflated. The endoscope was then advanced through the first, second and third portions of the esophagus to the level of the GE junction. Reflux esophagitis [place] grade B identified as well as a mild distal esophageal stricture. A biopsy of the gastroesophageal junction was then taken with forceps with visualization of good hemostasis. The endoscope was then advanced into the stomach with the endoscope retroflexed visualizing an intact previous hiatal hernia repair as well as an antireflux procedure. There was a moderate severity gastritis, which was diffuse. A biopsy was taken of the antrum to rule out H. pylori with visualization of good hemostasis. The endoscope was then advanced through the pylorus and the first and second portion of the duodenum, which appeared normal with no distal obstructions. The balloon was then placed in the stomach and pulled back to the area of the stricture. We then proceeded with dilatation in a graded stepwise fashion from 2, 4 and eventually 6 atmospheres of pressure or 20 mm in luminal diameter with moderate resistance and left this in place for approximately 60 seconds. The balloon was then desufflated and removed with visualization of good hemostasis as well as no mucosal tears. The endoscope was then slowly withdrawn, taking a second look and suctioning of the residual air with no additional findings. A digital rectal examination was performed which revealed chronic stage II, external and internal hemorrhoids, not actively edematous or inflamed and no bleeding. Normal sphincter tone was felt and there were no palpable masses. Prostate gland was palpable and appeared normal. Endoscope was then intubated into the anus and rectum was gently insufflated. The endoscope was then advanced through the valves of Mc in the rectum where a small sessile polyp approximately 3 mm in size was identified. This was excised using snare and electrocautery with visualization of good hemostasis. The endoscope was then advanced through the sigmoid colon where mild sigmoid diverticulosis was identified. The endoscope was then advanced through the remainder of the descending, transverse and ascending colon to the cecum, which appeared normal. No other lesions identified. The endoscope was then slowly withdrawn, taking a second look and suctioning of residual air with no additional findings. The patient tolerated the procedure well. We will again recommend continued medical management with smaller and frequent meals, avoiding eating at night as well as head elevation while lying supine. He also needs to proceed with smoking and alcohol cessation as well as caffeinated beverages. Again, if H. pylori is identified, we will recommend the proper antibiotic treatment for this. We will also recommend a high fiber diet with addition of a supplement that showed equal or exceed 30 grams daily to promote soft stools on a daily basis. Due to his first-degree family history of colon cancer, we will recommend a followup colonoscopy in 5 years. Job ID: [id number] DocumentID: [id number] Dictated Date: 09/13/2022 13:12:57 Steam Crane Operator Date: 09/13/2022 23:56:00 Dictated By: LESTER CONNELL MD
== END 2022-09-13 13:36 | disposition home or self-care (01) ==
LOC: ENDO 09:01
PROVIDERS: ATTEND Surgery
DX: Z12.11 Encounter for screening for malignant neoplasm of colon (principal); K29.50 Unspecified chronic gastritis without bleeding; B96.81 Helicobacter pylori [H. pylori] as the cause of diseases classified elsewhere; K21.00 Gastro-esophageal reflux disease with esophagitis, without bleeding; K22.2 Esophageal obstruction; D12.8 Benign neoplasm of rectum; K64.1 Second degree hemorrhoids; K64.4 Residual hemorrhoidal skin tags; K57.30 Diverticulosis of large intestine without perforation or abscess without bleeding; M89.8X1 Other specified disorders of bone, shoulder; F17.210 Nicotine dependence, cigarettes, uncomplicated; Z87.11 Personal history of peptic ulcer disease; Z80.0 Family history of malignant neoplasm of digestive organs; Z91.199 Patient's noncompliance with other medical treatment and regimen due to unspecified reason; Z79.899 Other long term (current) drug therapy

== ENCOUNTER 2022-11-08 11:54 | Day surgery (SDC) | payer MEDICAID ==
[~2022-11-08] VITALS: Ht 175.3 cm; Wt 73.0 kg
--- NOTE | 2022-11-08 04:03 | HISTORY AND PHYSICAL ---
ATTENDING PRIMARY CARE PHYSICIAN: Dr. Jazzy Alejandre at [facility]. INDICATION: The patient is a 57-year-old male who is known to us. He has a longstanding history of gastroesophageal reflux disease, peptic ulcer disease, history of H. pylori and Shetty's esophagus. He is also status post hiatal hernia repair as well as a Hill gastropexy and has had recurrent issues with dysphagia; however, he is severely noncompliant and does have many risk factors including smoking 2 packs a day as well as drinking alcohol on a daily basis. He has once again had issues with reflux and dysphagia. He also reports epigastric abdominal pain. On 09/13/2022, he underwent EGD with biopsy and balloon dilatation as well as a colonoscopy with snare polypectomy. Findings were reflux esophagitis grade B with a mild distal esophageal stricture, intact previous antireflux procedure, moderate gastritis. Chronic stage II, external and internal hemorrhoids and a small polyp of the rectum approximately 3 mm in size, which was consistent with a tubular adenoma. He was again positive for H. pylori; however, negative for Shetty's esophagus. On today's visit, he reports that over the last several weeks, he has again developed increasing epigastric pain as well as difficulty swallowing. Again, he does continue to be noncompliant with continuing to smoke as well as drinking several pints of whiskey daily. MEDICATIONS: Albuterol sulfate HFA [ ], pantoprazole 40 mg b.i.d., Carafate 1 gram q.i.d. p.r.n. MEDICAL HISTORY: Gastroesophageal reflux disease, H. pylori gastritis, Shetty's esophagus, hypertension, hemorrhoids. SURGICAL HISTORY: Laparoscopic Hill gastropexy 2006, diagnostic laparoscopy and evacuation of hematoma in 2006, multiple EGDs and biopsies as well dilatation, history of orchiectomy, bilateral carpal tunnel release and ulnar nerve release 05/2019. ALLERGIES: NO KNOWN DRUG ALLERGIES. FAMILY HISTORY: Noncontributory. SOCIAL HISTORY: Positive for tobacco smoker, 60+ pack years daily for alcohol at 2-3 pints of whiskey daily. VITAL SIGNS: Blood pressure is 136/74, current weight is 161 pounds at 5 feet 9 inches. REVIEW OF SYSTEMS: Well-nourished male in no acute distress. He is not experiencing any shortness of breath or difficulty breathing. No chest pain, palpitations or diaphoresis. No nausea or vomiting. He does report episodes of epigastric pain as well as difficulty swallowing and reflux. No diarrhea or constipation. No red blood per rectum. No dark tarry stools. No fever or chills. No recent inadvertent weight loss. All other review of systems negative. PHYSICAL EXAMINATION: CHEST: Scattered rales and rhonchi bilaterally. HEART: Regular. No murmurs. EXTREMITIES: No lower extremity edema. Negative Homans sign. HEENT: No scleral icterus. No cervical lymphadenopathy. ABDOMEN: Soft, nontender, nondistended. SKIN: Warm, dry and pink. NEUROLOGIC: Awake, alert and oriented x3. ASSESSMENT AND PLAN: A 57-year-old male with reflux. He does have a history of peptic ulcer disease that has progressed to dysphagia. Again, he continues to be noncompliant. At this time, we will proceed with scheduling him for an EGD with biopsies as appropriate as well as possible balloon dilatation. Job ID: [id number] DocumentID: [id number] Dictated Date: 11/06/2022 10:42:[address] Date: 11/06/2022 13:24:00 Dictated By: NILTON ANDREWS APRN
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
[2022-11-08] MEDS ORDERED: LACTATED RINGERS 1,000 ML IV STA (12:00)
[2022-11-08] MEDS ORDERED: HURRICAINE EXT TUBE (BENZOCAINE) XX PRN (12:00)
[2022-11-08] MEDS ORDERED: LIDOCAINE JELLY 2% 6 ML SYRINGE MM PRN (12:00)
[2022-11-08] MEDS ORDERED: HURRICAINE EXT TUBE (BENZOCAINE) ONE (12:02)
[2022-11-08] MEDS ORDERED: LACTATED RINGERS 1,000 ML IV ONE (12:02)
[2022-11-08 12:20] VITALS: BP 155/92
[2022-11-08] MEDS ORDERED: LIDOCAINE JELLY 2% 6 ML SYRINGE ONE (12:38)
--- NOTE | 2022-11-08 12:55 | Progress Note-Pre Operative ---
Pre-Operative Progress Note Date of Available H&P: Nov 08, 2022 Date H&P Reviewed: Nov 08, 2022 Time H&P Reviewed: 12:30 History & Physical: No changes noted Pre-Operative Diagnosis: GERD, dys LESTER HOWELL MD Nov 08, 2022 12:55
--- NOTE | 2022-11-08 12:56 | Discharge Inst-Surgical ---
D/C Lap Instructions-LYNDA Follow Up Activity as tolerated High Fiber Diet 25g or more per day Avoid Alcohol, Caffeine, Spicy [place] and Acid foods. Drink 64 fluid oz or more of fluids per day. Symptoms to Report: Fever over 101 degree F, Nausea/Vomiting If any problems/questions: Contact your physician or go to Emergency Room LESTER HOWELL MD Nov 08, 2022 12:56
[2022-11-08] MEDS ORDERED: ONDANSETRON 4 MG/2 ML (SDV) Z0FRAN IVP PRN (13:00)
[2022-11-08] MEDS ORDERED: ONDANSETRON 4 MG (ZOFRAN) ORAL DISSOLVE TAB PO PRN (13:00)
[2022-11-08] MEDS ORDERED: PROPOFOL INJECTION 50 ML IV ONE (13:31)
[2022-11-08] MEDS ORDERED: MIDAZOLAM 2 MG/2 ML (VERSED) VIAL ONE (13:31)
[2022-11-08] MEDS ORDERED: KETAMINE 50 MG/5 ML SYRINGE ONE (13:36)
[2022-11-08 13:57] VITALS: BP 124/89
[2022-11-08 14:02] VITALS: BP 119/83
--- NOTE | 2022-11-08 14:08 | Anesthesia-General Post-Op ---
MAC Patient Condition Mental Status/LOC: Same as Preop Cardiovascular: Satisfactory Nausea/Vomiting: Absent Respiratory: Satisfactory Pain: Controlled Complications: Absent Post Op Complications Complications None Follow Up Care/Instructions Patient Instructions None needed. Anesthesiology Discharge Order Discharge Order Patient is doing well, no complaints, stable vital signs, no apparent adverse anesthesia problems. No complications reported per nursing. NICO BARNARD CRNA Nov 08, 2022 14:08
--- NOTE | 2022-11-08 14:08 | Progress Note-Post Operative ---
Post-Operative Progess Note Surgeon (s)/Electrical Appliance Preparer (s) Surgeon LESTER HOWELL MD Electrical Appliance Preparer: none Pre-Operative Diagnosis GERD, dys Post-Operative Diagnosis reflux esophagitis(grade C), small recurrent HH(1cm), severe gastritis. Procedure & Operative Findings Date of Procedure 11/08/22 Procedure Performed/Findings EGD with bx and balloon dilatation. Anesthesia Type mac Estimated Blood Loss Estimated blood loss (mL): minimal Specimens/Packing Specimens Removed ge jxn, antrum LESTER HOWELL MD Nov 08, 2022 14:08
[2022-11-08 14:10] VITALS: BP 131/85
[2022-11-08 14:20] VITALS: BP 131/85
--- NOTE | 2022-11-08 21:44 | OPERATIVE REPORT ---
DATE OF SERVICE: 11/08/2022 ATTENDING PRIMARY CARE PHYSICIAN: Jazzy Alejandre MD at [facility]. PREOPERATIVE DIAGNOSES: Gastroesophageal reflux disease, dysphagia, medical noncompliance. POSTOPERATIVE DIAGNOSES: Gastroesophageal reflux disease, dysphagia, medical noncompliance. Reflux esophagitis, [place] that became grade B and C, intact wrap with a small recurrent hiatal hernia approximately 1 cm in size, severe gastritis, no distal obstructions. PROCEDURE: EGD with biopsy and balloon dilatation. SURGEON: Lester Howell MD ANESTHESIA: Monitored anesthesia care. ESTIMATED BLOOD LOSS: Minimal. FINDINGS: Gastroesophageal reflux disease, dysphagia, medical noncompliance. Reflux esophagitis, [place] that became grade B and C, intact wrap with a small recurrent hiatal hernia approximately 1 cm in size, severe gastritis, no distal obstructions. DISPOSITION: The patient tolerated the procedure well. INDICATIONS: The patient is a 57-year-old male well known to us. He has a longstanding history of gastroesophageal reflux disease, peptic ulcer disease, history of H. pylori and Shetty's esophagus. He is also status post a hiatal hernia repair and had gastropexy many years ago and has had recurrent issues with dysphagia; however, he is severely noncompliant and does have many risk factors including smoking 2 packs a day and drinking almost a fifth of alcohol on a daily basis. He once again has issues with reflux and dysphagia. His last EGD and balloon dilatation was on 09/13/2022 and he has had recurrent symptoms. DESCRIPTION OF PROCEDURE: The patient was brought to the endoscopy suite and laid in the left lateral decubitus position. After adequate IV pain and sedative medications and monitored anesthesia care, the mouthpiece was applied. The endoscope was then placed in the mouth, visualizing the pharynx and hypopharyngeal region. Vocal cords, epiglottis and vallecula identified and appeared to be normal. The endoscope was then gently intubated into the esophageal opening and esophagus insufflated. The endoscope was then advanced through the first, second and third portion of esophagus at the level of the GE junction, a Reflux esophagitis, [place] between grade B and C identified with a mild distal esophageal stricture. A biopsy was taken with forceps with visualization of good hemostasis. The endoscope was then advanced into the stomach and endoscope retroflexed visualizing the intact wrap; however, there appeared to be a very small recurrent hiatal hernia approximately 1 cm in size. The patient did have severe diffuse gastritis. No formal ulcerations polyps or any neoplasms. A biopsy was taken of the antrum again to rule out H. pylori; however, he has had multiple biopsies that did show H. pylori; however, he has been noncompliant with the medical treatment to eradicate the disease. The endoscope was then advanced through the pylorus and the first and second portion of the duodenum, which appeared normal with no distal obstructions. The balloon was then placed in the stomach and pulled back to the area of the stricture. We then proceeded with balloon dilatation in a graded stepwise fashion from 2-4, then eventually 6 atmospheres of pressure for 20 mm in luminal diameter and left this in place for approximately 60 seconds. The balloon was then desufflated and removed with visualization of good hemostasis as well as no mucosal tears. The endoscope was then slowly withdrawn while taking a second look and suctioning of residual air with no additional findings. The patient tolerated the procedure well. We will recommend the necessary lifestyle and dietary accommodation including small and more frequent meals, avoidance of eating at night as well as head elevation while lying supine. He also needs to proceed with cessation of smoking and alcohol as well as caffeinated beverages, spicy, greasy and acidic foods. Again, we have written multiple medications for PPI, acid reducers as well as Carafate as well as the treatment modality for Helicobacter pylori. However, he has always been noncompliant with his medications and we are unsure what he is currently taking. For now, we will have him continue to the best of his ability and if he does have recurrent episodes of dysphagia, we will have him follow up. Job ID: [id number] DocumentID: [id number] Dictated Date: 11/08/2022 14:01:29 Food And Beverage Checker Date: 11/08/2022 21:42:00 Dictated By: LESTER HOWELL MD
== END 2022-11-08 14:25 | disposition home or self-care (01) ==
LOC: ENDO 11:54
PROVIDERS: ATTEND Surgery
DX: K21.00 Gastro-esophageal reflux disease with esophagitis, without bleeding (principal); K44.9 Diaphragmatic hernia without obstruction or gangrene; K29.50 Unspecified chronic gastritis without bleeding; F17.210 Nicotine dependence, cigarettes, uncomplicated; Z87.11 Personal history of peptic ulcer disease; Z87.19 Personal history of other diseases of the digestive system; Z91.14 Patient's other noncompliance with medication regimen; Z91.199 Patient's noncompliance with other medical treatment and regimen due to unspecified reason

== ENCOUNTER 2023-01-10 12:14 | Day surgery (SDC) | payer MEDICAID, MEDICARE ==
[~2023-01-10] VITALS: Ht 175.3 cm; Wt 73.0 kg
--- NOTE | 2023-01-10 08:02 | HISTORY AND PHYSICAL ---
ANTICIPATED DATE OF SURGERY: 01/10/2023. ATTENDING PRIMARY CARE PHYSICIAN: Dr. Jazzy Alejandre at [facility]. HISTORY OF PRESENT ILLNESS: The patient is a 57-year-old male who is known to us. He has a longstanding history of gastroesophageal reflux disease, peptic ulcer disease, history of H. pylori and Shetty's esophagus. He is also status post hiatal hernia repair as well as a hill gastropexy and has had recurrent issues with dysphagia; however, is severely noncompliant and does have many risk factors including smoking 2 packs a day as well as drinking alcohol on a daily basis. He has underwent several EGDs with biopsies as well as balloon dilatation in the past. On 11/08/2022, he underwent EGD with biopsy and balloon dilatation. Findings were reflux esophagitis between grade B and C, intact wrap with a small recurrent hiatal hernia approximately 1 cm in size, severe gastritis with no distal obstructions. Biopsies were negative for H. pylori as well as negative for Shetty's esophagus. On today's visit, he again reports continued heartburn and reflux and reports that this has again progressed to dysphagia and does have difficulty swallowing some foods and feels like they will get stuck. He denies any nausea or vomiting as well as no hematemesis or any coffee-ground emesis. He also reports pain of the left great toe. He does have a history of chronic onychomycosis. He reports that the toenail is raised. He denies any fever or chills or any other symptoms. MEDICAL HISTORY: Gastroesophageal reflux disease, H. pylori gastritis, Shetty's esophagus, hypertension, hemorrhoids, esophageal stricture. SURGICAL HISTORY: Laparoscopic hill gastropexy in 2006, diagnostic laparoscopy and evacuation of hematoma in 2006, multiple EGDs with biopsies and balloon dilatation, history of orchiectomy bilateral carpal tunnel and ulnar nerve release, 05/2019. ALLERGIES: No known drug allergies. MEDICATIONS: Albuterol sulfate HFA, Protonix 40 mg daily, Carafate 1 gram q.i.d. p.r.n. SOCIAL HISTORY: Positive for tobacco, smokes 60+ pack years, daily for alcohol 2-3 pints per day. FAMILY HISTORY: Noncontributory. REVIEW OF SYSTEMS: Well-nourished male in no acute distress. He is not experiencing any shortness of breath or difficulty breathing. No chest pain, palpitations or diaphoresis. No nausea, vomiting, abdominal pain. He does report episodes of heartburn and reflux as well as difficulty swallowing. No hematemesis or any coffee-ground emesis. No diarrhea or constipation. No red blood per rectum. No dark tarry stools. No fever or chills. No recent inadvertent weight loss. All other review of systems negative. PHYSICAL EXAMINATION: VITAL SIGNS: Stable. Current weight is 165 pounds at 5 feet 9 inches. CHEST: Scattered rales and rhonchi bilaterally. HEART: Regular, no murmurs. EXTREMITIES: No lower extremity edema. Negative Homans sign. HEENT: No scleral icterus. No cervical lymphadenopathy. ABDOMEN: Soft, nontender, nondistended. SKIN: Warm, dry and pink. NEUROLOGIC: Awake, alert and oriented x3. Podiatric upon examination of the left great toe, there is yellowish discoloration of the left great toenail with severe hyperkeratosis of the nail. There is some mild erythema of the medial and lateral aspects of the toe and this is painful to palpation. ASSESSMENT AND PLAN: A 57-year-old male with recurrent dysphagia with a history of gastroesophageal reflux disease and noncompliance. He also has symptomatic onychomycosis of the left great toenail and at this time due to the symptomatic nature as well as his dysphagia, we will proceed with scheduling him for an EGD with biopsies as appropriate as well as possible balloon dilatation and removal of left great toenail. CC: Dr. Jazzy Alejandre -- requested, unable to deliver. Job ID: [id number] DocumentID: [id number] Dictated Date: 01/08/2023 09:27:39 Business Test Analyst Date: 01/08/2023 12:27:00 Dictated By: NILTON ANDREWS APRN
[2023-01-10] MEDS ORDERED: LACTATED RINGERS 1,000 ML IV STA (12:24)
[2023-01-10] MEDS ORDERED: HURRICAINE EXT TUBE (BENZOCAINE) XX PRN (12:30)
[2023-01-10] MEDS ORDERED: LIDOCAINE JELLY 2% 6 ML SYRINGE MM PRN (12:30)
--- NOTE | 2023-01-10 12:32 | Progress Note-Pre Operative ---
Pre-Operative Progress Note Date of Available H&P: Jan 10, 2023 Date H&P Reviewed: Jan 10, 2023 Time H&P Reviewed: 12:30 History & Physical: No changes noted Pre-Operative Diagnosis: recurrent dysphagia, acute on chronic left toe onychomycosis LESTER HOWELL MD Jan 10, 2023 12:32
--- NOTE | 2023-01-10 12:33 | Discharge Inst-Surgical ---
D/C Lap Instructions-LYNDA Follow Up PRN Activity as tolerated High Fiber Diet 25g or more per day Avoid Alcohol, Caffeine, Spicy [place] and Acid foods. Drink 64 fluid oz or more of fluids per day. Symptoms to Report: Fever over 101 degree F, Nausea/Vomiting If any problems/questions: Contact your physician or go to Emergency Room LESTER HOWELL MD Jan 10, 2023 12:33
[2023-01-10 12:40] VITALS: BP 151/100
[2023-01-10] MEDS ORDERED: ONDANSETRON 4 MG/2 ML (SDV) Z0FRAN IVP PRN (12:45)
[2023-01-10] MEDS ORDERED: ONDANSETRON 4 MG (ZOFRAN) ORAL DISSOLVE TAB PO PRN (12:45)
[2023-01-10] MEDS ORDERED: KETAMINE 50 MG/5 ML SYRINGE ONE (14:00)
[2023-01-10] MEDS ORDERED: proPOfol 200 MG/20 ML (DIPRIVAN) VIAL IV ONE ×2 (14:00→14:28)
[2023-01-10] MEDS ORDERED: MIDAZOLAM 2 MG/2 ML (VERSED) VIAL ONE (14:00)
[2023-01-10] MEDS ORDERED: PROPOFOL INJECTION 0 ML IV ONE (14:00)
[2023-01-10] MEDS ORDERED: LIDOCAINE JELLY 2% 6 ML SYRINGE ONE (14:15)
[2023-01-10] MEDS ORDERED: LIDOCAINE 1% INJ 20 ML VIAL ONE (14:15)
[2023-01-10 14:52] VITALS: BP 106/73
--- NOTE | 2023-01-10 14:56 | Anesthesia-General Post-Op ---
MAC Patient Condition Mental Status/LOC: Same as Preop Cardiovascular: Satisfactory Nausea/Vomiting: Absent Respiratory: Satisfactory Pain: Controlled Complications: Absent Post Op Complications Complications None Follow Up Care/Instructions Patient Instructions None needed. Anesthesiology Discharge Order Discharge Order Patient is doing well, no complaints, stable vital signs, no apparent adverse anesthesia problems. No complications reported per nursing. XUAN DUNBAR CRNA Jan 10, 2023 14:56
[2023-01-10 14:57] VITALS: BP 119/78
[2023-01-10 15:05] VITALS: BP 133/82
[2023-01-10 15:40] VITALS: BP 133/82
--- NOTE | 2023-01-10 15:55 | Progress Note-Post Operative ---
Post-Operative Progess Note Surgeon (s)/Enterprise Cloud Architect (s) Surgeon LESTER HOWELL MD Enterprise Cloud Architect: none Pre-Operative Diagnosis recurrent dysphagia, acute on chronic left toe onychomycosis Post-Operative Diagnosis reflux esophagitis(grade C), no recurrent HH, mod-severe gastritis. onychomycosis Procedure & Operative Findings Date of Procedure 01/10/23 Procedure Performed/Findings EGD with bx. digital nerve block. total excision left great toenail. Anesthesia Type mac Estimated Blood Loss Estimated blood loss (mL): minimal Specimens/Packing Specimens Removed ge jxn, antrum LESTER HOWELL MD Jan 10, 2023 15:55
--- NOTE | 2023-01-11 00:14 | OPERATIVE REPORT ---
DATE OF SERVICE: 01/10/2023 ATTENDING PRIMARY CARE PHYSICIAN: Jazzy Alejandre MD PREOPERATIVE DIAGNOSES: Recurrent dysphagia and distal esophageal stricture and H. pylori gastritis. Left great toenail onychomycosis. POSTOPERATIVE DIAGNOSES: Reflux esophagitis, [place] grade C with a vvpw-cl-yrttzlpj distal esophageal stricture, intact previous hiatal hernia repair, moderate to severe diffuse gastritis, no distal obstructions. Acute on chronic onychomycosis of the left great toenail. PROCEDURE: EGD with biopsy and balloon dilatation, digital nerve block, excision left great toenail. SURGEON: Lester Howell MD ANESTHESIA: Monitored anesthesia care with local. ESTIMATED BLOOD LOSS: Minimal. FINDINGS: Reflux esophagitis, [place] grade C with a [id number]-yx-pumkwxgt distal esophageal stricture, intact previous hiatal hernia repair, moderate to severe diffuse gastritis, no distal obstructions. Acute on chronic onychomycosis of the left great toenail. DISPOSITION: The patient tolerated the procedure well. INDICATIONS: The patient is a 57-year-old male known to us. He has a longstanding history of gastroesophageal reflux disease, peptic ulcer disease, history of H. pylori, gastritis and Shetty's esophagus, who is also status post hiatal hernia repair and hill gastropexy. He has had recurrent issues with dysphagia; however, severely noncompliant and has many risk factors including smoking 2 packs a day as well as drinking alcohol on a daily basis. He has undergone multiple EGDs as well as biopsies and balloon dilatation. His last one was on 11/08/2022 and again a distal esophageal stricture was identified and he was also again positive for H. pylori. The patient also has had a chronically infected left great toenail and this has begun to become much thicker and has convex curvature, which encroaches into the nail bed, it causes severe pain. This has been going on for years. DESCRIPTION OF PROCEDURE: The patient was brought to the endoscopy suite and laid in the left lateral decubitus position. After adequate IV pain and sedative medications and monitored anesthesia care, the mouthpiece was applied. The endoscope was placed in the mouth, visualized the pharynx and hypopharyngeal region. Vocal cords, epiglottis and vallecula identified and appeared to be normal. The endoscope was then gently intubated into the esophageal opening and esophagus insufflated. The endoscope was then advanced through the first, second, third portions of esophagus at the level of the GE junction, reflux esophagitis, [place] grade C identified as well as a qygb-fq-dmogvrji distal esophageal stricture. A biopsy was taken with forceps with visualization of good hemostasis. The endoscope was then advanced into the stomach and endoscope retroflexed visualizing an intact previous hiatal hernia repair as well as antireflux procedure and no recurrence. There was a moderate to severe gastritis, which was diffuse throughout the stomach. No ulcerations. A biopsy was taken of the antrum with forceps with visualization of good hemostasis. The endoscope was then advanced to the pylorus and first and second portion of the duodenum, which appeared normal with no distal obstructions. The balloon was then placed into the stomach and pulled back to the area of the stricture. We then proceeded with dilatation in a graded stepwise fashion from 2, 4, then eventually 6 atmospheres of pressure or 20 mm in luminal diameter with moderate resistance and left this in place for 120 seconds. The balloon was desufflated and removed with visualization of good hemostasis as well as no mucosal tears. The endoscope was then slowly withdrawn while taking a second look and suctioning of residual air with no additional findings. The left toe was prepped and draped in standard surgical fashion. We then proceeded with a digital nerve block on the bilateral aspects of the left great toe using 1% lidocaine. Once anesthetized, the toenail was dissected from the nail bed using a curved hemostat. We then proceeded with the same type of dissection along the superior and anterior aspect of the soft nail. Once completely freed, the entirety of the nail as well as a soft nail was removed. Good hemostasis was achieved using direct pressure. The wound was then cleaned and covered with dry sterile dressing. The patient tolerated the procedure well. We will recommend the necessary lifestyle and dietary accommodation including small and more frequent meals, avoidance of eating at night as well as head elevation while lying supine. He also needs to avoid caffeinated beverages, alcoholic beverages. Smoking cessation as well as a spicy, greasy and acidic foods. He will also be instructed to keep the left toe clean and dry and place gauze dressing on a b.i.d. basis until no drainage and to wash daily with soap and water. Job ID: [id number] DocumentID: [id number] Dictated Date: 01/10/2023 15:04:56 Materials Planning Analyst Date: 01/11/2023 00:11:00 Dictated By: LESTER HOWELL MD
== END 2023-01-10 15:40 | disposition home or self-care (01) ==
LOC: ENDO 12:14
PROVIDERS: ATTEND Surgery
DX: K29.50 Unspecified chronic gastritis without bleeding (principal); K22.2 Esophageal obstruction; K21.00 Gastro-esophageal reflux disease with esophagitis, without bleeding; B96.81 Helicobacter pylori [H. pylori] as the cause of diseases classified elsewhere; B35.1 Tinea unguium; K44.9 Diaphragmatic hernia without obstruction or gangrene; F17.210 Nicotine dependence, cigarettes, uncomplicated; Z98.84 Bariatric surgery status; Z98.890 Other specified postprocedural states; Z91.199 Patient's noncompliance with other medical treatment and regimen due to unspecified reason

== ENCOUNTER 2023-02-05 10:14 | Emergency (ER) | payer MEDICAID, MEDICARE ==
[~2023-02-05] VITALS: Ht 175.3 cm; Wt 81.6 kg
--- NOTE | 2023-02-05 11:25 | ED Upper Extremity ---
General Chief Complaint: Upper Extremity Stated Complaint: FALL | BACK AND LT ELBOW INJ Nursing Triage Note: PT AMB TO ED BY POV WITH C/O BACK PAIN AND L ARM PAIN. PT REPORTS HE FELL OUT OF A CHAIR ONTO CONCRETE YESTERDAY AND NOW HAS PAIN T/O ENTIRE BACK AND ENTIRE LEFT ARM. DENIES HEAD INJURY. HAS NOT TAKEN ANYTHING FOR THE PAIN. Source: patient Exam Limitations: no limitations History of Present Illness Date Seen by Provider: February 05, 2023 Time Seen by Provider: 11:22 Initial Comments Patient is a 57-year-old male who presents the ED with back pain and left arm pain. Patient states yesterday he fell yesterday. States he was on the sidewalk getting ready to set in a chair when the chair moved causing him to fall hitting his left elbow and lower back on the sidewalk. Denies hitting his head or loss of conscious. Reports swelling and bruising to the left medial elbow with pain with any type of movement worse with rotational. Had a small abrasion with swelling. Patient also hit his lower back with bruising and swelling. Pain with any type of movement. Denies of any bowel or urine incontinence, saddle paresthesia, pelvic pain, chest pain, shortness of breath. Denies hit his head or loss of consciousness. Denies blood thinner use. History of alcohol use. Denies take anything at home for pain. Patient is able to ambulate and walk. Allergies and Home Medications Allergies Coded Allergies: tramadol (Verified Allergy, Mild, "TOO SLEEPY", 04/05/18) Patient Home Medication List Home Medication List Reviewed: Yes Cetirizine HCl (Cetirizine HCl) 10 Mg Tablet, 10 MG PO DAILY, (Reported) Entered as Reported by: CARLA KNIGHT on 02/08/22 1608 Esomeprazole Magnesium (Esomeprazole Magnesium) 40 Mg Capsule.dr, 40 MG PO DAILY, (Reported) Entered as Reported by: CARLA KNIGHT on 02/08/22 1608 Hydrocodone/Acetaminophen (Hydrocodone-Acetamin 5-325 mg) 5 Mg-325 Mg Tablet, 1 TAB PO Q4H PRN for PAIN-MODERATE (5-7) Prescribed by: LEONID RUBI on 02/05/23 1212 Lorazepam (Ativan) 0.5 Mg Tablet, 0.5 MG PO TID PRN for ANXIETY Prescribed by: EUGENIO KWAN on 02/09/22 1103 Multivitamin/Iron/Folic Acid (Tab-A-Jenelle Multivit with Iron) 18 Mg Iron-400 Mcg Tablet, 1 EA PO DAILY@0700 Prescribed by: EUGENIO KWAN on 02/09/22 1019 Phenobarbital (Phenobarbital) 64.8 Mg Tablet, 64.8 MG PO Q8HR Prescribed by: EUGENIO KWAN on 02/09/22 1020 Sucralfate (Sucralfate) 1 Gram/10 Ml Oral.susp, 10 ML PO ACHS Prescribed by: Ronni Mayer on 03/18/222001 Review of Systems Constitutional: No chills, No diaphoresis, No malaise, No weakness EENTM: No ear pain, No blurred vision, No hoarseness, No mouth pain, No mouth swelling Respiratory: No cough, No dyspnea on exertion Cardiovascular: No chest pain Gastrointestinal: No abdominal pain, No diarrhea, No nausea, No vomiting Genitourinary: No decreased output, No discharge Musculoskeletal: back pain, joint pain, joint swelling Skin: change in color, other (Swelling) All Other Systems Reviewed Negative Unless Noted: Yes Past Jhhfiwn-Pcglzw-Jkilcp Hx Patient Social History Tobacco Use?: Yes Tobacco type used: Cigarettes Smoking Status: Current Everyday Smoker Use of E-Cig and/or Vaping dev: No Substance use?: No Alcohol Use?: No Pt feels they are or have been: No Immunizations Up To Date Tetanus Booster (TDap): Unknown PED Vaccines UTD: Yes Influenza Vaccine Up-to-Date: Yes; Up-to-Date First/Initial COVID19 Vaccinat: X3 Second COVID19 Vaccination Thor: X3 Third COVID19 Vaccination Date: X3 Seasonal Allergies Seasonal Allergies: Yes Past Medical History Surgery/Hospitalization HX: ASTHMA, HTN Surgeries: Yes (EGD'S / ESOPHAGEAL DILATIONS) Abdominal Respiratory: Yes Asthma, COPD Cardiac: Yes Hypertension Neurological: Yes Headaches /Migraines Reproductive Disorders: No Sexually Transmitted Disease: No HIV/AIDS: No Genitourinary: No Gastrointestinal: Yes (ESOPHAGEAL STRICTURES/DILATIONS; H. PYLORI) Gastroesophageal Reflux, Shetty's Esophagus, Hemorrhoids Musculoskeletal: No Endocrine: No HEENT: Yes (NO DENTITION) Hearing Impairment: Bilateral Hearing Aide Cancer: No Psychosocial: Yes (ALCOHOLISM, RX DRUG ABUSE; SUICIDAL IDEATIONS, does not read) Anxiety, Suicide Attempts, Depression Integumentary: No Blood Disorders: No Adverse Reaction/Blood Tranf: No (N/A) Family Medical History FH: colon cancer No Pertinent Family Hx Physical Exam Vital Signs Vital Signs - First Documented 02/05/23 11:08 Temp 36.7 Pulse 82 Resp 16 B/P (MAP) 143/80 (101) Pulse Ox 98 O2 Delivery Room Air Capillary Refill : Less Than 3 Seconds Height, Weight, BMI Height: 5'9.00" Weight: 160lbs. 2.0oz. [id number]; 26.00 BMI Method:Estimated General Appearance: WD/WN, no apparent distress HEENT: PERRL/EOMI, normal ENT inspection, TMs normal, pharynx normal Neck: non-tender, full range of motion, supple, normal inspection Cardiovascular: regular rate, rhythm, no edema, no gallop, no JVD Respiratory: chest non-tender, lungs clear, normal breath sounds, no respiratory distress Gastrointestinal: normal bowel sounds, non tender, soft, no organomegaly, no pulsatile mass Back: other (Thoracic and lumbar midline tenderness. Bruising swelling to the right lumbar paraspinal muscle. Pain with movement. Normal passive and active range of motion.) Elbow/Forearm: pain, soft tissue tenderness, swelling (Swelling to left medial elbow with flexion to 90 degrees. Pain with supination. Abrasion to the medial left elbow. Security Flex Officer strength out of 5. Neurovascular intact. No shoulder tenderness) Wrist: Yes normal inspection, Yes non-tender, Yes no evidence of injury, Yes normal ROM Hand: normal inspection, non-tender, no evidence of injury, Left Neurologic/Psychiatric: financial systems manager II-XII nml as tested, no motor/sensory deficits, alert, normal mood/affect, oriented x 3 Skin: other (Contusion with abrasion to left knee elbow) Procedures/Interventions Splinting and Joint Reduction : Pre-Proc Neuro Vasc Exam: normal Post-Proc Neuro Vasc Exam: normal Progress Long-arm posterior splint left arm. Neurovascularly pre and post splint. Ortho-Glass used. No evidence compartment syndrome Pre-Procedure NV Exam: Yes Splint Application: Long Arm Progress/Results/Core Measures Results/Orders My Orders Orders - PEREZ,ABDULLAHI A PA Elbow, Left, 3 Views (02/05/23 11:20) Ct Thoracic/Lumbar Spine Wo (02/05/23 11:20) Hydrocodone/Apap 5/325 Tablet (Lortab 5 (02/05/23 11:30) Medications Given in ED Current Medications Medications Dose Ordered Sig/Neel Route Start Time Stop Time Status Last Admin Dose Admin Acetaminophen/ Hydrocodone Bitart 1 ea ONCE ONCE PO 02/05/23 11:30 02/05/23 11:31 DC 02/05/23 11:38 1 EA Vital Signs/I&O 02/05/23 11:08 Temp 36.7 Pulse 82 Resp 16 B/P (MAP) 143/80 (101) Pulse Ox 98 O2 Delivery Room Air Blood Pressure Mean: 101 Departure Communication (PCP) Patient with a mechanical fall. Denies hitting his head or loss of consciousness. Patient is not on blood thinners. Has swelling and bruising to his right lower back. Thoracic and lumbar midline tenderness. Swelling to the left medial elbow with pain with supination and flexion extension. Neurovascular intact. X-ray of the left elbow shows nondisplaced transcondylar fracture lateral aspect of the distal humerus. Patient was placed in a posterior long-arm splint with sling. No evidence compartment syndrome. Pre and post splint neurovascular intact. No active bleeding or evidence of open fracture. CT scan thoracic and lumbar spine negative for fracture. He has no pelvis or hip tenderness. Neuro exam unremarkable. Patient was given dose of hydrocodone. Will discharge with few days worth of pain medication. Do not drink alcohol with medication. Recommend adding ibuprofen or naproxen. Orthopedic follow-up in 7 to 14 days. Do not get the splint wet. If increasing pain, skin color changes to the left hand to return back to ED Impression Primary Impression: Elbow fracture Disposition: 01 HOME, SELF-CARE Condition: Stable Departure-Patient Inst. Decision time for Depature: 12:11 Referrals: [facility] (PCP/Family) Primary Care Physician SUSIE MANRIQUE MD Patient Instructions: Elbow Fracture, Adult ED Add. Discharge Instructions: Take pain medication as prescribed. Follow-up with orthopedic within the next week for further evaluation. Return back to ED if symptoms worsen such as increased pain, skin color changes All discharge instructions reviewed with patient and/or family. Voiced understanding. Scripts Hydrocodone/Acetaminophen (Hydrocodone-Acetamin 5-325 mg) 5 Mg-325 Mg Tablet 1 TAB PO Q4H PRN for PAIN-MODERATE (5-7), #8 TAB Prov: ABDULLAHI PEREZ 02/05/23 ABDULLAHI PEREZ February 05, 2023 11:25
[2023-02-05] MEDS ORDERED: HYDROcodone/APAP 5 MG/325 MG (LORTAB) TAB PO ONE (11:30)
--- NOTE | 2023-02-05 11:50 | Diagnostic Imaging Report ---
Indication: Left elbow pain 3 views of left elbow show transcondylar fracture of the distal humerus with joint effusion. IMPRESSION: Nondisplaced transcondylar fracture lateral aspect of the distal humerus. Dictated by: Dictated on workstation # [id number]
--- NOTE | 2023-02-05 12:04 | Diagnostic Imaging Report ---
CT THORACIC/LUMBAR SPINE WO INDICATION: Back pain after fall COMPARISON: None available. TECHNIQUE: CT imaging of the thoracic and lumbar spine was performed without contrast. Automatic exposure controls were utilized for dose optimization. FINDINGS: Thoracic:Alignment is normal. No acute fracture within the thoracic spine. The posterior ribs are intact where seen. Visualized aspects of lungs are clear. No paravertebral stranding to suggest edema or hematoma. Lumbar:Alignment is normal. No acute fracture within the lumbar spine. Multilevel degenerative disc disease is greatest at L4-L5 and L5-S1. Moderate spinal canal stenosis is present at L4-L5 due to the degenerative disc disease and facet osteoarthritis. No fracture within the sacrum. IMPRESSION: 1. No acute fracture in the thoracic or lumbar spine. Dictated by: Dictated on workstation # [id number]
[2023-02-05] MEDS ORDERED: ACHD5005 PO (12:12)
[2023-02-05 13:17] VITALS: BP 140/80
== END 2023-02-05 13:17 | disposition home or self-care (01) ==
LOC: EDUNIT# 10:14 → ER 10:16
DX: S42.455A Nondisplaced fracture of lateral condyle of left humerus, initial encounter for closed fracture (principal); S30.0XXA Contusion of lower back and pelvis, initial encounter; F17.210 Nicotine dependence, cigarettes, uncomplicated; Z88.5 Allergy status to narcotic agent; W18.30XA Fall on same level, unspecified, initial encounter; Y92.480 Sidewalk as the place of occurrence of the external cause
CPT/HCPCS: 29105; 72128; 72131; 73080

== ENCOUNTER → 2023-02-15 | Outpatient (CLI) | payer MEDICAID | LOC: ORTHO 12:43 | PROVIDERS: ATTEND Orthopaedic Surgery | DX: S42.402D Unspecified fracture of lower end of left humerus, subsequent encounter for fracture with routine healing (principal); X58.XXXD Exposure to other specified factors, subsequent encounter | CPT/HCPCS: 99203 ==

== ENCOUNTER → 2023-03-01 | Outpatient (CLI) | payer MEDICAID ==
--- NOTE | 2023-03-01 10:59 | Diagnostic Imaging Report ---
INDICATION: Fracture follow-up EXAMINATION: Left elbow 03/01/2023 COMPARISON: 02/05/2023 3 views of the elbow. Mild soft tissue swelling surrounds the elbow. There is decrease in size of the joint effusion. A very vague lucency is noted within the supracondylar aspect on the 2nd view. This could represent a nondisplaced fracture line. No displaced fractures identified with well-corticated chronic findings adjacent to the lateral epicondyle and medial epicondyle. IMPRESSION: 1. Stable appearing distal humerus fracture suspected. Slight improvement in soft tissue swelling and joint effusion. Dictated by: Dictated on workstation # [id number]
== END ==
LOC: ORTHO 08:38
PROVIDERS: ATTEND Orthopaedic Surgery
DX: S42.415D Nondisplaced simple supracondylar fracture without intercondylar fracture of left humerus, subsequent encounter for fracture with routine healing (principal); X58.XXXD Exposure to other specified factors, subsequent encounter
CPT/HCPCS: 73080; G0463; 99213

== ENCOUNTER 2023-03-22 14:07 | Outpatient (CLI) | payer MEDICAID ==
[~2023-03-22] VITALS: Ht 172.7 cm; Wt 81.6 kg
== END 2023-03-22 15:53 | disposition home or self-care (01) ==
LOC: PREOP 14:07
PROVIDERS: ATTEND Surgery
DX: Z01.818 Encounter for other preprocedural examination (principal); K21.9 Gastro-esophageal reflux disease without esophagitis

== ENCOUNTER 2023-03-28 09:49 | Day surgery (SDC) | payer MEDICAID ==
--- NOTE | 2023-03-23 09:03 | HISTORY AND PHYSICAL ---
DATE OF SERVICE: 03/28/2023 DATE OF SERVICE: 03/28/2023 ATTENDING PRIMARY CARE PHYSICIAN: Dr. Jazzy Alejandre at [facility]. HISTORY OF PRESENT ILLNESS: The patient is a 57-year-old male who is known to us. He has a longstanding history of gastroesophageal reflux disease, peptic ulcer disease as well as a history of H. pylori and Shetty's esophagus. He is status post hiatal hernia repair as well as a healed gastropexy and has had recurrent issues with dysphagia and is severely noncompliant and does have many risk factors including smoking 2 packs a day as well as drinking alcohol on a daily basis. He has had several EGDs with biopsies as well as balloon dilatations in the past. On 01/10/2023, he underwent an EGD with biopsy and balloon dilatation as well as a digital nerve block and excision of left great toenail. He was found to have reflux esophagitis, [place] grade C, with a mlsb-lo-scazkove distal esophageal stricture, intact previous hiatal hernia repair, moderate to severe diffuse gastritis. No distal obstructions. There was acute on chronic onychomycosis of the left great toenail. On today's visit, he reports that he once again has developed recurrent dysphagia. He does use Protonix daily; however, does continue to smoke as well as use alcohol. He does report intermittent episodes of heartburn and reflux as well as substernal pressure sensation. MEDICAL HISTORY: Gastroesophageal reflux disease, H. pylori gastritis, Shetty's esophagus, hypertension, hemorrhoids, onychomycosis. SURGICAL HISTORY: Laparoscopic healed gastropexy in 2006, diagnostic laparoscopy and evacuation of hematoma in 2006, multiple EGDs with biopsies and balloon dilatations, history of orchiectomy, bilateral carpal tunnel and ulnar nerve release in 05/2019, removal of left great toenail for onychomycosis in 2022. ALLERGIES: NO KNOWN DRUG ALLERGIES. MEDICATIONS: Albuterol sulfate 108 mcg, Protonix 40 mg daily, Carafate 1 g q.i.d. p.r.n. SOCIAL HISTORY: Positive for tobacco smoker, 60+ pack years. Daily for alcohol. FAMILY HISTORY: Noncontributory. VITAL SIGNS: Stable. Current weight is 165 pounds at 5 feet 9 inches. REVIEW OF SYSTEMS: Well-nourished male in no acute distress. He is not experiencing any shortness of breath or difficulty breathing. No chest pain, palpitations or diaphoresis. No nausea or vomiting. He does report episodes of epigastric pain as well as heartburn and reflux and dysphagia. No diarrhea or constipation. No red blood per rectum. No dark tarry stools. No fever or chills. No recent inadvertent weight loss. All other review of systems negative. PHYSICAL EXAMINATION: CHEST: Scattered rales and rhonchi bilaterally. HEART: Regular. No murmurs. EXTREMITIES: No lower extremity edema. Negative Homans sign. HEENT: No scleral icterus. No cervical lymphadenopathy. ABDOMEN: Soft, nontender, nondistended. SKIN: Warm, dry, and pink. NEUROLOGIC: Awake, alert, oriented x3. ASSESSMENT AND PLAN: A 57-year-old male with longstanding history of gastroesophageal reflux disease, peptic ulcer disease, who also has a history of Helicobacter pylori as well as Shetty's esophagus with recurrent dysphagia. At this time, we will proceed with scheduling him for EGD with biopsies as appropriate as well as possible balloon dilatation. Job ID: [id number] DocumentID: [id number] Dictated Date: 03/21/2023 11:30:53 Electronics Manufacturer Date: 03/21/2023 13:17:00 Dictated By: NILTON ANDREWS APRN
[~2023-03-28] VITALS: Ht 172 cm; Wt 81.6 kg
[2023-03-28] MEDS ORDERED: LACTATED RINGERS 1,000 ML IV STA (09:56)
[2023-03-28] MEDS ORDERED: LIDOCAINE JELLY 2% 6 ML SYRINGE MM PRN (10:00)
[2023-03-28] MEDS ORDERED: HURRICAINE EXT TUBE (BENZOCAINE) XX PRN (10:00)
[2023-03-28 10:28] VITALS: BP 127/92
[2023-03-28] MEDS ORDERED: LIDOCAINE JELLY 2% 6 ML SYRINGE ONE (10:34)
--- NOTE | 2023-03-28 11:03 | Progress Note-Pre Operative ---
Pre-Operative Progress Note Date of Available H&P: Mar 28, 2023 Date H&P Reviewed: Mar 28, 2023 Time H&P Reviewed: 10:30 History & Physical: No changes noted Pre-Operative Diagnosis: GERD, dysphagia LESTER HOWELL MD Mar 28, 2023 11:03
--- NOTE | 2023-03-28 11:04 | Discharge Inst-Surgical ---
D/C Lap Instructions-LYNDA Follow Up Activity as tolerated High Fiber Diet 25g or more per day Avoid Alcohol, Caffeine, Spicy [place] and Acid foods. Drink 64 fluid oz or more of fluids per day. Symptoms to Report: Fever over 101 degree F, Nausea/Vomiting If any problems/questions: Contact your physician or go to Emergency Room LESTER HOWELL MD Mar 28, 2023 11:04
[2023-03-28] MEDS ORDERED: PROPOFOL INJECTION 50 ML IV ONE ×2 (11:12→11:32)
[2023-03-28] MEDS ORDERED: MIDAZOLAM 2 MG/2 ML (VERSED) VIAL ONE (11:13)
[2023-03-28] MEDS ORDERED: ONDANSETRON 4 MG (ZOFRAN) ORAL DISSOLVE TAB PO PRN (11:15)
[2023-03-28] MEDS ORDERED: ONDANSETRON 4 MG/2 ML (SDV) Z0FRAN IVP PRN (11:15)
[2023-03-28 11:45] VITALS: BP 86/59
[2023-03-28 11:50] VITALS: BP 102/64
[2023-03-28 11:55] VITALS: BP 116/70
--- NOTE | 2023-03-28 11:56 | Progress Note-Post Operative ---
Post-Operative Progess Note Surgeon (s)/Cover Maker (s) Surgeon LESTER HOWELL MD Cover Maker: none Pre-Operative Diagnosis GERD, dysphagia Post-Operative Diagnosis reflux esophagitis(grade B), mild distal esoph stricture, small recurrent HH(1.5cm), moderate gastritis. Procedure & Operative Findings Date of Procedure 03/28/23 Procedure Performed/Findings EGD with bx and balloon dilatation. Anesthesia Type mac Estimated Blood Loss Estimated blood loss (mL): minimal Specimens/Packing Specimens Removed ge jxn, antrum LESTER HOWELL MD Mar 28, 2023 11:56
[2023-03-28 13:00] VITALS: BP 116/70
--- NOTE | 2023-03-28 16:48 | OPERATIVE REPORT ---
DATE OF SERVICE: 03/28/2023 ATTENDING PRIMARY CARE PHYSICIAN: Dr. Jazzy Alejandre. PREOPERATIVE DIAGNOSES: Longstanding history of gastroesophageal reflux disease, dysphagia and H. pylori gastritis. POSTOPERATIVE DIAGNOSES: Reflux esophagitis, [place] grade B with a mild distal esophageal stricture, small recurrent hiatal hernia approximately 1.5 cm in size, moderate severity gastritis. No distal obstructions. PROCEDURE: EGD with biopsy and balloon dilatation. SURGEON: Lester Howell MD ANESTHESIA: Monitored anesthesia care. ESTIMATED BLOOD LOSS: Minimal. FINDINGS: Reflux esophagitis, [place] grade B with a mild distal esophageal stricture, small recurrent hiatal hernia approximately 1.5 cm in size, moderate severity gastritis. No distal obstructions. DISPOSITION: The patient tolerated the procedure well. INDICATIONS: The patient is a 57-year-old male well known to us. He has a longstanding history of gastroesophageal reflux disease, peptic ulcer disease, H. pylori gastritis and Shetty's esophagus. He is also status post hiatal hernia repair as well as a gastropexy for his gastroesophageal reflux disease; however, has had some recurrent issues of reflux as well as the development of dysphagia. The patient is also severely noncompliant and has many risk factors including smoking 2 packs daily as well as drinking alcohol on a daily basis. He has had several EGDs and biopsies in the past as well as balloon dilatation due to symptomatic dysphagia. His last EGD was on 01/10/2023 and again underwent a balloon dilatation of the lower esophagus due to dysphagia. Again, he has developed difficulty swallowing certain types of foods, especially lean meats and dry breads. He is on Nexium 40 mg daily. DESCRIPTION OF PROCEDURE: The patient was brought to the endoscopy suite and laid in the left lateral decubitus position. After adequate IV pain and sedative medications and monitored anesthesia care, the mouthpiece was applied. The endoscope was placed in the mouth, visualizing the pharynx and hypopharyngeal region. Vocal cords, epiglottis and vallecula identified and appeared to be normal. The endoscope was then gently intubated into the esophageal opening and esophagus insufflated. The endoscope was then advanced through the first, second and third portions of esophagus at the level of the GE junction, a reflux esophagitis, [place] grade B identified with a mild distal esophageal stricture. No ulcerations. A biopsy was taken of the GE junction with forceps with visualization of good hemostasis. The endoscope was then advanced into the stomach and endoscope retroflexed visualizing a small recurrent hiatal hernia approximately 1.5 cm in size. There was a moderate severity gastritis; however, no formal ulcers, polyps, or any neoplasms. Once again a biopsy was taken of the antrum for H. pylori. The endoscope was then advanced through the pylorus and the first and second portions of the duodenum, which appeared normal with no distal obstructions. The balloon was then placed in the stomach and pulled back to the area of the stricture. We then proceeded with a graded dilatation from 2, 4, then eventually 6 atmospheres of pressure with moderate resistance or 20 mm in luminal diameter and left this in place for approximately 120 seconds. The balloon was then desufflated and removed with visualization of good hemostasis as well as no mucosal tears. Endoscope was then slowly withdrawn while taking a second look and suctioning of residual air with no additional findings. The patient tolerated the procedure well. We will recommend again continued medical management, which would encompass cessation of smoking cigarettes as well as drinking alcohol and to avoid caffeinated beverages, spicy, greasy and acidic foods. He also needs to take in small and more frequent meals and avoid eating at night. He is on Nexium daily; however, multiple times we have wanted to treat him for his H. pylori gastritis with the proper antibiotic regimen; however, has never finished a proper course of the antibiotic regimen. At this time, again, we will continue to educate him as well as possible to proceed with proper medical management. Job ID: [id number] DocumentID: [id number] Dictated Date: 03/28/2023 11:50:25 Abrasive Worker Date: 03/28/2023 16:46:00 Dictated By: LESTER HOWELL MD
== END 2023-03-28 13:00 | disposition home or self-care (01) ==
LOC: ENDO 09:49
PROVIDERS: ATTEND Surgery
DX: K22.2 Esophageal obstruction (principal); K21.00 Gastro-esophageal reflux disease with esophagitis, without bleeding; K44.9 Diaphragmatic hernia without obstruction or gangrene; K29.70 Gastritis, unspecified, without bleeding; F17.210 Nicotine dependence, cigarettes, uncomplicated; Z87.11 Personal history of peptic ulcer disease

== ENCOUNTER 2023-05-30 05:55 | Outpatient (CLI) | payer MEDICAID ==
[2023-06-05] MEDS ORDERED: ALBU90AE2 IH (12:02)
[2023-06-05] MEDS ORDERED: SUCR1TAB PO (12:02)
== END 2023-06-05 12:06 | disposition home or self-care (01) ==
LOC: PREOP 05:55
PROVIDERS: ATTEND Surgery
DX: Z01.818 Encounter for other preprocedural examination (principal)

== ENCOUNTER 2023-06-06 09:33 | Day surgery (SDC) | payer MEDICAID ==
--- NOTE | 2023-05-30 14:41 | HISTORY AND PHYSICAL ---
PROCEDURE DATE: 06/06/2023. ATTENDING PRIMARY CARE PHYSICIAN: [facility]. The patient is a 57-year-old male who is known to us. He has a longstanding history of gastroesophageal reflux disease, peptic ulcer disease, H. pylori gastritis, Shetty's esophagus. He is also status post hiatal hernia repair as well as [place] gastropexy for his gastroesophageal reflux disease; however, has had some recurrent issues with reflux as well as development of dysphagia. He is also severely noncompliant and does have many risk factors including smoking 2 packs daily as well as drinking alcohol on a daily basis. He has had several EGDs and biopsies in the past as well as balloon dilatation due to symptomatic dysphagia. His last EGD was on 03/28/2023 and was found to have a reflux esophagitis, [place] grade B with a mild distal esophageal stricture, small recurrent hiatal hernia approximately 1.5 cm in size, moderate severity gastritis with no distal obstructions. Biopsies at that time were negative for H. pylori as well as negative for Shetty's esophagus. On today's visit, he once again reports difficulty swallowing certain types of foods, especially lean meats and dry breads. He does continue to smoke and drink and does have episodes of reflux. He is currently on Nexium daily. He also reports that for the past several months, he has had intermittent episodes of rectal bleeding, which has been bright red in color. He does have a known history of hemorrhoids. His last colonoscopy was on 09/13/2022 and was found to have a chronic stage II, external and internal hemorrhoids as well as a small polyp of the rectum that was 3 mm in size and this was consistent with a tubular adenoma at that time. He has tried conservative management for the hemorrhoids, but reports that he continues to have episodes of rectal bleeding. MEDICAL HISTORY: Gastroesophageal reflux disease, H. pylori gastritis, Shetty's esophagus, hypertension, hemorrhoids, esophageal strictures. SURGICAL HISTORY: Laparoscopic Hill gastropexy 2006, diagnostic laparoscopy and evacuation of hematoma in 2006, multiple EGDs with biopsies and dilatations, history of orchiectomy, bilateral carpal tunnel and ulnar nerve release 05/2019. ALLERGIES: NO KNOWN DRUG ALLERGIES. MEDICATIONS: Albuterol sulfate HFA as directed, Nexium 40 mg daily, Carafate 1 gram q.i.d. p.r.n. SOCIAL HISTORY: Positive for tobacco smoke at 60+ pack years daily for alcohol 2-3 pints per day. FAMILY HISTORY: Noncontributory. VITAL SIGNS: Stable. Current weight 151 pounds at 5 feet 9 inches. REVIEW OF SYSTEMS: Well-nourished male in no acute distress. He is not experiencing any shortness of breath or difficulty breathing. No chest pain, palpitations or diaphoresis. No nausea, vomiting or abdominal pain. No diarrhea or constipation. He does report episodes of heartburn as well as dysphagia. He does report red blood per rectum. No dark tarry stools. No fever or chills. No recent inadvertent weight loss. All other review of systems negative. PHYSICAL EXAM: CHEST: Scattered rales and rhonchi bilaterally. HEART: Regular. No murmurs. EXTREMITIES: No lower extremity edema. Negative Homans sign. HEENT: No scleral icterus. No cervical lymphadenopathy. ABDOMEN: Soft, nontender, nondistended. SKIN: Warm, dry and pink. NEUROLOGIC: Awake, alert, oriented x3. ASSESSMENT AND PLAN: A 57-year-old male with recurrent dysphagia as well as reflux, who is also having recurrent episodes of bright red blood per rectum. At this time, we will proceed with scheduling him for an EGD with biopsies as appropriate as well as possible balloon dilatation and a colonoscopy. Job ID: [id number] DocumentID: [id number] Dictated Date: 05/30/2023 11:08:50 Sales Team Member Date: 05/30/2023 14:31:00 Dictated By: NILTON ANDREWS APRN
[~2023-06-06] VITALS: Ht 172 cm; Wt 81.6 kg
[~2023-06-06 09:33] MED LIST changes: +ALBU90AE2 IH; +SUCR1TAB PO
[2023-06-06] MEDS ORDERED: LACTATED RINGERS 1,000 ML 1,000 ML IV ONE (09:44)
[2023-06-06] MEDS ORDERED: HURRICAINE EXT TUBE (BENZOCAINE) ONE (09:44)
[2023-06-06] MEDS ORDERED: LACTATED RINGERS 1,000 ML 1,000 ML IV STA (09:50)
[2023-06-06] MEDS ORDERED: HURRICAINE EXT TUBE (BENZOCAINE) XX PRN (10:00)
[2023-06-06] MEDS ORDERED: LIDOCAINE JELLY 2% 6 ML SYRINGE MM PRN (10:00)
[2023-06-06 10:15] VITALS: BP 150/87
[2023-06-06] MEDS ORDERED: MIDAZOLAM INJ 2 MG/2 ML VIAL ONE (10:22)
[2023-06-06] MEDS ORDERED: LIDOCAINE JELLY 2% 6 ML SYRINGE ONE (10:37)
--- NOTE | 2023-06-06 10:52 | Progress Note-Pre Operative ---
Pre-Operative Progress Note Date of Available H&P: Jun 06, 2023 Date H&P Reviewed: Jun 06, 2023 Time H&P Reviewed: 10:00 History & Physical: No changes noted Pre-Operative Diagnosis: GERD, dysphagia LESTER HOWELL MD Jun 06, 2023 10:52
--- NOTE | 2023-06-06 10:53 | Discharge Inst-Surgical ---
D/C Lap Instructions-LYNDA Follow Up Activity as tolerated High Fiber Diet 25g or more per day Avoid Alcohol, Caffeine, Spicy [place] and Acid foods. Drink 64 fluid oz or more of fluids per day. Symptoms to Report: Fever over 101 degree F, Nausea/Vomiting If any problems/questions: Contact your physician or go to Emergency Room LESTER HOWELL MD Jun 06, 2023 10:53
[2023-06-06] MEDS ORDERED: ONDANSETRON INJECTION 4 MG/2 ML (SDV) IVP PRN (11:00)
[2023-06-06] MEDS ORDERED: ONDANSETRON 4 MG ORAL DISSOLVE TABLET PO PRN (11:00)
[2023-06-06 11:40] VITALS: BP 88/58
[2023-06-06 11:45] VITALS: BP 86/59
--- NOTE | 2023-06-06 11:59 | Progress Note-Post Operative ---
Post-Operative Progess Note Surgeon (s)/Boat Wrapper (s) Surgeon LESTER HOWELL MD Boat Wrapper: none Pre-Operative Diagnosis GERD, dysphagia Post-Operative Diagnosis reflux esophagitis(grade B-C), mild dist esoph stricture, recurrent HH(2cm), moderate gastritis. chronic stage 2-3 ext and int hemorrhoids. Procedure & Operative Findings Date of Procedure 06/06/23 Procedure Performed/Findings EGD with bx and balloon dilatation. colonoscopy. Anesthesia Type mac Estimated Blood Loss Estimated blood loss (mL): minimal Specimens/Packing Specimens Removed ge jxn, antrum LESTER HOWELL MD Jun 06, 2023 11:59
[2023-06-06 12:19] VITALS: BP 86/59
--- NOTE | 2023-06-06 14:50 | Anesthesia-General Post-Op ---
MAC Patient Condition Mental Status/LOC: Same as Preop Cardiovascular: Satisfactory Nausea/Vomiting: Absent Respiratory: Satisfactory Pain: Controlled Complications: Absent Post Op Complications Complications None Follow Up Care/Instructions Patient Instructions None needed. Anesthesiology Discharge Order Discharge Order Patient is doing well, no complaints, stable vital signs, no apparent adverse anesthesia problems. No complications reported per nursing. SUSIE EARLY CRNA Jun 06, 2023 14:50
--- NOTE | 2023-06-06 19:56 | OPERATIVE REPORT ---
DATE OF SERVICE: 06/06/2023 ATTENDING REELING MACHINE SETUP OPERATOR: [facility]. PREOPERATIVE DIAGNOSES: Gastroesophageal reflux disease, recurrent dysphagia, rectal bleeding. POSTOPERATIVE DIAGNOSES: Reflux esophagitis, [place] grade C; mild distal esophageal stricture, recurrent hiatal hernia approximately 2.5 cm in size, moderate gastritis, chronic stage II external and internal hemorrhoids. No active bleeding. PROCEDURE: 1. EGD with biopsy and balloon dilatation. 2. Colonoscopy. SURGEON: Lester Howell MD ANESTHESIA: Monitored anesthesia care. ESTIMATED BLOOD LOSS: Minimal. FINDINGS: Reflux esophagitis, [place] grade C; mild distal esophageal stricture, recurrent hiatal hernia approximately 2.5 cm in size, moderate gastritis, chronic stage II external and internal hemorrhoids. No active bleeding. DISPOSITION: The patient tolerated the procedure well. INDICATIONS: The patient is a 57-year-old male well known to us. He has a longstanding history of gastroesophageal reflux disease, peptic ulcer disease, H. pylori positivity as well as status post hiatal hernia repair and [ ] gastropexy with recurrence of hiatal hernia. He has had recurrent issues with dysphagia; however, has a longstanding history of noncompliance including many risk factors of smoking 2 packs a day as well as drinking approximately 750 mL of some form of hard alcohol on a daily basis. He again has developed dysphagia. He also reports that he has had some issues with rectal bleeding on an intermittent basis, which has been a brighter red in color. His last colonoscopy was in 08/2022, he was found to have stage II external and internal hemorrhoids as well as a small rectal polyp 3 mm in size and this was benign tubular adenoma. DESCRIPTION OF PROCEDURE: The patient was brought to the endoscopy suite and laid in the left lateral decubitus position. After adequate IV pain and sedative medications and monitored anesthesia care, the mouthpiece was applied. The endoscope was placed in the mouth, visualizing the pharynx and hypopharyngeal region. Vocal cords, epiglottis and vallecula identified and appeared to be normal. The endoscope was then intubated into the esophageal opening and esophagus insufflated. The endoscope was then advanced through the first, second and third portions of esophagus. At the level of the GE junction, a reflux esophagitis between [place] grade B and C identified as well as a mild distal esophageal stricture. A biopsy was taken with forceps with visualization of good hemostasis. The endoscope was then advanced into the stomach and endoscope retroflexed once again visualizing postsurgical changes; however, there is a recurrent hiatal hernia approximately 2 cm in size. There was a moderate severity gastritis. No formal ulcerations, polyps or any neoplasms. A biopsy was taken of the stomach, antrum for H. pylori with visualization of good hemostasis. The endoscope was then advanced through the pylorus and the first and second portion of the duodenum with no ulcerations or any distal obstructions. The balloon was then placed in the stomach and pulled back to the area of the stricture. We then proceeded with graded dilatation from 2 4, then eventually 6 atmospheres of pressure with 60 seconds in between. Once we reached 6 atmospheres of pressure or 20 mm in luminal diameter, we met moderate resistance or 20 mm in luminal diameter and left this in place for 120 seconds. The balloon was desufflated and removed with visualization of good hemostasis as well as no mucosal tears. The endoscope was slowly withdrawn while taking a second look and suctioning of residual air with no additional findings. A digital rectal examination was performed which revealed between stage II and III external and internal hemorrhoids. There was no active bleeding identified. Normal sphincter tone was felt and there were no palpable masses. Prostate gland was palpable and appeared normal. The endoscope was then intubated into the anus, rectum gently insufflated. The endoscope was then advanced through the valves of Mc of the rectum with no polyps or any neoplasms identified. Through the sigmoid colon, no diverticulosis identified. The endoscope was then advanced through the remainder of the descending, transverse and ascending colon to the cecum, which appeared normal with no other lesions identified. The endoscope was then slowly withdrawn while taking a second look and suctioning of residual air with no additional findings. The patient tolerated the procedure well. He will need to proceed with the necessary lifestyle and dietary accommodation, which we have tried to explain to the patient many times, which would encompass cessation of smoking and alcohol as well as caffeinated beverages. He also needs to have the proper treatment and follow up for Helicobacter pylori infestation. He is currently on Nexium. He also needs to follow a high-fiber diet with at least 30 g of fiber daily as well as significant amounts of water to promote soft consistency stools on a daily basis. If he continues to drink and become dehydrated and have hard stools, he will continue to have hemorrhoidal flareups and bleeding. Job ID: [id number] DocumentID: [id number] Dictated Date: 06/06/2023 11:50:59 Estimator And Drafter Date: 06/06/2023 19:54:00 Dictated By: LESTER HOWELL MD
== END 2023-06-06 12:35 | disposition home or self-care (01) ==
LOC: ENDO 09:33
PROVIDERS: ATTEND Surgery
DX: K21.00 Gastro-esophageal reflux disease with esophagitis, without bleeding (principal); K29.70 Gastritis, unspecified, without bleeding; K22.2 Esophageal obstruction; K62.5 Hemorrhage of anus and rectum; K31.89 Other diseases of stomach and duodenum; K44.9 Diaphragmatic hernia without obstruction or gangrene; K64.4 Residual hemorrhoidal skin tags; K64.2 Third degree hemorrhoids; Z87.19 Personal history of other diseases of the digestive system; Z87.11 Personal history of peptic ulcer disease; Z86.19 Personal history of other infectious and parasitic diseases; Z87.891 Personal history of nicotine dependence; Z91.199 Patient's noncompliance with other medical treatment and regimen due to unspecified reason

== ENCOUNTER 2023-08-08 10:07 | Day surgery (SDC) | payer MEDICAID ==
--- NOTE | 2023-08-07 16:03 | HISTORY AND PHYSICAL ---
This is for date of service 08/08/2023. ATTENDING PRIMARY CARE PHYSICIAN: [facility]. The patient is a 57-year-old male who is known to us. He has a longstanding history of gastroesophageal reflux disease, peptic ulcer disease, H. pylori gastritis as well as Shetty's esophagus. He is also status post hiatal hernia repair as well as a healed gastropexy for his gastroesophageal reflux disease, however, has had some recurrent issues with reflux as well as development of dysphagia. He is also severely noncompliant. He does have many risk factors including smoking 2 packs daily as well as drinking alcohol on a daily basis. He has had several EGDs and biopsies in the past as well as balloon dilatation due to symptomatic dysphagia. His last EGD was on 06/06/2023 as well as a colonoscopy and was found to have reflux esophagitis [place] grade C, mild distal esophageal stricture, recurrent hiatal hernia, 2.5 cm in size, moderate gastritis and chronic stage II external and internal hemorrhoids. Biopsies were negative for H. pylori as well as negative for Shetty's esophagus. On today's visit, he reports that he once again has had recurrent issues with difficulty swallowing certain types of foods, especially lean meats and dry breads. Again, he does continue to smoke as well as drink and does have episodes of reflux. He is currently on Nexium daily. He denies any hematemesis or any coffee-ground emesis. MEDICAL HISTORY: Gastroesophageal reflux disease, H. pylori gastritis, Shetty's esophagus, hypertension, hemorrhoids, esophageal strictures, history of alcoholism. SURGICAL HISTORY: Laparoscopic [place] gastropexy 2006, diagnostic laparoscopy and evacuation of hematoma in 2006, multiple EGDs with biopsies as well as dilatation and colonoscopies. history of orchiectomy, bilateral carpal tunnel and ulnar nerve release 05/2019. ALLERGIES: No known drug allergies. MEDICATIONS: Albuterol sulfate HFA p.r.n., Nexium 40 mg daily, Carafate 1 gram q.i.d. p.r.n. SOCIAL HISTORY: Positive for tobacco smoke, 60+ pack years, daily for alcohol. FAMILY HISTORY: Noncontributory. VITAL SIGNS: Stable. Current weight 151 pounds at 5 feet 9 inches. REVIEW OF SYSTEMS: Well-nourished male in no acute distress. He is not experiencing any shortness of breath or difficulty breathing. No chest pain, palpitations or diaphoresis. No nausea, vomiting or abdominal pain. He does report difficulty swallowing as well as episodes of reflux. No diarrhea or constipation. No red blood per rectum. No dark tarry stools. No fever or chills. No recent inadvertent weight loss. All other review of systems negative. PHYSICAL EXAM: CHEST: Scattered rales and rhonchi bilaterally. HEART: Regular, no murmurs. EXTREMITIES: No lower extremity edema. Negative Homans sign. HEENT: No scleral icterus. No cervical lymphadenopathy. ABDOMEN: Soft, nontender, nondistended. SKIN: Warm, dry and pink. NEUROLOGIC: Awake, alert and oriented x3. ASSESSMENT AND PLAN: A 57-year-old male with recurrent dysphagia as well as reflux. At this time, he does continue to be noncompliant. We will proceed with scheduling him for an EGD with biopsies as appropriate as well as possible balloon dilatation. Job ID: [id number] DocumentID: [id number] Dictated Date: 08/07/2023 13:31:18 Draw Bench Operator Date: 08/07/2023 16:00:00 Dictated By: NILTON ANDREWS APRN
[~2023-08-08] VITALS: Ht 175.3 cm; Wt 69.0 kg
[2023-08-08] MEDS ORDERED: LACTATED RINGERS 1,000 ML 1,000 ML IV STA (10:17)
[2023-08-08 10:30] VITALS: BP 140/71
[2023-08-08] MEDS ORDERED: LIDOCAINE JELLY 2% 6 ML SYRINGE MM PRN (10:30)
[2023-08-08] MEDS ORDERED: HURRICAINE EXT TUBE (BENZOCAINE) XX PRN (10:30)
[2023-08-08] MEDS ORDERED: LIDOCAINE JELLY 2% 6 ML SYRINGE ONE (10:33)
[2023-08-08] MEDS ORDERED: MIDAZOLAM INJ 2 MG/2 ML VIAL ONE (10:48)
--- NOTE | 2023-08-08 10:51 | Progress Note-Pre Operative ---
Pre-Operative Progress Note Date of Available H&P: Aug 08, 2023 Date H&P Reviewed: Aug 08, 2023 Time H&P Reviewed: 10:00 History & Physical: No changes noted Pre-Operative Diagnosis: dysphagia,GERD LESTER HOWELL MD Aug 08, 2023 10:50
--- NOTE | 2023-08-08 10:53 | Discharge Inst-Surgical ---
D/C Lap Instructions-LYNDA Follow Up Appt in 2 weeks Activity as tolerated High Fiber Diet 25g or more per day Avoid Alcohol, Caffeine, Spicy [place] and Acid foods. Drink 64 fluid oz or more of fluids per day. Symptoms to Report: Fever over 101 degree F, Nausea/Vomiting If any problems/questions: Contact your physician or go to Emergency Room LESTER HOWELL MD Aug 08, 2023 10:53
[2023-08-08] MEDS ORDERED: ONDANSETRON 4 MG ORAL DISSOLVE TABLET PO PRN (11:00)
[2023-08-08] MEDS ORDERED: ONDANSETRON INJECTION 4 MG/2 ML (SDV) IVP PRN (11:00)
[2023-08-08 11:25] VITALS: BP 86/58
[2023-08-08 11:30] VITALS: BP 87/56
[2023-08-08 11:35] VITALS: BP 105/69
--- NOTE | 2023-08-08 11:41 | Progress Note-Post Operative ---
Post-Operative Progess Note Surgeon (s)/Maid Cleaning Cooking (s) Surgeon LESTER HOWELL MD Maid Cleaning Cooking: none Pre-Operative Diagnosis dysphagia,GERD Post-Operative Diagnosis reflux esophagitis(grade C), mild dist esoph stricture, recurrent HH(2cm), severe gastritis, no dist obstructions. Procedure & Operative Findings Date of Procedure 08/08/23 Procedure Performed/Findings EGD with bx and balloon dilatation. Anesthesia Type mac Estimated Blood Loss Estimated blood loss (mL): minimal Specimens/Packing Specimens Removed ge jxn, antrum LESTER HOWELL MD Aug 08, 2023 11:41
--- NOTE | 2023-08-08 11:50 | Anesthesia-General Post-Op ---
MAC Patient Condition Mental Status/LOC: Same as Preop Cardiovascular: Satisfactory Nausea/Vomiting: Absent Respiratory: Satisfactory Pain: Controlled Complications: Absent Post Op Complications Complications None Follow Up Care/Instructions Patient Instructions None needed. Anesthesiology Discharge Order Discharge Order Patient is doing well, no complaints, stable vital signs, no apparent adverse anesthesia problems. No complications reported per nursing. NICO BARNARD PAINT COATING MACHINE OPERATOR Aug 08, 2023 11:49
[2023-08-08 12:30] VITALS: BP 105/69
--- NOTE | 2023-08-08 20:00 | OPERATIVE REPORT ---
DATE OF SERVICE: 08/08/2023 PREOPERATIVE DIAGNOSES: Symptomatic dysphagia, gastroesophageal reflux disease, history of Shetty's esophagus, history of H. pylori gastritis. POSTOPERATIVE DIAGNOSES: Reflux esophagitis, Barry grade C, mild distal esophageal stricture, small recurrent hiatal hernia, 2 cm in size, severe gastritis, no distal obstructions. PROCEDURE: EGD with biopsy and balloon dilatation. SURGEON: Lester Howell MD ANESTHESIA: Monitored anesthesia care. ESTIMATED BLOOD LOSS: Minimal. FINDINGS: Reflux esophagitis, Barry grade C, mild distal esophageal stricture, small recurrent hiatal hernia, 2 cm in size, severe gastritis, no distal obstructions. DISPOSITION: The patient tolerated the procedure well. INDICATIONS: The patient is a 57-year-old male well known to us. He has had multiple EGDs due to symptomatic gastroesophageal reflux disease and dysphagia. He has been found to have significant reflux esophagitis with the last one being Barry grade C as well as a distal esophageal stricture and recurrent hiatal hernia 2-2.5 cm in size on his last EGD on 06/06/2023. He also has a known history of Shetty's esophagus as well as H. pylori and has never been compliant and never able to complete his medication regimen. He does have significant risk factors including smoking 2 packs of cigarettes daily as well as drinking approximately one-fifth of hard alcohol daily. Again, he has had recurrent dysphagia for meats and dry breads and continues to have epigastric crampy pain. DESCRIPTION OF PROCEDURE: The patient was brought to the endoscopy suite and laid in the left lateral decubitus position. After adequate IV pain and sedative medications and monitored anesthesia care, the mouthpiece was applied. The endoscope was placed in the mouth, visualized the pharynx and hypopharyngeal region. Vocal cords, epiglottis and vallecula identified and appeared to be normal. The endoscope was then gently intubated into the esophageal opening and esophagus insufflated. The endoscope was then advanced through the first, second and third portion of esophagus at the level of the GE junction, reflux esophagitis, Barry grade C identified with a mild distal esophageal stricture. A biopsy was taken with forceps with visualization of good hemostasis. The endoscope was then advanced in the stomach and endoscope retroflexed visualizing a small recurrent hiatal hernia approximately 2-2.5 cm in size. There was a severe gastritis, which was diffuse. No formal ulcerations, polyps or any neoplasms and a biopsy was taken of the antrum to rule out H. pylori with visualization of good hemostasis. The endoscope was then advanced through the pylorus and the first and second portion of the duodenum, which appeared normal with no distal obstructions. The balloon was then placed in the stomach and pulled back to the area of the stricture. We then proceeded with graded dilatation from 2, 4 and then eventually 6 atmospheres of pressure with 60 seconds in between and once we had 6 atmospheres of pressure, we encountered moderate resistance or at 20 mm in luminal diameter and left the balloon in place for 120 seconds. The balloon was then desufflated and removed with visualization of good hemostasis as well as no mucosal tears. The endoscope was then slowly withdrawn while taking a second look and suctioning of residual air with no additional findings. The patient tolerated the procedure well. We will recommend continued medical management with his PPI acid neck cutter; however, again, he has never completed the treatment modality for Helicobacter pylori and we feel that this would help. He also does have significant risk factors including excessive amount of smoking and alcohol, which we have talked to him in depth about as the stimulus for recurrent upper gastrointestinal symptoms and he states that he always tries, however, relapses. Job ID: [id number] DocumentID: [id number] Dictated Date: 08/08/2023 11:30:55 [employer]ender Date: 08/08/2023 19:58:00 Dictated By: LESTER HOWELL MD
== END 2023-08-08 12:30 | disposition home or self-care (01) ==
LOC: ENDO 10:07
PROVIDERS: ATTEND Surgery
DX: K21.00 Gastro-esophageal reflux disease with esophagitis, without bleeding (principal); K22.2 Esophageal obstruction; K44.9 Diaphragmatic hernia without obstruction or gangrene; K29.70 Gastritis, unspecified, without bleeding; F17.210 Nicotine dependence, cigarettes, uncomplicated; Z87.11 Personal history of peptic ulcer disease; Z91.199 Patient's noncompliance with other medical treatment and regimen due to unspecified reason; F10.20 Alcohol dependence, uncomplicated